=== PATIENT | female | born 1970 | race Two or more races ===

== ENCOUNTER → 2020-10-18 13:10 | Outpatient (BNVA) | payer MEDICAID, SELFPAY | PROVIDERS: PCP Internal Medicine; Referring Provider Internal Medicine; Visit Provider Nurse Practitioner | DX: Z76.89 Persons encountering health services in other specified circumstances (principal) ==

== ENCOUNTER 2020-11-07 13:52 | Outpatient (REF) | payer MEDICAID, SELFPAY | END 2020-11-07 13:53 | disposition home or self-care (01) | LOC: HO.LAB 13:52 | PROVIDERS: Visit Provider Internal Medicine | DX: Z20.828 Contact with and (suspected) exposure to other viral communicable diseases (principal) | CPT/HCPCS: C9803; U0003 ==

== ENCOUNTER 2020-11-20 11:59 | Emergency (ER) | payer MEDICAID, SELFPAY ==
[2020-11-20 12:13] VITALS: BP 131/65; PULSE 86; RESP 18; TEMP 36.8; O2SAT 99; BMI 33.3
--- NOTE | 2020-11-20 12:29 | ED.URI ---
HPI - URI/Sore Throat General Chief Complaint: Upper Respiratory Symptoms Stated Complaint: covid symptoms Time Seen by Provider: 11/20/20 12:17 Source: patient Mode of arrival: ambulatory Limitations: no limitations History of Present Illness HPI Narrative: 50-year-old female here with 5 days of cough, body aches, chills, loss of taste and smell. No fevers, shortness of breath, chest pain. MD elicited complaint: cough Onset (ago): day(s) Consistency: intermittent Severity: mild Able to tolerate fluids by mouth: Yes Exacerbating factors: nothing Relieving factors: nothing Associated symptoms: myalgias and cough Treatments prior to arrival: none Related Data Previous Rx's Medication Instructions Recorded dicyclomine 10 mg capsule 20 mg PO QID 30 Days #240 cap 10/18/20 Allergies Allergy/AdvReac Type Severity Reaction Status Date / Time shrimp Allergy Unknown EYE ITCHING Verified 10/18/20 13:11 Review of Systems Review of Systems: Yes all other systems are reviewed and are negative Constitutional: Constitutional: Reports no additional constitutional complaints, Reports body ache(s), Reports chills, Denies fever(s), Denies headache(s) and Denies weakness Comments: Loss of taste and smell Eyes: Eyes: Reports no additional eye complaints and Denies change in vision ENT: Reports system reviewed and no additional complaints, except as documented, Denies dizziness, Denies headache(s), Denies nasal congestion, Denies nasal discharge and Denies neck pain Cardiovascular: Cardiovascular: Reports no additional cardiovascular complaints, Denies chest pain, Denies leg edema and Denies dyspnea Respiratory: Respiratory: Reports no additional respiratory complaints, Reports cough and Denies dyspnea Gastrointestinal: Gastrointestinal: Reports no additional gastrointestinal complaints, Denies abdominal pain, Denies diarrhea, Denies nausea and Denies vomiting Genitourinary: Genitourinary: Reports no additional female genitourinary complaints and Denies urinary incontinence Musculoskeletal: Musculoskeletal: Reports no additional musculoskeletal complaints, Denies back pain, Denies arthralgias, Denies joint swelling, Denies neck pain, Denies numbness and Denies tingling Integumentary/Breasts: Skin/Breast: Reports system reviewed and no additional complaints, except as docu and Denies rash Neurologic: Reports system reviewed and no additional complaints, except as documented, Denies Abnormal speech present, Denies dizziness, Denies headache(s), Denies numbness, Denies tingling and Denies weakness [facility] Past Medical History Attestation statement: The following information was validated with the patient. Source: old records reviewed and nursing notes reviewed Surgical History Hx of hemorrhoidectomy Hx of hernia repair Hx of tubal ligation Family History Family History Father Heart problem Asthma Mother Colon cancer HTN (hypertension) Varicose vein of leg Family history of diabetes mellitus Social History Social History Household Members: None Alcohol intake: current Alcohol intake frequency: holidays/special occasions only Smoking Status: Never smoker Substance Use Type: Marijuana Advance Directives: No Advance Directives Information Provided: Yes Physical Exam Vital Signs: Vital Signs: Last Vital Signs Temp 98.2 F 11/20/20 12:13 Pulse 86 11/20/20 12:13 Resp 18 11/20/20 12:13 BP 131/65 11/20/20 12:13 Pulse Ox 99 11/20/20 12:13 Body Mass Index 33.3 Const: General: cooperative, healthy appearing, comfortable and no acute distress Orientation/consciousness: patient oriented x3 Limitations: no limitations HENMT: Head: Yes normal to inspection Ears: hearing grossly normal bilaterally General nose exam: Normal external nose present Face and sinus: Yes normal facial exam Mouth: Normal oral and palatal mucosa present Throat: Yes posterior oropharynx normal Eyes: General: appearance normal, both eyes and all related structures Pupils: Equal, round and reactive pupils present Neck: Neck: Yes normal visual inspection Chest: Chest palpation & inspection: normal inspection of the chest Resp: Effort & Inspection: normal respiratory effort Auscultation: clear to auscultation bilaterally Cardio: Rate: regular rate Rhythm: regular rhythm Peripheral pulses: Peripheral pulses 2+ throughout GI: Inspection: Yes normal to inspection Palpation (GI): Soft to palpation and nontender Auscultation: normal bowel sounds Back/Spine/Pelvis: Thoracic/Lumbar Spine: thoracic and lumbar spine normal to inspection Skin: General skin exam: no rashes or lesions noted Neuro: General: patient oriented x3, no focal motor deficits and normal sensation to monofilament Cranial nerves: Yes Equal, round and reactive pupils present Cognition (Neuro): normal cognition Speech: No Abnormal speech present Gait exam (Neuro): Normal gait present Motor exam (neuro): 5/5 motor strength present throughout Extrem: General: Yes normal to inspection Course Course Course Narrative: Patient well-appearing, exam consistent with COVID-19 or viral infection. COVID-19 testing sent. Reviewed worrisome signs and symptoms with the patient. Comfortable with discharge home. Discharge Plan Discharge Clinical Impression: Viral infection Patient Disposition: Home, Self-Care Instructions: Viral Syndrome (ED) Additional Instructions: We have tested you today For COVID-19. We will call you and 3-5 days with the results. Your symptoms are consistent with COVID-19 infection. You should self quarantine until you know your results are. If you are positive you will need to self quarantine for a total of 10 days from when her symptoms started in your symptoms must be resolved for 24hrs. take Motrin Tylenol as needed for pain or fever Increase fluids rest Prescriptions: No Action dicyclomine 10 mg capsule 20 mg PO QID 30 Days Qty: 240 RF: 3 Referrals: Mateo Bowen MD [Primary Care Provider] - 2 days Interventions: ED Discharge Assessment Last Done: 11/20/20 12:55 Discharge Date/Time: 11/20/20 12:57
[2020-11-20 15:25] LABS: Influenza A PCR NEGATIVE (Negative); Influenza B PCR NEGATIVE (Negative); Resp Syncy Virus RNA Qual PCR NEGATIVE (Negative); SARS COV2 PCR INHOUSE POSITIVE (Negative)
== END 2020-11-20 12:57 | disposition home or self-care (01) ==
LOC: HO.ED 12:32
PROVIDERS: Nurse Practitioner Family; Emergency Provider Emergency Medicine; PCP Internal Medicine
DX: U07.1 COVID-19 (principal)
CPT/HCPCS: 0241U; 99283

== ENCOUNTER 2020-12-30 12:35 | Emergency (ER) | payer MEDICAID, SELFPAY ==
[2020-12-30 12:38] VITALS: BP 164/74; PULSE 93; RESP 16; TEMP 37.2; O2SAT 98; BMI 32.9
[2020-12-30] MEDS: cephALEXin 500 MG CAPSULE PO (13:13)
[2020-12-30] MEDS: Lidocaine HCl 1 % MPF 5 ML VIAL SUBCUT (13:13)
--- NOTE | 2020-12-30 13:35 | ED_ITS ---
HPI - Skin/Abscess/Foreign Bdy General Chief complaint: Skin/Abscess/Foreign Body Stated complaint: CYST Time Seen by Provider: 12/30/20 13:05 History of Present Illness HPI narrative: Patient complains of painful small lump on forehead that started as a pimple and she squeezed it and now it has worsened now there is some redness and swelling in the area no fever no chills Related Data Previous Rx's Medication Instructions Recorded dicyclomine 10 mg capsule 20 mg PO QID 30 Days #240 cap 10/18/20 cephalexin [Keflex] 500 mg PO QID 7 Days #28 cap 12/30/20 doxycycline hyclate 100 mg PO BID 7 Days #14 cap 12/30/20 ibuprofen 600 mg PO Q6H PRN #20 tab 12/30/20 oxycodone-acetaminophen [Percocet] 1 tab PO Q6H PRN #10 tab 12/30/20 Allergies Allergy/AdvReac Type Severity Reaction Status Date / Time shrimp Allergy Unknown EYE ITCHING Verified 10/18/20 13:11 Review of Systems Review of Systems: Positive as painful red area on forehead Negatives are no fever no chills no dizziness or weakness no headache no neck pain no neck stiffness no difficulty breathing no nausea no vomiting no other r ed PMFSH Past Medical History Source: nursing notes reviewed Surgical History Hx of hemorrhoidectomy Hx of hernia repair Hx of tubal ligation Family History Family History Father Heart problem Asthma Mother Colon cancer HTN (hypertension) Varicose vein of leg Family history of diabetes mellitus Social History Social History Household Members: None Alcohol intake: current Alcohol intake frequency: holidays/special occasions only Smoking Status: Never smoker Substance Use Type: Marijuana Advance Directives: No Advance Directives Information Provided: Yes Physical Exam Vital Signs: Vital Signs: Last Vital Signs Temp 99.0 F 12/30/20 12:38 Pulse 93 12/30/20 12:38 Resp 16 12/30/20 12:38 BP 164/74 H 12/30/20 12:38 Pulse Ox 98 12/30/20 12:38 Body Mass Index 32.9 General appearance comfortable relax no acute distress A&O x3 The head the forehead has a quarter-sized area of induration with slight fluctuance that is red and tender with some slight erythema surrounding the area, pupils equal round reactive to light there is no tenderness over the sinuses there is no involvement of the orbital area ext locker motions are intact full and painless Neck is supple Respiratory no distress Extremities no rash full range of motion times were Neuro no focal deficit Course Course Course Narrative: ER course procedure note the indurated small fluctuant area on the forehead is cleansed and irrigated with Betadine Anesthesia is 3 cc of 1% lidocaine A very small incision was made with the discharge of a dropper 2 of pus and some watery serosanguineous fluid and the area was probed with forceps and no further pus collection was encountered and no packing was placed and a sterile dressing was placed Discharge Plan Discharge Clinical Impression: Abscess Cellulitis Qualifiers: Site of cellulitis: face Qualified Code(s): L03.211 - Cellulitis of face Abscess of skin or subcutaneous tissue Qualifiers: Site of cutaneous abscess: face Qualified Code(s): L02.01 - Cutaneous abscess of face Patient Disposition: Home, Self-Care Additional Instructions: I drained a small amount of fluid from the forehead abscess Apply warm cloth several times a day to facilitate any further drainage Take antibiotics as prescribed Return in 2-3 days for wound check Return to ER any time for spreading redness, worse pain and swelling, fever, headache, any sign of worse infection or any concerns Prescriptions: New cephalexin [Keflex] 500 mg capsule 500 mg PO QID 7 Days Qty: 28 RF: 0 doxycycline hyclate 100 mg capsule 100 mg PO BID 7 Days Qty: 14 RF: 0 ibuprofen 600 mg tablet 600 mg PO Q6H PRN (Reason: pain) Qty: 20 RF: 0 oxycodone-acetaminophen [Percocet] 5-325 mg tablet 1 tab PO Q6H PRN (Reason: pain) Qty: 10 RF: 0 No Action dicyclomine 10 mg capsule 20 mg PO QID 30 Days Qty: 240 RF: 3 Stand Alone Forms: Work/School Release
== END 2020-12-30 14:01 | disposition home or self-care (01) ==
PROVIDERS: Emergency Provider Emergency Medicine
DX: L02.01 Cutaneous abscess of face (principal); L03.211 Cellulitis of face
CPT/HCPCS: 10060; 87071; 87147; 87186; 87205; 99283; 99284

== ENCOUNTER 2021-01-25 15:08 | Emergency (ER) | payer MEDICAID, SELFPAY ==
[2021-01-25 15:18] VITALS: BP 141/67; PULSE 87; RESP 18; TEMP 36.9; O2SAT 96; BMI 32.5
[2021-01-25 17:16] VITALS: BP 150/84; PULSE 77; RESP 17; TEMP 37; O2SAT 97
--- NOTE | 2021-01-25 17:58 | ED_ITS ---
HPI - General Adult General Chief complaint: General Medical Stated complaint: DIARRHEA Time Seen by Provider: 01/25/21 17:19 Source: patient Mode of arrival: ambulatory Limitations: no limitations History of Present Illness HPI narrative: Patient comes emergency room complaining of 1 year of diarrhea. Patient states every time she eats anything, she goes to the bathroom with diarrhea. No vomiting or abdominal pain. Patient states she has been seen by her PCP and has an appointment pending with Gastroenterology. The reason patient comes to the emergency room today is to try to find out answers why she has chronic diarrhea. She has no worsening symptoms. Related Data Previous Rx's Medication Instructions Recorded dicyclomine 10 mg capsule 20 mg PO QID 30 Days #240 cap 10/18/20 cephalexin [Keflex] 500 mg PO QID 7 Days #28 cap 12/30/20 doxycycline hyclate 100 mg PO BID 7 Days #14 cap 12/30/20 ibuprofen 600 mg PO Q6H PRN #20 tab 12/30/20 oxycodone-acetaminophen [Percocet] 1 tab PO Q6H PRN #10 tab 12/30/20 Allergies Allergy/AdvReac Type Severity Reaction Status Date / Time shrimp Allergy Mild EYE ITCHING Verified 01/25/21 15:17 Review of Systems Review of Systems: Constitutional : No Weight loss, No Fever, No Chills, No Night Sweats, No Fatigue, No Malaise ENT/Mouth : No Hearing loss, No Ear Pain, No Nasal Congestion, No Sinus Pain, No Hoarseness, No sore throat, No Rhinorrhea, No Swallowing Difficulty Eyes: No Eye Pain, No Swelling, No Redness, No Foreign Body, No Discharge, No Vision Changes Cardiovascular : No Chest Pain, No SOB, No Dyspnea on Exertion, No Orthopnea, No Edema, No Palpitations Respiratory : No Cough, No Sputum, No Wheezing, No Smoke Exposure, No Dyspnea Gastrointestinal : No Nausea, No Vomiting, complaining of chronic diarrhea, No Constipation, No abdominal Pain, No Hematochezia, No Melena Genitourinary : no irregular bleeding, No Dysuria, No Urinary Frequency, No Hematuria, No Urinary Incontinence, No Urgency, No Flank Pain, No Urinary Flow Changes, No Hesitancy Musculoskeletal : No joint pain, No Myalgias, No Joint Swelling Skin : No Skin Lesions, No rash Neuro : No Weakness, No Numbness, No Paresthesias, No Loss of Consciousness, No Dizziness, No Headache Psych : No Anxiety/Panic, No Depression, No SI/HI/AH/VH, No Social Issues, Heme/Lymph: No Bruising, No Bleeding,No Lymphadenopathy Endocrine : No Polyuria, No Polydipsia, No Temperature Intolerance PMF Past Medical History Medical History Diabetes Hypertension Surgical History Hx of hemorrhoidectomy Hx of hernia repair Hx of tubal ligation Family History Family History Father Heart problem Asthma Mother Colon cancer HTN (hypertension) Varicose vein of leg Family history of diabetes mellitus Social History Social History Household Members: None Alcohol intake: never Smoking Status: Never smoker Use of substances other than those prescribed or required for medical reasons: Yes Substance Use Type: Marijuana Substance Use Frequency: Occasionally Advance Directives: No Advance Directives Information Provided: No Physical Exam Vital Signs: Vital Signs: Last Vital Signs Temp 98.6 F 01/25/21 17:16 Pulse 77 01/25/21 17:16 Resp 17 01/25/21 17:16 BP 150/84 H 01/25/21 17:16 Pulse Ox 97 01/25/21 17:16 Body Mass Index 32.5 Appearance: Alert. Oriented X3. No acute distress. Eyes: Pupils equal, round and reactive to light. ENT: Pharynx normal. Neck: Normal inspection. Neck supple. No lymph nodes noted. No crepitus CVS: Normal heart rate and rhythm. Pulses normal. Normal S1 and S2 Respiratory: No respiratory distress. Breath sounds normal. No Wheezing. No rales Abdomen: Soft and nontender. No rigidity. No distention. good BS x4 Skin: Skin warm and dry. Normal skin color. Normal skin turgor. Extremities: No lower extremity edema. No lower extremity edema. No Lacerations. No Rash Neuro: Oriented X 3. No motor deficit. No sensory deficit. Moving all extermities. No slurred speech. Course Course Course Narrative: I discussed the labs with the patient, at this time, she was hydrated, she already has an appointment pending with her regional engagement consultant. Patient will follow-up as outpatient. Patient states she has tried multiple medications for chronic diarrhea with no effect. Medical Decision Making Lab Data Result diagrams: 01/25/21 18:37 01/25/21 18:36 Labs: Lab Results 01/25/21 01/25/21 01/25/21 Range/Units 18:36 18:37 18:37 WBC 5.5 (4.8-10.8) X10*3/uL RBC 5.22 (4.20-5.50) X10*6/uL Hgb 14.2 (12.0-16.0) g/dl Hct 44.3 (37-47) % MCV 84.9 (80-98) fL MCH 27.2 (27.0-33.0) pg MCHC 32.1 (31.0-35.0) g/dl RDW 12.9 (11.0-16.0) % Plt Count 258 (160-400) X10*3/uL MPV 9.8 (9.4-12.3) fL Immature Gran % (Auto) 0.2 (0.0-0.4) % Neut % (Auto) 46.3 (45-73) % Lymph % (Auto) 42.4 H (20-40) % [place] % (Auto) 7.1 (2-11) % Eos % (Auto) 3.3 (0-4) % Baso % (Auto) 0.7 (0-2) % Lymph # (Auto) 2.3 (1.2-4.9) X10*3/uL [place] # (Auto) 0.4 (0.1-1.2) X10*3/uL Eos # (Auto) 0.2 (0.0-0.4) X10*3/uL Baso # (Auto) 0.0 (0.0-0.2) X10*3/uL Abs Immat Gran (auto) 0.01 (0.00-0.03) X10*3/uL Absolute Neuts (auto) 2.6 (2.0-8.3) X10*3/uL Absolute Nucleated RBC 0.000 (0.0-0.012) X10*3/uL Nucleated RBC % (auto) 0.0 (0.0-0.2) /100WBC Sodium 139 (135-145) mmol/L Potassium 4.0 (3.3-5.1) mmol/L Chloride 98 (96-108) mmol/L Carbon Dioxide 30 H (22-29) mmol/L Anion Gap 15 (12-20) BUN 9 (9-16) mg/dL Creatinine 0.71 (0.5-1.4) mg/dL Estim Creat Clear Calc 93.2 Estimated GFR > 60 Random Glucose 264 H (60-115) mg/dL Calcium 9.8 (8.4-10.2) mg/dL Total Bilirubin 0.4 (0.0-1.0) mg/dL Direct Bilirubin < 0.2 (0.0-0.5) mg/dL AST 17 (5-31) U/L ALT 21 (0-31) U/L Alkaline Phosphatase 77 (39-117) U/L Total Protein 7.6 (6.5-8.0) g/dL Albumin 4.4 (3.5-5.0) g/dL Lipase 190 H (8-78) U/L Discharge Plan Discharge Clinical Impression: Chronic diarrhea Patient Disposition: Home, Self-Care Instructions: Chronic Diarrhea (ED) Additional Instructions: Please follow-up with your primary care physician tomorrow. If you have any worsening or new symptoms, please return to the emergency room or call 911 Prescriptions: No Action dicyclomine 10 mg capsule 20 mg PO QID 30 Days Qty: 240 RF: 3 cephalexin [Keflex] 500 mg capsule 500 mg PO QID 7 Days Qty: 28 RF: 0 doxycycline hyclate 100 mg capsule 100 mg PO BID 7 Days Qty: 14 RF: 0 ibuprofen 600 mg tablet 600 mg PO Q6H PRN (Reason: pain) Qty: 20 RF: 0 oxycodone-acetaminophen [Percocet] 5-325 mg tablet 1 tab PO Q6H PRN (Reason: pain) Qty: 10 RF: 0
[2021-01-25] MEDS: 0.9 % Sodium Chloride 1,000 ML 999 ML IVCONT (18:37)
[2021-01-25 18:46] LABS: MANUAL DIFF FLAG NO
[2021-01-25 18:47] LABS: Basophils Percent Auto 0.7 % (0-2); Eosinophils Absolute Auto 0.2 X10*3/uL (0.0-0.4); Eosinophils Percent Auto 3.3 % (0-4); Hematocrit 44.3 % (37-47); Hemoglobin 14.2 g/dl (12.0-16.0); Imm Gran Abs Auto 0.01 X10*3/uL (0.00-0.03); Imm Gran Pct Auto 0.2 % (0.0-0.4); Lymphocytes Absolute Auto 2.3 X10*3/uL (1.2-4.9); Lymphocytes Percent Auto 42.4 % (20-40); Mean Corpuscular HGB Conc 32.1 g/dl (31.0-35.0); Mean Corpuscular Hemoglobin 27.2 pg (27.0-33.0); Mean Corpuscular Volume 84.9 fL (80-98); Mean Platelet Volume 9.8 fL (9.4-12.3); Monocytes Absolute Auto 0.4 X10*3/uL (0.1-1.2); Monocytes Percent Auto 7.1 % (2-11); Neutrophils Absolute Auto 2.6 X10*3/uL (2.0-8.3); Neutrophils Percent Auto 46.3 % (45-73); Platelet Count 258 X10*3/uL (160-400); Red Blood Count 5.22 X10*6/uL (4.20-5.50); Red Cell Distribution Width 12.9 % (11.0-16.0); White Blood Count 5.5 X10*3/uL (4.8-10.8)
[2021-01-25 19:15] LABS: Alanine Aminotransferase 21 U/L (0-31); Albumin Level 4.4 g/dL (3.5-5.0); Alkaline Phosphatase 77 U/L (39-117); Anion Gap 15 (12-20); Aspartate Amino Transferase 17 U/L (5-31); Bilirubin Direct < 0.2 mg/dL (0.0-0.5); Bilirubin Total 0.4 mg/dL (0.0-1.0); Blood Urea Nitrogen 9 mg/dL (9-16); Calcium 9.8 mg/dL (8.4-10.2); Carbon Dioxide 30 mmol/L (22-29); Chloride 98 mmol/L (96-108); Creatinine Clr Calc Pharmacy 93.2; Estimated Glomerular Filt Rate > 60; Glucose Random 264 mg/dL (60-115); Sodium 139 mmol/L (135-145); Total Protein 7.6 g/dL (6.5-8.0)
[2021-01-25 20:13] LABS: Lipase 190 U/L (8-78)
== END 2021-01-25 20:53 | disposition home or self-care (01) ==
PROVIDERS: Emergency Provider Emergency Medicine; PCP Internal Medicine
DX: R19.7 Diarrhea, unspecified (principal); E11.9 Type 2 diabetes mellitus without complications; I10 Essential (primary) hypertension; F12.90 Cannabis use, unspecified, uncomplicated; Z79.899 Other long term (current) drug therapy
CPT/HCPCS: 36415; 80048; 80076; 83690; 85025; 96360; 99284

== ENCOUNTER → 2021-03-05 14:27 | Outpatient (BNVA) | payer MEDICAID, SELFPAY | PROVIDERS: PCP Internal Medicine; Visit Provider Nurse Practitioner ==

== ENCOUNTER 2021-03-06 13:44 | Outpatient (REF) | payer MEDICAID, SELFPAY ==
[2021-03-10 13:17] LABS: Gliadin Deamidated IgA Ab 4 Units; Gliadin Deamidated IgG Ab 2 Units
[2021-03-11 13:12] LABS: Transglutaminase Ab IgG 1 U/mL; Transglutaminase IgA 1 U/mL
== END 2021-03-06 13:45 | disposition home or self-care (01) ==
LOC: HO.LAB 13:44
PROVIDERS: PCP Internal Medicine; Visit Provider Nurse Practitioner
DX: R10.11 Right upper quadrant pain (principal); K58.0 Irritable bowel syndrome with diarrhea
CPT/HCPCS: 36415; 83516

== ENCOUNTER 2021-03-12 14:10 | Outpatient (REF) | payer MEDICAID, SELFPAY | END 2021-03-12 14:11 | disposition home or self-care (01) | LOC: HO.LNP 14:10 | PROVIDERS: Visit Provider Nurse Practitioner | DX: A04.8 Other specified bacterial intestinal infections (principal); K58.0 Irritable bowel syndrome with diarrhea | CPT/HCPCS: 87338 ==

== ENCOUNTER 2021-03-19 09:24 | Outpatient (REF) | payer MEDICAID, SELFPAY ==
--- NOTE | ~2021-03-19 | US_ITS ---
EXAMINATION: US ABDOMEN COMPLETE CLINICAL INFORMATION: Right upper quadrant pain. COMPARISON: Ultrasound abdomen limited 01/04/2018. CT abdomen pelvis 04/05/2015. TECHNIQUE: Real-time imaging of the abdominal viscera. FINDINGS: PANCREAS: The pancreas is normal size with a heterogenous echotexture but no focal lesion seen. The tail of pancreas is not seen well. ABDOMINAL AORTA: The proximal, mid, and distal segments are normal in caliber. INFERIOR VENA CAVA: Visualized portions are normal. LIVER: The liver is normal in size. The liver contour is normal. Parenchymal echogenicity is increased. No focal hepatic lesion. There is no intrahepatic biliary duct dilatation seen. GALLBLADDER: Gallbladder wall thickness is 0.15 cm. The gallbladder is physiologically distended without evidence of stones, sludge, polyps, wall thickening or pericholecystic fluid. COMMON BILE DUCT: Normal in caliber measuring 0.4 cm in diameter. RIGHT KIDNEY: There is an anechoic cyst midpole laterally measuring 1.2 x 0.9 x 1.0 cm. It has posterior wall rim calcification. No hydronephrosis or renal calculi. The kidney measures 10.9 cm in maximum dimension. LEFT KIDNEY: There is echogenic lesion in the midpole measuring 0.7 x 0.5 x 0.8 cm, suggestive of angiomyolipoma.. No hydronephrosis. No renal calculi or focal parenchymal lesions. The kidney measures 10.7 cm in maximum dimension. SPLEEN: Normal. The spleen measures 10.0 cm in maximum dimension. FREE FLUID: None. US/US abdomen complete IMPRESSION: Angiomyolipoma left kidney midpole. Complex cyst midpole right kidney. Heterogenous echotexture of the pancreas with tail of the pancreas is not seen well. Mild hepatic echogenicity. No focal lesion seen.
== END 2021-03-19 09:25 | disposition home or self-care (01) ==
LOC: HO.US 09:24
PROVIDERS: Visit Provider Nurse Practitioner
DX: R10.11 Right upper quadrant pain (principal)
CPT/HCPCS: 76700

== ENCOUNTER → 2021-04-02 14:58 | Outpatient (BNVA) | payer MEDICAID, SELFPAY | PROVIDERS: PCP Internal Medicine; Visit Provider Nurse Practitioner ==

== ENCOUNTER 2021-08-06 15:08 | Outpatient (REF) | payer MEDICAID, SELFPAY ==
--- NOTE | ~2021-08-06 | MM_ITS ---
EXAMINATION: MM SCREENING DIGITAL BREAST TOMOSYNTHESIS, BILATERAL CLINICAL INFORMATION: Screening. Asymptomatic. The lifetime risk of breast cancer based on the Tyrer-Cuzick Model is 6%. COMPARISON: Mammography: 04/21/2019, 04/20/2018, 03/09/2017 TECHNIQUE: Digital breast tomosynthesis is performed in both the craniocaudal and mediolateral oblique views along with computer-aided detection (CAD). Synthesized 2D images are generated from the tomosynthesis. Additional left MLO view is provided. FINDINGS: The breasts are heterogeneously dense, which may obscure small masses (ACR BI-RADS breast composition Category c). Breast tissue composition borders on average fibroglandular. Parenchymal pattern is similar to prior studies. No developing density. There are scattered bilateral vascular calcifications. The axilla and skin contours are unremarkable. MM/MM tomosynthesis screening BI IMPRESSION: No mammographic evidence of malignancy. ASSESSMENT: BI-RADS 1: Negative RECOMMENDATION: Routine annual mammography screening. This patient's information was entered into a reminder system with a target due date for their next mammogram.
== END 2021-08-06 15:09 | disposition home or self-care (01) ==
LOC: HO.MAMMO 15:08
PROVIDERS: PCP Internal Medicine; Visit Provider Internal Medicine
DX: Z12.31 Encounter for screening mammogram for malignant neoplasm of breast (principal)
CPT/HCPCS: 77063; 77067

== ENCOUNTER → 2021-10-07 16:15 | Outpatient (BNVA) | payer MEDICAID, SELFPAY | PROVIDERS: PCP Internal Medicine; Visit Provider Nurse Practitioner ==

== ENCOUNTER → 2021-12-12 10:27 | Outpatient (BNVA) | payer MEDICAID, SELFPAY | PROVIDERS: PCP Internal Medicine; Referring Provider Internal Medicine; Visit Provider Nurse Practitioner | DX: K58.0 Irritable bowel syndrome with diarrhea (principal); R10.11 Right upper quadrant pain; E11.9 Type 2 diabetes mellitus without complications; Z79.84 Long term (current) use of oral hypoglycemic drugs; Z86.19 Personal history of other infectious and parasitic diseases | CPT/HCPCS: 99212 ==

== ENCOUNTER 2022-01-08 12:07 | Outpatient (REF) | payer MEDICAID, SELFPAY ==
[2022-01-08 13:30] LABS: MANUAL DIFF FLAG NO
[2022-01-08 13:48] LABS: Basophils Percent Auto 0.4 % (0-2); Eosinophils Absolute Auto 0.1 X10*3/uL (0.0-0.4); Eosinophils Percent Auto 1.5 % (0-4); Hematocrit 41.6 % (37.0-47.0); Hemoglobin 13.8 g/dl (12.0-16.0); Imm Gran Abs Auto 0.01 X10*3/uL (0.00-0.03); Imm Gran Pct Auto 0.2 % (0.0-0.4); Lymphocytes Absolute Auto 1.8 X10*3/uL (1.2-4.9); Lymphocytes Percent Auto 33.8 % (20-40); Mean Corpuscular HGB Conc 33.2 g/dl (31.0-35.0); Mean Corpuscular Hemoglobin 27.5 pg (27.0-33.0); Mean Corpuscular Volume 82.9 fL (80.0-98.0); Mean Platelet Volume 9.6 fL (9.4-12.3); Monocytes Absolute Auto 0.3 X10*3/uL (0.1-1.2); Monocytes Percent Auto 5.9 % (2-11); Neutrophils Absolute Auto 3.2 x10*3/uL (2.0-8.3); Neutrophils Percent Auto 58.2 % (45-73); Platelet Count 302 X10*3/uL (160-400); Red Blood Count 5.02 X10*6/uL (4.20-5.50); Red Cell Distribution Width 13.1 % (11.0-16.0); White Blood Count 5.4 X10*3/uL (4.8-10.8)
[2022-01-08 13:59] LABS: Estimated Average Glucose 249 mg/dL; Hemoglobin A1c % 10.3 %
[2022-01-08 14:20] LABS: Alanine Aminotransferase 17 U/L (0-31); Albumin Level 4.4 g/dL (3.5-5.0); Alkaline Phosphatase 73 U/L (39-117); Anion Gap 16 (12-20); Aspartate Amino Transferase 12 U/L (5-31); Bilirubin Total 0.2 mg/dL (0.0-1.0); Blood Urea Nitrogen 10 mg/dL (9-16); C Reactive Protein 0.35 mg/dL (< or = 0.50); Calcium 10.4 mg/dL (8.4-10.2); Carbon Dioxide 28 mmol/L (22-29); Chloride 101 mmol/L (96-108); Estimated Glomerular Filt Rate > 60; Glucose Random 212 mg/dL (60-115); Potassium 4.5 mmol/L (3.3-5.1); Sodium 140 mmol/L (135-145); Total Protein 7.8 g/dL (6.5-8.0)
== END 2022-01-08 12:08 | disposition home or self-care (01) ==
LOC: HO.LAB 12:07
PROVIDERS: PCP Internal Medicine; Referring Provider Internal Medicine; Visit Provider Nurse Practitioner
DX: R10.11 Right upper quadrant pain (principal); K58.0 Irritable bowel syndrome with diarrhea; E11.9 Type 2 diabetes mellitus without complications
CPT/HCPCS: 36415; 80053; 83036; 85025; 86140; 99212

== ENCOUNTER 2022-01-09 13:46 | Outpatient (REF) | payer MEDICAID, SELFPAY ==
[2022-01-09 15:16] LABS: CDiff Gene PCR NEGATIVE (Negative)
== END 2022-01-09 13:47 | disposition home or self-care (01) ==
LOC: HO.LNP 13:46
PROVIDERS: Visit Provider Nurse Practitioner
DX: K58.0 Irritable bowel syndrome with diarrhea (principal)
CPT/HCPCS: 87045; 87046; 87493

== ENCOUNTER → 2022-01-26 13:36 | Outpatient (BNVA) | payer MEDICAID, SELFPAY | PROVIDERS: PCP Internal Medicine; Referring Provider Internal Medicine; Visit Provider Nurse Practitioner | DX: K58.2 Mixed irritable bowel syndrome (principal); E11.9 Type 2 diabetes mellitus without complications; Z79.84 Long term (current) use of oral hypoglycemic drugs | CPT/HCPCS: 99212 ==

== ENCOUNTER 2022-05-11 20:30 | Emergency (ER) | payer MEDICAID, SELFPAY ==
[2022-05-11 21:01] VITALS: BP 134/70; PULSE 91; RESP 18; TEMP 37.6; O2SAT 96; BMI 30.2
[2022-05-11 21:16] LABS: MANUAL DIFF FLAG NO
[2022-05-11 21:31] LABS: Basophils Percent Auto 0.3 % (0-2); Eosinophils Absolute Auto 0.1 X10*3/uL (0.0-0.4); Eosinophils Percent Auto 0.8 % (0-4); Hematocrit 37.8 % (37.0-47.0); Hemoglobin 12.7 g/dl (12.0-16.0); Imm Gran Abs Auto 0.02 X10*3/uL (0.00-0.03); Imm Gran Pct Auto 0.2 % (0.0-0.4); Lymphocytes Absolute Auto 1.9 X10*3/uL (1.2-4.9); Lymphocytes Percent Auto 22.2 % (20-40); Mean Corpuscular HGB Conc 33.6 g/dl (31.0-35.0); Mean Corpuscular Hemoglobin 27.6 pg (27.0-33.0); Mean Corpuscular Volume 82.2 fL (80.0-98.0); Mean Platelet Volume 10.5 fL (9.4-12.3); Monocytes Absolute Auto 0.7 X10*3/uL (0.1-1.2); Monocytes Percent Auto 7.5 % (2-11); Neutrophils Absolute Auto 5.9 x10*3/uL (2.0-8.3); Platelet Count 256 X10*3/uL (160-400); Red Cell Distribution Width 12.6 % (11.0-16.0); White Blood Count 8.6 X10*3/uL (4.8-10.8)
[2022-05-11 21:40] LABS: Influenza A Negative (Negative); Influenza B2 Negative (Negative)
[2022-05-11 21:41] LABS: Alanine Aminotransferase 15 U/L (0-31); Albumin Level 3.9 g/dL (3.5-5.0); Alkaline Phosphatase 84 U/L (39-117); Anion Gap 12 (12-20); Aspartate Amino Transferase 10 U/L (5-31); Bilirubin Total 0.6 mg/dL (0.0-1.0); Blood Urea Nitrogen 14 mg/dL (9-16); Calcium 9.3 mg/dL (8.4-10.2); Carbon Dioxide 29 mmol/L (22-29); Chloride 95 mmol/L (96-108); Creatinine Clr Calc Pharmacy 78.9; Estimated Glomerular Filt Rate > 60; Glucose Random 444 mg/dL (60-115); Potassium 3.9 mmol/L (3.3-5.1); Sodium 132 mmol/L (135-145)
[2022-05-11 21:55] LABS: Acetone, serum QL Negative (Negative)
--- NOTE | 2022-05-11 22:02 | ED_ITS ---
HPI - General Adult General Chief complaint: Upper Respiratory Symptoms Stated complaint: Cyst on back, causing fatigue n/v Time Seen by Provider: 05/11/22 21:37 Source: patient Mode of arrival: ambulatory History of Present Illness HPI narrative: 51-year-old female with a past medical history of hypertension, diabetes, presenting to the ED complaining of myalgias, subjective fever, and cyst to mid back x couple days. Admits to popping cyst on back yesterday with slight drainage. Denies documented fever, ear pain, sore throat, cough, chest pain, shortness of breath, abdominal pain, nausea/vomiting Onset (ago): day(s) Related Data Home Medications Medication Instructions Recorded Confirmed glipizide 10 mg tablet 10 mg PO BID 03/05/21 paroxetine HCl 40 mg tablet (Paxil) 40 mg PO DAILY 03/05/21 gabapentin 100 mg capsule 100 mg PO TID 01/26/22 insulin glargine 100 unit/mL 10 unit subcut BEDTIME 01/26/22 subcutaneous solution (Lantus U-100 Insulin) lisinopril 10 mg tablet 10 mg PO DAILY 01/26/22 metformin 850 mg tablet 850 mg PO 01/26/22 paroxetine HCl 20 mg tablet 20 mg PO DAILY 01/26/22 sitagliptin 100 mg tablet (Januvia) 100 mg PO DAILY 01/26/22 Previous Rx's Medication Instructions Recorded ibuprofen 600 mg tablet 600 mg PO Q6H PRN pain #20 tabs 12/30/20 sennosides 8.6 mg capsule (senna) 17.2 mg PO BEDTIME constipation 30 01/26/22 days #60 caps cephalexin 500 mg capsule 500 mg PO QID 7 days #28 caps 05/11/22 doxycycline hyclate 100 mg tablet 100 mg PO BID 7 days #14 tabs 05/11/22 Allergies Allergy/AdvReac Type Severity Reaction Status Date / Time shrimp Allergy Mild EYE ITCHING Verified 01/26/22 14:10 Review of Systems Review of Systems: Constitutional: No Weight loss, +subj Fever, No Chills ENT/Mouth: No Ear Pain, No Nasal Congestion, No Sinus Pain, No sore throat, No Rhinorrhea, No Swallowing Difficulty Cardiovascular: No Chest Pain, No SOB Respiratory: No Cough, No Sputum, No Wheezing Gastrointestinal: No Nausea, No Vomiting, No Diarrhea, No Constipation, No Abdominal pain Genitourinary: No Dysuria, No Urinary Frequency, No Hematuria, No Urinary Incontinence/retention, No Flank Pain Musculoskeletal: No joint pain, No Myalgias, No Joint Swelling Skin: +abscess, No rash Neuro: No Weakness, No Numbness Yes all other systems are reviewed and are negative [facility] Past Medical History Attestation statement: The following information was validated with the patient. Medical History Diabetes Hypertension Surgical History H/O colonoscopy Hx of hemorrhoidectomy Hx of hernia repair Hx of tubal ligation Family History Family History Father Heart problem Asthma Mother Colon cancer HTN (hypertension) Varicose vein of leg Family history of diabetes mellitus Social History Social History Household Members: None Alcohol intake: current Alcohol intake frequency: holidays/special occasions only Substance Use Type: Marijuana Advance Directives: No Advance Directives Information Provided: No Physical Exam ED Vital Signs: Vital Signs - 24 hr 05/11/22 21:01 Temperature 99.6 F Pulse Rate 91 Respiratory Rate 18 Blood Pressure 134/70 Pulse Oximetry 96 Oxygen Delivery Method Room Air BMI result Body Mass Index 30.2 Const General: cooperative, healthy appearing and no acute distress Orientation/consciousness: patient oriented x3 Limitations: no limitations HENMT Head: Yes normal to inspection and Yes atraumatic Ears: hearing grossly normal bilaterally, external ears normal and mastoids normal General nose exam: Normal external nose present Face and sinus: Yes normal facial exam Mouth: Normal oral and palatal mucosa present Throat: Yes posterior oropharynx normal, Yes tonsils normal, Yes uvula midline, No peritonsillar mass and No uvular edema Eyes General: appearance normal, both eyes and all related structures EOM: EOMs intact bilaterally Neck Neck: Yes normal visual inspection and Yes no meningeal signs Resp Effort & Inspection: normal respiratory effort and no respiratory distress Auscultation: clear to auscultation bilaterally Cardio Rate: regular rate Heart sounds: S1 normal heart sound present and S2 normal heart sound present GI Inspection: Yes normal to inspection Skin Other: + indurated abscess noted to right mid-back with overlying cellulitis. Mildly tender to palpation. No fluctuance. No streaking. No drainage or pointing Rashes: no rashes Wounds: no wounds Neuro General: patient oriented x3, tone normal and no meningeal signs Gait exam (Neuro): Normal gait present Extrem General: Yes normal to inspection Course Course Course Narrative: -2206--no leukocytosis, sodium 132, glucose elevated to 444 >> corrected for hyperglycemia is 138. No anion gap -acetone negative > patient given 5 units subQ insulin -COVID-19 and influenza negative -UA without ketones -0--repeat POC 317. Discussed results with patient including needed close monitoring of glucose due to active infection, she verbalized understanding and feels safe for discharge home Medical Decision Making [facility] Narrative Medical decision making narrative: 51-year-old female with a past medical history of hypertension, diabetes, presenting to the ED complaining of myalgias, subjective fever, and cyst to mid back x couple days. On exam vital signs stable, low-grade temp to 99.6, NAD/nontoxic-appearing, indurated abscess with overlying cellulitis noted to right mid back. Exam otherwise nonfocal. Concern for cellulitis. Area not drainable at this time. Also concern for viral infection including COVID-19 or influenza Plan: Labs ordered in triage, COVID-19/influenza testing Medical Records Medical records reviewed: Yes I reviewed the patient's medical records. Lab Data Lab results reviewed: Yes I reviewed the patient's lab results. Result diagrams: 05/11/22 21:08 05/11/22 21:08 Labs: Lab Results 05/11/22 05/11/22 05/11/22 Range/Units 21:08 21:08 21:08 WBC 8.6 (4.8-10.8) X10*3/uL RBC 4.60 (4.20-5.50) X10*6/uL Hgb 12.7 (12.0-16.0) g/dl Hct 37.8 (37.0-47.0) % MCV 82.2 (80.0-98.0) fL MCH 27.6 (27.0-33.0) pg MCHC 33.6 (31.0-35.0) g/dl RDW 12.6 (11.0-16.0) % Plt Count 256 (160-400) X10*3/uL MPV 10.5 (9.4-12.3) fL Immature Gran % (Auto) 0.2 (0.0-0.4) % Neut % (Auto) 69.0 (45-73) % Lymph % (Auto) 22.2 (20-40) % [place] % (Auto) 7.5 (2-11) % Eos % (Auto) 0.8 (0-4) % Baso % (Auto) 0.3 (0-2) % Lymph # (Auto) 1.9 (1.2-4.9) X10*3/uL [place] # (Auto) 0.7 (0.1-1.2) X10*3/uL Eos # (Auto) 0.1 (0.0-0.4) X10*3/uL Baso # (Auto) 0.0 (0.0-0.2) X10*3/uL Abs Immat Gran (auto) 0.02 (0.00-0.03) X10*3/uL Absolute Neuts (auto) 5.9 (2.0-8.3) x10*3/uL Absolute Nucleated RBC 0.000 (0.0-0.012) X10*3/uL Nucleated RBC % (auto) 0.0 (0.0-0.2) /100WBC Sodium 132 L (135-145) mmol/L Potassium 3.9 (3.3-5.1) mmol/L Chloride 95 L (96-108) mmol/L Carbon Dioxide 29 (22-29) mmol/L Anion Gap 12 (12-20) BUN 14 (9-16) mg/dL Creatinine 0.80 (0.5-1.4) mg/dL Estim Creat Clear Calc 78.9 Estimated GFR > 60 Random Glucose 444 H* (60-115) mg/dL Calcium 9.3 D (8.4-10.2) mg/dL Total Bilirubin 0.6 (0.0-1.0) mg/dL AST 10 (5-31) U/L ALT 15 (0-31) U/L Alkaline Phosphatase 84 (39-117) U/L Total Protein 7.0 (6.5-8.0) g/dL Albumin 3.9 (3.5-5.0) g/dL Urine Color Urine Appearance Urine pH (5.0-8.0) Ur Specific [place] (1.005-1.025) Urine Protein (NEG-TRACE) MG/DL Urine Glucose (UA) (NEG) MG/DL Urine Ketones (NEG) MG/DL Urine Blood (NEG) Urine Nitrite (NEG) Ur Leukocyte Esterase (NEG) Urine RBC (0) /HPF Urine WBC (0-4) /HPF Ur Squamous Epith Cells /LPF Urine Bacteria /LPF Acetone, Qual Negative (Negative) COVID-19 (ZACH) (Negative) COVID-19 Clin Com Influenza Type A (DAVID) Negative (Negative) Influenza Type B (DAVID) Negative (Negative) Influenza A & B Note See Note 05/11/22 05/11/22 05/11/22 Range/Units 21:08 22:11 22:44 WBC (4.8-10.8) X10*3/uL RBC (4.20-5.50) X10*6/uL Hgb (12.0-16.0) g/dl Hct (37.0-47.0) % MCV (80.0-98.0) fL MCH (27.0-33.0) pg MCHC (31.0-35.0) g/dl RDW (11.0-16.0) % Plt Count (160-400) X10*3/uL MPV (9.4-12.3) fL Immature Gran % (Auto) (0.0-0.4) % Neut % (Auto) (45-73) % Lymph % (Auto) (20-40) % [place] % (Auto) (2-11) % Eos % (Auto) (0-4) % Baso % (Auto) (0-2) % Lymph # (Auto) (1.2-4.9) X10*3/uL [place] # (Auto) (0.1-1.2) X10*3/uL Eos # (Auto) (0.0-0.4) X10*3/uL Baso # (Auto) (0.0-0.2) X10*3/uL Abs Immat Gran (auto) (0.00-0.03) X10*3/uL Absolute Neuts (auto) (2.0-8.3) x10*3/uL Absolute Nucleated RBC (0.0-0.012) X10*3/uL Nucleated RBC % (auto) (0.0-0.2) /100WBC Sodium (135-145) mmol/L Potassium (3.3-5.1) mmol/L Chloride (96-108) mmol/L Carbon Dioxide (22-29) mmol/L Anion Gap (12-20) BUN (9-16) mg/dL Creatinine (0.5-1.4) mg/dL Estim Creat Clear Calc Estimated GFR Random Glucose (60-115) mg/dL Calcium (8.4-10.2) mg/dL Total Bilirubin (0.0-1.0) mg/dL AST (5-31) U/L ALT (0-31) U/L Alkaline Phosphatase (39-117) U/L Total Protein (6.5-8.0) g/dL Albumin (3.5-5.0) g/dL Urine Color YELLOW Urine Appearance CLEAR Urine pH 6.0 (5.0-8.0) Ur Specific [place] 1.010 (1.005-1.025) Urine Protein NEG (NEG-TRACE) MG/DL Urine Glucose (UA) >=1000 H (NEG) MG/DL Urine Ketones NEG (NEG) MG/DL Urine Blood NEG (NEG) Urine Nitrite NEG (NEG) Ur Leukocyte Esterase NEG (NEG) Urine RBC 0 (0) /HPF Urine WBC 0-2 (0-4) /HPF Ur Squamous Epith Cells 2+ /LPF Urine Bacteria 1+ /LPF Acetone, Qual (Negative) COVID-19 (ZACH) Negative (Negative) COVID-19 Clin Com See Note Influenza Type A (DAVID) Negative (Negative) Influenza Type B (DAVID) Negative (Negative) Influenza A & B Note See Note Discharge Plan Discharge Clinical Impression: Abscess, Acute hyperglycemia, Cellulitis Patient Disposition: Home, Self-Care Instructions: Cellulitis (ED), Abscess (ED), Diabetic Hyperglycemia (ED), A bscess Follow-up (ED) Additional Instructions: Doxycycline and Keflex are antibiotics please take as prescribed. Keep a close eye on your abscess if it becomes pointing like a pimple head, is draining, becomes larger or more painful please return to ED for evaluation Your glucose was high today this is likely from her infection, monitor closely at home, do not miss any of her diabetic medications. If her unable to control her sugar please return to the ED If you develop fevers, symptoms persist or worsening please call 911 Prescriptions: New cephalexin 500 mg capsule 500 mg PO QID 7 Days Qty: 28 0RF doxycycline hyclate 100 mg tablet 100 mg PO BID 7 Days Qty: 14 0RF No Action ibuprofen 600 mg tablet 600 mg PO Q6H PRN (Reason: pain) Qty: 20 0RF glipizide 10 mg tablet 10 mg PO BID paroxetine HCl [Paxil] 40 mg tablet 40 mg PO DAILY metformin 850 mg tablet 850 mg PO gabapentin 100 mg capsule 100 mg PO TID lisinopril 10 mg tablet 10 mg PO DAILY paroxetine HCl 20 mg tablet 20 mg PO DAILY Lantus U-100 Insulin 100 unit/mL solution 10 unit subcut BEDTIME Januvia 100 mg tablet 100 mg PO DAILY senna 8.6 mg capsule 17.2 mg PO BEDTIME 30 Days Qty: 60 6RF
[2022-05-11] MEDS: cephALEXin 500 MG CAPSULE PO (22:06)
[2022-05-11] MEDS: Insulin Lispro 100 UNIT/ML 3 ML VIAL SUBCUT (22:07)
[2022-05-11 22:09] LABS: COVID-19 Test Negative (Negative); IDNOW Serial# 16C4AD1C
[2022-05-11 22:40] LABS: IDNOW Serial# 16C4AD1C; Influenza A Negative (Negative); Influenza B2 Negative (Negative)
[2022-05-11 22:57] LABS: Appearance Urine CLEAR; Color Urine YELLOW; Glucose Urine UA >=1000 MG/DL (NEG); Leukocyte Esterase Urine NEG (NEG); Nitrite Urine NEG (NEG); Urine Blood NEG (NEG); Urine Ketones NEG (NEG); Urine Protein NEG (NEG-TRACE)
[2022-05-11 23:03] LABS: Bacteria Urine 1+ /LPF; RBC Urine 0 /HPF (0); Squamous Epithelial Cell Urine 2+ /LPF; WBC Urine 0-2 /HPF (0-4)
[2022-05-11 23:21] LABS: Glucose, Whole Blood 318 mg/dL (60-115)
== END 2022-05-12 00:02 | disposition home or self-care (01) ==
PROVIDERS: Physician Assistant; Emergency Provider Internal Medicine; PCP Student in an Organized Health Care Education/Training Program
DX: L03.312 Cellulitis of back [any part except buttock and flank] (principal); L02.212 Cutaneous abscess of back [any part, except buttock and flank]; E11.65 Type 2 diabetes mellitus with hyperglycemia; I10 Essential (primary) hypertension; Z20.822 Contact with and (suspected) exposure to COVID-19
CPT/HCPCS: 80053; 81001; 82009; 82947; 85025; 87502; 87635; 99283; 99284

== ENCOUNTER 2022-05-14 12:11 | Emergency (ER) | payer MEDICAID, SELFPAY ==
[2022-05-14 12:19] VITALS: BP 133/70; PULSE 88; RESP 16; TEMP 36.6; O2SAT 99; BMI 29.8
--- NOTE | 2022-05-14 13:56 | ED_ITS ---
HPI - Skin/Abscess/Foreign Bdy General Chief complaint: Skin/Abscess/Foreign Body Stated complaint: cyst on back Time Seen by Provider: 05/14/22 13:22 Source: patient Mode of arrival: ambulatory Limitations: no limitations History of Present Illness HPI narrative: patient presents to the emergency department for evaluation of a cyst to her mid right back times about 1 week. she reports being seen in the emergency department 3 days ago, states that there was no indication for drainage at that time, she was given oral prescriptions for doxycycline and Keflex and advised to come back if worsening. states that she is having increasing pain, redness, and localized swelling. She reports subjective fevers and chills. Related Data Home Medications Medication Instructions Recorded Confirmed glipizide 10 mg tablet 10 mg PO BID 03/05/21 paroxetine HCl 40 mg tablet (Paxil) 40 mg PO DAILY 03/05/21 gabapentin 100 mg capsule 100 mg PO TID 01/26/22 insulin glargine 100 unit/mL 10 unit subcut BEDTIME 01/26/22 subcutaneous solution (Lantus U-100 Insulin) lisinopril 10 mg tablet 10 mg PO DAILY 01/26/22 metformin 850 mg tablet 850 mg PO 01/26/22 paroxetine HCl 20 mg tablet 20 mg PO DAILY 01/26/22 sitagliptin 100 mg tablet (Januvia) 100 mg PO DAILY 01/26/22 Previous Rx's Medication Instructions Recorded ibuprofen 600 mg tablet 600 mg PO Q6H PRN pain #20 tabs 12/30/20 sennosides 8.6 mg capsule (senna) 17.2 mg PO BEDTIME constipation 30 01/26/22 days #60 caps cephalexin 500 mg capsule 500 mg PO QID 7 days #28 caps 05/11/22 doxycycline hyclate 100 mg tablet 100 mg PO BID 7 days #14 tabs 05/11/22 Allergies Allergy/AdvReac Type Severity Reaction Status Date / Time shrimp Allergy Mild EYE ITCHING Verified 01/26/22 14:10 Review of Systems Review of Systems: Constitutional: subjective fevers, positive chills Skin: positive abscess. Yes all other systems are reviewed and are negative [facility] Past Medical History Attestation statement: The following information was validated with the patient. Source: old records reviewed Medical History Diabetes Hypertension Surgical History H/O colonoscopy Hx of hemorrhoidectomy Hx of hernia repair Hx of tubal ligation Family History Family History Father Heart problem Asthma Mother Colon cancer HTN (hypertension) Varicose vein of leg Family history of diabetes mellitus Social History Social History Household Members: None Alcohol intake: current Alcohol intake frequency: holidays/special occasions only Substance Use Type: Marijuana Advance Directives: No Advance Directives Information Provided: Yes Physical Exam Vital Signs: Vital Signs: Last Vital Signs Temp 97.9 F 05/14/22 12:19 Pulse 88 05/14/22 12:19 Resp 16 05/14/22 12:19 BP 133/70 05/14/22 12:19 Pulse Ox 99 05/14/22 12:19 O2 Del Method 05/14/22 12:19 BMI result Body Mass Index 29.8 Vital signs have been reviewed as normal and appeared to be correct. Blood pressure normal.? Heart rate normal.? Respiration rate normal. Temperature normal.? Oxygen saturation normal. Appearance: Alert.?Oriented to person, place and time. No acute distress.?Normal affect. Eyes: Pupils equal, round and reactive to light.? ENT: Pharynx normal.?? Neck: Normal inspection.? Neck supple.?? CVS: Heart sounds normal. Normal heart rate and rhythm.? Pulses normal.?? Respiratory: No respiratory distress.? Lung sounds clear to auscultation bilaterally?? Abdomen: Soft and non-tender. Skin: Skin warm and dry.? Normal skin color.? right mid upper back, there are co ncerning for abscess, central purulence, surrounding cellulitis, warmth and tenderness on palpation Extremities: No lower extremity edema.? Neuro: Moves all extremities spontaneously. Sensation intact bilaterally. No motor deficits. Ambulates with normal steady gait. Course Course Course Narrative: Patient is a 51-year-old female with a past medical history of hypertension and diabetes presenting to emergency department for evaluation of cyst to her back ascending cellulitis. She has been treated for 3 days with Keflex and doxycycline, but reports increased redness and swelling despite antibiotics. Will obtain repeat CBC, plan for incision and drainage hemodynamically stable, does not meet sirs criteria, do not suspect sepsis at this time. Reevaluation(s) Reevaluation #1: CBC reveals no leukocytosis. No systemic toxicity, and patient is well- appearing. There is surrounding cellulitis. Not consistent with necrotizing fasciitis, myositis, DVT, osteomyelitis. Patient is now status post incision and drainage of abscess and tolerated the procedure well. No complications. Will discharge home to continue course of oral antibiotics and symptomatic treatment instructions. Discussed reasons to return to the emergency department, and follow-up with primary care provider. Patient agreeable with plan of care. Time: 15:16 MDM - Skin/Abscess/Foreign Bdy Medical Records Attestation: I reviewed the patient's medical records. Lab Data Attestation: I reviewed the patient's lab results. Result diagrams: 05/14/22 14:12 Labs: Lab Results 05/14/22 Range/Units 14:12 WBC 8.4 (4.8-10.8) X10*3/uL RBC 4.81 (4.20-5.50) X10*6/uL Hgb 13.1 (12.0-16.0) g/dl Hct 40.0 (37.0-47.0) % MCV 83.2 (80.0-98.0) fL MCH 27.2 (27.0-33.0) pg MCHC 32.8 (31.0-35.0) g/dl RDW 12.6 (11.0-16.0) % Plt Count 291 (160-400) X10*3/uL MPV 9.9 (9.4-12.3) fL Immature Gran % (Auto) 0.2 (0.0-0.4) % Neut % (Auto) 71.5 (45-73) % Lymph % (Auto) 18.9 L (20-40) % [place] % (Auto) 8.4 (2-11) % Eos % (Auto) 0.8 (0-4) % Baso % (Auto) 0.2 (0-2) % Lymph # (Auto) 1.6 (1.2-4.9) X10*3/uL [place] # (Auto) 0.7 (0.1-1.2) X10*3/uL Eos # (Auto) 0.1 (0.0-0.4) X10*3/uL Baso # (Auto) 0.0 (0.0-0.2) X10*3/uL Abs Immat Gran (auto) 0.02 (0.00-0.03) X10*3/uL Absolute Neuts (auto) 6.0 (2.0-8.3) x10*3/uL Absolute Nucleated RBC 0.000 (0.0-0.012) X10*3/uL Nucleated RBC % (auto) 0.0 (0.0-0.2) /100WBC Procedures Abscess I/D Site: back Side (if applicable): right Local Anesthetic: lidocaine 2% Amount of anesthesia used (mL): 4 Technique: incised with blade Irrigation: Yes Packing used?: none Discharge Plan Discharge Clinical Impression: Abscess of skin or subcutaneous tissue Patient Disposition: Home, Self-Care Instructions: Abscess Follow-up (ED), Incision and Drainage (ED) Additional Instructions: continue taking the doxycycline and cephalexin as prescribed. If you develop fevers, shaking chills, worsening pain redness drainage or swelling you should be re-evaluated. Please contact your primary care provider and schedule a follow-up visit within 3-5 days. Prescriptions: No Action ibuprofen 600 mg tablet 600 mg PO Q6H PRN (Reason: pain) Qty: 20 0RF cephalexin 500 mg capsule 500 mg PO QID 7 Days Qty: 28 0RF doxycycline hyclate 100 mg tablet 100 mg PO BID 7 Days Qty: 14 0RF glipizide 10 mg tablet 10 mg PO BID paroxetine HCl [Paxil] 40 mg tablet 40 mg PO DAILY metformin 850 mg tablet 850 mg PO gabapentin 100 mg capsule 100 mg PO TID lisinopril 10 mg tablet 10 mg PO DAILY paroxetine HCl 20 mg tablet 20 mg PO DAILY Lantus U-100 Insulin 100 unit/mL solution 10 unit subcut BEDTIME Januvia 100 mg tablet 100 mg PO DAILY senna 8.6 mg capsule 17.2 mg PO BEDTIME 30 Days Qty: 60 6RF Interventions: ED Discharge Assessment Last Done: 05/14/22 15:26 Discharge Date/Time: 05/14/22 15:28
[2022-05-14 14:18] LABS: MANUAL DIFF FLAG NO
[2022-05-14 14:20] LABS: Basophils Percent Auto 0.2 % (0-2); Eosinophils Absolute Auto 0.1 X10*3/uL (0.0-0.4); Eosinophils Percent Auto 0.8 % (0-4); Hemoglobin 13.1 g/dl (12.0-16.0); Imm Gran Abs Auto 0.02 X10*3/uL (0.00-0.03); Imm Gran Pct Auto 0.2 % (0.0-0.4); Lymphocytes Absolute Auto 1.6 X10*3/uL (1.2-4.9); Lymphocytes Percent Auto 18.9 % (20-40); Mean Corpuscular HGB Conc 32.8 g/dl (31.0-35.0); Mean Corpuscular Hemoglobin 27.2 pg (27.0-33.0); Mean Corpuscular Volume 83.2 fL (80.0-98.0); Mean Platelet Volume 9.9 fL (9.4-12.3); Monocytes Absolute Auto 0.7 X10*3/uL (0.1-1.2); Monocytes Percent Auto 8.4 % (2-11); Neutrophils Percent Auto 71.5 % (45-73); Platelet Count 291 X10*3/uL (160-400); Red Blood Count 4.81 X10*6/uL (4.20-5.50); Red Cell Distribution Width 12.6 % (11.0-16.0); White Blood Count 8.4 X10*3/uL (4.8-10.8)
== END 2022-05-14 15:28 | disposition home or self-care (01) ==
PROVIDERS: Nurse Practitioner Family; Emergency Provider Student in an Organized Health Care Education/Training Program; PCP Internal Medicine
DX: L02.212 Cutaneous abscess of back [any part, except buttock and flank] (principal); E11.9 Type 2 diabetes mellitus without complications; I10 Essential (primary) hypertension; F12.90 Cannabis use, unspecified, uncomplicated
CPT/HCPCS: 10060; 36415; 85025; 99282; 99284

== ENCOUNTER 2022-06-21 14:18 | Emergency (ER) | payer MEDICAID, SELFPAY ==
[2022-06-21 14:23] VITALS: BP 127/61; PULSE 84; RESP 18; TEMP 35.9; O2SAT 98; BMI 29.9
[2022-06-21 16:55] VITALS: BP 128/72; PULSE 98; RESP 16; O2SAT 99
[2022-06-21 17:14] LABS: COVID-19 Test Negative (Negative)
[2022-06-21] MEDS: Ibuprofen 800 MG TABLET PO (17:17)
--- NOTE | 2022-06-21 17:30 | ED.SKABFB ---
HPI - Skin/Abscess/Foreign Bdy General Chief complaint: Skin/Abscess/Foreign Body Stated complaint: cyst on back, fever, headache Time Seen by Provider: 06/21/22 16:27 Source: patient Mode of arrival: ambulatory History of Present Illness HPI narrative: 51-year-old female with a past medical history of diabetes, hypertension, IBS, presenting to the ED complaining abscess to left upper back x a few days. Also reports subjective fever, chills, myalgias, and dry cough. Denies drainage from area, chest pain, shortness breath, sore throat, ear pain, recent travel, sick contacts. Reports chronic cyst to back in that area with recurrent abscesses MD complaint: abscess/boil Onset (ago): day(s) Related Data Home Medications Medication Instructions Recorded Confirmed glipizide 10 mg tablet 10 mg PO BID 03/05/21 paroxetine HCl 40 mg tablet (Paxil) 40 mg PO DAILY 03/05/21 gabapentin 100 mg capsule 100 mg PO TID 01/26/22 insulin glargine 100 unit/mL 10 unit subcut BEDTIME 01/26/22 subcutaneous solution (Lantus U-100 Insulin) lisinopril 10 mg tablet 10 mg PO DAILY 01/26/22 metformin 850 mg tablet 850 mg PO 01/26/22 paroxetine HCl 20 mg tablet 20 mg PO DAILY 01/26/22 sitagliptin 100 mg tablet (Januvia) 100 mg PO DAILY 01/26/22 Previous Rx's Medication Instructions Recorded ibuprofen 600 mg tablet 600 mg PO Q6H PRN pain #20 tabs 12/30/20 sennosides 8.6 mg capsule (senna) 17.2 mg PO BEDTIME constipation 30 01/26/22 days #60 caps cephalexin 500 mg capsule 500 mg PO QID 7 days #28 caps 05/11/22 doxycycline hyclate 100 mg tablet 100 mg PO BID 7 days #14 tabs 05/11/22 cephalexin 500 mg capsule 500 mg PO QID 7 days #28 caps 06/21/22 doxycycline hyclate 100 mg tablet 100 mg PO BID 7 days #14 tabs 06/21/22 Allergies Allergy/AdvReac Type Severity Reaction Status Date / Time shrimp Allergy Mild EYE ITCHING Verified 01/26/22 14:10 Review of Systems Review of Systems: Constitutional: +Subjective Fever, + Chills ENT/Mouth: No Ear Pain, No Nasal Congestion, No Sinus Pain, No Hoarseness, No sore throat, No Rhinorrhea, No Swallowing Difficulty Cardiovascular: No Chest Pain, No SOB Respiratory: No Cough, No Sputum, No Wheezing Gastrointestinal: No Nausea, No Vomiting, No Diarrhea, No Constipation, No Abdominal pain Genitourinary: No Dysuria, No Urinary Frequency, No Hematuria, No Urgency, No Flank Pain Musculoskeletal: No joint pain, + Myalgias, No Joint Swelling Skin: + abscess, No rash Neuro: No Weakness, No Numbness, No Paresthesias Yes all other systems are reviewed and are negative Constitutional: Constitutional: Reports as per [facility] Past Medical History Attestation statement: The following information was validated with the patient. Medical History Diabetes Hypertension Surgical History H/O colonoscopy Hx of hemorrhoidectomy Hx of hernia repair Hx of tubal ligation Family History Family History Father Heart problem Asthma Mother Colon cancer HTN (hypertension) Varicose vein of leg Family history of diabetes mellitus Social History Social History Household Members: None Alcohol intake: current Alcohol intake frequency: holidays/special occasions only Substance Use Type: Marijuana Advance Directives: No Advance Directives Information Provided: Yes Physical Exam Vital Signs: Vital Signs: Last Vital Signs Temp 96.7 F L 06/21/22 14:23 Pulse 98 06/21/22 16:55 Resp 16 06/21/22 16:55 BP 128/72 06/21/22 16:55 Pulse Ox 99 06/21/22 16:55 O2 Del Method 06/21/22 16:55 BMI result Body Mass Index 29.9 Const: General: cooperative, healthy appearing and no acute distress Orientation/consciousness: patient oriented x3 Limitations: no limitations HEENT: Head: Yes normal to inspection and Yes atraumatic Ears: hearing grossly normal bilaterally and TM's normal bilaterally General nose exam: Normal external nose present Face and sinus: Yes normal facial exam Mouth: Normal oral and palatal mucosa present Throat: Yes posterior oropharynx normal Eyes: General: appearance normal, both eyes and all related structures EOM: EOMs intact bilaterally Neck: Neck: Yes normal visual inspection and Yes no meningeal signs Resp: Effort & Inspection: normal respiratory effort and no respiratory distress Auscultation: no crackles, no rales and no rhonchi Cardio: Rate: regular rate Heart sounds: S1 normal heart sound present and S2 normal heart sound present Skin: Other: + indurated abscess noted to left upper back. Slight pointing, no fluctuance. Mild surrounding erythema. No warmth. Tender to palpation. Rashes: no rashes Neuro: General: patient oriented x3, tone normal and no meningeal signs Gait exam (Neuro): Normal gait present Extrem: General: Yes normal to inspection Course Course Course Narrative: COVID-19 negative MDM - Skin/Abscess/Foreign Bdy MDM Narrative Medical decision making narrative: 51-year-old female with a past medical history of diabetes, hypertension, IBS, presenting to the ED complaining abscess to left upper back x a few days. on exam vital signs stable, NAD, nontoxic appearing, physical exam as above with pointing indurated abscess to left upper back which small amount pus was expressed with direct pressure. Lungs CTA, exam otherwise unremarkable. Concern for URI. Unlikely ACS/PE or pneumonia plan: COVID-19 testing, p.o. antibiotics Differential Diagnosis Differential diagnosis: Likely abscess of skin or subcutaneous tissue Medical Records Attestation: I reviewed the patient's medical records. Lab Data Attestation: I reviewed the patient's lab results. Labs: Lab Results 06/21/22 Range/Units 16:28 COVID-19 ([facility]) Negative (Negative) COVID-19 Clin Com See Note Procedures Abscess I/D Site: back Side (if applicable): left Technique: other (with direct pressure/unroofing white head, small amount of pus expressed & blood d/c) Discharge Plan Discharge Clinical Impression: Abscess Patient Disposition: Home, Self-Care Instructions: Abscess (ED), Abscess Follow-up (ED) Additional Instructions: you tested negative for COVID-19. You have an abscess on her back that was partially drain today. Doxycycline and Keflex for antibiotics please take as prescribed. If area turns to mendoza, becomes soft in the middle, is actively draining return to the emergency department we can properly open area. If area begins to worsen, grow, you have fever please return to the emergency department. Apply warm compresses. Take Tylenol/ Motrin Prescriptions: New cephalexin 500 mg capsule 500 mg PO QID 7 Days Qty: 28 0RF doxycycline hyclate 100 mg tablet 100 mg PO BID 7 Days Qty: 14 0RF No Action ibuprofen 600 mg tablet 600 mg PO Q6H PRN (Reason: pain) Qty: 20 0RF cephalexin 500 mg capsule 500 mg PO QID 7 Days Qty: 28 0RF doxycycline hyclate 100 mg tablet 100 mg PO BID 7 Days Qty: 14 0RF glipizide 10 mg tablet 10 mg PO BID paroxetine HCl [Paxil] 40 mg tablet 40 mg PO DAILY metformin 850 mg tablet 850 mg PO gabapentin 100 mg capsule 100 mg PO TID lisinopril 10 mg tablet 10 mg PO DAILY paroxetine HCl 20 mg tablet 20 mg PO DAILY Lantus U-100 Insulin 100 unit/mL solution 10 unit subcut BEDTIME Januvia 100 mg tablet 100 mg PO DAILY senna 8.6 mg capsule 17.2 mg PO BEDTIME 30 Days Qty: 60 6RF Referrals: Pipe Anderson MD [Primary Care Provider] - 3 days Interventions: ED Discharge Assessment Last Done: 06/21/22 18:12
== END 2022-06-21 18:14 | disposition home or self-care (01) ==
PROVIDERS: Physician Assistant; Emergency Provider Emergency Medicine; PCP Internal Medicine
DX: L02.212 Cutaneous abscess of back [any part, except buttock and flank] (principal); R50.9 Fever, unspecified; R51.9 Headache, unspecified; I10 Essential (primary) hypertension; E11.9 Type 2 diabetes mellitus without complications; Z20.822 Contact with and (suspected) exposure to COVID-19; Z79.4 Long term (current) use of insulin; Z79.899 Other long term (current) drug therapy
CPT/HCPCS: 10060; 87635; 99284

== ENCOUNTER 2022-06-23 01:00 | Emergency (ER) | payer MEDICAID, SELFPAY ==
[2022-06-23 01:24] VITALS: BP 158/75; PULSE 100; RESP 20; TEMP 37.5; O2SAT 99; BMI 29.9
--- NOTE | 2022-06-23 01:44 | ED.GENADULT ---
HPI - General Adult General Chief complaint: Skin/Abscess/Foreign Body Stated complaint: cyst, headache, pain Time Seen by Provider: 06/23/22 01:44 Source: patient Mode of arrival: ambulatory Limitations: no limitations History of Present Illness HPI narrative: Patient is a 51 year old female presenting to the emergency department today with increased upper back pain. Patient states that she was here yesterday for a back cyst and had it drained but now it hurts worse. Patient denies any dizziness, lightheadedness, abdominal pain, nausea, vomiting, fever, chills, blurry vision, double vision, loss of vision, chest pain, difficulty breathing, shortness of breath, back pain, night sweats, pain with urination, increased urinary frequency, increased urinary urgency, blood in her urine or stool, syncope or a near syncopal episode, recent trauma or falls, bowel incontinence, bladder incontinence, bowel retention, bladder retention, or any other complaints at this time. Onset (ago): day(s) Location: back Radiation: non-radiation Severity: mild Severity scale (1-10): 2 Quality: dull Pain Consistency: constant Relieving factors: none Exacerbating factors: none Associated symptoms: denies other symptoms Treatments prior to arrival: none Related Data Home Medications Medication Instructions Recorded Confirmed glipizide 10 mg tablet 10 mg PO BID 03/05/21 paroxetine HCl 40 mg tablet (Paxil) 40 mg PO DAILY 03/05/21 gabapentin 100 mg capsule 100 mg PO TID 01/26/22 insulin glargine 100 unit/mL 10 unit subcut BEDTIME 01/26/22 subcutaneous solution (Lantus U-100 Insulin) lisinopril 10 mg tablet 10 mg PO DAILY 01/26/22 metformin 850 mg tablet 850 mg PO 01/26/22 paroxetine HCl 20 mg tablet 20 mg PO DAILY 01/26/22 sitagliptin 100 mg tablet (Januvia) 100 mg PO DAILY 01/26/22 Previous Rx's Medication Instructions Recorded ibuprofen 600 mg tablet 600 mg PO Q6H PRN pain #20 tabs 12/30/20 sennosides 8.6 mg capsule (senna) 17.2 mg PO BEDTIME constipation 30 01/26/22 days #60 caps cephalexin 500 mg capsule 500 mg PO QID 7 days #28 caps 05/11/22 doxycycline hyclate 100 mg tablet 100 mg PO BID 7 days #14 tabs 05/11/22 cephalexin 500 mg capsule 500 mg PO QID 7 days #28 caps 06/21/22 doxycycline hyclate 100 mg tablet 100 mg PO BID 7 days #14 tabs 06/21/22 hydrocodone 5 mg-acetaminophen 325 1 tab PO ONCE PRN pain 3 days #7 06/23/22 mg tablet tabs Allergies Allergy/AdvReac Type Severity Reaction Status Date / Time shrimp Allergy Mild EYE ITCHING Verified 06/23/22 01:26 Review of Systems Constitutional: Constitutional: Reports no additional constitutional complaints, Denies chills, Denies fever(s) and Denies night sweats Eyes: Eyes: Reports no additional eye complaints, Denies blurry vision, Denies change in vision, Denies diplopia, Denies eye discharge, Denies loss of vision and Denies eye pain ENT: Denies dizziness Cardiovascular: Cardiovascular: Reports no additional cardiovascular complaints, Denies chest pain, Denies lightheadedness, Denies Loss of Consciousness and Denies dyspnea Respiratory: Respiratory: Reports no additional respiratory complaints and Denies dyspnea Gastrointestinal: Gastrointestinal: Reports no additional gastrointestinal complaints, Denies abdominal pain, Denies melena, Denies hematochezia, Denies change in bowel habits and Denies change in stool character Genitourinary: Genitourinary: Denies hematuria, Denies urinary frequency, Denies dysuria, Denies urinary incontinence, Denies urinary hesitancy and Denies urinary urgency Musculoskeletal: Musculoskeletal: Reports no additional musculoskeletal complaints, Denies numbness and Denies tingling Neurologic: Denies dizziness, Denies loss of vision, Denies numbness and Denies tingling Psychiatric: Psychiatric: Reports no additional psychiatric complaints Endocrine: Endocrine: Reports no additional endocrine complaints Hematologic/Lymphatic: Hematologic/Lymphatic: Reports no additional hematologic/lymphatic complaints Allergic/Immunologic: Allergic/Immunologic: Reports no additional allergic/immunologic complaints PMFSH Past Medical History Attestation statement: The following information was validated with the patient. Source: old records reviewed Medical History Diabetes Hypertension Irritable bowel syndrome with diarrhea Surgical History H/O colonoscopy Hx of hemorrhoidectomy Hx of hernia repair Hx of tubal ligation Family History Family History Father Heart problem Asthma Mother Colon cancer HTN (hypertension) Varicose vein of leg Family history of diabetes mellitus Social History Social History Household Members: None Alcohol intake: current Alcohol intake frequency: holidays/special occasions only Substance Use Type: Marijuana Advance Directives: No Advance Directives Information Provided: Yes Physical Exam ED Vital Signs: Vital Signs - 24 hr 06/23/22 01:24 Temperature 99.5 F Pulse Rate 100 Respiratory Rate 20 Blood Pressure 158/75 H Pulse Oximetry 99 Oxygen Delivery Method Room Air BMI result Body Mass Index 29.9 Const General: cooperative, no acute distress, alert and awake Nutritional Appearance: well nourished Orientation/consciousness: patient oriented x3 Limitations: no limitations HENMT Head: Yes normal to inspection and Yes atraumatic Ears: hearing grossly normal bilaterally and external ears normal General nose exam: Normal external nose present, no nasal discharge noted and no epistaxis Face and sinus: Yes normal facial exam, No abrasion and No laceration Mouth: Normal oral and palatal mucosa present, no drooling and no muffled voice Eyes General: appearance normal, both eyes and all related structures Periorbital: periorbital findings normal Eyelids: Yes eyelids normal Conjunctivae: conjunctivae normal Pupils: Equal, round and reactive pupils present EOM: EOMs intact bilaterally Neck Neck: Yes normal visual inspection, Yes full ROM and Yes no lymphadenopathy Chest Chest palpation & inspection: normal inspection of the chest Resp Effort & Inspection: normal respiratory effort and able to speak in complete sentences Auscultation: clear to auscultation bilaterally Cardio Rate: regular rate Rhythm: regular rhythm GI Inspection: Yes normal to inspection Back/Spine/Pelvis Other: warm and erythematous area present to the upper back, approximately 2cm x 2cm, no areas of fluctuance, no obvious areas for I & D Neuro General: patient oriented x3 and moves all extremities Cranial nerves: Yes Equal, round and reactive pupils present Cognition (Neuro): normal cognition Motor exam (neuro): 5/5 motor strength present throughout Sensory Exam: Normal double simultaneous stimulation for sensation Coordination: [id number] test normal Extrem General: Yes normal to inspection, Yes full ROM and Yes capillary refill normal Psych Appearance: grossly normal Mental Status: mental status grossly normal Affect: normal affect Attitude: cooperative Thought process: Normal thought process present Thought content: Normal thought content present Insight: Good insight present (Psych) Medical Decision Making MDM Narrative Medical decision making narrative: Patient is a 51 year old female presenting to the emergency department today with upper back pain. Patient's physical exam showed a 2cm x 2cm warm and erythematous area to her upper back with no area of fluctuance and no obvious area to I & D. I explained my physical exam findings to the patient. I answered all questions asked by the patient. I stressed the importance of the patient taking her medication as prescribed. I stressed the importance of the patient following up with her primary care provider and with a general surgeon. I stressed the importance of the patient returning to the emergency department immediately if her symptoms were to worsen or if she were to develop any dizziness, shortness of breath, difficulty breathing, chest pain, blurry vision, loss of vision, nausea, vomiting, abdominal pain, fever, chills, back pain, or any other complaints. Patient verbalized agreement and understanding with this treatment plan and discharge. Differential Diagnosis Differential Diagnosis: abscess Medical Records Medical records reviewed: Yes I reviewed the patient's medical records. Discharge Plan Discharge Clinical Impression: Abscess of back Patient Disposition: Home, Self-Care Instructions: Narcotic Safety (ED), Abscess (ED), Opioid Safety (ED), Safe Disposal of Opioids (ED) Additional Instructions: Follow up with your primary care provider and a general surgeon. Return to the emergency department immediately if your symptoms worsen or if you develop any dizziness, shortness of breath, difficulty breathing, chest pain, blurry vision, loss of vision, nausea, vomiting, abdominal pain, fever, chills, back pain, or any other complaints. Prescriptions: New hydrocodone-acetaminophen 5-325 mg tablet 1 tab PO ONCE PRN (Reason: pain) 3 Days Qty: 7 0RF Rx Instructions: Partial Fill upon patient request. No Action ibuprofen 600 mg tablet 600 mg PO Q6H PRN (Reason: pain) Qty: 20 0RF cephalexin 500 mg capsule 500 mg PO QID 7 Days Qty: 28 0RF doxycycline hyclate 100 mg tablet 100 mg PO BID 7 Days Qty: 14 0RF cephalexin 500 mg capsule 500 mg PO QID 7 Days Qty: 28 0RF doxycycline hyclate 100 mg tablet 100 mg PO BID 7 Days Qty: 14 0RF glipizide 10 mg tablet 10 mg PO BID paroxetine HCl [Paxil] 40 mg tablet 40 mg PO DAILY metformin 850 mg tablet 850 mg PO gabapentin 100 mg capsule 100 mg PO TID lisinopril 10 mg tablet 10 mg PO DAILY paroxetine HCl 20 mg tablet 20 mg PO DAILY Lantus U-100 Insulin 100 unit/mL solution 10 unit subcut BEDTIME Januvia 100 mg tablet 100 mg PO DAILY senna 8.6 mg capsule 17.2 mg PO BEDTIME 30 Days Qty: 60 6RF Referrals: [facility] [place] General Surgeons [Provider Group] (Call to establish and follow up with a general surgeon. ) Pipe Anderson MD [Primary Care Provider] - (Follow up with your PCP. ) Print Language: Tanzanian
== END 2022-06-23 02:09 | disposition home or self-care (01) ==
PROVIDERS: Emergency Provider Student in an Organized Health Care Education/Training Program; PCP Internal Medicine
DX: L02.212 Cutaneous abscess of back [any part, except buttock and flank] (principal); M54.6 Pain in thoracic spine; E11.9 Type 2 diabetes mellitus without complications; I10 Essential (primary) hypertension; F12.90 Cannabis use, unspecified, uncomplicated; Z79.4 Long term (current) use of insulin; Z79.899 Other long term (current) drug therapy
CPT/HCPCS: 99282; 99283

== ENCOUNTER 2022-06-26 14:37 | Outpatient (REF) | payer MEDICAID, SELFPAY | END 2022-06-26 14:38 | disposition home or self-care (01) | LOC: HO.LNP 14:37 | PROVIDERS: PCP Internal Medicine; Visit Provider Surgery | DX: L02.212 Cutaneous abscess of back [any part, except buttock and flank] (principal); L72.3 Sebaceous cyst; L08.9 Local infection of the skin and subcutaneous tissue, unspecified; E11.65 Type 2 diabetes mellitus with hyperglycemia; E11.40 Type 2 diabetes mellitus with diabetic neuropathy, unspecified | CPT/HCPCS: 10060; 87071; 87077; 87186; 87205; 99202 ==

== ENCOUNTER 2022-08-18 15:04 | Outpatient (REF) | payer MEDICAID, SELFPAY ==
--- NOTE | ~2022-08-18 | MM_ITS ---
EXAMINATION: MM SCREENING DIGITAL BREAST TOMOSYNTHESIS, BILATERAL CLINICAL INFORMATION: Screening. Asymptomatic. The lifetime risk of breast cancer based on the Tyrer-Cuzick Model is 7%. COMPARISON: Mammography: 08/06/2021, 04/21/2019, 04/20/2018 TECHNIQUE: Digital breast tomosynthesis is performed in both the craniocaudal and mediolateral oblique views along with computer-aided detection (CAD). Synthesized 2D images are generated from the tomosynthesis. FINDINGS: There are scattered areas of fibroglandular density (ACR BI-RADS breast composition Category b). Breast tissue composition borders on heterogeneously dense. Parenchymal pattern is similar to prior studies. There is no developing density or architectural abnormality. The axilla and skin contours are unremarkable. No significant changes. MM/MM tomosynthesis screening BI IMPRESSION: No mammographic evidence of malignancy. ASSESSMENT: BI-RADS 1: Negative RECOMMENDATION: Routine annual mammography screening. This patient's information was entered into a reminder system with a target due date for their next mammogram.
== END 2022-08-18 15:05 | disposition home or self-care (01) ==
LOC: HO.MAMMO 15:04
PROVIDERS: PCP Internal Medicine; Visit Provider Internal Medicine
DX: Z12.31 Encounter for screening mammogram for malignant neoplasm of breast (principal)
CPT/HCPCS: 77063; 77067

== ENCOUNTER 2022-11-27 08:33 | Outpatient (REF) | payer MEDICAID, SELFPAY | END 2022-11-27 08:34 | disposition home or self-care (01) | LOC: HO.LNP 08:33 | PROVIDERS: PCP Internal Medicine; Referring Provider Emergency Medicine; Visit Provider Surgery | DX: L72.3 Sebaceous cyst (principal); Z79.899 Other long term (current) drug therapy | CPT/HCPCS: 10060; 87070; 87077; 87186; 87205; 99212 ==

== ENCOUNTER → 2022-12-11 10:21 | Outpatient (BNVA) | payer MEDICAID, SELFPAY | PROVIDERS: PCP Internal Medicine; Visit Provider Surgery | DX: L02.91 Cutaneous abscess, unspecified (principal); L72.3 Sebaceous cyst ==

== ENCOUNTER → 2022-12-22 10:32 | Outpatient (BNVA) | payer MEDICAID, SELFPAY | PROVIDERS: PCP Internal Medicine; Visit Provider Nurse Practitioner | DX: K58.0 Irritable bowel syndrome with diarrhea (principal); K59.00 Constipation, unspecified | CPT/HCPCS: 99212 ==

== ENCOUNTER 2023-03-09 11:20 | Emergency (ER) | payer MEDICAID, SELFPAY ==
--- NOTE | ~2023-03-09 | XR_ITS ---
EXAMINATION: XR CHEST CLINICAL INFORMATION: Syncope and weakness. COMPARISON: None available. TECHNIQUE: Frontal view of the chest was obtained. FINDINGS: No significant abnormality is noted involving the heart, lungs, mediastinum, bony thorax or soft tissues. XR/XR chest 1V IMPRESSION: Unremarkable chest examination.
--- NOTE | 2023-03-09 11:42 | ECG_ITS ---
Test Reason : Syncope, weakness Blood Pressure : / mmHG Vent. Rate : 098 BPM Atrial Rate : 098 BPM P-R Int : 138 ms QRS Dur : 086 ms QT Int : 354 ms P-R-T Axes : 075 052 040 degrees QTc Int : 451 ms Normal sinus rhythm Low voltage QRS Nonspecific T wave abnormality Abnormal ECG When compared with ECG of 28-DEC-2014 21:13, No significant change was found Referred By: Chiara Pineda Electronically Signed By:GAYATRI SAHU MD
--- NOTE | 2023-03-09 11:51 | ED_ITS ---
HPI - Syncope General Chief Complaint: Syncope Stated Complaint: Syncope T-1, Weakness, Diarrhea Time Seen by Provider: 03/09/23 11:45 Source: patient, RN notes reviewed and old records reviewed History of Present Illness HPI narrative: 52-year-old female with past medical history of diabetes, hypertension, IBS, presenting to the ED complaining of watery nonbloody diarrhea x 2 days with mild lower abdominal discomfort and 1 episode of emesis. Reports abdominal pain resolved. States was on toilet the last night when felt lightheaded and had syncopal episode, denies head trauma. Also reports chest pain for some time. Denies headache, shortness of breath, dysuria/hematuria, recent travel, suspicious food intake, recent antibiotic use MD complaint: loss of consciousness and felt faint Related Data Home Medications Medication Instructions Recorded Confirmed glipizide 10 mg tablet 10 mg PO BID 03/05/21 paroxetine HCl 40 mg tablet (Paxil) 40 mg PO DAILY 03/05/21 gabapentin 100 mg capsule 100 mg PO TID 01/26/22 lisinopril 10 mg tablet 10 mg PO DAILY 01/26/22 paroxetine HCl 20 mg tablet 20 mg PO DAILY 01/26/22 sitagliptin phosphate 100 mg 100 mg PO DAILY 01/26/22 tablet (Januvia) atorvastatin 80 mg tablet 80 mg PO BEDTIME 12/22/22 insulin glargine 100 unit/mL 18 unit subcut BEDTIME 12/22/22 subcutaneous solution (Lantus U-100 Insulin) lancets 28 gauge (FreeStyle #100 ea 12/22/22 Lancets) pen needle, diabetic 32 gauge x #50 ea 12/22/22 (BD Akiko 2nd Gen Pen Needle) Previous Rx's Medication Instructions Recorded sennosides 8.6 mg capsule (senna) 17.2 mg PO BEDTIME constipation 30 12/22/22 days #60 caps Allergies Allergy/AdvReac Type Severity Reaction Status Date / Time shrimp Allergy Mild EYE ITCHING Verified 12/22/22 10:40 lobster Allergy Severe Itching Uncoded 12/22/22 10:40 Review of Systems Review of Systems: Constitutional: No Fever, No Chills, No Fatigue, No Malaise ENT/Mouth: No Ear Pain, No Nasal Congestion, No sore throat, No Rhinorrhea, No Swallowing Difficulty Eyes: No Eye Pain, No Swelling, No Redness Cardiovascular: + Chest Pain, No SOB, No Palpitations Respiratory: No Cough, No Sputum, No Dyspnea Gastrointestinal: + Nausea, + Vomiting, + Diarrhea, No Constipation, + Abdominal pain, No Hematochezia, No Melena Genitourinary: No Dysuria, No Urinary Frequency, No Hematuria, No Urinary Incontinence/retention, No Flank Pain Musculoskeletal: No joint pain, No Myalgias, No Joint Swelling Skin: No Skin Lesions, No rash Neuro: + Weakness, No Numbness, No Paresthesias, + Loss of Consciousness, No Dizziness, No Headache Yes all other systems are reviewed and are negative Constitutional: Constitutional: Reports as per [facility] Past Medical History Attestation statement: The following information was validated with the patient. Medical History Diabetes Hypertension Irritable bowel syndrome with diarrhea Surgical History H/O colonoscopy Hx of hemorrhoidectomy Hx of hernia repair Hx of tubal ligation Family History Family History Father Heart problem Asthma Mother Colon cancer HTN (hypertension) Varicose vein of leg Family history of diabetes mellitus Social History Social History Household Members: None Alcohol intake: current Alcohol intake frequency: holidays/special occasions only Smoked in Last 30 Days: No Use of substances other than those prescribed or required for medical reasons: No Substance Use Type: Marijuana Advance Directives: No Advance Directives Information Provided: Yes Physical Exam Vital Signs: Vital Signs: Last Vital Signs Temp 98.3 F 03/09/23 16:32 Pulse 88 03/09/23 16:32 Resp 18 03/09/23 16:32 BP 113/64 03/09/23 16:32 Pulse Ox 98 03/09/23 16:32 O2 Del Method Room Air 03/09/23 16:32 BMI result Body Mass Index 31.4 Const: General: cooperative, healthy appearing, no acute distress, alert and awake Orientation/consciousness: patient oriented x3 Limitations: no limitations HEENT: Head: Yes normal to inspection and Yes atraumatic Ears: hearing grossly normal bilaterally General nose exam: Normal external nose present Face and sinus: Yes normal facial exam Eyes: General: appearance normal, both eyes and all related structures Pupils: Equal, round and reactive pupils present EOM: EOMs intact bilaterally Neck: Neck: Yes normal visual inspection and Yes no meningeal signs Resp: Effort & Inspection: normal respiratory effort and no respiratory distress Auscultation: clear to auscultation bilaterally, no crackles, no rales, no rhonchi and no wheezes Cardio: Rate: regular rate Heart sounds: S1 normal heart sound present and S2 normal heart sound present GI: Inspection: Yes normal to inspection Palpation (GI): Soft to palpation, nontender, no guarding and not rigid : General: Yes no CVA tenderness Back/Spine/Pelvis: Back: no CVA tenderness Skin: Rashes: no rashes Wounds: no wounds Neuro: General: patient oriented x3, gait normal, tone normal, moves all extremities, no meningeal signs, no focal motor deficits and CN's II-XI intact bilaterally Cranial nerves: Yes CN's II-XII intact bilaterally, Yes Equal, round and reactive pupils present and Yes Bilaterally intact EOM present Gait exam (Neuro): Normal gait present Motor exam (neuro): 5/5 motor strength present throughout Extrem: General: Yes normal to inspection Course Course Course Narrative: -1322--no leukocytosis. Hyponatremia to 131 corrected for hyperglycemia >> 137. Hyperglycemic to 498, no anion gap >> 2 L IVF & 5 units IV insulin ordered -magnesium mildly low at 1.3 >2g IV repletion ordered. Lipase acute on chronically elevated -UA with glucose and ketones, not infected XR chest 1V IMPRESSION: Unremarkable chest examination. >1442--repeat POC 328 > will give additional 5 units IV insulin & repeat Mag & BMP -Orthostatic VS negative -repeat POC 240, hypomagnesemia resolved. Patient tolerating p.o. in the ED. is safe for discharge home at this time Results discussed with patient including worrisome signs and symptoms and strict return precautions, and when to return to the emergency department. They verbalized understanding and feel safe for discharge at this time. Medications Administered Discontinued Medications Generic Name Dose Route Start Last Admin Trade Name Freq PRN Reason Stop Dose Admin Sodium Chloride 1,000 mls @ 999 mls/hr 03/09/23 11:45 03/09/23 15:00 Ns IV 04/11/23 12:45 Infused .Q1H1M SONIA Infusion Lactated Ringer's 1,000 mls @ 999 mls/hr 03/09/23 13:00 03/09/23 15:03 Lr IV 03/09/23 14:00 999 mls/hr .Q1H1M SONIA Administration Magnesium Sulfate/Dextrose 1 gm in 100 mls @ 100 mls/hr 03/09/23 12:49 03/09/23 15:00 Magnesium Sulfate/D5w IV 03/09/23 13:48 Infused ONCE ONE Infusion Insulin Human Regular 5 unit 03/09/23 13:03 03/09/23 13:41 Insulin Regular, Human 100 Unit/Ml 3 Ml Vial IVPUSH 03/09/23 13:04 5 unit ONCE ONE Administration Insulin Human Regular 5 unit 03/09/23 14:42 03/09/23 15:08 Insulin Regular, Human 100 Unit/Ml 3 Ml Vial IVPUSH 03/09/23 14:43 5 unit ONCE ONE Administration Medical Decision Making Medical Decision Making MDM Narrative: 52-year-old female with past medical history of diabetes, hypertension, IBS, presenting to the ED complaining of watery nonbloody diarrhea x 2 days with mild lower abdominal discomfort and 1 episode of emesis with syncopal episode last using the toilet. On exam vital stable, NAD, nontoxic appearing, abdomen soft/nontender, no focal deficits, ambulating with steady gait. Concern for vasovagal syncope vs gastroenteritis vs food poisoning vs C diff vs metabolic/infectious etiologies. Lower suspicion for ACS/PE. Lower suspicion for diverticulitis/appendicitis Plan: EKG, labs, UA, stool studies, IVF, orthostatics, re-evaluate Please refer to course for remaining clinical decision making, interpretation of labs/imaging results, and discussions with consultants and/or family members. Differential Diagnosis Differential Diagnoses: The differential diagnosis associated with the p resentation includes As above Admission/Observation Consideration of admission/observation: Escalation of care including admiss ion/observation considered Lab Data [facility] Lab Attestation statement: I reviewed the patient's lab results. 03/09/23 12:16 03/09/23 12:16 Labs: Lab Results 03/09/23 03/09/23 03/09/23 Range/Units 12:16 12:16 12:16 WBC 6.9 (4.8-10.8) X10*3/uL RBC 5.81 H D (4.20-5.50) X10*6/uL Hgb 15.5 (12.0-16.0) g/dl Hct 47.0 (37.0-47.0) % MCV 80.9 (80.0-98.0) fL MCH 26.7 L (27.0-33.0) pg MCHC 33.0 (31.0-35.0) g/dl RDW 13.3 (11.0-16.0) % Plt Count 285 (160-400) X10*3/uL MPV 10.0 (9.4-12.3) fL Immature Gran % (Auto) 0.1 (0.0-0.4) % Neut % (Auto) 64.8 (45-73) % Lymph % (Auto) 25.7 (20-40) % [place] % (Auto) 8.1 (2-11) % Eos % (Auto) 0.9 (0-4) % Baso % (Auto) 0.4 (0-2) % Lymph # (Auto) 1.8 (1.2-4.9) X10*3/uL [place] # (Auto) 0.6 (0.1-1.2) X10*3/uL Eos # (Auto) 0.1 (0.0-0.4) X10*3/uL Baso # (Auto) 0.0 (0.0-0.2) X10*3/uL Abs Immat Gran (auto) 0.01 (0.00-0.03) X10*3/uL Absolute Neuts (auto) 4.5 (2.0-8.3) x10*3/uL Absolute Nucleated RBC 0.000 (0.0-0.012) X10*3/uL Nucleated RBC % (auto) 0.0 (0.0-0.2) /100WBC Sodium 131 L (135-145) mmol/L Potassium 4.9 D (3.3-5.1) mmol/L Chloride 94 L (96-108) mmol/L Carbon Dioxide 25 (22-29) mmol/L Anion Gap 17 (12-20) BUN 16 (9-16) mg/dL Creatinine 1.13 (0.5-1.4) mg/dL Estim Creat Clear Calc 56.4 Estimated GFR 51 POC Glucose (60-115) mg/dL Random Glucose 498 H* (60-115) mg/dL Calcium 12.0 H D (8.4-10.2) mg/dL Magnesium 1.3 L* (1.6-2.6) mg/dL Total Bilirubin 1.0 (0.0-1.0) mg/dL Direct Bilirubin 0.2 (0.0-0.5) mg/dL AST 16 (5-31) U/L ALT 25 (0-31) U/L Alkaline Phosphatase 95 (39-117) U/L Troponin I High Sens 3.7 (<3.5-17.0) ng/L Total Protein 7.9 (6.5-8.0) g/dL Albumin 4.5 (3.5-5.0) g/dL Lipase 112 H (8-78) U/L Urine Color Urine Appearance Urine pH (5.0-9.0) Ur Specific [place] (1.005-1.025) Urine Protein (Neg-Trace) mg/dL Urine Glucose (UA) (Negative) mg/dL Urine Ketones (Negative) mg/dL Urine Blood (Negative) Urine Nitrite (Negative) Ur Leukocyte Esterase (Negative) Urine RBC (0-2) /HPF Urine WBC (0-5) /HPF Ur Squamous Epith Cells (0-2) /HPF Urine Bacteria (None Seen) Hyaline Casts (0-2) /LPF Acetone, Qual Negative (Negative) COVID-19 (ZACH) (Negative) COVID-19 Clin Com Influenza Type A (DAVID) (Negative) Influenza Type B (DAVID) (Negative) Influenza A & B Note 03/09/23 03/09/23 03/09/23 Range/Units 12:16 12:16 12:16 WBC (4.8-10.8) X10*3/uL RBC (4.20-5.50) X10*6/uL Hgb (12.0-16.0) g/dl Hct (37.0-47.0) % MCV (80.0-98.0) fL MCH (27.0-33.0) pg MCHC (31.0-35.0) g/dl RDW (11.0-16.0) % Plt Count (160-400) X10*3/uL MPV (9.4-12.3) fL Immature Gran % (Auto) (0.0-0.4) % Neut % (Auto) (45-73) % Lymph % (Auto) (20-40) % [place] % (Auto) (2-11) % Eos % (Auto) (0-4) % Baso % (Auto) (0-2) % Lymph # (Auto) (1.2-4.9) X10*3/uL [place] # (Auto) (0.1-1.2) X10*3/uL Eos # (Auto) (0.0-0.4) X10*3/uL Baso # (Auto) (0.0-0.2) X10*3/uL Abs Immat Gran (auto) (0.00-0.03) X10*3/uL Absolute Neuts (auto) (2.0-8.3) x10*3/uL Absolute Nucleated RBC (0.0-0.012) X10*3/uL Nucleated RBC % (auto) (0.0-0.2) /100WBC Sodium (135-145) mmol/L Potassium (3.3-5.1) mmol/L Chloride (96-108) mmol/L Carbon Dioxide (22-29) mmol/L Anion Gap (12-20) BUN (9-16) mg/dL Creatinine (0.5-1.4) mg/dL Estim Creat Clear Calc Estimated GFR POC Glucose (60-115) mg/dL Random Glucose (60-115) mg/dL Calcium (8.4-10.2) mg/dL Magnesium (1.6-2.6) mg/dL Total Bilirubin (0.0-1.0) mg/dL Direct Bilirubin (0.0-0.5) mg/dL AST (5-31) U/L ALT (0-31) U/L Alkaline Phosphatase (39-117) U/L Troponin I High Sens (<3.5-17.0) ng/L Total Protein (6.5-8.0) g/dL Albumin (3.5-5.0) g/dL Lipase (8-78) U/L Urine Color Yellow Urine Appearance Cloudy Urine pH 5.0 (5.0-9.0) Ur Specific [place] >= 1.030 H (1.005-1.025) Urine Protein Negative (Neg-Trace) mg/dL Urine Glucose (UA) >=1000 H (Negative) mg/dL Urine Ketones 15 (Negative) mg/dL Urine Blood Negative (Negative) Urine Nitrite Negative (Negative) Ur Leukocyte Esterase Negative (Negative) Urine RBC 0-2 (0-2) /HPF Urine WBC 0-5 (0-5) /HPF Ur Squamous Epith Cells 6-10 (0-2) /HPF Urine Bacteria None Seen (None Seen) Hyaline Casts 0-2 (0-2) /LPF Acetone, Qual (Negative) COVID-19 (ZACH) Negative (Negative) COVID-19 Clin Com See Note Influenza Type A (DAVID) Negative (Negative) Influenza Type B (DAVID) Negative (Negative) Influenza A & B Note See Note 03/09/23 03/09/23 03/09/23 Range/Units 13:41 14:39 15:33 WBC (4.8-10.8) X10*3/uL RBC (4.20-5.50) X10*6/uL Hgb (12.0-16.0) g/dl Hct (37.0-47.0) % MCV (80.0-98.0) fL MCH (27.0-33.0) pg MCHC (31.0-35.0) g/dl RDW (11.0-16.0) % Plt Count (160-400) X10*3/uL MPV (9.4-12.3) fL Immature Gran % (Auto) (0.0-0.4) % Neut % (Auto) (45-73) % Lymph % (Auto) (20-40) % [place] % (Auto) (2-11) % Eos % (Auto) (0-4) % Baso % (Auto) (0-2) % Lymph # (Auto) (1.2-4.9) X10*3/uL [place] # (Auto) (0.1-1.2) X10*3/uL Eos # (Auto) (0.0-0.4) X10*3/uL Baso # (Auto) (0.0-0.2) X10*3/uL Abs Immat Gran (auto) (0.00-0.03) X10*3/uL Absolute Neuts (auto) (2.0-8.3) x10*3/uL Absolute Nucleated RBC (0.0-0.012) X10*3/uL Nucleated RBC % (auto) (0.0-0.2) /100WBC Sodium 136 (135-145) mmol/L Potassium 4.5 (3.3-5.1) mmol/L Chloride 99 (96-108) mmol/L Carbon Dioxide 29 (22-29) mmol/L Anion Gap 13 (12-20) BUN 13 (9-16) mg/dL Creatinine 0.88 (0.5-1.4) mg/dL Estim Creat Clear Calc 72.3 Estimated GFR > 60 POC Glucose 406 H* 328 H (60-115) mg/dL Random Glucose 240 H (60-115) mg/dL Calcium 11.1 H D (8.4-10.2) mg/dL Magnesium 1.6 (1.6-2.6) mg/dL Total Bilirubin (0.0-1.0) mg/dL Direct Bilirubin (0.0-0.5) mg/dL AST (5-31) U/L ALT (0-31) U/L Alkaline Phosphatase (39-117) U/L Troponin I High Sens (<3.5-17.0) ng/L Total Protein (6.5-8.0) g/dL Albumin (3.5-5.0) g/dL Lipase (8-78) U/L Urine Color Urine Appearance Urine pH (5.0-9.0) Ur Specific [place] (1.005-1.025) Urine Protein (Neg-Trace) mg/dL Urine Glucose (UA) (Negative) mg/dL Urine Ketones (Negative) mg/dL Urine Blood (Negative) Urine Nitrite (Negative) Ur Leukocyte Esterase (Negative) Urine RBC (0-2) /HPF Urine WBC (0-5) /HPF Ur Squamous Epith Cells (0-2) /HPF Urine Bacteria (None Seen) Hyaline Casts (0-2) /LPF Acetone, Qual (Negative) COVID-19 (ZACH) (Negative) COVID-19 Clin Com Influenza Type A (DAVID) (Negative) Influenza Type B (DAVID) (Negative) Influenza A & B Note Radiology Impression Discussion of test interpretation with radiology: I have reviewed the radiologist's reading. External Record Review External record reviewed: Inpatient record, Office record, Outpatient record, Prior outpatient labs, Prior outpatient radiology, Primary care record and Outs [facility] ED record Discharge Plan Discharge Clinical Impression: Vasovagal syncope, Hyperglycemia, Diarrhea Instructions: Syncope (DC), Diabetic Hyperglycemia (ED) Prescriptions: No Action glipizide 10 mg tablet 10 mg PO BID paroxetine HCl [Paxil] 40 mg tablet 40 mg PO DAILY gabapentin 100 mg capsule 100 mg PO TID lisinopril 10 mg tablet 10 mg PO DAILY paroxetine HCl 20 mg tablet 20 mg PO DAILY Januvia 100 mg tablet 100 mg PO DAILY Lantus U-100 Insulin 100 unit/mL solution 18 unit subcut BEDTIME atorvastatin 80 mg tablet 80 mg PO BEDTIME (DME) lancets [FreeStyle Lancets] 28 gauge misc See Rx Instructions .ROUTE TID Qty: 100 Rx Instructions: As directed (DME) pen needle, diabetic [BD Akiko 2nd Gen Pen Needle] 32 gauge x 5/32 needle See Rx Instructions .ROUTE DAILY Qty: 50 Rx Instructions: As directed senna 8.6 mg capsule 17.2 mg PO BEDTIME 30 Days Qty: 60 4RF Referrals: Pipe Anderson MD [Primary Care Provider] - 5 days
[2023-03-09 12:01] VITALS: BP 144/76; PULSE 109; RESP 11; TEMP 36.8; O2SAT 98; BMI 31.4
[2023-03-09] MEDS: 0.9 % Sodium Chloride 1,000 ML 999 ML IV (12:18)
[2023-03-09 12:24] LABS: MANUAL DIFF FLAG NO
[2023-03-09 12:25] LABS: Basophils Percent Auto 0.4 % (0-2); Eosinophils Absolute Auto 0.1 X10*3/uL (0.0-0.4); Eosinophils Percent Auto 0.9 % (0-4); Hemoglobin 15.5 g/dl (12.0-16.0); Imm Gran Abs Auto 0.01 X10*3/uL (0.00-0.03); Imm Gran Pct Auto 0.1 % (0.0-0.4); Lymphocytes Absolute Auto 1.8 X10*3/uL (1.2-4.9); Lymphocytes Percent Auto 25.7 % (20-40); Mean Corpuscular Hemoglobin 26.7 pg (27.0-33.0); Mean Corpuscular Volume 80.9 fL (80.0-98.0); Monocytes Absolute Auto 0.6 X10*3/uL (0.1-1.2); Monocytes Percent Auto 8.1 % (2-11); Neutrophils Absolute Auto 4.5 x10*3/uL (2.0-8.3); Neutrophils Percent Auto 64.8 % (45-73); Platelet Count 285 X10*3/uL (160-400); Red Blood Count 5.81 X10*6/uL (4.20-5.50); Red Cell Distribution Width 13.3 % (11.0-16.0); White Blood Count 6.9 X10*3/uL (4.8-10.8)
[2023-03-09 12:34] LABS: Appearance Urine Cloudy; Color Urine Yellow; Glucose Urine UA >=1000 mg/dL (Negative); Leukocyte Esterase Urine Negative (Negative); Nitrite Urine Negative (Negative); Specific Gravity - Urine >= 1.030 (1.005-1.025); UMIC TRIGGER UACC YES; Urine Blood Negative (Negative); Urine Ketones 15 mg/dL (Negative); Urine Protein Negative (Neg-Trace)
[2023-03-09 12:47] LABS: Troponin-I High Sensitivity 3.7 ng/L (<3.5-17.0)
[2023-03-09 12:49] LABS: Alanine Aminotransferase 25 U/L (0-31); Albumin Level 4.5 g/dL (3.5-5.0); Alkaline Phosphatase 95 U/L (39-117); Anion Gap 17 (12-20); Aspartate Amino Transferase 16 U/L (5-31); Bilirubin Direct 0.2 mg/dL (0.0-0.5); Blood Urea Nitrogen 16 mg/dL (9-16); Carbon Dioxide 25 mmol/L (22-29); Chloride 94 mmol/L (96-108); Creatinine Clr Calc Pharmacy 56.4; Estimated Glomerular Filt Rate 51; Glucose Random 498 mg/dL (60-115); Lipase 112 U/L (8-78); Magnesium 1.3 mg/dL (1.6-2.6); Potassium 4.9 mmol/L (3.3-5.1); Sodium 131 mmol/L (135-145); Total Protein 7.9 g/dL (6.5-8.0)
[2023-03-09 12:50] LABS: COVID-19 Test Negative (Negative); IDNOW Serial# 55D5AD1C; IDNOW Serial# 9DB6401D; Influenza A Negative (Negative); Influenza B2 Negative (Negative)
[2023-03-09 13:02] LABS: Bacteria Urine None Seen (None Seen); Hyaline Casts Urine 0-2 /LPF (0-2); RBC Urine 0-2 /HPF (0-2); WBC Urine 0-5 /HPF (0-5)
[2023-03-09 13:17] VITALS: O2SAT 100
[2023-03-09] MEDS: Insulin Regular, Human 100 UNIT/ML 3 ML VIAL IVPUSH ×2 (13:41→15:08)
[2023-03-09] MEDS: Magnesium Sulfate/D5W 1 GM/100 ML PIGGYBACK IV (13:44)
[2023-03-09 13:47] LABS: Acetone, serum QL Negative (Negative)
[2023-03-09 14:40] VITALS: BP 131/80; PULSE 96; RESP 16; O2SAT 99
[2023-03-09 14:42] VITALS: BP 115/67; BP 126/71; BP 132/67; PULSE 101; PULSE 91; PULSE 95
[2023-03-09 14:45] LABS: Glucose, Whole Blood 406 mg/dL (60-115)
[2023-03-09 14:45] LABS: Glucose, Whole Blood 328 mg/dL (60-115)
[2023-03-09] MEDS: Lactated Ringers 1,000 ML 999 ML IV (15:03)
[2023-03-09 16:00] LABS: Anion Gap 13 (12-20); Blood Urea Nitrogen 13 mg/dL (9-16); Calcium 11.1 mg/dL (8.4-10.2); Carbon Dioxide 29 mmol/L (22-29); Chloride 99 mmol/L (96-108); Creatinine Clr Calc Pharmacy 72.3; Estimated Glomerular Filt Rate > 60; Glucose Random 240 mg/dL (60-115); Magnesium 1.6 mg/dL (1.6-2.6); Potassium 4.5 mmol/L (3.3-5.1); Sodium 136 mmol/L (135-145)
[2023-03-09 16:32] VITALS: BP 113/64; PULSE 88; RESP 18; TEMP 36.8; O2SAT 98
[2023-03-09 17:36] LABS: Glucose, Whole Blood 248 mg/dL (60-115)
[2023-03-09 17:46] VITALS: BP 129/65; PULSE 86; RESP 16; TEMP 36.9; O2SAT 99
== END 2023-03-09 17:48 | disposition home or self-care (01) ==
PROVIDERS: Physician Assistant; Emergency Provider Emergency Medicine; PCP Internal Medicine
DX: R55 Syncope and collapse (principal); E11.65 Type 2 diabetes mellitus with hyperglycemia; R19.7 Diarrhea, unspecified; R53.1 Weakness; R94.31 Abnormal electrocardiogram [ECG] [EKG]; Z20.822 Contact with and (suspected) exposure to COVID-19; Z20.828 Contact with and (suspected) exposure to other viral communicable diseases; Z79.899 Other long term (current) drug therapy; Z79.4 Long term (current) use of insulin
CPT/HCPCS: 36415; 71045; 80048; 80076; 81001; 82009; 82947; 83690; 83735; 84484; 85025; 87502; 87635; 93005; 96361; 96374; 96375; 96376; 99284; 99285; J3475

== ENCOUNTER 2023-04-03 19:04 | Emergency (ER) | payer MEDICAID, SELFPAY ==
--- NOTE | 2023-04-03 | ECG_ITS ---
Test Reason : CHEST PAIN Blood Pressure : / mmHG Vent. Rate : 076 BPM Atrial Rate : 076 BPM P-R Int : 136 ms QRS Dur : 084 ms QT Int : 390 ms P-R-T Axes : 065 026 043 degrees QTc Int : 438 ms Normal sinus rhythm Low voltage QRS Borderline ECG When compared with ECG of 09-MAR-2023 12:26, Nonspecific T wave abnormality, improved in Anterior leads Referred By: Generic ED Physician Electronically Signed By:GAYATRI SAHU MD
[2023-04-03 19:11] VITALS: BP 109/67; PULSE 82; RESP 18; TEMP 36.4; O2SAT 98; BMI 31.1
--- NOTE | 2023-04-03 21:34 | ED_ITS ---
HPI - Chest Pain General Chief Complaint: Chest Pain Stated Complaint: chest pressure Time Seen by Provider: 04/03/23 21:33 Source: patient Mode of arrival: ambulatory Limitations: no limitations History of Present Illness HPI narrative: 52-year-old female who presents emergency department for evaluation of chest tightness x3 days. Patient states that 2 weeks prior she had a cold which she got from her grand children. Her symptoms included a nonproductive cough and rhinorrhea. She states her symptoms have improved but are persistent. She continues to have rhinorrhea and a cough. She states that over the past 3 days she has had a constant tightness in her chest. She points to her sternum. The pain is worse with breathing and with coughing. Pain is also worse with movement. She states she does feel short of breath. She states that she used to have asthma and she feels like her shortness of breath is consistent with symptoms that she had when she had asthma. Patient states that she does get se asonal allergies and pollen does bother her. She denied fever, chills, nausea, vomiting, diarrhea, abdominal pain, myalgias arthralgias. Related Data Home Medications Medication Instructions Recorded Confirmed glipizide 10 mg tablet 10 mg PO BID 03/05/21 paroxetine HCl 40 mg tablet (Paxil) 40 mg PO DAILY 03/05/21 gabapentin 100 mg capsule 100 mg PO TID 01/26/22 lisinopril 10 mg tablet 10 mg PO DAILY 01/26/22 paroxetine HCl 20 mg tablet 20 mg PO DAILY 01/26/22 sitagliptin phosphate 100 mg 100 mg PO DAILY 01/26/22 tablet (Januvia) atorvastatin 80 mg tablet 80 mg PO BEDTIME 12/22/22 insulin glargine 100 unit/mL 18 unit subcut BEDTIME 12/22/22 subcutaneous solution (Lantus U-100 Insulin) lancets 28 gauge (FreeStyle #100 ea 12/22/22 Lancets) pen needle, diabetic 32 gauge x #50 ea 12/22/22 (BD Akiko 2nd Gen Pen Needle) Previous Rx's Medication Instructions Recorded sennosides 8.6 mg capsule (senna) 17.2 mg PO BEDTIME constipation 30 12/22/22 days #60 caps albuterol sulfate 90 mcg/actuation 2 puff inhalation Q4-6H PRN 04/03/23 aerosol inhaler (ProAir HFA) shortness of breath or wheezing #6.7 grams prednisone 20 mg tablet 20 mg PO DAILY 5 days #5 tabs 04/03/23 Allergies Allergy/AdvReac Type Severity Reaction Status Date / Time shrimp Allergy Mild EYE ITCHING Verified 12/22/22 10:40 lobster Allergy Severe Itching Uncoded 12/22/22 10:40 Review of Systems Review of Systems: Yes all other systems are reviewed and are negative COUNTS INCLUDE 234 BEDS AT THE [facility] Past Medical History COUNTS INCLUDE 234 BEDS AT THE [facility] Narrative: Past medical history: Diabetes mellitus, hypertension, diabetic neuropathy, irritable bowel syndrome. Social history: She is a former smoker, Medical History Diabetes Hypertension Irritable bowel syndrome with diarrhea Surgical History H/O colonoscopy Hx of hemorrhoidectomy Hx of hernia repair Hx of tubal ligation Family History Family History Father Heart problem Asthma Mother Colon cancer HTN (hypertension) Varicose vein of leg Family history of diabetes mellitus Social History Social History Household Members: None Alcohol intake: current Alcohol intake frequency: holidays/special occasions only Substance Use Type: Marijuana Physical Exam Vital Signs: Vital Signs: Last Vital Signs Temp 97.6 F 04/03/23 19:11 Pulse 82 04/03/23 19:11 Resp 18 04/03/23 19:11 BP 109/67 04/03/23 19:11 Pulse Ox 98 04/03/23 19:11 O2 Del Method Room Air 04/03/23 19:11 BMI result Body Mass Index 31.1 Const: General: cooperative and no acute distress Orientation/consciousness: oriented to person and oriented to place Limitations: no limitations HEENT: Head: Yes normal to inspection, Yes normocephalic and Yes atraumatic Ears: external ears normal General nose exam: Normal external nose present Face and sinus: Yes normal facial exam Mouth: Normal oral and palatal mucosa present Throat: Yes posterior oropharynx normal Eyes: General: appearance normal, both eyes and all related structures Pupils: Equal, round and reactive pupils present Neck: Neck: Yes normal visual inspection, Yes no lymphadenopathy, Yes trachea midline and Yes supple Chest: Chest palpation & inspection: normal inspection of the chest and tenderness sternum Resp: Other: Patient has mild wheezing at the end of expiration, breath sounds symmetric bilateral, no rales or rhonchi Cardio: Rate: regular rate Rhythm: regular rhythm Heart sounds: S1 normal heart sound present, S2 normal heart sound present and no murmurs GI: Inspection: Yes normal to inspection Palpation (GI): Soft to palpation, nontender and no guarding Auscultation: normal bowel sounds Neuro: General: oriented to person and oriented to place Cranial nerves: Yes CN's II-XII intact bilaterally and Yes Equal, round and reactive pupils present Cognition (Neuro): normal cognition Motor exam (neuro): 5/5 motor strength present throughout Extrem: General: Yes normal to inspection Psych: Appearance: grossly normal Speech and movement: Normal speech and movement present Medical Decision Making Medical Decision Making MDM Narrative: 52-year-old female who presents emergency department for evaluation of 3 days of chest tightness with shortness of breath. The patient has been sick for approximately 2 weeks with URI symptoms which have not completely resolved. Continues to have a nonproductive cough and rhinorrhea. Patient states the pollen does irritate her and she does have a history of asthma and believes that she is having a flare-up consistent with asthma. Patient's physical examination did reveal some wheezing at the end of expiration. Patient's 12 EKG was unremarkable. Patient will be treated with prednisone 20 mg once a day for 5 days and an albuterol inhaler. She was also advised to take Tylenol for pain. She was given printed and verbal instructions discharged home. Differential Diagnosis Differential diagnosis includes but is not limited to viral URI, bacterial URI, allergic rhinitis, seasonal allergies, pneumonia, pulmonary embolism, coronary artery disease Independent Interpretation I performed an independent interpretation of an: EKG Interpretation: My independent interpretation of patient's 12 EKG done at 19:17 hours is as follows: Normal sinus rhythm with a rate of 73, normal SC interval, QRS duration QTC interval, no ST segment elevation, no ST segment depression, no PACs, no PVCs, flat T-wave in lead 3, being 3 and inverted T-wave in V1 compared to EKG dated 03/09/2023 the patient had inverted T-waves V1 through V3 which have now improved. Discharge Plan Discharge Clinical Impression: Chest pain, Allergic rhinitis Patient Disposition: Home, Self-Care Instructions: Chest Pain (ED), Allergic Rhinitis (ED) Additional Instructions: Your 12 EKG was unremarkable Your symptoms are consistent with allergic rhinitis and chest pain caused by inflammation chest and lungs. Take prednisone 20 mg pills, 1 pills once a day for 5 days. While you are taking prednisone, do not take any NSAIDs (Motrin, Advil, ibuprofen, Aleve, naproxen). Use the albuterol inhaler with the spacer, 2 puffs every 4-6 hours as needed for shortness of breath and wheezing. Take Tylenol (acetaminophen) 500 mg pills, 2 pills every 4 to 6 hours as needed for pain. Follow-up with your doctor in 2 days. Please return to the emergency department if your symptoms get worse or if you develop any symptoms that are concerning to you. Prescriptions: New prednisone 20 mg tablet 20 mg PO DAILY 5 Days Qty: 5 0RF albuterol sulfate [ProAir HFA] 90 mcg/actuation HFA aerosol inhaler 2 puff inhalation Q4-6H PRN (Reason: shortness of breath or wheezing) Qty: 6.7 0RF No Action glipizide 10 mg tablet 10 mg PO BID paroxetine HCl [Paxil] 40 mg tablet 40 mg PO DAILY gabapentin 100 mg capsule 100 mg PO TID lisinopril 10 mg tablet 10 mg PO DAILY paroxetine HCl 20 mg tablet 20 mg PO DAILY Januvia 100 mg tablet 100 mg PO DAILY Lantus U-100 Insulin 100 unit/mL solution 18 unit subcut BEDTIME atorvastatin 80 mg tablet 80 mg PO BEDTIME (DME) lancets [FreeStyle Lancets] 28 gauge misc See Rx Instructions .ROUTE TID Qty: 100 Rx Instructions: As directed (DME) pen needle, diabetic [BD Akiko 2nd Gen Pen Needle] 32 gauge x 5/32 needle See Rx Instructions .ROUTE DAILY Qty: 50 Rx Instructions: As directed senna 8.6 mg capsule 17.2 mg PO BEDTIME 30 Days Qty: 60 4RF
[2023-04-03] MEDS: predniSONE 20 MG TABLET PO (22:25)
== END 2023-04-03 22:41 | disposition home or self-care (01) ==
PROVIDERS: Emergency Provider Emergency Medicine Emergency Medical Services; PCP Internal Medicine
DX: R07.9 Chest pain, unspecified (principal); J30.9 Allergic rhinitis, unspecified; E11.9 Type 2 diabetes mellitus without complications; I10 Essential (primary) hypertension; Z79.02 Long term (current) use of antithrombotics/antiplatelets; Z79.4 Long term (current) use of insulin; Z79.899 Other long term (current) drug therapy
CPT/HCPCS: 93005; 99283

== ENCOUNTER 2023-10-12 12:57 | Outpatient (REF) | payer MEDICAID, SELFPAY | END 2023-10-12 12:58 | disposition home or self-care (01) | LOC: HO.MAMMO 12:57 | PROVIDERS: PCP Internal Medicine; Visit Provider Internal Medicine | DX: Z12.31 Encounter for screening mammogram for malignant neoplasm of breast (principal) | CPT/HCPCS: 77063; 77067 ==

== ENCOUNTER → 2023-10-12 13:15 | Outpatient (BNV) | payer MEDICAID, SELFPAY | PROVIDERS: PCP Internal Medicine; Visit Provider Radiology Diagnostic Radiology | DX: Z12.31 Encounter for screening mammogram for malignant neoplasm of breast (principal) | CPT/HCPCS: 77063; 77067 ==

== ENCOUNTER 2023-11-17 14:29 | Outpatient (AMB) | payer MEDICAID, SELFPAY ==
--- NOTE | 2023-11-17 15:03 | MHC.OFFVIS ---
Intake Vital Signs 11/17/23 15:07 Height 5 ft 2 in Weight 200 lb BMI 36.6 BP 129/58 L Blood Pressure Location Rt brachial Position Sitting Pulse 80 Intake Visit Reasons: umbilical hernia Intake Note: This patient presents for a umbilical hernia assessment, history umbilical hernia repair with mesh on 03/11/18. Patient c/o; reports bulge, reports bulge, reports pain, reports occaisonal constipation. 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: No Accompanied by: Self / Same As Patient Allergies shrimp Allergy (Mild, Verified 11/17/23 15:14) EYE ITCHING lobster Allergy (Severe, Uncoded 11/17/23 15:14) Itching Medication List - Last Reconciled 11/17/23 by Yfn Vides MD albuterol sulfate 90 mcg/actuation (ProAir HFA) 2 puffs inhalation Q4-6H PRN atorvastatin 80 mg PO BEDTIME gabapentin 100 mg PO TID glipizide 10 mg PO BID insulin aspart U-100 subcut insulin glargine (Lantus U-100 Insulin) 18 units subcut BEDTIME insulin glargine U-300 conc (Toujeo Max U-300 SoloStar) units subcut BEDTIME lancets (FreeStyle Lancets) As directed lisinopril 10 mg PO DAILY paroxetine HCl (Paxil) 40 mg PO DAILY paroxetine HCl 20 mg PO DAILY pen needle, diabetic (BD Akiko 2nd Gen Pen Needle) As directed prednisone 20 mg PO DAILY 5 days sennosides (senna) 17.2 mg (2 x 8.6 mg) PO BEDTIME 30 days sitagliptin phosphate (Januvia) 100 mg PO DAILY HPI umbilical hernia HPI Details 53-year-old female referred for an umbilical hernia. She has knows this this mass just above her umbilicus on and off for about 3 months now. She says that this seems to be more prominent when he coughs. She says the this causing some discomfort She does have a history of an umbilical hernia repair in the distant past. I had taken her to surgery for exploration of the area and there was note of a lot of scar tissue without a recurrent hernia back in 2018. She has a known diabetic. She also has morbid obesity. [facility] Medical History Morbid obesity Umbilical hernia Hypertension Diabetes Irritable bowel syndrome with diarrhea Surgical History H/O colonoscopy Hx of hemorrhoidectomy Hx of hernia repair Hx of tubal ligation Family History Father Heart problem Asthma Mother Colon cancer HTN (hypertension) Varicose vein of leg Family history of diabetes mellitus Maternal Aunt Pancreatic cancer Family/Other Breast cancer Social History Household Members: None Alcohol intake: current Alcohol intake frequency: holidays/special occasions only Substance Use Type: Marijuana Review of Systems Const Details: Morbidly obese Denies chills and Denies fever(s) Card Denies chest pain, Denies dyspnea and Denies dyspnea on exertion Resp Denies cough, Denies dyspnea and Denies dyspnea on exertion GI Details: Mass that seems to protuberant above the umbilicus with Valsalva, vague, about 3 cm, unable to define fascial margins because of obesity Denies hematochezia and Denies change in bowel habits Denies hematuria Musc Denies back pain and Denies limited range of motion Neuro Denies focal weakness and Denies convulsions Psych Denies depression and Denies mood swings Physical Exam Vital Signs: Last Vital Signs Pulse 80 11/17/23 15:07 BP 129/58 L 11/17/23 15:07 BMI result Body Mass Index 36.6 Const General: comfortable and no acute distress Orientation/consciousness: patient oriented x3 Neck Neck: Yes no lymphadenopathy Resp Auscultation: clear to auscultation bilaterally Cardio Rhythm: regular rhythm GI Palpation (GI): Soft to palpation, nontender and no guarding Neuro General: patient oriented x3 Assessment & Plan Assessment & Plan (1) Umbilical hernia: Code(s): K42.9 - Umbilical hernia without obstruction or gangrene Plan: She has what appears to be an umbilical hernia. She describes some discomfort. She says that this is more protuberant when she is coughing. I explained the technique of repair with possible mesh. I reviewed the risks including but not limited to bleeding, recurrence, infections and poor healing as well as the benefits and alternatives. She understands that her morbid obesity and diabetes present perioperative risks as above Orders: Orders CT abdomen pelvis wo IV con Today K42.9 - Umbilical hernia without obstruction or gangrene Coding Level of Care Code Est Pt Level 3 (24555) Diagnoses Umbilical hernia K42.9
[2023-11-17 15:07] VITALS: BP 129/58; PULSE 80; BMI 36.6
== END 2023-11-17 15:25 | disposition home or self-care (01) ==
PROVIDERS: PCP Internal Medicine; Visit Provider Surgery
DX: K42.9 Umbilical hernia without obstruction or gangrene (principal)
CPT/HCPCS: 99213

== ENCOUNTER → 2023-11-17 14:29 | Outpatient (BNVA) | payer MEDICAID, SELFPAY | PROVIDERS: PCP Internal Medicine; Visit Provider Surgery | DX: K42.9 Umbilical hernia without obstruction or gangrene (principal) | CPT/HCPCS: 99212 ==

== ENCOUNTER 2023-12-03 14:17 | Outpatient (REF) | payer MEDICAID, SELFPAY | END 2023-12-03 14:18 | disposition home or self-care (01) | LOC: HO.HHCX 14:17 | PROVIDERS: Visit Provider Registered Nurse | DX: M25.511 Pain in right shoulder (principal); G89.29 Other chronic pain | CPT/HCPCS: 73030 ==

== ENCOUNTER 2023-12-23 16:25 | Outpatient (REF) | payer MEDICAID, SELFPAY ==
--- NOTE | ~2023-12-23 | CT_ITS ---
EXAMINATION: CT ABDOMEN AND PELVIS WITHOUT CONTRAST CLINICAL INFORMATION: Umbilical hernia without obstruction or gangrene. COMPARISON: April 05, 2015. TECHNIQUE: Multidetector volumetric imaging was performed from the superior aspect of the liver through the pubic symphysis. The study was performed during Valsalva maneuver. Sagittal and coronal reformatted images were obtained on the technologist's workstation. This CT examination was performed using dose optimization techniques as appropriate, variously including the following: *Automated exposure control *Adjustment of mA and/or kV according to patient size (this includes techniques or standardized protocols for targeted exams where dose is matched to indication/reason for exam; i.e. extremities or head) *Use of iterative reconstruction technique DLP: 859 mGy-cm FINDINGS: LUNG BASES: Mild bibasilar dependent atelectasis. No effusion. LIVER, GALLBLADDER, AND BILIARY TREE: The dome of the liver is cut off the imaging. The liver otherwise appears unremarkable in size, shape, and attenuation. No focal hepatic lesion or biliary ductal dilatation is appreciated. Unremarkable appearance of the gallbladder. PANCREAS: Unremarkable SPLEEN: Unremarkable ADRENAL GLANDS: Unremarkable KIDNEYS AND URETERS: The kidneys appear unremarkable in size, shape, and attenuation. No hydronephrosis, hydroureter, or calculi seen. BLADDER: Poorly distended, therefore suboptimally evaluated. Grossly unremarkable. GASTROINTESTINAL TRACT: The small and large bowel appear unremarkable on this noncontrast study. ABDOMINAL WALL: Skin thickening in the region of the umbilicus and contiguous, subjacent anterior abdominal wall, with mild induration of adjacent fat. No significant hernia is appreciated. LYMPH NODES: Bilateral reactive inguinal lymph nodes. VASCULAR: Unremarkable PELVIC VISCERA: Unremarkable OSSEOUS STRUCTURES: Disc degenerative change with posterior bulging at L4-S1. CT/CT abdomen pelvis wo IV con IMPRESSION: Skin thickening in the region of the umbilicus and contiguous, subjacent anterior abdominal wall, with mild induration of adjacent fat. The finding is nonspecific. Differential diagnosis includes, but is not limited to, inflammatory/infectious, neoplastic, etc. Recommend clinical correlation. No hernia identified.
== END 2023-12-23 16:26 | disposition home or self-care (01) ==
LOC: HO.CT 16:25
PROVIDERS: Visit Provider Surgery
DX: K42.9 Umbilical hernia without obstruction or gangrene (principal)
CPT/HCPCS: 74176

== ENCOUNTER 2024-01-04 05:49 | Day surgery (SDC) | payer MEDICAID, SELFPAY ==
[2023-12-31 08:58] VITALS: BMI 36.6
--- NOTE | 2024-01-03 08:56 | HO.ANESPROP2 ---
Documented by User: Mikayla Jessica NP 01/03/24 08:57 HPI - Anesthesia Eval Consult details Narrative: 53yo F for Recurrent Hernia Repair Umbilical, possible mesh PMFSH Active Problems Active Problems: All Active Problems (Updated 11/17/23 @ 15:25 by Yfn Vides MD) Morbid obesity (Acute) Umbilical hernia (Acute) Sebaceous cyst (Acute) Abscess (Acute) Diabetic neuropathy (Acute) Cutaneous abscess of back [any part, except buttock] (Acute) Poorly controlled type 2 diabetes mellitus (Acute) Irritable bowel syndrome with diarrhea (Acute) Constipation (Acute) Diabetes (Acute) RUQ abdominal pain (Acute) H. pylori infection (Acute) Past Medical History Medical History Morbid obesity Umbilical hernia Hypertension Diabetes Irritable bowel syndrome with diarrhea Family History Family History Father Heart problem Asthma Mother Colon cancer HTN (hypertension) Varicose vein of leg Family history of diabetes mellitus Maternal Aunt Pancreatic cancer Family/Other Breast cancer Surgical History Surgical History (Updated 01/04/24 @ 08:42 by Rizwana Gatica MD) Status post hysteroscopic ablation of endometrium Breast abscess History of appendectomy H/O umbilical hernia repair H/O colonoscopy Hx of hemorrhoidectomy Hx of hernia repair Hx of tubal ligation Social History Social History Household Members: None Alcohol intake: current Alcohol intake frequency: does not drink Patient Tobacco Use Status: Former Tobacco user Substance Use Type: Marijuana Are you DNR?: No Advance Directives: No Advance Directives Information Provided: Yes Recently lost weight without trying: No Meds Allergies Allergy/AdvReac Type Severity Reaction Status Date / Time shrimp Allergy Mild EYE ITCHING Verified 11/17/23 15:14 lobster Allergy Severe Itching Uncoded 11/17/23 15:14 Home Medications Medication Instructions Recorded Confirmed Last Taken Type glipizide 10 mg tablet 10 mg PO BID 03/05/21 Unknown History paroxetine HCl 40 mg tablet (Paxil) 40 mg PO DAILY 03/05/21 11/17/23 01/04/24 History gabapentin 100 mg capsule 100 mg PO TID 01/26/22 11/17/23 Unknown History lisinopril 10 mg tablet 10 mg PO DAILY 01/26/22 11/17/23 Unknown History atorvastatin 80 mg tablet 80 mg PO BEDTIME 12/22/22 11/17/23 Unknown History lancets 28 gauge (FreeStyle #100 ea 12/22/22 11/17/23 Unknown History Lancets) pen needle, diabetic 32 gauge x #50 ea 12/22/22 11/17/23 Unknown History (BD Akiko 2nd Gen Pen Needle) insulin aspart U-100 100 unit/mL unit subcut BID 11/17/23 11/17/23 01/04/24 History (3 mL) subcutaneous pen insulin glargine U-300 conc 300 unit subcut BEDTIME 01/04/24 01/04/24 Unknown History unit/mL (3 mL) subcutaneous pen (Toujeo Max U-300 SoloStar) Exam Height,Weight and Vital Signs: Height 5 ft 2 in Weight 90.718 kg Assessment and Plan Assessment Anesthesia Assessment: Chart Reviewed Documented by User: Rizwana Gatica MD 01/04/24 08:42 PMFSH Active Problems Active Problems: All Active Problems (Updated 01/04/24 @ 08:07 by Rizwana Gatica MD) Morbid obesity (Acute) BMI 36.5 Umbilical hernia (Acute) Sebaceous cyst (Acute) Abscess (Acute) Cutaneous abscess of back [any part, except buttock] (Acute) Poorly controlled type 2 diabetes mellitus with Diabetic neuropathy Irritable bowel syndrome with diarrhea (Acute) Constipation (Acute) RUQ abdominal pain (Acute) H. pylori infection (Acute) H/o diastasis recti H/o JACE - not using CPAP H/o asthma Hyperlipidemia Anxiety/Depression HTN Past Medical History Medical History Morbid obesity Umbilical hernia Hypertension Diabetes Irritable bowel syndrome with diarrhea Family History Family History Father Heart problem Asthma Mother Colon cancer HTN (hypertension) Varicose vein of leg Family history of diabetes mellitus Maternal Aunt Pancreatic cancer Family/Other Breast cancer Family history of problems with anesthesia: No Surgical History Surgical History (Updated 01/04/24 @ 08:42 by Rizwana Gatica MD) Status post hysteroscopic ablation of endometrium Breast abscess History of appendectomy H/O umbilical hernia repair H/O colonoscopy Hx of hemorrhoidectomy Hx of hernia repair Hx of tubal ligation History of Problems with Anesthesia: No (but has been told she has JACE after anesthesia) Social History Social History Household Members: None Alcohol intake: current Alcohol intake frequency: does not drink Patient Tobacco Use Status: Former Tobacco user Substance Use Type: Marijuana Are you DNR?: No Advance Directives: No Advance Directives Information Provided: Yes Recently lost weight without trying: No Meds Allergies Allergy/AdvReac Type Severity Reaction Status Date / Time shrimp Allergy Mild EYE ITCHING Verified 11/17/23 15:14 lobster Allergy Severe Itching Uncoded 11/17/23 15:14 Home Medications Medication Instructions Recorded Confirmed Last Taken Type glipizide 10 mg tablet 10 mg PO BID 03/05/21 Unknown History paroxetine HCl 40 mg tablet (Paxil) 40 mg PO DAILY 03/05/21 11/17/23 01/04/24 History gabapentin 100 mg capsule 100 mg PO TID 01/26/22 11/17/23 Unknown History lisinopril 10 mg tablet 10 mg PO DAILY 01/26/22 11/17/23 Unknown History atorvastatin 80 mg tablet 80 mg PO BEDTIME 12/22/22 11/17/23 Unknown History lancets 28 gauge (FreeStyle #100 ea 12/22/22 11/17/23 Unknown History Lancets) pen needle, diabetic 32 gauge x #50 ea 12/22/22 11/17/23 Unknown History (BD Akiko 2nd Gen Pen Needle) insulin aspart U-100 100 unit/mL unit subcut BID 11/17/23 11/17/23 01/04/24 History (3 mL) subcutaneous pen insulin glargine U-300 conc 300 unit subcut BEDTIME 01/04/24 01/04/24 Unknown History unit/mL (3 mL) subcutaneous pen (Toujeo Max U-300 SoloStar) Exam Height,Weight and Vital Signs: Height 5 ft 2 in Weight 90.718 kg Vital Signs Temp Pulse Resp BP Pulse Ox O2 Del Method 01/04/24 06:11 98 F 87 20 164/87 H 97 Room Air Pertinent Lab Results Pertinent Lab Results: Laboratory Results - last 24 hr 01/04/24 06:01 POC Glucose 237 H Airway Mallampati Class: II TM Dist: >3cm Neck ROM: Full Loose/Missing/Broken Teeth: No (Denies broken, loose, missing teeth) Heart: RRR Lungs: CTAB Assessment and Plan Assessment Anesthesia Assessment: Anesthesia Plan Discussed and Chart Reviewed Final Anesthetic Review Family History of Problems with Anesthesia: No History of Problems with Anesthesia: No (but has been told she has JACE after anesthesia) NPO: Yes ASA Class: III Final Preanesthetic Review: No Changes in Pt Med Stat, Meds/Allgs Chart Reviewed, Consent Obtained/Reviewed and Anes Risks/Benef Reviewed Patient Risk: Intermediate Procedure Risk: Low Assessment/Block/Sedation in SS: Assess/Block/Sedation-SS Anesthetic Plan Anesthetic Plan: GA Disposition: Standard PACU
[2024-01-04 06:05] LABS: Glucose, Whole Blood 237 mg/dL (60-115)
[2024-01-04 06:11] VITALS: BP 164/87; PULSE 87; RESP 20; TEMP 36.6; O2SAT 97; BMI 36.5
[2024-01-04] MEDS: Lactated Ringers 1,000 ML 100 ML IVCONT (07:01)
--- NOTE | 2024-01-04 08:11 | MHC.SHP ---
Pre-Procedural Eval Section A - 24 Hr Update-Section A only Date of Service: 01/04/24 Section B - Complete if H&P > 30 days Chief Complaint: Umbilical hernia without obstruction or gangrene Details of Present Illness: Small umbilical hernia on CT scan, fat containing. Has previous umbilical hernia Relevant Family History (Specify if Yes): No Relevant Social History: None Present Medications: see Short Stay Collaborative assessment Medical History: Significant History (Morbid obesity, IBS, poorly controlled diabetes, history of H pylori) Allergies: Allergies Allergy/AdvReac Type Severity Reaction Status Date / Time shrimp Allergy Mild EYE ITCHING Verified 11/17/23 15:14 lobster Allergy Severe Itching Uncoded 11/17/23 15:14 Review of Systems Sugical H&P ROS: Negative: Constitution, Cardiovascular, Respiratory, Neurological, Psychiatric, Hem-Onc, Allergic/Immunologic, Gastrointestinal, Genitourinary, Musculoskeletal, Integumentary, Endocrine and Eyes/Ears/Nose/Throat Exam Surgical H&P Exam: Normal: HEENT, Normal: Heart, Normal: Lungs, Normal: Extremities, Normal: Skin and Normal: Neurological and Significant Findings: Abdomen (Palpable small umbilical hernia) Plan Diagnosis/Plan: Unchanged I have reviewed the history and physical and performed a pertinent physical examination on my patient. No changes have occurred unless specified. Time Spent With Patient Time: Total time managing care of this patient today ____ minutes.
--- NOTE | 2024-01-04 09:09 | P.OP_ITS ---
Operative Note Operative Note Date of Service: 01/04/24 Narrative: Preop diagnosis: Umbilical hernia Postop diagnosis: Postop changes around the umbilicus, no hernia identified Procedure: Exploration of the umbilical area under anesthesia Surgeon: Yfn Vides MD community program assistant: HOLA Nunez The patient is a 53-year-old female with morbid obesity, who had seen me because of what she felt was an umbilical hernia. I had done a CT scan and this seemed to show a small fat containing hernia just above the umbilicus although there was no obvious fascial defect. She had did to proceed with repair as she says that she could feel a lump in the area from her previous hernia repair. She says this was causing discomfort She understood the technique of the planned procedure as well as the risks, benefits, and alternatives. During exploration. She was brought to the operating room. She was was placed supine under general anesthesia via laryngeal mask airway. The abdomen was prepped and draped in the usual sterile fashion. A surgical time-out was done. The patient received cefazolin 2 g IV preoperatively I infiltrated the supraumbilical margin using lidocaine 1%. I made an incision longitudinally starting from just above the supraumbilical margin blade 15. This was carried down through the full-thickness of the skin and subcutaneous fat electrocautery until I reached the fascia. In view of her morbid obesity, I had to use appendiceal retractors to expose the fascia. I explored the area including the umbilicus itself. I could not feel any defect. I did not see any herniated fat. There were some postop fibrotic changes from her previous hernia repair I continued to palpate all around the area and there was no hernia seen. I therefore irrigated. I closed the subcutaneous layer with Polysorb 3-0 interrupted sutures. Skin closure was achieved with Polysorb 4-0 subcuticular running stitch The area was infiltrated with Marcaine 0.5% for postop analgesia. The procedure was completed. She tolerated procedure well. There were no immediate complications The mass that she had felt this to be from postop fibrotic changes in the area as there was no hernia defect identified during exploration.
[2024-01-04 09:20] VITALS: BP 144/70; PULSE 93; RESP 12; TEMP 37.2; O2SAT 92
[2024-01-04 09:25] VITALS: BP 137/76; PULSE 91; RESP 20; O2SAT 95
[2024-01-04 09:30] VITALS: BP 143/88; PULSE 88; RESP 16; O2SAT 96
[2024-01-04 09:35] VITALS: BP 137/81; PULSE 82; RESP 14; TEMP 37.1; O2SAT 96
[2024-01-04 09:50] VITALS: BP 141/76; PULSE 89; RESP 18; TEMP 37.1; O2SAT 98
== END 2024-01-04 10:25 | disposition home or self-care (01) ==
PROVIDERS: PCP Internal Medicine; Visit Provider Surgery
PROC: (CPT 49000; principal; 2024-01-04 08:40)
DX: Z48.815 Encounter for surgical aftercare following surgery on the digestive system (principal); Z98.890 Other specified postprocedural states; Z87.19 Personal history of other diseases of the digestive system; I10 Essential (primary) hypertension; E11.9 Type 2 diabetes mellitus without complications; E66.01 Morbid (severe) obesity due to excess calories; Z68.36 Body mass index [BMI] 36.0-36.9, adult; K58.0 Irritable bowel syndrome with diarrhea; Z79.4 Long term (current) use of insulin; Z79.84 Long term (current) use of oral hypoglycemic drugs; Z79.899 Other long term (current) drug therapy; Z98.51 Tubal ligation status; F12.90 Cannabis use, unspecified, uncomplicated; Z87.891 Personal history of nicotine dependence
CPT/HCPCS: 49000; 82947; J0690; J1885; J2405; J2704; J2795; J3010

== ENCOUNTER → 2024-01-04 05:49 | Outpatient (BNV) | payer MEDICAID, SELFPAY | PROVIDERS: PCP Internal Medicine; Visit Provider Surgery | DX: R19.05 Periumbilic swelling, mass or lump (principal) | CPT/HCPCS: 49000 ==

== ENCOUNTER 2024-01-24 17:44 | Outpatient (REF) | payer MEDICAID, SELFPAY ==
[2024-01-26 00:10] LABS: C. trachomatis RNA TMA NOT DETECTED (NOT DETECTED); Candida glabrata RNA NOT DETECTED (NOT DETECTED); Candida species RNA DETECTED (NOT DETECTED); N. gonorrhoeae RNA TMA NOT DETECTED (NOT DETECTED); Trichomonas vaginalis RNA NOT DETECTED (NOT DETECTED)
== END 2024-01-24 17:45 | disposition home or self-care (01) ==
LOC: HO.HHCLNP 17:44
PROVIDERS: Visit Provider Student in an Organized Health Care Education/Training Program
DX: B37.31 Acute candidiasis of vulva and vagina (principal)
CPT/HCPCS: 36415; 81513; 87481; 87491; 87591; 87661

== ENCOUNTER 2024-01-27 13:32 | Outpatient (AMB) | payer MEDICAID, SELFPAY ==
--- NOTE | 2024-01-27 13:34 | MHC.OFFVIS ---
Intake Vital Signs 01/27/24 13:39 Weight 192 lb BP 149/68 H Blood Pressure Location Rt brachial Position Sitting Pulse 88 Intake Visit Reasons: s/p umbilical hernia repair Intake Note: This patient presents for a post-op follow-up assessment status post Exploration of the umbilical area under anesthesia. Patient c/o; reports no complaints at this time. Facilities Locator Required: No Accompanied by: Self / Same As Patient Allergies shrimp Allergy (Mild, Verified 01/27/24 13:41) EYE ITCHING lobster Allergy (Severe, Uncoded 01/27/24 13:41) Itching HPI s/p umbilical hernia repair HPI Details She is here for postop visit. I had taken her to the OR last 01/04/2024 for question of an umbilical hernia. I had explored the area but no umbilical hernia or defect could be identified. It appeared that the lump that she was feeling was more of scarring from her previous surgery. She currently denies significant complaints. [facility] Medical History Morbid obesity Umbilical hernia Hypertension Diabetes Irritable bowel syndrome with diarrhea Surgical History Status post hysteroscopic ablation of endometrium Breast abscess History of appendectomy H/O umbilical hernia repair H/O colonoscopy Hx of hemorrhoidectomy Hx of hernia repair Hx of tubal ligation Family History Father Heart problem Asthma Mother Colon cancer HTN (hypertension) Varicose vein of leg Family history of diabetes mellitus Maternal Aunt Pancreatic cancer Family/Other Breast cancer Social History Household Members: None Alcohol intake: current Alcohol intake frequency: does not drink Patient Tobacco Use Status: Former Tobacco user Substance Use Type: Marijuana Review of Systems Const Denies chills and Denies fever(s) Card Denies chest pain, Denies dyspnea and Denies dyspnea on exertion Resp Denies cough, Denies dyspnea and Denies dyspnea on exertion GI Denies hematochezia and Denies change in bowel habits Denies hematuria Musc Denies back pain and Denies limited range of motion Neuro Denies focal weakness and Denies convulsions Psych Denies depression and Denies mood swings Physical Exam Vital Signs: Last Vital Signs Pulse 88 01/27/24 13:39 BP 149/68 H 01/27/24 13:39 Const General: comfortable and no acute distress Resp Effort & Inspection: normal respiratory effort GI Other: Incision above the umbilicus is well healed, not infected, no reducible mass Palpation (GI): Soft to palpation, not firm and nontender Assessment & Plan Assessment & Plan (1) Umbilical hernia: Code(s): K42.9 - Umbilical hernia without obstruction or gangrene Plan: I actually ended up with exploration of the area and no umbilical hernia was identified. There was no fascial defect. The incision is currently well healing. There has no reducible mass. She can follow up with me on a p.r.n. basis. She understands the above well. Coding Level of Care Code Global (10337) Diagnoses Umbilical hernia K42.9
[2024-01-27 13:39] VITALS: BP 149/68; PULSE 88
== END 2024-01-27 13:47 | disposition home or self-care (01) ==
PROVIDERS: PCP Internal Medicine; Visit Provider Surgery
DX: K42.9 Umbilical hernia without obstruction or gangrene (principal)
CPT/HCPCS: 99024

== ENCOUNTER → 2024-01-27 13:32 | Outpatient (BNVA) | payer MEDICAID, SELFPAY | PROVIDERS: PCP Internal Medicine; Visit Provider Surgery | DX: Z48.89 Encounter for other specified surgical aftercare (principal); Z98.890 Other specified postprocedural states | CPT/HCPCS: 99212 ==

== ENCOUNTER 2024-02-16 19:02 | Emergency (ER) | payer MEDICAID, SELFPAY ==
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
[2024-02-16 19:30] VITALS: BP 132/73; BP 150/90; PULSE 86; PULSE 87; RESP 20; TEMP 36.7; O2SAT 98; BMI 34.9
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
[2024-02-16 22:28] VITALS: BP 132/79; PULSE 78; RESP 16; TEMP 36.8; O2SAT 98
== END 2024-02-16 22:29 | disposition home or self-care (01) ==
PROVIDERS: Emergency Provider Student in an Organized Health Care Education/Training Program; PCP Internal Medicine
DX: Z04.1 Encounter for examination and observation following transport accident (principal); M25.511 Pain in right shoulder; E11.9 Type 2 diabetes mellitus without complications; I10 Essential (primary) hypertension
CPT/HCPCS: 73030; 73060; 99282; 99283

== ENCOUNTER 2024-02-25 17:32 | Emergency (ER) | payer MEDICAID, SELFPAY ==
[2024-02-25 17:57] VITALS: BP 111/91; PULSE 97; RESP 18; TEMP 37.2; O2SAT 98; BMI 38.6
--- NOTE | 2024-02-25 17:57 | ED.SKABFB ---
HPI - Skin/Abscess/Foreign Bdy General Chief complaint: Skin/Abscess/Foreign Body Stated complaint: Abscess Time Seen by Provider: 02/25/24 19:14 Source: patient, RN notes reviewed and old records reviewed Mode of arrival: ambulatory Limitations: no limitations History of Present Illness HPI narrative: 53-year-old female with past medical history significant for diabetes, IBS presents for evaluation of an abscess to her right upper buttocks. Patient reports that she 1st noticed the area painful about 3 or 4 days ago She states that she was scratching the area and ?it started to get more painful and larger. ? She denies any drainage from the area Denies any fevers or chills. She reports a history of previous abscesses requiring drainage Related Data Home Medications Medication Instructions Recorded Confirmed glipizide 10 mg tablet 10 mg PO BID 03/05/21 paroxetine HCl 40 mg tablet (Paxil) 40 mg PO DAILY 03/05/21 11/17/23 gabapentin 100 mg capsule 100 mg PO TID 01/26/22 11/17/23 lisinopril 10 mg tablet 10 mg PO DAILY 01/26/22 11/17/23 atorvastatin 80 mg tablet 80 mg PO BEDTIME 12/22/22 11/17/23 lancets 28 gauge (FreeStyle #100 ea 12/22/22 11/17/23 Lancets) pen needle, diabetic 32 gauge x #50 ea 12/22/22 11/17/23 (BD Akiko 2nd Gen Pen Needle) insulin aspart U-100 100 unit/mL unit subcut BID 11/17/23 11/17/23 (3 mL) subcutaneous pen insulin glargine U-300 conc 300 unit subcut BEDTIME 01/04/24 01/04/24 unit/mL (3 mL) subcutaneous pen (Toujeo Max U-300 SoloStar) Previous Rx's Medication Instructions Recorded albuterol sulfate 90 mcg/actuation 2 puff inhalation Q4-6H PRN 04/03/23 aerosol inhaler (ProAir HFA) shortness of breath or wheezing #6.7 grams prednisone 20 mg tablet 20 mg PO DAILY 5 days #5 tabs 04/03/23 sennosides 8.6 mg capsule (senna) 17.2 mg (2 x 8.6 mg) PO BEDTIME 04/15/23 constipation 30 days #60 caps ibuprofen 600 mg tablet 600 mg PO Q6H PRN pain #30 tabs 01/04/24 oxycodone-acetaminophen 5 mg-325 1 tab PO Q4-6H PRN pain #30 tabs 01/04/24 mg tablet (Percocet) naproxen 500 mg tablet 500 mg PO BID #14 tabs 02/16/24 cephalexin 500 mg capsule 500 mg PO QID #28 caps 02/25/24 Allergies Allergy/AdvReac Type Severity Reaction Status Date / Time shrimp Allergy Mild EYE ITCHING Verified 02/25/24 17:59 lobster Allergy Severe Itching Uncoded 01/27/24 13:41 Review of Systems Constitutional: Constitutional: Denies chills and Denies fever(s) Eyes: Eyes: Denies blurry vision ENT: Denies sore throat Cardiovascular: Cardiovascular: Denies chest pain and Denies dyspnea Respiratory: Respiratory: Denies cough and Denies dyspnea Gastrointestinal: Gastrointestinal: Denies abdominal pain, Denies nausea and Denies vomiting Musculoskeletal: Musculoskeletal: Denies back pain Integumentary/Breasts: Skin/Breast: Reports erythema, Reports rash, Reports skin pain and Reports skin swelling PMFSH Past Medical History Medical History Morbid obesity Umbilical hernia Hypertension Diabetes Irritable bowel syndrome with diarrhea Surgical History Status post hysteroscopic ablation of endometrium Breast abscess History of appendectomy H/O umbilical hernia repair H/O colonoscopy Hx of hemorrhoidectomy Hx of hernia repair Hx of tubal ligation Family History Family History Father Heart problem Asthma Mother Colon cancer HTN (hypertension) Varicose vein of leg Family history of diabetes mellitus Maternal Aunt Pancreatic cancer Family/Other Breast cancer Social History Social History Household Members: None Alcohol intake: current Alcohol intake frequency: does not drink Patient Tobacco Use Status: Former Tobacco user Substance Use Type: Marijuana Advance Directives: No Advance Directives Information Provided: No Physical Exam Vital Signs: Vital Signs: Last Vital Signs Temp 98.9 F 02/25/24 17:57 Pulse 97 02/25/24 17:57 Resp 18 02/25/24 17:57 BP 111/91 H 02/25/24 17:57 Pulse Ox 98 02/25/24 17:57 O2 Del Method Room Air 02/25/24 17:57 BMI result Body Mass Index 38.6 Const: General: healthy appearing, comfortable, no acute distress, alert and awake Nutritional Appearance: well nourished Orientation/consciousness: patient oriented x3 HEENT: Head: Yes normocephalic and Yes atraumatic Eyes: Eyelids: Yes eyelids normal Conjunctivae: conjunctivae normal Sclerae: sclerae normal Corneas: corneas normal Pupils: Equal, round and reactive pupils present EOM: EOMs intact bilaterally Neck: Neck: Yes full ROM Resp: Effort & Inspection: normal respiratory effort, able to speak in complete sentences and not labored Cardio: Rate: regular rate Rhythm: regular rhythm Skin: Other: Patient has an approximately 5 x 2 cm area of induration to the right upper gluteal region. There is a central area of erythema with skin breakdown but no open wounds. No drainage or purulence there is no fluctuance General skin exam: elasticity normal Neuro: General: patient oriented x3 Cranial nerves: Yes Equal, round and reactive pupils present and Yes Bilaterally intact EOM present Cognition (Neuro): normal cognition Course Course Course Narrative: This is an RME: Additional HPI, ROS, PE not included below will be deferred to primary provider. Patient is a 53-year-old female who presents emergency department for evaluation of a reported abscess to her buttock for the past 3 days. Redness, pain, swelling. Denies fevers. Has history of abscesses in the past but not to this location. Unable to visualize in triage. Plan: Placed in a room pending bed availability in [facility] [place] Medications Administered Discontinued Medications Generic Name Dose Route Start Last Admin Trade Name Javyq PRN Reason Stop Dose Admin Ibuprofen 600 mg 02/25/24 20:16 02/25/24 20:20 Ibuprofen 600 Mg Tablet PO 02/25/24 20:17 600 mg ONCE ONE Administration Lidocaine/Epinephrine 10 ml 02/25/24 19:45 02/25/24 20:10 Lidocaine Hcl 1%/Epi 1:100,000 10 Ml Vial INFILTRATI 02/25/24 19:46 10 ml ONCE ONE Administration Medical Decision Making Medical Decision Making MDM Narrative: 53-year-old female presents for evaluation abscess to her right gluteal region. The area appears indurated with no obvious fluctuations. However given the area I offered to attempt incision and drainage which the patient would like to have done. See procedure note. I was able to remove about 5 cc of purulent drainage. The patient has no fevers or chills. She will be discharged with cephalexin Differential Diagnosis Differential Diagnoses: The differential diagnosis associated with the presentation includes Abscess Cellulitis Pilonidal cyst Sebaceous cyst Procedures Abscess I/D Site: other (Right gluteal region) Side (if applicable): right Local Anesthetic: lidocaine 1% and with epi Amount of anesthesia used (mL): 4 Technique: needle aspiration and incised with blade Amount of fluid expressed (mL): 5 Sent for culture/gram staining?: No Irrigation: Yes Packing used?: none Discharge Plan Discharge Clinical Impression: Abscess Patient Disposition: Home, Self-Care Instructions: Abscess (ED) Additional Instructions: Continue to apply warm compresses every 4 hours Take cephalexin 4 times daily for the next 7 days Follow-up with your primary doctor Return for new or worsening symptoms Prescriptions: New cephalexin 500 mg capsule 500 mg PO QID Qty: 28 0RF No Action senna 8.6 mg capsule 17.2 mg PO BEDTIME 30 Days Qty: 60 4RF prednisone 20 mg tablet 20 mg PO DAILY 5 Days Qty: 5 0RF albuterol sulfate [ProAir HFA] 90 mcg/actuation HFA aerosol inhaler 2 puff inhalation Q4-6H PRN (Reason: shortness of breath or wheezing) Qty: 6.7 0RF Toujeo Max U-300 SoloStar 300 unit/mL (3 mL) insulin pen subcut BEDTIME oxycodone-acetaminophen [Percocet] 5-325 mg tablet 1 tab PO Q4-6H PRN (Reason: pain) Qty: 30 0RF Rx Instructions: Partial Fill upon patient request. ibuprofen 600 mg tablet 600 mg PO Q6H PRN (Reason: pain) Qty: 30 0RF naproxen 500 mg tablet 500 mg PO BID Qty: 14 0RF glipizide 10 mg tablet 10 mg PO BID paroxetine HCl [Paxil] 40 mg tablet 40 mg PO DAILY gabapentin 100 mg capsule 100 mg PO TID lisinopril 10 mg tablet 10 mg PO DAILY atorvastatin 80 mg tablet 80 mg PO BEDTIME (DME) lancets [FreeStyle Lancets] 28 gauge misc See Rx Instructions .ROUTE TID Qty: 100 Rx Instructions: As directed (DME) pen needle, diabetic [BD Akiko 2nd Gen Pen Needle] 32 gauge x 5/32 needle See Rx Instructions .ROUTE DAILY Qty: 50 Rx Instructions: As directed insulin aspart U-100 100 unit/mL (3 mL) insulin pen subcut BID
[2024-02-25] MEDS: Lidocaine HCl 1%/Epi 1:100,000 10 ML VIAL INFILTRATI (20:10)
[2024-02-25] MEDS: Ibuprofen 600 MG TABLET PO (20:20)
[2024-02-25 20:38] VITALS: BP 144/71; PULSE 81; RESP 18; TEMP 37.1; O2SAT 97
[2024-02-25] MEDS: cephALEXin 500 MG CAPSULE PO (20:46)
[2024-02-25 20:48] VITALS: BP 144/71; PULSE 81; RESP 18; TEMP 37.1; O2SAT 97
== END 2024-02-25 20:49 | disposition home or self-care (01) ==
PROVIDERS: Emergency Provider Internal Medicine; PCP Internal Medicine
DX: L02.31 Cutaneous abscess of buttock (principal); E11.9 Type 2 diabetes mellitus without complications; K58.9 Irritable bowel syndrome, unspecified; Z79.4 Long term (current) use of insulin; Z79.899 Other long term (current) drug therapy
CPT/HCPCS: 10060; 99283; 99284

== ENCOUNTER 2024-06-01 13:35 | Emergency (ER) | payer MEDICAID, SELFPAY ==
--- NOTE | ~2024-06-01 | CT_ITS ---
EXAMINATION: CT CERVICAL SPINE WITHOUT CONTRAST CLINICAL INFORMATION: Posterior neck pain COMPARISON: None available. TECHNIQUE: CT of the cervical spine performed without intravenous contrast. Multiplanar reformats were rendered and reviewed. This CT examination was performed using dose optimization techniques as appropriate, variously including the following: *Automated exposure control *Adjustment of mA and/or kV according to patient size (this includes techniques or standardized protocols for targeted exams where dose is matched to indication/reason for exam; i.e. extremities or head) *Use of iterative reconstruction technique DLP: 03/17/1990 mGy-cm FINDINGS: There is straightening of cervical lordosis with no evidence of fracture or destructive subluxation. There is no spondylolysis or spondylolisthesis. There are mild changes of degenerative spondylosis with marginal spurring at the level of C4-C7 soft tissues unremarkable. CT/CT cervical spine wo IV con IMPRESSION: Mild changes of degenerative spondylosis with straightening of cervical lordosis Fleischner guidelines were followed.
[2024-06-01 13:41] VITALS: BP 139/71; PULSE 84; RESP 16; TEMP 37; O2SAT 100; BMI 38.4
--- NOTE | 2024-06-01 13:45 | ED_ITS ---
HPI - General Adult General Chief complaint: General Medical Stated complaint: stiff neck Time Seen by Provider: 06/01/24 13:51 Source: patient Mode of arrival: ambulatory Limitations: no limitations History of Present Illness ED Provider: Jax SIDHU HPI narrative: 53 year old female with L sided neck pain and head pressure since last night. She reports mild pain starting last night while she was on the phone that increased in severity when she woke up this morning. Feels like she slept wrong. Denies injury or trauma to the area. She reports 10/10 pain to the left side of her neck, worse with movement of her neck describes it as a tightness sensation. She also reports a constant headache on the left side with left-sided ear and jaw pain. She has not taken any medications for relief of symptoms. Denies fevers, chills, nausea, abdominal pain, visual changes, dizziness. Related Data Home Medications ?Medication ?Instructions ?Recorded ?Confirmed glipizide 10 mg tablet 10 mg PO BID 03/05/21 paroxetine HCl 40 mg tablet (Paxil) 40 mg PO DAILY 03/05/21 11/17/23 gabapentin 100 mg capsule 100 mg PO TID 01/26/22 11/17/23 lisinopril 10 mg tablet 10 mg PO DAILY 01/26/22 11/17/23 atorvastatin 80 mg tablet 80 mg PO BEDTIME 12/22/22 11/17/23 lancets 28 gauge (FreeStyle #100 ea 12/22/22 11/17/23 Lancets) pen needle, diabetic 32 gauge x #50 ea 12/22/22 11/17/23 (BD Akiko 2nd Gen Pen Needle) insulin aspart U-100 100 unit/mL unit subcut BID 11/17/23 11/17/23 (3 mL) subcutaneous pen insulin glargine U-300 conc 300 unit subcut BEDTIME 01/04/24 01/04/24 unit/mL (3 mL) subcutaneous pen (Toujeo Max U-300 SoloStar) Previous Rx's ?Medication ?Instructions ?Recorded albuterol sulfate 90 mcg/actuation 2 puff inhalation Q4-6H PRN 04/03/23 aerosol inhaler (ProAir HFA) shortness of breath or wheezing #6.7 grams prednisone 20 mg tablet 20 mg PO DAILY 5 days #5 tabs 04/03/23 sennosides 8.6 mg capsule (senna) 17.2 mg (2 x 8.6 mg) PO BEDTIME 04/15/23 constipation 30 days #60 caps ibuprofen 600 mg tablet 600 mg PO Q6H PRN pain #30 tabs 01/04/24 oxycodone-acetaminophen 5 mg-325 1 tab PO Q4-6H PRN pain #30 tabs 01/04/24 mg tablet (Percocet) naproxen 500 mg tablet 500 mg PO BID #14 tabs 02/16/24 cephalexin 500 mg capsule 500 mg PO QID #28 caps 02/25/24 ketorolac 10 mg tablet 10 mg PO TID PRN pain 5 days #15 06/01/24 tabs lidocaine 5 % topical patch 1 patch topical DAILY PRN pain #15 06/01/24 ea prednisone 20 mg tablet 40 mg (2 x 20 mg) PO DAILY 5 days 06/01/24 #10 tabs Allergies Allergy/AdvReac Type Severity Reaction Status Date / Time shrimp Allergy Mild EYE ITCHING Verified 06/01/24 13:45 lobster Allergy Severe Itching Uncoded 06/01/24 13:45 Review of Systems Review of Systems: Yes all other systems are reviewed and are negative PMFSH Past Medical History Attestation statement: The following information was validated with the patient. Source: old records reviewed and nursing notes reviewed Medical History Morbid obesity Umbilical hernia Hypertension Diabetes Irritable bowel syndrome with diarrhea Surgical History Status post hysteroscopic ablation of endometrium Breast abscess History of appendectomy H/O umbilical hernia repair H/O colonoscopy Hx of hemorrhoidectomy Hx of hernia repair Hx of tubal ligation Family History Family History Father Heart problem Asthma Mother Colon cancer HTN (hypertension) Varicose vein of leg Family history of diabetes mellitus Maternal Aunt Pancreatic cancer Family/Other Breast cancer Social History Social History Household Members: None Alcohol intake: current Alcohol intake frequency: does not drink Patient Tobacco Use Status: Former Tobacco user Substance Use Type: Marijuana Advance Directives: No Advance Directives Information Provided: Yes Do you have a plan to hurt others: No Plan Physical Exam ED Vital Signs: Vital Signs - 24 hr 06/01/24 13:41 06/01/24 15:32 Temperature 98.6 F 97.8 F Pulse Rate 84 70 Respiratory Rate 16 18 Blood Pressure 139/71 134/77 Pulse Oximetry 100 100 Oxygen Delivery Method Room Air BMI result Body Mass Index 38.4 vss Appearance: Alert.? Oriented X3.? No acute distress.? Head: Normocephalic, atraumatic, no step-offs or deformities Eyes: Pupils equal, round and reactive to light.? ENT: Pharynx normal.??External ears normal, TMs normal bilaterally and EAC's normal. No pain with manipulation of external ears bilaterally. No mastoid tenderness. Neck: Normal inspection.? Neck supple.?+ paraspinus tenderness to palpation. No midline cervical tenderness. No meningeal signs. Negative Kernig and Brudzinski CVS: Normal heart rate and rhythm.? Pulses normal.? Respiratory: No respiratory distress.? Breath sounds normal.? Abdomen: Soft and nontender.? Skin: Skin warm and dry.? Normal skin color.? Normal skin turgor.? Extremities: No lower extremity edema.? No calf ttp. 5/5 strength to bilateral upper and lower extremities Back: No midline tenderness, no C-spine tenderness, full range of motion, no CVA tenderness bilaterally Neuro: Oriented X 3.? No motor deficit.? No sensory deficit. CN 2-12 intact . 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 Normal [id number]. Ambulating steady gait normal coordination Course Course Course Narrative: RME: Done by HOLA Antoine: 52-year-old female presents to ED for left-sided posterior neck pain stiffness since last night. Patient denies any headache, photophobia. Patient states she was holding a phone in her hand and left-sided neck was positioned awkwardly while talking for long time neck became stiff and painful to move. Patient denies any trauma. Patient states history of muscle spasm. Reevaluation(s) Reevaluation #1: Re-evaluated patient after Toradol patient feeling better. Again afebrile stable vital signs. Likely torticollis. Unlikely meningitis, encephalitis, intracranial hemorrhage. NIH stroke scale 0. Educated patient on diagnosis and treatment plan, answered all question, patient verbalizes understanding. At this time patient will be discharged home, advised to return with new or worsening symptoms. Educated on worrisome signs and symptoms and when to return. At this time I feel comfortable discharge home. Time: 15:31 Medications Administered Discontinued Medications Generic Name Dose Route Start Last Admin Trade Name Brad PRN Reason Stop Dose Admin Diazepam 2 mg 06/01/24 13:59 06/01/24 14:09 Diazepam 2 Mg Tablet PO 06/01/24 14:00 2 mg ONCE ONE Administration Ketorolac Tromethamine 30 mg 06/01/24 13:58 06/01/24 14:08 Ketorolac Tromethamine 15 Mg/Ml Vial IM 06/01/24 13:59 30 mg ONCE ONE Administration Lidocaine 1 patch 06/01/24 14:02 06/01/24 14:52 Lidocaine 4 % Patch Adh..Patch TRANSDERMA 06/01/24 14:03 1 patch ONCE ONE Administration Protocol Medical Decision Making Medical Decision Making MDM Narrative: 53 year old female with left sided neck pain x 1 day. PE + paraspinus tenderness to palpation. No midline cervical tenderness or meningeal signs. Hx and PE concerning for paraspinus strain vs tension headache. Unlikely stroke, posterior stroke, ICH, GCA, meningitis, encephalitis. No signs of OM, OE, mastoiditis. Plan- imaging, pain control Differential Diagnosis Differential Diagnoses: The differential diagnosis associated with the presentation includes Hx and PE concerning for paraspinus strain vs tension headache. Unlikely stroke, posterior stroke, ICH, GCA, meningitis. No signs of OM, OE, mastoiditis. Admission/Observation Consideration of admission/observation: Escalation of care including admission/observation considered Unlikely Independent Interpretation I performed an independent interpretation of an: Plain X-Ray Radiology Impression Discussion of test interpretation with radiology: I have reviewed the radiologist's reading. External Record Review External record reviewed: Office record, Outpatient record, Prior outpatient labs and Prior outpatient radiology Tests considered The following testing was considered but not selected: No need for LP no meningeal signs, ams, tachycardia or fever Prescription Management I considered prescription management with: Pain Medication and Other (prednisione ) Chronic Conditions Patient?s care impacted by: Diabetes and Other (obesity ) Discharge Plan Discharge Clinical Impression: Torticollis Patient Disposition: Home, Self-Care Instructions: Neck Pain (ED) Additional Instructions: Take your medications as prescribed. If you were prescribed antibiotics today, it is important that you take your medication to their entirety, do not skip any doses, do not finish them early. Follow-up with your primary care provider this week. Return to the emergency department with new or worsening symptoms. Such as fevers, chills, chest pain, shortness of breath, nausea, vomiting, dizziness, headache, vision changes, lethargy In case of emergency call 911 We will call you if your x-rays abnormal. Toradol has been sent to your pharmacy, you tolerated this well in the department. Please take this as prescribed do not take this with ibuprofen, or other NSAIDs, do not mix this with alcohol. Side effects of this medication including increased risk for bleeding and possible kidney injury. Prescriptions: New prednisone 20 mg tablet 40 mg PO DAILY 5 Days Qty: 10 0RF ketorolac 10 mg tablet 10 mg PO TID PRN (Reason: pain) 5 Days Qty: 15 0RF lidocaine 5 % adhesive patch,medicated 1 patch topical DAILY PRN (Reason: pain) Qty: 15 0RF Rx Instructions: leave on most painful area for up to 12 hrs No Action senna 8.6 mg capsule 17.2 mg PO BEDTIME 30 Days Qty: 60 4RF prednisone 20 mg tablet 20 mg PO DAILY 5 Days Qty: 5 0RF albuterol sulfate [ProAir HFA] 90 mcg/actuation HFA aerosol inhaler 2 puff inhalation Q4-6H PRN (Reason: shortness of breath or wheezing) Qty: 6.7 0RF Toujeo Max U-300 SoloStar 300 unit/mL (3 mL) insulin pen subcut BEDTIME oxycodone-acetaminophen [Percocet] 5-325 mg tablet 1 tab PO Q4-6H PRN (Reason: pain) Qty: 30 0RF Rx Instructions: Partial Fill upon patient request. ibuprofen 600 mg tablet 600 mg PO Q6H PRN (Reason: pain) Qty: 30 0RF naproxen 500 mg tablet 500 mg PO BID Qty: 14 0RF cephalexin 500 mg capsule 500 mg PO QID Qty: 28 0RF glipizide 10 mg tablet 10 mg PO BID paroxetine HCl [Paxil] 40 mg tablet 40 mg PO DAILY gabapentin 100 mg capsule 100 mg PO TID lisinopril 10 mg tablet 10 mg PO DAILY atorvastatin 80 mg tablet 80 mg PO BEDTIME (DME) lancets [FreeStyle Lancets] 28 gauge misc See Rx Instructions .ROUTE TID Qty: 100 Rx Instructions: As directed (DME) pen needle, diabetic [BD Akiko 2nd Gen Pen Needle] 32 gauge x 5/32 needle See Rx Instructions .ROUTE DAILY Qty: 50 Rx Instructions: As directed insulin aspart U-100 100 unit/mL (3 mL) insulin pen subcut BID Referrals: Pipe Anderson MD [Primary Care Provider] - 2 days Interventions: ED Discharge Assessment Last Done: 06/01/24 15:32 Discharge Date/Time: 06/01/24 15:34 Print Language: Swiss
[2024-06-01] MEDS: Ketorolac Tromethamine 15 MG/ML VIAL 30 MG IM (14:08)
[2024-06-01] MEDS: diazePAM 2 MG TABLET PO (14:09)
[2024-06-01] MEDS: Lidocaine 4 % Patch ADH..PATCH 1 PATCH TRANSDERMA (14:52)
[2024-06-01 15:32] VITALS: BP 134/77; PULSE 70; RESP 18; TEMP 36.6; O2SAT 100
== END 2024-06-01 15:34 | disposition home or self-care (01) ==
PROVIDERS: Emergency Provider Emergency Medicine; PCP Internal Medicine
DX: M43.6 Torticollis (principal); M54.2 Cervicalgia
CPT/HCPCS: 72125; 96372; 99283; 99284; J1885

== ENCOUNTER → 2024-10-12 14:50 | Outpatient (BNVA) | payer MEDICAID, SELFPAY | PROVIDERS: PCP Internal Medicine; Visit Provider Nurse Practitioner | DX: Z01.818 Encounter for other preprocedural examination (principal); K58.1 Irritable bowel syndrome with constipation; K59.04 Chronic idiopathic constipation; K63.5 Polyp of colon | CPT/HCPCS: 99212 ==

== ENCOUNTER → 2024-11-30 13:30 | Outpatient (BNV) | payer MEDICAID, SELFPAY | PROVIDERS: PCP Internal Medicine; Visit Provider Internal Medicine | DX: Z12.31 Encounter for screening mammogram for malignant neoplasm of breast (principal) | CPT/HCPCS: 77063; 77067 ==

== ENCOUNTER 2024-11-30 13:34 | Outpatient (REF) | payer MEDICAID, SELFPAY | END 2024-11-30 13:35 | disposition home or self-care (01) | LOC: HO.MAMMO 13:34 | PROVIDERS: PCP Internal Medicine; Visit Provider Internal Medicine | DX: Z12.31 Encounter for screening mammogram for malignant neoplasm of breast (principal) | CPT/HCPCS: 77063; 77067 ==

== ENCOUNTER 2025-01-05 14:14 | Outpatient (REF) | payer MEDICARE, MEDICAID, SELFPAY ==
--- OUTSIDE RECORDS SUMMARY | 2025-01-05 14:33 | XMS_ITS | Encounter Summary ---
Author Organization [employer] Address [address] [place] [address] [address], [place] [address] Care Team Providers Care Diet Counselor Name Role Phone Pipe Anderson MD Primary Care Provider [phone] Jayce Tristan PharmD Unavailable Unavail able Reason for Referral * Consultation (Routine) - Pending Review Specialty Diagnoses / Procedures Referred By Swapna desai Referred To Contact Pharmacy Diagnoses Uncontrolled type 2 diabetes mellitus with hyperglycemia (CMS/HCC) Pipe Anderson MD [address] [place] [id number] Phone: tel: fax: Referral ID Status Reason Start Date Expiration Date Visits Requested Visits Authorized [id number] Pending Review Consult and Treat 12/26/2024 12/26/2025 6 6 Encounter Details Date Type Department Care Team ([facility] st Contact Info) Description 12/26/2024 Orders Only [facility]C MED & PEDS [address] [facility] [place] [address] Pipe Anderson MD [address] [place] [address] Uncontrolled type 2 diabetes mellitus with hyperglycemia (CMS/HCC) (Primary Dx) Social History Tobacco Use Types Packs/Day Years Used Date Smoking Tobacco: Former Smokeless Tobacco: Never Depression Answer Date Recorded Patient Health Questionnaire-9 Score 14 07/28/2024 Patient Health Questionnaire-9 Score 14 07/28/2024 Last PHQ-9: Questionnaire Data Not on file 0 07/28/2024 Housing Stability Answer Date Recorded What is your housing situation today? Not on neetu e 03/15/[address] you li ve. Do you have problems with any of the following? None of the above 03/15/2024 Food Insecurity Answer Date Recorded Within the past 12 months, y ou worried that your food would run out before you got money to buy more: Never True 03/15/2024 Within the past 12 months,th e food you bought just didn't last and you didn't have enough money to get more: Never True Transportation Answer Date Recorded In the past 12 months, has l ack of transportation kept you from medical appts, meetings, work or from getting things needed for daily living? No 03/15/2024 Utilities Answer Date Recorded In the past 12 months, has t he electric, gas, oil or water company threatened to shut off services in your home? No 03/15/2024 Depression Answer Date Recorded Patient Health Questionnaire-2 Score 2 07/28/2024 Comments No Sex and Gender Information Value Date Recorded Sex Assigned at Female 09/28/2022 10:16 AM EDT Legal Sex Female 10:16 AM EDT Gender Identity Female 09/28/2022 10:16 AM EDT Sexual Orientation Straight 09/28/2022 10 :16 AM EDT documented as of this encounter Plan of Treatment Upcoming Encounters Date Type Department Care Team (Late st Contact Info) Description 01/24/2025 10:30 AM EST Medication Management [facility] MED & PEDS [address] [place] [address] Faviola Richard PharmD [address] [place] [address] Scheduled Referrals Name Type Priority Associated Diagnoses Orde r Schedule Referral to Pharmacy CDTM Outpatient Referral Routine Uncontrolled type 2 diabetes mellitus with hyperglycemia ([facility]/HCC) Ordered: 12/26/2024 documented as of this encounter Goals Goal Patient Goal Type Associated Problems Recent Progress Patient-Stated? Author Blood Pressure < 140/90 Blood Pressure 122/58(2024 1:50 PM EST) No Jayce rTistan, PharmD Hemoglobin A1c < 7 Result Component 13.4(01/05/20 1:43 PM EST) No Jayce Tristan, PharmD documented as of this encounter Visit Diagnoses Diagnosis Uncontrolled type 2 diabetes mellitus with hyperglycemia (CMS/[facility])- Primary documented in this encounter Additional Health Concerns Assessment Noted Time PHQ-9 Depression Total Score: 14 024 4:22 PM EDT documented as of this encounter Care Teams Diet Counselor Relationship Specialty Start Date End Date Pipe Anderson MD [address] [place] [address] PCP - General Internal Medicine 04/14/21 Jayce Tristan PharmD [address] [place] [address] Pharmacist Internal Medicine 11/13/22 Beltran Iglesias Sole Leveler MachineLocker Operator 04/21/24 Marcos Hanks Aluminum Siding InstallerLocker Operator 07/06/24 documented as of this encounter
--- OUTSIDE RECORDS SUMMARY | 2025-01-05 14:33 | XMS_ITS | Encounter Summary ---
Author Organization [employer] Address [address] [place] [address] 7 [place] [address] Care Team Providers Care Sterilizer Machine Operator Name Role Phone Pipe Anderson MD Primary Care Provider [phone] [phone] Jayce Tristan PharmD Unavailable Unavail able Encounter Details Date Type Department Care Team ([facility] Contact Info) Description 03/23/2024 Orders Only [facility] CHC MED & PEDS [address] [place] [address] Pipe Anderson MD [address] [place] [address] Social History Tobacco Use Types Packs/Day Years Used Date Smoking Tobacco: Former Smokeless Tobacco: Never Housing Stability Answer Date Recorded What is [...] off services in your home? No 03/15/2024 Comments No Sex and Gender Information Value [...] Description 01/24/2025 10:30 AM EST Medication Management [facility] MED & PEDS [address] [place] [address] Faviola Richard PharmD [address] [facility] [place] [address] documented as of this encounter Goals Goal Patient Goal Type Associated Problems Recent Progress Patient-Stated? Author Blood Pressure < 140/90 Blood Pressure 122/58(2024 1:50 PM EST) No Jayce Tristan, PharmD Hemoglobin A1c < 7 Result Component 13.4(01/05/20 1:43 PM EST) No Jayce Tristan, PharmD documented as of this encounter Visit Diagnoses Not on filedocumented in this encounter Care Teams Sterilizer Machine Operator Relationship Specialty Start Date End Date Pipe Anderson MD [address] [place] [address] PCP - General Internal Medicine 04/14/21 Jayce Tristan, PharmD [address] [place] [address] Pharmacist Internal Medicine 11/13/22 Beltran Iglesias Sand MillerCar Dropper 04/21/24 Marcos Hanks Laborer Tan HouseCar Dropper 07/06/24 documented as of this encounter
--- OUTSIDE RECORDS SUMMARY | 2025-01-05 14:33 | XMS_ITS | Encounter Summary ---
Author Organization [employer] Address [address] [facility] [address] [place] [address] Care Team Providers Care Machinist First Class Name Role Phone Pipe Anderson MD Primary Care Provider [phone]- [phone] Jayce Tristan PharmD Unavailable Unavail able Encounter Details Date Type Department Care Team ([facility] st Contact Info) Description 12/28/2024 Telephone [facility] MEDICINE [address] [place] [address] Pipe Anderson MD [address] [place] [address] Social History Tobacco Use Types Packs/Day Years [...] AM EDT documented as of this encounter Miscellaneous Notes * Telephone Encounter - Ofelia Vidales - 12/28/2024 9:27 AM EST Pharmacy [facility] attempted outreach call on 12/28/24 for CDTM - Diabetes appointment; however, unable to reach patient. LVM for patient to contact Ofelia Vidales at [phone]. documented in this encounter Plan of Treatment Upcoming Encounters Date Type Department Care Team ([facility] st Contact Info) Description 01/24/2025 10:30 AM EST Medication Management [facility] CHC MED & PEDS [address] [place], [place] [phone] Faviola Richard PharmD [address] [place] [address] documented as of this encounter Goals Goal Patient Goal Type Associated Problems Recent Progress Patient-Stated? Author Blood Pressure < 140/90 Blood Pressure 122/58(2024 1:50 PM EST) No Jayce Tristan, PharmD Hemoglobin A1c < 7 Result Component 13.4(01/05/20 1:43 PM EST) No Jayce Tristan, PharmD documented as of this encounter Visit Diagnoses Not on filedocumented in this encounter Additional Health Concerns Assessment Noted Time PHQ-9 Depression Total Score: 14 024 4:22 PM EDT documented as of this encounter Care Teams Machinist First Class Relationship Specialty Start Date End Date Pipe Anderson MD [address] [place], [place] [id number] PCP - General Internal Medicine 04/14/21 Jayce Tristan, BhavnaD [address] [place] [address] Pharmacist Internal Medicine 11/13/22 Beltran Iglesias Casket UpholstererMica Washer Gluer 04/21/24 Marcos Hanks Surgical LeadMica Washer Gluer 07/06/24 documented as of this encounter
--- OUTSIDE RECORDS SUMMARY | 2025-01-05 14:33 | XMS_ITS | Clinical Summary ---
Author Organization [employer] Address [address] [place] [address] Care Team Providers Care Realty Specialist Name Role Phone Pipe Anderson MD Primary Care Provider [phone] Jayce Tristan PharmD Unavailable Unavail able Allergies Active Allergy Reactions Criticality Noted Date Comments Shellfish Allergy Itching High 06/01/2024 Shrimp Extract Low 06/01/2024 Other Reaction(s): EYE ITCHING Medications * This document contains information received from the source organization and may not represent a complete record from that organization. Blood Glucose Monitoring Suppl (Essenza Software Jesse Lite) w/Device kitIndications:T ype 2 diabetes mellitus with hyperglycemia, without long-term current use of insulin ([facility]) Use to check blood sugar TID 1 kit 022 Active Senna-Time 8.6 MG tablet TAKE 2 TABS BY MOUTH AT BEDTIME NEEDED CONSTIPATION 023 Active hydrocortisone 2.5 % creamIndications :Candidal intertrigo Apply topically 2 times daily. 28 g 023 Active Lancet Devices (Lancing Device) misc Use to check blood sugar daily as directed 1 each 023 Active Ventolin HFA 108 (90 Base) MCG/ACT inhaler INHALE 2 PUFFS EVERY 4 TO 6 HOURS NEEDED FOR SHORTNESS OF BREATH OR FOR WHEEZE 023 Active ibuprofen 600 MG tabletIndication s:Chronic right shoulder pain Take 1 tablet (600 mg) by mouth every 6 (six) hours if needed for mild pain. 30 tablet 024 Active PARoxetine (Paxil) 20 MG tabletIndication s:Anxiety,Persis tent depressive disorder TAKE ONE TABLET EVERY MORNING 30 tablet 11 024 Active insulin pen needle (UltiCare Short Pen Chilo) 31G X 8 mm miscIndications: Type 2 diabetes mellitus with hyperglycemia, without long-term current use of insulin ([facility]) USE TO INJECT insulin THREE TIMES DAILY 100 each 024 Active Alcohol Swabs (Alcohol Prep) 70 % pads USE DIRECTED TO INJECT insulin AND check BLOOD SUGAR UP TO FOUR TIMES DAILY 100 each 024 Active atorvastatin (Lipitor) 80 MG tablet TAKE ONE TABLET EVERY NIGHT AT BEDTIME 90 tablet 3 024 Active lisinopril 10 MG tablet TAKE 1 TABLET BY MOUTH EVERY MORNING 90 tablet 3 024 Active Elastic Bandages & Supports (Medical Compression Stockings) miscIndications: Venous insufficiency Knee high, 15-20 mm/Hg. 1 each 024 Active insulin glargine (Toujeo Max SoloStar) 300 UNIT/ML injectionIndicat ions:Uncontrolle d type 2 diabetes mellitus with hyperglycemia ([facility]) INJECT 50 SUBCUTANEOUSLY AT BEDTIME 6 mL 024 Active gabapentin (Neurontin) 100 MG capsuleIndicatio ns:Diabetic polyneuropathy associated with type 2 diabetes mellitus ([facility]) TAKE ONE CAPSULE TWICE DAILY IN THE MORNING AND AT BEDTIME 60 capsule 024 Active insulin aspart FlexPen (NovoLOG) 100 UNIT/ML pen INJECT 20 UNITS subcutaneously BEFORE BREAKFAST, 10 UNITS BEFORE LUNCH AND 20 UNITS BEFORE SUPPER DIRECTED 15 mL 025 Active Easy Touch Lancets 33G/Twist miscIndications: Type 2 diabetes mellitus with hyperglycemia, without long-term current use of insulin ([facility]) USE TO TEST BLOOD SUGAR THREE TIMES DAILY 100 each 025 Active Tirzepatide (Mounjaro) 2.5 MG/0.5ML solution auto-injectorInd ications:Uncontr olled type 2 diabetes mellitus with hyperglycemia ([facility]) Inject 2.5 mg under the skin 1 (one) time per week. 2 mL 025 Active Continuous Glucose Sensor (FreeStyle José Manuel 3 Plus Sensor) miscIndications: Uncontrolled type 2 diabetes mellitus with hyperglycemia (CMS/HCC) 1 each every 15 days. 2 each 025 Active Continuous Glucose Carbon Capture Power Plant Manager (FreeStyle José Manuel 3 [place]) deviceIndication s:Uncontrolled type 2 diabetes mellitus with hyperglycemia (CMS/HCC) 1 each 1 (one) time for 1 dose. 1 each 025 2024 Active glucose blood (FreeStyle Precision Chet Test) test stripIndications :Uncontrolled type 2 diabetes mellitus with hyperglycemia (CMS/HCC) Test blood sugar up to 3 times daily as directed 100 each 11 025 2025 Active Continuous Blood Gluc Carbon Capture Power Plant Manager (FreeStyle José Manuel 2 [place]) deviceIndication s:Type 2 diabetes mellitus with hyperglycemia, without long-term current use of insulin (CMS/HCC) Use to check blood sugar, can at least every 8 hours 1 each 023 2024 Discontinued(A lternate therapy) TRUEplus Lancets 33G miscIndications: Type 2 diabetes mellitus with hyperglycemia, without long-term current use of insulin (CMS/HCC) TEST BLOOD SUGAR THREE TIMES DAILY 100 each 11 023 2024 Discontinued glucose blood (FREESTYLE LITE) test stripIndications :Uncontrolled type 2 diabetes mellitus with hyperglycemia (CMS/HCC) TEST BLOOD SUGAR THREE TIMES DAILY 100 strip 11 024 2024 Discontinued(A lternate therapy) Continuous Glucose Sensor (FreeStyle José Manuel 2 Sensor) miscIndications: Type 2 diabetes mellitus with hyperglycemia, without long-term current use of insulin ([facility]) Use to check blood sugar, can at least every 8 hours 2 each 024 2024 Discontinued(A lternate therapy) semaglutide (Ozempic) 2 MG/1.5ML solution pen-injectorIndi cations:Uncontro lled type 2 diabetes mellitus with hyperglycemia (CMS/HCC) Inject 0.25 mg under the skin 1 (one) time per week. 1 each 024 2024 Discontinued(S bernadine effects) insulin aspart FlexPen (NovoLOG) 100 UNIT/ML pen INJECT 20 UNITS subcutaneously BEFORE BREAKFAST, 10 UNITS BEFORE LUNCH AND 20 UNITS BEFORE SUPPER DIRECTED 15 mL 2 024 2024 Discontinued Active Problems Problem Noted Date Diagnosed Date Irritable bowel syndrome with diarrhea 02/07/202 5 Upper respiratory tract infection 09/14/2024 Assessment & Plan (09/14/2024 11:48 PM EDT): Recommended supportive care, likely superimpose otitis media. Rapid testing negative. Will send expectorant/cough suppressant and antibiotics for her otitis media. Right otitis media 09/14/2024 Dysuria 07/28/2024 Depression 11/03/2022 Asthma 08/18/2012 Gastroesophageal reflux disease 08/18/2012 Hyperlipidemia 08/18/2012 Hypertension 08/18/2012 Uncontrolled type 2 diabetes mellitus with hyper glycemia 08/18/2012 Encounters Date Type Department Care Team Description 01/05/2025 Travel 12/28/2024 Telephone [facility] [address] [place] [address] Pipe Anderson MD 12/26/2024 Orders Only [facility] [address] [place] [address] Pipe Anderson MD Uncontrolled type 2 diabetes mellitus with hyperglycemia ([facility]) (Primary Dx) 12/26/2024 Telephone [facility] [address] [place] [address] Faviola Richard, PharmD 12/22/2024 Refill [facility] [address] [place] [address] Pipe Anderson MD Type 2 diabetes mellitus with hyperglycemia, without long-term current use of insulin ([facility]) 12/11/2024 Refill [facility] [address] [place] [address] Pipe Anderson MD 11/30/2024 Orders Only [facility] [address] [place] [address] Pipe Anderson MD 11/20/2024 Refill [facility] [address] [place] [address] Pipe Anderson MD Diabetic polyneuropathy associated with type 2 diabetes mellitus ([facility]) 11/06/2024 Refill [facility] [address] [place] [address] Pipe Anderson MD Diabetic polyneuropathy associated with type 2 diabetes mellitus (CMS/HCC) from Last 3 Months Immunizations Name Administration Dates Next Due Hep B, adult 03/11/2015,12/03/2014,03/13/2008 Influenza injectable quadriv alent IIV4 with preservative 11/04/2022,12/31/2017 Influenza injectable quadriv alent preservative free 08/26/2023,09/02/2016 Influenza, IIV3, injectable 10/16/2011 Influenza, Injectable, MDCK, preservative free 08/04/2024 Moderna Covid-19 Vaccine 12+ 04/28/2022,03/30/20 22 Pneumococcal Conjugate PCV 20 09/03/2022 Pneumococcal Polysaccharide PPSV23 05/17/2003 TD (adult), 2 Lf tetanus tox oid, preservative free, adsorbed 05/22/2002 Tdap 01/05/2025,01/10/2013 Zoster, Recombinant 11/05/2022,09/03/2022 Family History Medical History Relation Name Comments cardiovascular disease Father's Sister Colon cancer Maternal Grandfather Diabetes Maternal Grandmother Hypertension Maternal Grandmother Colon cancer Mother Hypertension Mother Pancreatic cancer Mother's Sister Breast cancer Other No Known Problems Paternal Grandfather No Known Problems Paternal Grandmother Rheum arthritis Sister Relation Name Status Comments Father's Sister Maternal Grandfather Maternal Grandmother Mother Mother's Sister Other Paternal Grandfather Paternal Grandmother Sister Social History Tobacco Use Types Packs/Day Years [...] Orientation Straight 09/28/2022 10 :16 AM EDT Last Filed Vital Signs Vital Sign Reading Time Taken Comments Blood Pressure 122/58 01/05/2025 1:50 PM EST Pulse 80 01/05/2025 1:50 PM EST Temperature 37.4 ??C (99.3 ??F) 09/14/2024 1:45 PM ED T Respiratory Rate 20 09/14/2024 1:45 PM EDT Oxygen Saturation 97% 09/14/2024 2:15 PM EDT Inhaled Oxygen Concentration - - Weight 90.7 kg (200 lb) 07/28/2024 3:27 PM EDT Height 157.5 cm (5' 2 ) 07/28/2024 3:27 PM EDT Body Mass Index 36.58 07/28/2024 3:27 PM EDT Plan of Treatment Upcoming Encounters Date Type Department Care Team (Late st Contact Info) Description 01/24/2025 10:30 AM EST Medication Management [facility] [address] [place] [address] Faviola Richard, PharmD [address] [place] [address] Health Maintenance Due Date Last Done Comments CT Colonography 1970 FIT DNA/Cologuard 1970 FIT 1970 FOBT 1970 HIV Screening 1970 Sigmoidoscopy 1970 Alcohol/Substance Use Screening 1982 Hepatitis C Screening 1988 Diabetes: Urine Protein Screening 06/04/2022 06/04/2021 Diabetes: Foot Exam 08/04/2023 Lipid Panel 10/20/2023 10/20/2022, 08/30, 06/04/2021 SDOH Screening 11/03/2023 11/03/2022 COVID-19 Vaccine ( season) 2024 10/05/2022, 04/28/2022, 03/30/2022 Depression Monitoring (PHQ-9) 01/26/2025 07/28/2024, 07/28/2024 Diabetes: Hemoglobin A1C 04/04/2025 025, 07/28/2024, 03/21/2024, Additional history exists Depression Screening 07/28/2025 07/28/2024, 07/28/20 24 Tobacco Screening 07/28/2025 07/28/2024 Pap Smear 03/02/2026 03/02/2023, 02/23/2018 Eye Exam 05/11/2026 05/11/2024, 04/29, 05/11/2024, Additional history exists Mammogram 11/30/2026 11/30/2024, 09/29, 08/18/2022, Additional history exists Cervical Cancer Screening 03/02/2028 HPV/Cotest 03/02/2028 03/02/2023, 02/23/2018 Colonoscopy 11/09/2029 11/09/2019 Colorectal Cancer Screening 11/09/2029 DTaP/Tdap/Td Vaccines (3 - Td or Tdap) 01/05/2035 01/05/2025, 01/10/2013, 05/22/2002 RSV Patients and Patients Aged 60 years or older (1 - 1-dose 75+ series) 2045 Hepatitis B Vaccines Completed 03/11/2015, 12/03/2014, 03/13/2008 Pneumococcal Vaccine: 50+ Years Completed 09/03/2022, 05/17/2003 Zoster Vaccines Completed 11/05/2022, 09/03/2022 Influenza Vaccine Completed 08/04/2024, , 11/04/2022, Additional history exists HIB Vaccines Aged Out No longer eligi ble based on patient's age to complete this topic HPV Vaccines Aged Out No longer eligi ble based on patient's age to complete this topic Hepatitis A Vaccines Aged Out No long er eligible based on patient's age to complete this topic IPV Vaccines Aged Out No longer eligi ble based on patient's age to complete this topic Meningococcal Vaccine Aged Out No dominic kori eligible based on patient's age to complete this topic RSV under 20 months Aged Out No longe r eligible based on patient's age to complete this topic Rotavirus Vaccines Aged Out No longer eligible based on patient's age to complete this topic Goals Goal Patient Goal Type Associated Problems Recent Progress Patient-Stated? Author Blood Pressure < 140/90 Blood Pressure 122/58(2024 1:50 PM EST) No Jayce Tristan PharmD Hemoglobin A1c < 7 Result Component 13.4(01/05/20 1:43 PM EST) No Jayce Tristan PharmD Procedures Procedure Name Priority Date/Time Associated Diagnosis Comments POCT GLUCOSE Routine 01/05/2025 2:09 PM EST Uncontrolled type 2 diabetes mellitus with hyperglycemia (CMS/HCC) POCT GLYCATED HEMOGLOBIN, TOTAL Routine 01/05/2025 1:43 PM EST Uncontrolled type 2 diabetes mellitus with hyperglycemia (CMS/HCC) BI MAMMOGRAM SCREENING TOMOSYNTHESIS BILATERAL Routine 11/30/2024 1:50 PM EST IMAGE-GUIDED PAP W/AGE BASED SCR PROTOCOLS Routine 03/02/2023 2:16 PM EDT Cervical cancer screening LIPID PANEL, STANDARD Routine 10/20/2022 11:13 AM EST ALBUMIN, RANDOM URINE W/CREATININE Routine 06/04/2021 1:08 PM EDT COLONOSCOPY Routine 11/09/2019 from Last 3 Months or Most Recently Relevant to Health Maintenance Results * (ABNORMAL) POCT Glucose (01/05/2025 2:09 PM EST) Glucose Blood, POC 273(A) 60 - 200 mg/dL QC Media Lot # [id number] Lot# Expiration Date 082,025 Blood Capillary blood specimen / Unknown 01/05/2025 2:09 PM EST us Pipe Anderson MD POINT OF CARE TEST ENTER/ED IT ORDERABLES Final Result * (ABNORMAL) POCT A1C (01/05/2025 1:43 PM EST) Hemoglobin A1C 13.4(A) 4.0 - 6.0 % QC Media Lot # [id number] Lot# Expiration Date ,026 Blood 01/05/2025 1:43 PM EST us Pipe Anderson MD POINT OF CARE TEST ENTER/ED IT ORDERABLES Final Result * BI Mammogram Screening Tomosynthesis Bilateral (11/30/2024 1:50 PM EST) Anatomical Region Laterality Modality Breast Bilateral Mammography 11/30/2024 1:50 PM EST Narrative 12/10/2024 6:59 AM EST ? [facility] ? [address] ?[place] [address] ? Mammography Report ? Signed with Addenda ? Patient: Andrew Flash,Brittany ?M ?? R#: [id number] ? : 1970 ?Acct:[id number] ? Age/Sex: 54 / F ?ADM Date: /02/25 ? Loc: HO.MAMMO ? Attending Dr: Pipe Anderson MD ? Ordering Physician: Pipe Anderson MD ?Results: 1 ?? Negative ? Date of Service: 11/30/24 ?Follow Up: 1 Year From Orig ?? inal Mammogram ? Procedure(s): MM tomosynthesis screening BI ?? Accession Number(s): [id number] ? cc: Justin,Pipe C MD ?ADDENDUM ? ADDENDUM #1 ? ADDENDUM: ?? The current mammogram has been reviewed and remains BI-RADS as follows ? OVERALL ASSESSMENT: ?? BI-RADS 1 - Negative ? RECOMMENDATION: ?? 1 year F/U ? Electronically signed by: ??Yamileth Arroyo DO ??12/25/2024 03:25 PM EST ?? RP ? Addendum Dictated By: ?Yamileth Arroyo, DO ? Addendum Signed By: ? <Electronically signed by Yamileth Arroyo DO in OV> ? 12/25/24 1525 ?? Addendum Cosigned By: ? DD/ /23/1350 ? TD/TT: 11/30/2401/23/1417 ? EXAMINATION: ?? MM SCREENING DIGITAL BREAST TOMOSYNTHESIS, BILATERAL ? CLINICAL INFORMATION: ? Screening. Asymptomatic. ? COMPARISON: ?? Mammography: Comparison is made with available priors ? TECHNIQUE: ?? Digital breast mammography with tomosynthesis is performed in both the ?? craniocaudal and mediolateral oblique views along with computer-aided ?? detection (CAD). ? FINDINGS: ?? The breasts are heterogeneously dense, which may obscure small masses ?? (ACR BI-RADS breast composition Category c). ? There are no significant masses, abnormal calcifications, or other ?? abnormalities. ? MM/MM tomosynthesis screening BI ?? IMPRESSION: ?? No mammographic evidence of malignancy. ? ASSESSMENT: ? BI-RADS BI-RADS 1 - Negative ? RECOMMENDATION: ?? Routine annual mammography screening. ? 1 year F/U ? This examination should not preclude the clinical evaluation of a ?? suspicious palpable abnormality. ? This patient's information was entered into a reminder system with a ?? target due date for their next mammogram. ? Electronically signed by: ??Yamileth Arroyo DO ??12/10/2024 06:56 AM EST ?? RP ? Dictated By: ?Yamileth Arroyo DO ? Signed By: ?<Electronically signed by Yamileth Arroyo, DO in OV> ? 12/10/24 0656 ? DD/ ? TD/TT: 11/30/241416 ? Plate Cutter: ? Procedure Note Donpattiinterpreter, Image - 12/25/2024 [facility] [address] [place], [place] [address] Mammography Report Signed with Anneliese Patient: Randy Hernandez R#: [id number] : 1970Acct:[id number] Age/Sex: 54 / FADM Date: 11/30/24 Loc: HO.MAMMO Attending Dr: Pipe Anderson MD Ordering Physician: Pipe Anderson MDResults: 1 Negative Date of Service: 11/30/24Follow Up: 1 Year From Orig inal Mammogram Procedure(s): MM tomosynthesis screening BI Accession Number(s): [id number] cc: Pipe Anderson MD ADDENDUM ADDENDUM #1 ADDENDUM: The current mammogram has been reviewed and remains BI-RADS as follows OVERALL ASSESSMENT: BI-RADS 1 - Negative RECOMMENDATION: 1 year F/U Electronically signed by: Yamileth Arryoo DO 12/25/2024 03:25 PM EST Addendum Dictated By: Yamileth Arroyo DO Addendum Signed By: <Electronically signed by DO Ashley in OV> 12/25/24 1525 Addendum Cosigned By: DD/ /23/1350 TD/TT: 11/30/2401/23/1417 EXAMINATION: MM SCREENING DIGITAL BREAST TOMOSYNTHESIS, BILATERAL CLINICAL INFORMATION: Screening. Asymptomatic. COMPARISON: Mammography: Comparison is made with available priors TECHNIQUE: Digital breast mammography with tomosynthesis is performed in both the craniocaudal and mediolateral oblique views along with computer-aided detection (CAD). FINDINGS: The breasts are heterogeneously dense, which may obscure small masses (ACR BI-RADS breast composition Category c). There are no significant masses, abnormal calcifications, or other abnormalities. MM/MM tomosynthesis screening BI IMPRESSION: No mammographic evidence of malignancy. ASSESSMENT: BI-RADS BI-RADS 1 - Negative RECOMMENDATION: Routine annual mammography screening. 1 year F/U This examination should not preclude the clinical evaluation of a suspicious palpable abnormality. This patient's information was entered into a reminder system with a target due date for their next mammogram. Electronically signed by: Yamileth Arroyo DO 12/10/2024 06:56 AM EST Dictated By: Yamileth Arroyo DO Signed By: <Electronically signed by Yamileth Arroyo DO in OV> 12/10/24 0656 DD/ 1350 TD/TT: 11/30/24 1417 Plate Cutter: Pipe Anderson MD IM BI PROCEDURES Edited Re sult - Final * Image-Guided Pap with Age-Based Screening Protocols (03/02/2023 2:16 PM EDT) Comment [facility] Comment: This order for age-based cervical cancer and STI screening follows ACOG guidelines(PB 168, 140, ORO104). See individual assays for performing site location. Clinical Information: None given [facility] LMP: NONE GIVEN [facility] Prev. PAP: NONE GIVEN [facility] Prev. BX: NONE GIVEN [facility] SOURCE: None given [facility] Statement Of Adequacy: [facility] Comment: Satisfactory for evaluation. Endocervical/transformation zone component present. Interpretation/ Result: Negative for intraepithelial lesion or malignancy. [facility] COMMENT: This Pap test has been evaluated with computer assisted technology. [facility] [employer]: [facility] [employer] [facility] Comment: JXM, CT(ASCP) CT screening location: [address] ??[address] (Always Message) [facility] Comment: EXPLANATORY NOTE: The Pap is a screening test for cervical cancer. It is not a diagnostic test and is subject to false negative and false positive results. It is most reliable when a satisfactory sample, regularly obtained, is submitted with relevant clinical findings and history, and when the Pap result is evaluated along with historic and current clinical information. HPV nRNA E6/E7 Not Detected Not Detected [facility] Comment: Methodology: [employer]-Mediated Amplification This assay detects E6/E7 viral messenger RNA (mRNA) from 14 high-risk HPV types (16,18,31,33,35,39,45,51,52,56,58,59,66,68). Cervical sources are required for HPV testing. If a vaginal source from a patient who has had a total hysterectomy with removal of cervix was submitted, please contact the testing laboratory for alternative testing options. For additional information, please refer to http://education.SmartNews/faq/IMR904s4 (This link if provided for information/ educational purposes only.) Cytology specimen container (physical object) 03/02/2023 2:16 PM EDT 03/03/2023 5:29 AM EDT Shannon [facility] LAB BLOOD ORDERABLES Liliana l Result [address], [place] [address] [facility] [employer] [facility] [address] [place] [phone] * (ABNORMAL) LIPID PANEL, STANDARD (10/20/2022 11:13 AM EST) Chol/HDLC Ratio 7.1(H) <5.0 (calc) [facility] Cholesterol, Total 328(H) <200 mg/dL [facility] HDL Cholesterol 46(L) > OR = 50 mg/dL [facility] LDL Cholesterol 238(H) mg/dL (calc) [facility] Comment: LDL-C levels > or = 190 mg/dL may indicate familial ?? hypercholesterolemia (FH). Clinical assessment and ?? measurement of blood lipid levels should be ?? considered for all first degree relatives of ?? patients with an FH diagnosis. ?? For questions about testing for familial hypercholesterolemia, please call [facility] at [phone].INFO. Jamir Child, et al. J National Lipid Association ?? Recommendations for Patient-Centered Management of ?? Dyslipidemia: Part 1 Journal of Clinical Lipidology ?? 2015;9(2), 129-169. Reference range: <100 ?? Desirable range <100 mg/dL for primary prevention; ?? <70 mg/dL for patients with CHD or diabetic patients ?? with > or = 2 CHD risk factors. ?? LDL-C is now calculated using the Laz ?? calculation, which is a validated novel method providing ?? better accuracy than the Friedewald equation in the ?? estimation of LDL-C. ?? Hussein SMITH et al. VARUN. 2013;310(19): 1615-7549 ?? (http://education.HEXIO/faq/OZD443) Non-HDL Cholesterol 282(H) <130 mg/dL (calc) [facility] Comment: Non-HDL level > or = 220 is very high and may indicate ?? genetic familial hypercholesterolemia (FH). Clinical ?? assessment and measurement of blood lipid levels ?? should be considered for all first-degree relatives ?? of patients with an FH diagnosis. ?? For patients with diabetes plus 1 major ASCVD risk ?? factor, treating to a non-HDL-C goal of <100 mg/dL ?? (LDL-C of <70 mg/dL) is considered a therapeutic ?? option. Triglycerides 236(H) <150 mg/dL [facility] Comment: ?? If a non-fasting specimen was collected, consider repeat triglyceride testing on a fasting specimen if clinically indicated. ?? Artem. J. of Clin. Lipidol. 2015;9:129-169. ?? 10/20/2022 11:1 3 AM EST us Pipe Anderson MD LAB BLOOD ORDERABLES Final Result [facility] * ALBUMIN, RANDOM URINE W/CREATININE (06/04/2021 1:08 PM EDT) Microalbumin Urine 5.3 See Note: mg/dL [facility] Comment: Reference Range: ?? Reference Range Not established Microalb/Creat Ratio 22 <30 mcg/mg creat [facility] Comment: ?? The ADA defines abnormalities in albumin excretion as follows: ?? Category ? Result (mcg/mg creatinine) ?? Normal ?<30 Microalbuminuria ? 30-299 ?? Clinical albuminuria ?? > OR = 300 ?? The ADA recommends that at least two of three specimens collected within a 3-6 month period be abnormal before considering a patient to be within a diagnostic category. Creatinine, Urine 242 20 - 275 mg/dL [facility] 06/04/2021 1:08 PM EDT us Pipe Anderson MD LAB URINE ORDERABLES Final Result Performing Organization Address [facility] de Phone Number [facility] [address] * (ABNORMAL) Colonoscopy (11/09/2019) Anatomical Region Laterality Modality Endoscopy Narrative 11/09/2019 Transverse colon polyp removed. Needs a repeat Colonoscopy in 2023. us Historical Provider ENDOSCOPY PROCEDURE ORDER AR Final Result from Last 3 Months or Most Recently Relevant to Health Maintenance Insurance MEDICARE [facility] STANDARD * Guarantor: Brittany Hernandez Account Type Relation to Patient Date of Phone Billing Address Personal/Family Self [address] ROLDAN DEVLIN Care Teams Realty Specialist Relationship Specialty Start Date End Date Pipe Anderson MD [address] [facility] ROLDAN Gomez13 PCP - General Internal Medicine 04/14/21 Jayce Tristan, Lis [address] [facility] ROLDAN Gomez13 Pharmacist Internal Medicine 11/13/22 Beltran Iglesias Vice President Of Product MarketingAgricultural Sciences Professor 04/21/24 Marcos Hanks Sweep Press OperatorAgricultural Sciences Professor 07/06/24
--- OUTSIDE RECORDS SUMMARY | 2025-01-05 14:33 | XMS_ITS | Encounter Summary ---
Author Organization [employer] Address [address] [facility] 7 [place] [address] Care Team Providers Care Packer And Carry Out Name Role Phone Pipe Anderson MD Primary Care Provider +1 [phone] Jayce Tristan PharmD Unavailable Unavail able Reason for Visit * Reason Onset Date Comments Durable Medical Equipment 07/19/2024 Encounter Details Date Type Department Care Team ([facility] st Contact Info) Description 07/19/2024 Telephone [facility] MEDICINE [address] [place] [address] Pipe Anderson MD 505 [facility] [place] [place] [address] Durable Medical Equipment Social History Tobacco Use Types Packs/Day Years [...] encounter Miscellaneous Notes * Telephone Encounter - Deisi Chew LPN - 07/20/2024 12:41 PM EDT Please review message below and advise, * Telephone Encounter - Deisi Chew LPN - 07/20/2024 12:41 PM EDT Tc from pt requesting Diabetic orthotic shoes and compressions socks * Telephone Encounter - Cristian Saini - 07/19/2024 3:26 PM EDT Tc from pt requesting Diabetic orthotic shoes and compressions socks documented in this encounter Plan of Treatment Upcoming Encounters Date Type Department Care Team (Late st Contact Info) Description 01/24/2025 10:30 AM EST Medication Management [facility] MED & PEDS [address] [place] [address] Faviola Richard PharmD 230 [place] [address] documented as of this encounter Goals Goal Patient Goal Type Associated Problems Recent Progress Patient-Stated? Author Blood Pressure < 140/90 Blood Pressure 122/58(2024 1:50 PM EST) No Jayce Tristan, PharmD Hemoglobin A1c < 7 Result Component 13.4(01/05/20 1:43 PM EST) No Jayce Tristan, PharmD documented as of this encounter Visit Diagnoses Not on filedocumented in this encounter Care Teams Packer And Carry Out Relationship Specialty Start Date End Date Pipe Anderson MD 505 [place] [address] PCP - General Internal Medicine 04/14/21 Jayce Tristan PharmD 505 [facility] [place] [place] [address] Pharmacist Internal Medicine 11/13/22 Beltran Iglesias Sinker WinderPurchasing And Fiscal Clerk 04/21/24 Marcos Hanks Ramp JockeyPurchasing And Fiscal Clerk 07/06/24 documented as of this encounter
--- OUTSIDE RECORDS SUMMARY | 2025-01-05 14:33 | XMS_ITS | Encounter Summary ---
Author Organization [employer] Address [address] [facility] [address] 7t [place] [address] Care Team Providers Care Dry Kiln Feeder Name Role Phone Pipe Anderson MD Primary Care Provider +1 [phone] Jayce Tristan PharmD Unavailable Unavail able Encounter Details Date Type Department Care Team ([facility] st Contact Info) Description 12/26/2024 Telephone [facility] CHC MED & PEDS [address] [place] [address] Faviola Richard, PharmD 230 [place] [address] Social History Tobacco Use Types Packs/Day Years [...] encounter Miscellaneous Notes * Telephone Encounter - Faviola Richard PharmD - 12/26/2024 10:37 AM EST Hello, this patient has an A1c > 10% and would benefit from the pharmacy CDTM program. Please send a referral for CDTM - Diabetes E11.65. Thank you! documented in this encounter Plan of Treatment Upcoming Encounters Date Type Department Care Team (Late st Contact Info) Description 01/24/2025 10:30 AM EST Medication Management [facility] CHC MED & PEDS 505 [place], [place] [phone] Faviola Richard PharmD 230 [place] [address] documented as of this encounter Goals Goal Patient Goal Type Associated Problems Recent Progress Patient-Stated? Author Blood Pressure < 140/90 Blood Pressure 122/58(2024 1:50 PM EST) No Jayce Tristan PharmEneida Hemoglobin A1c < 7 Result Component 13.4(01/05/20 25 1:43 PM EST) No Jayce Tristan PharmD documented as of this encounter Visit Diagnoses Not on filedocumented in this encounter Additional Health Concerns Assessment Noted Time PHQ-9 Depression Total Score: 14 024 4:22 PM EDT documented as of this encounter Care Teams Dry Kiln Feeder Relationship Specialty Start Date End Date Pipe Anderson MD 505 [place], [place] [id number] PCP - General Internal Medicine 04/14/21 Jayce Tristan, PharmD [address] [place] [address] Pharmacist Internal Medicine 11/13/22 Beltran Iglesias Management RecruiterQuantitative Analyst Developer 04/21/24 Marcos Hanks Fishing Rod MechanicQuantitative Analyst Developer 07/06/24 documented as of this encounter
--- OUTSIDE RECORDS SUMMARY | 2025-01-05 14:33 | XMS_ITS | Encounter Summary ---
Author Organization [employer] Address [address] [place] [address] 7 [place] [address] Care Team Providers Care Residential Glazier Name Role Phone Pipe Anderson MD Primary Care Provider +1- [phone] Jayce Tristan PharmD Unavailable Unavail able Reason for Visit * Reason Comments Med Refill Encounter Details Date Type Department Care Team ([facility] Contact Info) Description 06/19/2024 Refill [facility] CHC MED & PEDS 505 [place] [address] Pipe Anderson MD 505 [place] [address] Diabetic polyneuropathy associated with type 2 diabetes mellitus (CMS/HCC) Social History Tobacco Use Types Packs/Day Years [...] Description 01/24/2025 10:30 AM EST Medication Management [facility] MED & PEDS 505 [place] [address] Faviola Richard PharmD 230 [place], [place] [phone] documented as of this encounter Goals Goal Patient Goal Type Associated Problems Recent Progress Patient-Stated? Author Blood Pressure < 140/90 Blood Pressure 122/58(2024 1:50 PM EST) No Jayce Tristan, PharmD Hemoglobin A1c < 7 Result Component 13.4(01/05/20 1:43 PM EST) No Jayce Tristan, PharmD documented as of this encounter Visit Diagnoses Diagnosis Diabetic polyneuropathy associated with type 2 diabetes mellitus ([facility]) documented in this encounter Care Teams Residential Glazier Relationship Specialty Start Date End Date Pipe Anderson MD 505 [place] [address] PCP - General Internal Medicine 04/14/21 DelJayce ortiz, PharmD 505 [place] [address] Pharmacist Internal Medicine 11/13/22 Beltran Iglesias Reconstructive SurgeonDoughnut Glazier 04/21/24 Marcos Hanks Shiatsu TherapistDoughnut Glazier 07/06/24 documented as of this encounter
--- OUTSIDE RECORDS SUMMARY | 2025-01-05 14:33 | XMS_ITS | Encounter Summary ---
Author Organization [employer] Address [address] [facility] [address] 7t [place] [address] Care Team Providers Care Dupligraph Operator Name Role Phone Pipe Anderson MD Primary Care Provider +1 [phone] Jayce Tristan PharmD Unavailable Unavail able Encounter Details Date Type Department Care Team (Latest Contact Info) Description 01/05/2025 Travel Social History Tobacco Use Types Packs/Day Years [...] Description 01/24/2025 10:30 AM EST Medication Management [facility] MED & PEDS 505 [place] [address] Faviola Richard PharmD 230 [place] [address] documented as of this encounter Goals Goal [...] documented as of this encounter Care Teams Dupligraph Operator Relationship Specialty Start Date End Date Pipe Anderson MD 505 [place] [address] PCP - General Internal Medicine 04/14/21 Jayce Tristan, PharmD 505 [place] [address] Pharmacist Internal Medicine 11/13/22 Beltran Iglesias Family Dinner Service SpecialistWheel Polisher 04/21/24 Marcos Hanks Deliverer MerchandiseWheel Polisher 07/06/24 documented as of this encounter
--- OUTSIDE RECORDS SUMMARY | 2025-01-05 14:33 | XMS_ITS | Encounter Summary ---
Author Organization [employer] Address [address] [place] [address] 7 [place] [address] Care Team Providers Care Tennis Director Name Role Phone Pipe Anderson MD Primary Care Provider +1- [phone] Jayce Tristan PharmD Unavailable Unavail able Encounter Details Date Type Department Care Team ([facility] st Contact Info) Description 07/28/2024 Orders Only [facility] CHC MED & PEDS 505 [place] [address] Pipe Anderson MD 505 [place] [address] Uncontrolled type 2 diabetes mellitus with hyperglycemia [...] Description 01/24/2025 10:30 AM EST Medication Management [facility] MED & PEDS 505 [place] [address] Faviola Richard PharmD 230 [place] [address] documented as of this encounter Goals Goal Patient Goal Type Associated Problems Recent Progress Patient-Stated? Author Blood Pressure < 140/90 Blood Pressure 122/58(2024 1:50 PM EST) No Jayce Tristan, PharmEneida Hemoglobin A1c < 7 Result Component 13.4(01/05/20 1:43 PM EST) No Jayce Tristan, PharmD documented as of this encounter Visit Diagnoses Diagnosis Uncontrolled type 2 diabetes mellitus with hyperglycemia ([facility])- Primary documented in this encounter Additional Health Concerns Assessment Noted Time PHQ-9 Depression Total Score: 14 024 4:22 PM EDT documented as of this encounter Care Teams Tennis Director Relationship Specialty Start Date End Date Pipe Anderson MD 505 [place] [address] PCP - General Internal Medicine 04/14/21 Jayce Tristan, PharmD 505 [place] [address] Pharmacist Internal Medicine 11/13/22 Beltran Iglesias Transportation Maintenance OperatorRehab Specialist 04/21/24 Marcos Hanks Track WelderRehab Specialist 07/06/24 documented as of this encounter
--- OUTSIDE RECORDS SUMMARY | 2025-01-05 14:33 | XMS_ITS | Encounter Summary ---
Author Organization [employer] Address [address] [place] [address] 7 [place] [address] Care Team Providers Care Electrical Sign Wirer Helper Name Role Phone Pipe Anderson MD Primary Care Provider +1- [phone] Jayce Tristan PharmD Unavailable Unavail able Reason for Visit * Reason Comments Med Refill Encounter Details Date Type Department Care Team ([facility] Contact Info) Description 11/06/2024 Refill [facility] CHC MED & PEDS 505 [place] [address] Pipe Anderson MD 505 [place] [address] Diabetic polyneuropathy associated with type 2 diabetes [...] Description 01/24/2025 10:30 AM EST Medication Management [facility] MED & PEDS 505 [place], [place] [phone] Faviola Richard PharmD 230 [place] [address] documented as of this encounter Goals Goal Patient Goal Type Associated Problems Recent Progress Patient-Stated? Author Blood Pressure < 140/90 Blood Pressure 122/58(2024 1:50 PM EST) No Jayce Tristan, PharmD Hemoglobin A1c < 7 Result Component 13.4(01/05/20 1:43 PM EST) No Jayce Tristan, PharmD documented as of this encounter Visit Diagnoses Diagnosis Diabetic polyneuropathy associated with type 2 diabetes mellitus ([facility]) documented in this encounter Additional Health Concerns Assessment Noted Time PHQ-9 Depression Total Score: 14 024 4:22 PM EDT documented as of this encounter Care Teams Electrical Sign Wirer Helper Relationship Specialty Start Date End Date Pipe Anderson MD 505 [place] [address] PCP - General Internal Medicine 04/14/21 Jayce Tristan, PharmD 505 [place] [address] Pharmacist Internal Medicine 11/13/22 Beltran Iglesias Mannequin MakerMeat Boner And Slicer 04/21/24 Marcos Hanks Material CombinerMeat Boner And Slicer 07/06/24 documented as of this encounter
--- OUTSIDE RECORDS SUMMARY | 2025-01-05 14:33 | XMS_ITS | Encounter Summary ---
Author Organization [employer] Address [address] [facility] 7 [place] [address] Care Team Providers Care Carton Machine Operator Name Role Phone Pipe Anderson MD Primary Care Provider +1- [phone] Jayce Tristan PharmD Unavailable Unavail able Reason for Visit * Reason Onset Date Comments Referral 10/13/2023 Encounter Details Date Type Department Care Team ([facility] st Contact Info) Description 10/13/2023 Telephone [facility] MEDICINE 230 [place] [address] Pipe Anderson MD [address] [facility] [address] [place] [address] Referral Social History Tobacco Use Types Packs/Day Years Used Date Smoking Tobacco: Former Smokeless Tobacco: Never Housing Stability Answer Date Recorded What is your housing situation today? I have mann andrews 09/27/[address] you li ve. Do you have problems with any of the following? None of the above 09/27/2023 Food Insecurity Answer Date Recorded Within the past 12 months, y ou worried that your food would run out before you got money to buy more: Never True 09/27/2023 Within the past 12 months,th e food you bought just didn't last and you didn't have enough money to get more: Never True Transportation Answer Date Recorded In the past 12 months, has l ack of transportation kept you from medical appts, meetings, work or from getting things needed for daily living? No 09/27/2023 Utilities Answer Date Recorded In the past 12 months, has t he electric, gas, oil or water company threatened to shut off services in your home? No 09/27/2023 Comments No Sex and Gender Information Value Date Recorded Sex Assigned at Female 09/28/2022 10:16 AM EDT Legal Sex Female 10:16 AM EDT Gender Identity Female 09/28/2022 10:16 AM EDT Sexual Orientation Straight 09/28/2022 10 :16 AM EDT documented as of this encounter Miscellaneous Notes * Telephone Encounter - Diana Toscano RN - 10/14/2023 10:58 AM EST Returned call to pt's DEVONTE carson regarding message below. VN informed that pt was referred to teammonths ago and has no showed to multiple appts. Pt needs to call and r/s appt with DM team. VN states she will let pt know. * Telephone Encounter - Diana Toscano RN - 10/13/2023 3:33 PM EST Please review message below and advise if pt can be referred to atm servicer for pt's DM. * Telephone Encounter - Mikael Carrero - 10/13/2023 10:12 AM EST Tc zack Gong the walt WHITNEY requesting a referral for a atm servicer for the patient any questions please call [phone] documented in this encounter Plan of Treatment Upcoming Encounters Date Type Department Care Team (Late st Contact Info) Description 01/24/2025 10:30 AM EST Medication Management [facility] MED & PEDS 505 [place] [address] Faviola Richard PharmD 230 [place], [place] [phone] documented as of this encounter Goals Goal Patient Goal Type Associated Problems Recent Progress Patient-Stated? Author Blood Pressure < 140/90 Blood Pressure 122/58(2024 1:50 PM EST) No Dellogono, Jayce, PharmD Hemoglobin A1c < 7 Result Component 13.4(01/05/20 1:43 PM EST) No Jayce Tristan PharmD documented as of this encounter Visit Diagnoses Not on filedocumented in this encounter Care Teams Carton Machine Operator Relationship Specialty Start Date End Date Pipe Anderson MD 505 [place] [address] PCP - General Internal Medicine 04/14/21 Jayce Tristan, PharmD 505 [place] [address] Pharmacist Internal Medicine 11/13/22 Beltran Iglesias Slot Service SpecialistCardiothoracic Icu Rn 04/21/24 Marcos Hanks Math And Sciences Department ChairCardiothoracic Icu Rn 07/06/24 documented as of this encounter
--- OUTSIDE RECORDS SUMMARY | 2025-01-05 14:34 | XMS_ITS | Encounter Summary ---
Author Organization [employer] Address [address] [place] [address] 7 [place] [address] Care Team Providers Care Information Security Name Role Phone Pipe Anderson MD Primary Care Provider Jayce Tristan PharmD Unavailable Unavail able Encounter Details Date Type Department Care Team (Late st Contact Info) Description 05/14/2023 Abstract [facility] MED & PEDS 505 [place] [address] Pipe Anderson MD 505 [place] [address] Social History Tobacco Use Types Packs/Day Years Used Date Smoking Tobacco: Former Smokeless Tobacco: Never Comments No Sex and Gender Information Value Date Recorded Sex Assigned at Female 09/28/2022 10:16 AM EDT Legal Sex Female 10:16 AM EDT Gender Identity Female 09/28/2022 10:16 AM EDT Sexual Orientation Straight 09/28/2022 10 :16 AM EDT COVID-19 Exposure Response Date Recorded In the last 10 days, have yo u been in contact with someone who was confirmed or suspected to have Coronavirus/COVID-19? No / Unsure 05/13/2023 12:31 PM EDT documented as of this encounter Plan of Treatment Upcoming Encounters Date Type Department Care Team (Late st Contact Info) Description 01/24/2025 10:30 AM EST Medication Management [facility] MED & PEDS 505 [place] [address] Faviola Richard, PharmD 230 [place], [place] [phone] documented as of this encounter Goals Goal Patient Goal Type Associated Problems Recent Progress Patient-Stated? Author Blood Pressure < 140/90 Blood Pressure 122/58(2024 1:50 PM EST) No Jayce Tristan, PharmEneida Hemoglobin A1c < 7 Result Component 13.4(01/05/20 1:43 PM EST) No Jayce Tristan PharmD documented as of this encounter Visit Diagnoses Not on filedocumented in this encounter Care Teams Information Security Relationship Specialty Start Date End Date Pipe Anderson MD 505 [place] [address] PCP - General Internal Medicine 04/14/21 Jayce Tristan, BhavnaD [address] [place] [address] Pharmacist Internal Medicine 11/13/22 Beltran Iglesias Sweet Goods Machine OperatorMacaroni Maker 04/21/24 Marcos Hanks Internal SpecialistMacaroni Maker 07/06/24 documented as of this encounter
--- OUTSIDE RECORDS SUMMARY | 2025-01-05 14:34 | XMS_ITS | Encounter Summary ---
Author Organization [employer] Address [address] [place] [address] 7 [place] [address] Care Team Providers Care Bilingual Student Tutor Name Role Phone Pipe Anderson MD Primary Care Provider +1- [phone] Jayce Tristan PharmD Unavailable Unavail able Encounter Details Date Type Department Care Team ([facility] st Contact Info) Description 11/30/2024 Orders Only [facility] CHC MED & PEDS 505 [place] [address] Pipe Anderson MD 505 [place] [address] Social History Tobacco Use Types Packs/Day Years [...] t he electric, gas, oil or water [employer] threatened to shut off services in your [...] Description 01/24/2025 10:30 AM EST Medication Management [facility] CHC MED & PEDS [address] [place] [address] Faviola Richard PharmD 230 [place] [address] documented as of this encounter Goals Goal Patient Goal Type Associated Problems Recent Progress Patient-Stated? Author Blood Pressure < 140/90 Blood Pressure 122/58(2024 1:50 PM EST) No Jayce Tristan PharmD Hemoglobin A1c < 7 Result Component 13.4(01/05/20 1:43 PM EST) No Jayce Tristan PharmD documented as of this encounter Procedures Procedure Name Priority Date/Time Associated Diagnosis Comments BI MAMMOGRAM SCREENING TOMOSYNTHESIS BILATERAL Routine 11/30/2024 1:50 PM EST documented in this encounter Results * BI Mammogram Screening Tomosynthesis Bilateral (11/30/2024 1:50 PM EST) Anatomical Region Laterality Modality Breast Bilateral Mammography 11/30/2024 1:50 PM EST Narrative 12/10/2024 6:59 AM EST ? [facility] ? [address] ?[place] [address] ? Mammography Report ? Signed with Addenda ? Patient: Andrew Flash,Brittany ?M ?? R#: [id number] ? : 1970 ?Acct:[id number] ? Age/Sex: 54 / F ?ADM Date: 11/30/ ? Loc: HO.MAMMO ? Attending Dr: Pipe Anderson MD ? Ordering Physician: Pipe Anderson MD ?Results: 1 ?? Negative ? Date of Service: 11/30/24 ?Follow Up: 1 Year From Orig ?? inal Mammogram ? Procedure(s): MM tomosynthesis screening BI ?? Accession Number(s): [id number] ? cc: Pipe Anderson MD ?ADDENDUM ? ADDENDUM #1 ? ADDENDUM: ?? The current mammogram has been reviewed and remains BI-RADS as follows ? OVERALL ASSESSMENT: ?? BI-RADS 1 - Negative ? RECOMMENDATION: ?? 1 year F/U ? Electronically signed by: ??Yamileth Arroyo DO ??12/25/2024 03:25 PM EST ?? RP ? Addendum Dictated By: ?Yamileth Arroyo, DO ? Addendum Signed By: ? <Electronically signed by Yamileth Arroyo, DO in OV> ? 12/25/24 1525 ?? [...] ??Yamileth Arroyo DO ??12/10/2024 06:56 AM EST ? Dictated By: ?Yamileth Arroyo DO ? Signed By: ?<Electronically signed by Yamileth Arroyo, DO in OV> ? 12/10/24 0656 ? DD/ 1350 ? TD/TT: 11/30/24 1417 ? Base Brander: ? Procedure Note Donpattiinterpreter, Image - 12/25/2024 [facility] [address] [place] [address] Mammography Report Signed with Anneliese Patient: Randy Hernandez R#: [id number] : 1970Acct:[id number] Age/Sex: 54 / FADM Date: 11/30/24 Loc: HO.MAMMO Attending Dr: Pipe Anderson MD Ordering Physician: Pipe Anderson MDResults: 1 Negative Date of Service: 11/30/24Follow Up: 1 Year From Orig inal Mammogram Procedure(s): MM tomosynthesis screening BI Accession Number(s): [id number] cc: Pipe Anderson MD ADDENDUM ADDENDUM #1 ADDENDUM: The current mammogram has been reviewed and remains BI-RADS as follows OVERALL ASSESSMENT: BI-RADS 1 - Negative RECOMMENDATION: 1 year F/U Electronically signed by: Yamileth Arroyo DO 12/25/2024 03:25 PM EST RP Addendum Dictated By: Yamileth Arroyo DO Addendum [...] Yamileth Arroyo DO 12/10/2024 06:56 AM EST RP Dictated By: Yamileth Arroyo DO Signed By: <Electronically signed by Yamileth Arroyo DO in OV> 12/10/24 0656 DD/ 1350 TD/TT: 11/30/24 1417 Base Brander: Pipe Anderson MD IMG BI PROCEDURES Edited Re sult - Final documented in this encounter Visit Diagnoses Not on filedocumented in this encounter Additional Health Concerns Assessment Noted Time PHQ-9 Depression Total Score: 14 0830/2 024 4:22 PM EDT documented as of this encounter Care Teams Bilingual Student Tutor Relationship Specialty Start Date End Date Pipe Anderson MD [address] [place] [address] PCP - General Internal Medicine 04/14/21 Jayce Tristan, BhavnaD [address] [place] [address] Pharmacist Internal Medicine 11/13/22 Beltran Iglesias Imaging Account ManagerPre Algebra Teacher 04/21/24 Marcos Hanks Corn PickerPre Algebra Teacher 07/06/24 documented as of this encounter
--- OUTSIDE RECORDS SUMMARY | 2025-01-05 14:34 | XMS_ITS | Encounter Summary ---
Author Organization [employer] Address [address] [place] [address] 7 [place] [address] Care Team Providers Care Transmitter Supervisor Name Role Phone Pipe Anderson MD Primary Care Provider [phone] Jayce Tristan PharmD Unavailable Unavail able Reason for Visit * Reason Comments Med Refill Encounter Details Date Type Department Care Team ([facility] Contact Info) Description 12/22/2024 Refill [facility] CHC MED & PEDS [address] [place] [address] Pipe Anderson MD [address] [place] [address] Type 2 diabetes mellitus with hyperglycemia, without long-term current use of insulin ([facility]) Social History Tobacco Use Types Packs/Day Years [...] Description 01/24/2025 10:30 AM EST Medication Management [facility] MED & PEDS [address] [place], [place] [phone] Faviola Richard PharmD [address] [place] [address] documented as of this encounter Goals Goal Patient Goal Type Associated Problems Recent Progress Patient-Stated? Author Blood Pressure < 140/90 Blood Pressure 122/58(2024 1:50 PM EST) No Jayce Tristan, PharmEneida Hemoglobin A1c < 7 Result Component 13.4(01/05/20 1:43 PM EST) No Jayce Tristan, PharmD documented as of this encounter Visit Diagnoses Diagnosis Type 2 diabetes mellitus with hyperglycemia, without long-term current use of insulin ([facility]) documented in this encounter Additional Health Concerns Assessment Noted Time PHQ-9 Depression Total Score: 14 024 4:22 PM EDT documented as of this encounter Care Teams Transmitter Supervisor Relationship Specialty Start Date End Date Pipe Anderson MD [address] [place] [address] PCP - General Internal Medicine 04/14/21 Jayce Tristan, PharmD [address] [place] [address] Pharmacist Internal Medicine 11/13/22 Beltran Iglesias Passenger RepresentativeMachine Sewer 04/21/24 Marcos Hanks Audiovisual Equipment OperatorMachine Sewer 07/06/24 documented as of this encounter
--- OUTSIDE RECORDS SUMMARY | 2025-01-05 14:34 | XMS_ITS | Encounter Summary ---
Author Organization [employer] Address [address] [place] [address] 7 [place] [address] Care Team Providers Care Yeast Maker Name Role Phone Pipe Anderson MD Primary Care Provider [phone] Jayce Tristan PharmD Unavailable Unavail able Reason for Visit * Reason Comments Med Refill Encounter Details Date Type Department Care Team ([facility] Contact Info) Description 12/11/2024 Refill [facility] CHC MED & PEDS [address] [place] [address] Pipe Anderson MD [address] [place] [address] Social History Tobacco Use Types Packs/Day Years [...] Description 01/24/2025 10:30 AM EST Medication Management [facility] MED & PEDS [address] [place], [place] [phone] Faviola Richard PharmD [address] [place] [address] documented as of this encounter Goals Goal Patient Goal Type Associated Problems Recent Progress Patient-Stated? Author Blood Pressure < 140/90 Blood Pressure 122/58(2024 1:50 PM EST) No Jayce Tirstan, PharmD Hemoglobin A1c < 7 Result Component 13.4(01/05/20 1:43 PM EST) No Jayce Tristan, PharmD documented as of this encounter Visit Diagnoses Not on filedocumented in this encounter Additional Health Concerns Assessment Noted Time PHQ-9 Depression Total Score: 14 024 4:22 PM EDT documented as of this encounter Care Teams Yeast Maker Relationship Specialty Start Date End Date Pipe Anderson MD [address] [place] [address] PCP - General Internal Medicine 04/14/21 Jayce Tristan, PharmD [address] [place] [address] Pharmacist Internal Medicine 11/13/22 Beltran Iglesias Forming Acid DumperCommissioning Manager 04/21/24 Marcos Hanks Shipping And Receiving OperatorCommissioning Manager 07/06/24 documented as of this encounter
[2025-01-05 18:14] LABS: Alanine Aminotransferase 55 U/L (0-31); Albumin Level 4.2 g/dL (3.5-5.0); Alkaline Phosphatase 96 U/L (39-117); Anion Gap 16 (12-20); Aspartate Amino Transferase 30 U/L (5-31); Bilirubin Total 0.3 mg/dL (0.0-1.0); Blood Urea Nitrogen 15 mg/dL (9-16); Calcium 9.7 mg/dL (8.4-10.2); Carbon Dioxide 27 mmol/L (22-29); Chloride 101 mmol/L (96-108); Cholesterol 156 mg/dL (<200); Estimated Glomerular Filt Rate > 60; Glucose Random 175 mg/dL (60-115); HDL Cholesterol 43 mg/dL (>40); LDL Cholesterol Calculated 82 mg/dL (<100); Potassium 3.5 mmol/L (3.3-5.1); Sodium 140 mmol/L (135-145); Triglycerides 158 mg/dL (<150)
[2025-01-05 18:35] LABS: Creatinine Urine 72.11 mg/dL; Microalbum/Creatinine Ratio Ur 19.4 ug/mg cr (<30)
== END 2025-01-05 14:15 | disposition home or self-care (01) ==
LOC: HO.CHCLDS 14:14
PROVIDERS: Visit Provider Internal Medicine
DX: E11.65 Type 2 diabetes mellitus with hyperglycemia (principal)
CPT/HCPCS: 36415; 80053; 80061; 82043; 82570

== ENCOUNTER 2025-02-06 09:47 | Outpatient (REF) | payer MEDICARE, MEDICAID, SELFPAY ==
--- NOTE | ~2025-02-06 | US_ITS ---
EXAMINATION: US ABDOMEN HISTORY: Abnormal liver enzyme TECHNIQUE: Real-time grayscale ultrasound imaging of the abdomen was performed and images were reviewed. COMPARISON: Comparison is made with the prior examination dated 03/19/2021. FINDINGS: Liver: The right lobe of the liver measures 15.6 cm in size. The left lobe of the liver measures 11.6 cm in size. The liver demonstrates increased echotexture, consistent with steatosis. No focal mass or intrahepatic biliary ductal dilatation is identified. There is normal hepatopedal flow in the portal vein. Gallbladder and biliary tree: The gallbladder is unremarkable, without evidence of calculi, wall thickening, or pericholecystic fluid. There is no sonographic Workman sign. The common bile duct is normal in caliber measuring 3 mm. Kidneys: The right kidney measures 11.3 cm in length and is unremarkable. The left kidney measures 11.2 cm in length and again demonstrates a 7 mm echogenic lesion in the interpolar region which may represent an angiomyolipoma. There is no hydronephrosis or calculi. Pancreas: The pancreatic head, neck, and body demonstrate heterogeneous echotexture, but are otherwise unremarkable. The pancreatic tail is obscured by bowel gas. Spleen: The spleen is normal in size and contour, measuring 10.1 cm in length. Abdominal aorta and inferior vena cava: The visualized portions of the abdominal aorta and inferior vena cava are normal in caliber. There is no free fluid in the abdomen. US/US abdomen complete IMPRESSION: 1. Hepatomegaly and hepatic steatosis. 2. 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 Electronically signed by: Simba Parr MD 02/06/2025 01:33 PM EDT
--- OUTSIDE RECORDS SUMMARY | 2025-02-06 11:06 | XMS_ITS | Encounter Summary ---
Author Organization [employer] Address [address] [facility] 7 [place] [address] Care Team Providers Care Contingents Supervisor Name Role Phone Pipe Anderson MD Primary Care Provider [phone] Jayce Tristan PharmD Unavailable Unavail able Faviola Richard PharmD Unavailable [phone] Reason for Visit * Reason Onset Date Comments Referral 10/13/2023 Encounter Details Date Type Department Care Team ([facility] st Contact Info) Description 10/13/2023 Telephone [facility] MEDICINE [address] [place] [address] Pipe Anderson MD [address] [facility] [place] [address] Referral Social History Tobacco Use Types Packs/Day Years Used Date Smoking Tobacco: Former Smokeless Tobacco: Never Housing Stability Answer Date Recorded What is your housing situation today? I have mann sing 09/27/[address] you li [...] advise if pt can be referred to title curative specialist for pt's DM. * Telephone Encounter - Mikael Carrero - 10/13/2023 10:12 AM EST Tc zack Gong the [facility] requesting a referral for a title curative specialist for the patient any questions please call [phone] documented in this encounter Plan of Treatment Not on file documented as of this encounter Goals Goal Patient Goal Type Associated Problems Recent Progress Patient-Stated? Author Blood Pressure < 140/90 Blood Pressure 122/58(2024 1:50 PM EST) No DellogonoGerardois, PharmD Hemoglobin A1c < 7 Result Component 13.4(01/05/20 1:43 PM EST) No Delloggretchen Jayce, PharmD documented as of this encounter Visit Diagnoses Not on filedocumented in this encounter Care Teams Contingents Supervisor Relationship Specialty Start Date End Date Pipe Anderson MD [address] [place] [address] PCP - General Internal Medicine 04/14/21 Jayce Tristan, BhavnaD [address] [place] [address] Pharmacist Internal Medicine 11/13/22 01/07/25 Faviola Richard PharmD [address] [place] [address] Pharmacist Internal Medicine 01/05/25 Beltran Iglesias Eddy Current InspectorAmbulance Driver 04/21/24 Marcos Hanks Recreational DirectorAmbulance Driver 07/06/24 documented as of this encounter
--- OUTSIDE RECORDS SUMMARY | 2025-02-06 11:06 | XMS_ITS | Encounter Summary ---
Author Organization [employer] Address [address] [place] [address] 7 [place] [address] Care Team Providers Care Sack Keeper Name Role Phone Pipe Anderson MD Primary Care Provider [phone] Jayce Tristan PharmD Unavailable Unavail able Faviola Richard PharmD Unavailable [phone] Reason for Visit * Reason Comments Med Refill Encounter Details Date Type Department Care Team ([facility] st Contact Info) Description 11/06/[address] [facility] CHC MED & PEDS [address] [place] [address] Pipe Anderson MD [address] [place] [address] Diabetic polyneuropathy associated with type 2 diabetes [...] as of this encounter Plan of Treatment Not on [...] associated with type 2 diabetes mellitus (CMS/HCC) documented in this encounter Additional Health Concerns Assessment Noted Time PHQ-9 Depression Total Score: 14 024 4:22 PM EDT documented as of this encounter Care Teams Sack Keeper Relationship Specialty Start Date End Date Pipe Anderson MD [address] [place] [address] PCP - General Internal Medicine 04/14/21 Jayce Tristan, PharmD [address] [place] [address] Pharmacist Internal Medicine 11/13/22 01/07/25 Faviola Richard PharmD [address] [place] [address] Pharmacist Internal Medicine 01/05/25 Beltran Iglesias Parasitology TeacherGroundsman 04/21/24 Marcos Hanks Weigh Machine OperatorGroundsman 07/06/24 documented as of this encounter
--- OUTSIDE RECORDS SUMMARY | 2025-02-06 11:06 | XMS_ITS | Encounter Summary ---
Author Organization [employer] Address [address] [facility] 7t [place] [address] Care Team Providers Care Crime Investigator Special Agent Name Role Phone Pipe Anderson MD Primary Care Provider [phone] Jayce Tristan PharmD Unavailable Unavail able Faviola Richard PharmD Unavailable [phone] Reason for Visit * Reason Onset Date Comments Durable Medical Equipment 07/19/2024 Encounter Details Date Type Department Care Team ([facility] st Contact Info) Description 07/19/2024 Telephone [facility] MEDICINE [address] [place] [address] Pipe Anderson MD 505 [facility] [place] [address] Durable Medical Equipment Social History Tobacco Use [...] on filedocumented in this encounter Care Teams Crime Investigator Special Agent Relationship Specialty Start Date End Date Pipe Anderson MD [address] [place] [address] PCP - General Internal Medicine 04/14/21 Jayce Tristan, PharmD [address] [place] [address] Pharmacist Internal Medicine 11/13/22 01/07/25 Faviola Richard, Lis [address] [place] [address] Pharmacist Internal Medicine 01/05/25 Beltran Iglesias Geothermal Electrical EngineerPlayback Operator 04/21/24 Marcos Hanks Manager StrategyPlayback Operator 07/06/24 documented as of this encounter
--- OUTSIDE RECORDS SUMMARY | 2025-02-06 11:06 | XMS_ITS | Encounter Summary ---
Author Organization [employer] Address [address] [place] [address] [address], [place] [address] Care Team Providers Care Donor Services Specialist Name Role Phone Pipe Anderson MD Primary Care Provider [phone] Jayce Tristan PharmD Unavailable Unavail able Faviola Richard PharmD Unavailable [phone] Reason for Referral * Consultation (Routine) - Pending Review Specialty Diagnoses / Procedures Referred By Contac t Referred To Contact Pharmacy Diagnoses Uncontrolled type 2 diabetes mellitus with hyperglycemia (CMS/HCC) Pipe Anderson MD [address] [place] [address] Phone: tel: fax: Referral ID Status Reason Start Date Expiration Date Visits Requested Visits Authorized [id number] Pending Review Consult and Treat 12/26/2024 12/26/2025 6 6 Encounter Details Date Type Department Care Team ([facility] st Contact Info) Description 12/26/[address] [facility] CHC MED & PEDS [address] [place] [address] Pipe Anderson MD [address] [place] [address] Uncontrolled type 2 diabetes mellitus with hyperglycemia [...] as of this encounter Plan of Treatment Scheduled Referrals Name Type Priority Associated Diagnoses Orde r Schedule Referral to Pharmacy CDTM Outpatient Referral Routine Uncontrolled type 2 diabetes mellitus with hyperglycemia (CMS/HCC) Ordered: 12/26/2024 documented as of this encounter Goals Goal Patient Goal Type Associated Problems Recent Progress Patient-Stated? Author Blood Pressure < 140/90 Blood Pressure 122/58(2024 1:50 PM EST) No Dellogono, Jayce, PharmD Hemoglobin A1c < 7 Result Component 13.4(01/05/20 1:43 PM EST) No Delloggretchen Jayce, PharmD documented as of this encounter Visit Diagnoses Diagnosis Uncontrolled type 2 diabetes mellitus with hyperglycemia (CMS/HCC)- Primary documented in this encounter Additional Health Concerns Assessment Noted Time PHQ-9 Depression Total Score: 14 024 4:22 PM EDT documented as of this encounter Care Teams Donor Services Specialist Relationship Specialty Start Date End Date Pipe Anderson MD [address] [place] [address] PCP - General Internal Medicine 04/14/21 Jayce Tristan, BhavnaD [address] [place] [address] Pharmacist Internal Medicine 11/13/22 01/07/25 Faviola Richard PharmD [address] [place] [address] Pharmacist Internal Medicine 01/05/25 Beltran Iglesias Radar Systems EngineerGrants Analyst 04/21/24 Marcos Hanks Automat Car AttendantGrants Analyst 07/06/24 documented as of this encounter
--- OUTSIDE RECORDS SUMMARY | 2025-02-06 11:06 | XMS_ITS | Encounter Summary ---
Author Organization [employer] Address [address] [place] [address] 7 [place] [address] Care Team Providers Care Heel Seat Fitter Machine Name Role Phone Pipe Anderson MD Primary Care Provider [phone] Jayce Tristan PharmD Unavailable Unavail able Faviola Richard PharmD Unavailable [phone] Reason for Visit * Reason Comments Med Refill Encounter Details Date Type Department Care Team ([facility] st Contact Info) Description 06/19/2024 Refill [facility] CHC MED & PEDS [address] [place] [address] Pipe Anderson MD [address] [place] [address] Diabetic polyneuropathy associated with type 2 diabetes [...] polyneuropathy associated with type 2 diabetes mellitus (CMS/[facility]) documented in this encounter Care Teams Heel Seat Fitter Machine Relationship Specialty Start Date End Date Pipe Anderson MD [address] [place] [address] PCP - General Internal Medicine 04/14/21 Jayce Tristan, PharmD [address] [place] [address] Pharmacist Internal Medicine 11/13/22 01/07/25 Faviola Richard PharmD [address] [place] [address] Pharmacist Internal Medicine 01/05/25 Beltran Iglesias Research TechZoo Keeper 04/21/24 Marcos Hanks Signal PersonZoo Keeper 07/06/24 documented as of this encounter
--- OUTSIDE RECORDS SUMMARY | 2025-02-06 11:06 | XMS_ITS | Encounter Summary ---
Author Organization [employer] Address [address] [place] [address] 7 [place] [address] Care Team Providers Care Senior Case Manager Name Role Phone Pipe Anderson MD Primary Care Provider [phone] Faviola Richard PharmD Unavailable [phone] Reason for Visit * Reason Comments Med Refill Encounter Details Date Type Department Care Team ([facility] Contact Info) Description 01/16/2025 Refill [facility] CHC MED & PEDS [address] [place] [address] Pipe Anderson MD [address] [place] [address] Diabetic polyneuropathy associated with type 2 diabetes [...] documented as of this encounter Care Teams Senior Case Manager Relationship Specialty Start Date End Date Pipe Anderson MD [address] [place] [address] PCP - General Internal Medicine 04/14/21 Faviola Richard PharmD [address] [place] [address] Pharmacist Internal Medicine 01/05/25 Beltran Iglesias Controlled Area CheckerPredatory Game Hunter 04/21/24 Marcos Hanks Gun StriperPredatory Game Hunter 07/06/24 documented as of this encounter
--- OUTSIDE RECORDS SUMMARY | 2025-02-06 11:06 | XMS_ITS | Clinical Summary ---
Author Organization [employer] Address [address] [place] [address] 7[address] [place] [address] Care Team Providers Care Admissions Consultant Name Role Phone Pipe Anderson MD Primary Care Provider [phone] Faviola Richard PharmD Unavailable Allergies Active Allergy Reactions Criticality Noted Date Comments Shellfish Allergy Itching High 06/01/2024 Shrimp Extract Low 06/01/2024 Other Reaction(s): EYE ITCHING Medications * This document contains information received from the source organization and may not represent a complete record from that organization. Senna-Time 8.6 MG tablet TAKE 2 TABS BY MOUTH AT BEDTIME NEEDED CONSTIPATION 023 Active hydrocortisone 2.5 % creamIndications: Candidal intertrigo Apply topically 2 times daily. 28 g 023 Active Lancet Devices (Lancing Device) misc Use to check blood sugar daily as directed 1 each 023 Active Ventolin HFA 108 (90 Base) MCG/ACT inhaler INHALE 2 PUFFS EVERY 4 TO 6 HOURS NEEDED FOR SHORTNESS OF BREATH OR FOR WHEEZE 023 Active ibuprofen 600 MG tabletIndications :Chronic right shoulder pain Take 1 tablet (600 mg) by mouth every 6 (six) hours if needed for mild pain. 30 tablet 024 Active PARoxetine (Paxil) 20 MG tabletIndications :Anxiety,Persiste nt depressive disorder TAKE ONE TABLET EVERY MORNING 30 tablet 11 024 Active insulin pen needle (UltiCare Short Pen [place]) 31G X 8 mm miscIndications:T ype 2 diabetes mellitus with hyperglycemia, without long-term current use of insulin ([facility]) USE TO INJECT insulin THREE TIMES DAILY [...] Elastic Bandages & Supports (Medical Compression Stockings) miscIndications:V enous insufficiency Knee high, 15-20 mm/Hg. 1 each 1 024 Active insulin glargine (Toujeo Max SoloStar) 300 UNIT/ML injectionIndicati ons:Uncontrolled type 2 diabetes mellitus with hyperglycemia ([facility]/HCC) INJECT 50 SUBCUTANEOUSLY AT BEDTIME 6 mL 024 Active Easy Touch Lancets 33G/Twist miscIndications:T ype 2 diabetes mellitus with hyperglycemia, without long-term current use of insulin ([facility]) USE TO TEST BLOOD SUGAR THREE TIMES DAILY 100 each 025 Active Tirzepatide (Mounjaro) 2.5 MG/0.5ML solution auto-injectorIndi cations:Uncontrol led type 2 diabetes mellitus with hyperglycemia ([facility]/HCC) Inject 2.5 mg under the skin 1 (one) time per week. 2 mL 025 Active Continuous Glucose Sensor (FreeStyle José Manuel 3 Plus Sensor) miscIndications:U ncontrolled type 2 diabetes mellitus with hyperglycemia (CMS/HCC) 1 each every 15 days. 2 each 025 Active glucose blood (FreeStyle Precision Chet Test) test stripIndications: Uncontrolled type 2 diabetes mellitus with hyperglycemia ([facility]/HCC) Test blood sugar up to 3 times daily as directed 100 each 025 2025 Active insulin aspart FlexPen (NovoLOG) 100 UNIT/ML penIndications:Un controlled type 2 diabetes mellitus with hyperglycemia ([facility]/HCC) INJECT 26 UNITS TWICE DAILY BEFORE BREAKFAST AND SUPPER 025 Active gabapentin (Neurontin) 100 MG capsuleIndication s:Diabetic polyneuropathy associated with type 2 diabetes mellitus ([facility]/HCC) TAKE ONE CAPSULE TWICE DAILY IN THE MORNING AND AT BEDTIME 60 capsule 1 025 Active gabapentin (Neurontin) 100 MG capsuleIndication s:Diabetic polyneuropathy associated with type 2 diabetes mellitus ([facility]) TAKE ONE CAPSULE TWICE DAILY IN THE MORNING AND AT BEDTIME 60 capsule 1 024 2024 Discontinued Active Problems Problem Noted Date Diagnosed Date Irritable bowel syndrome with diarrhea Upper respiratory tract infection 09/14/2024 Assessment & [...] Encounters Date Type Department Care Team Description 01/16/2025 Refill [facility] & PEDS [address] [place] [address] Pipe Anderson MD Diabetic polyneuropathy associated with type 2 diabetes mellitus ([facility]) 01/12/2025 Telephone [facility] [address] [place] [address] Pipe Anderson MD Results 01/11/2025 Orders Only [facility] [address] [place] [address] Pipe Anderson MD Transaminitis (Primary Dx); Elevated liver enzymes 01/05/2025 Orders Only [facility] [address] [place] [address] Pipe Anderson MD 01/05/2025 Travel 12/28/2024 Telephone [facility] [address] [place] [address] Pipe Anderson MD 12/26/2024 Orders Only [facility] [address] [place] [address] Pipe Anderson MD Uncontrolled type 2 diabetes mellitus with hyperglycemia ([facility]) (Primary Dx) 12/26/2024 Telephone [facility] PEDS [address] [place] [address] Faviola Richard PharmD 12/22/2024 Refill [facility] PEDS [address] [place] [address] Pipe Anderson MD Type 2 diabetes mellitus with hyperglycemia, without long-term current use of insulin ([facility]) 12/11/2024 Refill [facility]EDS [address] [place] [address] Pipe Anderson MD 11/30/2024 Orders Only [facility] [address] [place] [address] Pipe Anderson MD 11/20/2024 Refill [facility] [address] [place] [address] Pipe Anderson MD Diabetic polyneuropathy associated with type 2 diabetes mellitus ([facility]) from Last 3 Months Immunizations Name Administration [...] 07/28/2024 3:27 PM EDT Plan of Treatment Health Maintenance Due Date Last Done Comments CT Colonography 1970 FIT DNA/Cologuard 1970 FIT 1970 FOBT 1970 HIV Screening 1970 Sigmoidoscopy 1970 Alcohol/Substance Use Screening 1982 Hepatitis C Screening 1988 Diabetes: Foot Exam 08/04/2023 SDOH Screening 11/03/2023 11/03/2022 COVID-19 Vaccine ( season) 2024 10/05/2022, 04/28/2022, 03/30/2022 Depression Monitoring (PHQ-9) 01/26/2025 07/28/2024, 07/28/2024 Diabetes: Hemoglobin A1C 04/04/2025 025, 07/28/2024, 03/21/2024, Additional history exists Depression Screening 07/28/2025 07/28/2024, 07/28/20 24 Tobacco Screening 07/28/2025 07/28/2024 Diabetes: Urine Protein Screening 01/05/2026 01/05/2025, 06/04/2021 Lipid Panel 01/05/2026 01/05/2025, 09/30, 09/19/2021, Additional history exists Pap Smear 03/02/2026 03/02/2023, 02/23/2018 Eye Exam [...] 122/58(2024 1:50 PM EST) No Jayce Tristan, Lis Hemoglobin A1c < 7 Result Component 13.4(01/05/20 1:43 PM EST) No Jayce Tristan PharmD Procedures Procedure Name Priority Date/Time Associated Diagnosis Comments ALBUMIN, RANDOM URINE W/CREATININE Routine 01/05/2025 2:20 PM EST LIPID PANEL, STANDARD Routine 01/05/2025 2:15 PM EST COMPREHENSIVE METABOLIC PANEL Routine 01/05/2025 2:15 PM EST POCT GLUCOSE Routine 01/05/2025 2:09 PM EST Uncontrolled type 2 diabetes mellitus with hyperglycemia ([facility]/HCC) POCT GLYCATED HEMOGLOBIN, TOTAL Routine 01/05/2025 1:43 PM EST Uncontrolled type 2 diabetes mellitus with hyperglycemia (CMS/HCC) BI MAMMOGRAM SCREENING TOMOSYNTHESIS BILATERAL Routine 11/30/2024 1:50 PM EST IMAGE-GUIDED PAP W/AGE BASED SCR PROTOCOLS Routine 03/02/2023 2:16 PM EDT Cervical cancer screening COLONOSCOPY Routine 11/09/2019 from Last 3 Months or Most Recently Relevant to Health Maintenance Results * Albumin, Random Urine W/Creatinine (01/05/2025 2:20 PM EST) Creatinine, Urine 72.11 mg/dL [facility] Microalbumin Urine 14.0 mg/L [facility] Microalbum Creatinine Ratio Ur 19.4 <30 ug/mg cr [facility] Comment:Albumin/Creatinine R atio Reference Ranges: Normal: < 30 ug/mg creatinine Microalbuminuria: 30 - 300 ug/mg creatinineClinical Albuminuria: > 300 ug/mg creatinine 01/05/2025 2:20 PM EST 01/05/2025 5:52 PM EST us Pipe Anderson MD LAB URINE ORDERABLES Final Result [facility] [address] [place] [address] [phone] * (ABNORMAL) Lipid Panel, Standard (01/05/2025 2:15 PM EST) Triglycerides 158(H) <150 mg/dL [facility] Comment:Desirable Triglyceri de: less than 150 mg/dLBorderline High Triglyceride 150-199 mg/dLHigh Triglyceride: 200-499 mg/dLVery High Triglyceride: greater than or equal to 5OO mg/dL Cholesterol 156 <200 mg/dL [facility] Comment:Desirable Cholestero l: less than 200 mg/dLBorderline High Cholesterol: 200-239 mg/dLHigh Cholesterol: greater than 239 mg/dL LDL Cholesterol Calculated 82 <100 mg/dL [facility] Comment:Desirable LDL: less than 100 mg/dLNear Optimal/Above Optimal LDL: 110- 129 mg/dLBorderline High LDL: 130-159 mg/dLHigh LDL: 160-189 mg/dLVery High LDL: greater than or equal to 190 mg/dL HDL Cholesterol 43 >40 mg/dL [facility] Comment:Desirable HDL: great er than 40 mg/dL Note: This HDL assay may give artificially low results in patients with liver disease. 01/05/2025 2:15 PM EST 01/05/2025 5:50 PM EST us Pipe Anderson MD LAB BLOOD ORDERABLES Final Result [facility] [address] [place] [address] [phone] * (ABNORMAL) Comprehensive Metabolic Panel (01/05/2025 2:15 PM EST) Sodium 140 135 - 145 mmol/L [facility] Potassium 3.5 3.3 - 5.1 mmol/L [facility] Chloride 101 96 - 108 mmol/L [facility] Carbon Dioxide 27 22 - 29 mmol/L [facility] Anion Gap 16 12 - 20 [facility] Urea Nitrogen (BUN) 15 9 - 16 mg/dL [facility] Creatinine, Serum 0.58 0.5 - 1.4 mg/dL [facility] Estimated Glomerular Filt Rate >60 [facility] Comment:Chronic Kidney Disea se: Estimated GFR < 60 mL/min/1.79i3Gdakio Kidney Disease: Estimated GFR < 15 mL/min/1.73m2 Glucose 175(H) 60 - 115 mg/dL [facility] Calcium 9.7 8.4 - 10.2 mg/dL [facility] Bilirubin, Total 0.3 0.0 - 1.0 mg/dL [facility] Aspartate Amino Transferase 30 5 - 31 U/L [facility] Alanine Aminotransferase 55(H) 0 - 31 U/L [facility] Total Protein 8.0 6.5 - 8.0 g/dL [facility] Albumin Level 4.2 3.5 - 5.0 g/dL [facility] Alkaline Phosphatase 96 39 - 117 U/L [facility] 01/05/2025 2:15 PM EST 01/05/2025 5:50 PM EST us Pipe Anderson MD LAB BLOOD ORDERABLES Final Result [facility] [address] [place] [phone] * (ABNORMAL) POCT Glucose (01/05/2025 2:09 PM EST) Glucose Blood, POC 273(A) 60 - 200 mg/dL QC Media Lot # [id number] Lot# Expiration Date Blood Capillary blood specimen / Unknown 01/05/2025 2:09 PM EST Pipe Anderson MD POINT OF CARE TEST ENTER/ED IT ORDERABLES Final Result * (ABNORMAL) POCT A1C (01/05/2025 1:43 PM EST) Hemoglobin A1C 13.4(A) 4.0 - 6.0 % QC Media Lot # [id number] Lot# Expiration Date Blood 01/05/2025 1:43 PM EST us Pipe Anderson MD POINT OF CARE TEST ENTER/ED IT ORDERABLES Final Result * BI Mammogram Screening Tomosynthesis Bilateral (11/30/2024 1:50 PM EST) Anatomical Region Laterality Modality Breast Bilateral Mammography 11/30/2024 1:50 PM EST Narrative 12/10/2024 6:59 AM EST ? [facility] ? [address] ?[place] [address] ? Mammography Report ? Signed with Addenda ? Patient: Andrew Flash,Birttany ?M ?? R#: [id number] ? : 1970 ?Acct:[id number] ? Age/Sex: 54 / F ?ADM Date: 11/30/24 ? Loc: HO.MAMMO ? Attending Dr: Pipe Anderson MD ? Ordering Physician: Pipe Anderson MD ?Results: 1 ?? Negative ? Date of Service: 11/30/24 ?Follow Up: 1 Year From Orig ?? inal Mammogram ? Procedure(s): MM tomosynthesis screening BI ?? Accession Number(s): [id number] ? cc: Pipe Anderson MD ?ADDENDUM ? ADDENDUM #1 ? ADDENDUM: ?? The current mammogram has been reviewed and remains BI-RADS as follows ? OVERALL ASSESSMENT: ?? BI-RADS 1 - Negative ? RECOMMENDATION: ?? 1 year F/U ? Electronically signed by: ??Yamileth Arroyo DO ??12/25/2024 03:25 PM EST ?? RP Workstation: ? Addendum Dictated By: ?Yamileth Arroyo, DO [...] ??12/10/2024 06:56 AM EST ? Dictated By: ?Yamielth Arroyo DO ? Signed By: ?<Electronically signed by Yamileth Arroyo, DO in OV> ? 12/10/24 0656 ? DD/ 1350 ? TD/TT: 11/30/24 1417 ? Jig Operator: ? Procedure Note Donestherter, Image - 12/25/2024 [facility] [address] [place], [place] [address] Mammography Report Signed with Anneliese Patient: Randy Hernandez R#: [id number] : 1970Acct:[id number] Age/Sex: 54 / FADM Date: 11/30/24 Loc: MAMMO Attending Dr: Pipe Anderson MD Ordering Physician: Pipe Anderson MDResults: 1 Negative Date of Service: 11/30/24Follow Up: 1 Year From Orig inal Mammogram Procedure(s): MM tomosynthesis screening BI Accession Number(s): [id number] cc: Pipe Anderson MD ADDENDUM ADDENDUM #1 [...] Arroyo DO in OV> 12/10/24 0656 DD/ 49 TD/TT: 11/30/241416 Jig Operator: Pipe Anderson MD IMG BI PROCEDURES Edited Re sult - Final * Image-Guided Pap with Age-Based Screening Protocols (03/02/2023 2:16 PM EDT) Comment [facility] Comment: This order for age-based cervical cancer and STI screening follows ACOG guidelines(PB 168, 140, DUU470). See individual assays for performing site location. Clinical Information: None given [facility] LMP: NONE GIVEN [facility] Prev. PAP: NONE GIVEN [facility] Prev. BX: NONE GIVEN [facility] SOURCE: None given [facility] Statement Of Adequacy: [facility] Comment: Satisfactory for evaluation. Endocervical/transformation zone component present. Interpretation/ Result: Negative for intraepithelial lesion or malignancy. [facility] COMMENT: This Pap test has been evaluated with computer assisted technology. [facility] Cytotechnologis t: [facility] Comment: JXM, CT(ASCP) CT screening location: [address] ??[address] (Always Message) [facility] Comment: EXPLANATORY NOTE: The Pap is a [...] HPV nRNA E6/E7 Not Detected Not Detected [facility] Comment: Methodology: Typesetting Machine Operator/Tender-Mediated Amplification This assay detects E6/E7 viral messenger RNA (mRNA) from 14 high-risk HPV types (16,18,31,33,35,39,45,51,52,56,58,59,66,68). Cervical sources are required for HPV testing. If a vaginal source from a patient who has had a total hysterectomy with removal of cervix was submitted, please contact the testing laboratory for alternative testing options. For additional information, please refer to http://education.The Micro/faq/GBP040w1 (This link if provided for information/ educational purposes only.) Cytology specimen container (physical object) 03/02/2023 2:16 PM EDT 03/03/2023 5:29 AM EDT us Shannon Faith CNM LAB BLOOD ORDERABLES Liliana adarsh Result [facility] [address] [facility], [facility], [place] [address] [facility] [address] [place] [address] * (ABNORMAL) Colonoscopy (11/09/2019) Anatomical Region Laterality Modality Endoscopy Narrative 11/09/2019 Transverse colon polyp removed. Needs a repeat Colonoscopy in 2023. us Historical Provider MD ENDOSCOPY PROCEDURE ORDER AR Final Result from Last 3 Months or Most Recently Relevant to Health [place] [id number] [facility] Care Teams Admissions Consultant Relationship Specialty Start Date End Date Pipe Anderson MD [address] [place] [address] [place] [address] PCP - General Internal Medicine 04/14/21 Faviola Richard, BhavnaD [address] [place] [address] Pharmacist Internal Medicine 01/05/25 Beltran Iglesias Raise Drill OperatorZipper Ironer 04/21/24 Marcos Hanks Sales Management TraineeZipper Ironer 07/06/24
--- OUTSIDE RECORDS SUMMARY | 2025-02-06 11:06 | XMS_ITS | Encounter Summary ---
Author Organization [employer] Address [address] [place] [address] 7 [place] [address] Care Team Providers Care Learning Support Assistant Name Role Phone Pipe Anderson MD Primary Care Provider [phone] Faviola Ricahrd PharmD Unavailable [phone] Reason for Visit * Reason Onset Date Comments Results 01/12/2025 Encounter Details Date Type Department Care Team ([facility] st Contact Info) Description 01/12/[address] [facility] MED & PEDS [address] [place] [address] Pipe Anderson MD [address] [place] [address] Results Social History Tobacco Use Types Packs/Day Years [...] encounter Miscellaneous Notes * Telephone Encounter - Wing Sergio RN - 01/12/2025 12:02 PM EST Tc to pt regarding lab results and plan. Unable to reach pt, left message to call back. ----- Message from Pipe Anderson MD sent at 01/12/2025 8:12 AM EST ----- Please call. Labs reviewed. Improved triglyceride level. Patient is to continue with the low-cholesterol diet and regular exercise. Elevated liver enzyme. An ultrasound of the abdomen was ordered . Patient will also be checked for hepatitis C. ----- Message ----- From: Interface, Lab Results In Sent: 01/05/2025 6:15 PM EST To: Pipe Anderson MD documented in this encounter Plan of Treatment Not on file documented as of this encounter Goals Goal Patient Goal Type Associated Problems Recent Progress Patient-Stated? Author Blood Pressure < 140/90 Blood Pressure 122/58(2024 1:50 PM EST) No Jayce Tristan, PharmD Hemoglobin A1c < 7 Result Component 13.4(01/05/20 25 1:43 PM EST) No Jayce Tristan, PharmD documented as of this encounter Visit Diagnoses Not on filedocumented in this encounter Additional Health Concerns Assessment Noted Time PHQ-9 Depression Total Score: 14 024 4:22 PM EDT documented as of this encounter Care Teams Learning Support Assistant Relationship Specialty Start Date End Date Pipe Anderson MD [address] [place] [address] PCP - General Internal Medicine 04/14/21 Faviola Richard PharmD [address] [place] [address] Pharmacist Internal Medicine 01/05/25 Beltran Iglesias Tank InspectorStore Facility Technician 04/21/24 Marcos Hanks Machine Ii CutterStore Facility Technician 07/06/24 documented as of this encounter
--- OUTSIDE RECORDS SUMMARY | 2025-02-06 11:06 | XMS_ITS | Encounter Summary ---
Author Organization [employer] Address [address] [place] [address] 7 [place] [address] Care Team Providers Care Mercerizer Machine Operator Name Role Phone Pipe Anderson MD Primary Care Provider [phone] Jayce Tristan PharmD Unavailable Unavail able Faviola Richard PharmD Unavailable [phone] Encounter Details Date Type Department Care Team ([facility] st Contact Info) Description 07/28/2024 Orders Only [facility] MED & PEDS [address] [place] [address] Pipe Anderson MD [address] [place] [address] Uncontrolled type 2 diabetes mellitus with hyperglycemia [...] documented as of this encounter Care Teams Mercerizer Machine Operator Relationship Specialty Start Date End Date Pipe Anderson MD [address] [place] [address] PCP - General Internal Medicine 04/14/21 Jayce Tristan, PharmD [address] [place] [address] Pharmacist Internal Medicine 11/13/22 01/07/25 Faviola Richard PharmD [address] [place] [address] Pharmacist Internal Medicine 01/05/25 Beltran Iglesias Scale AgentFreight Elevator Erector 04/21/24 Marcos Hanks Elastic Yarn TwisterFreight Elevator Erector 07/06/24 documented as of this encounter
--- OUTSIDE RECORDS SUMMARY | 2025-02-06 11:06 | XMS_ITS | Encounter Summary ---
Author Organization [employer] Address [address] [place] [address] [address] [place] [address] Care Team Providers Care Law Firm Consultant Name Role Phone Pipe Anderson MD Primary Care Provider [phone] Jayce Tristan PharmD Unavailable Unavail able Faviola Richard PharmD Unavailable [phone] Encounter Details Date Type Department Care Team ([facility] st Contact Info) Description 03/23/2024 Orders Only [facility] MED & PEDS [address] [place] [address] Pipe Anderson MD [address] [place] [address] Social History Tobacco Use Types Packs/Day Years [...] on filedocumented in this encounter Care Teams Law Firm Consultant Relationship Specialty Start Date End Date Pipe Anderson MD [address] [place] [address] PCP - General Internal Medicine 04/14/21 Jayce Tristan, PharmD [address] [place] [address] Pharmacist Internal Medicine 11/13/22 01/07/25 Faviola Richard PharmD [address] [place] [address] Pharmacist Internal Medicine 01/05/25 Beltran Iglesias Suspension Cord TierBoiler Out 04/21/24 Marcos Hanks Immersion MetalcleanerBoiler Out 07/06/24 documented as of this encounter
--- OUTSIDE RECORDS SUMMARY | 2025-02-06 11:07 | XMS_ITS | Encounter Summary ---
Author Organization [employer] Address [address] [place] [address] [address] [place] [address] Care Team Providers Care Cath Lab Nurse Name Role Phone Pipe Anderson MD Primary Care Provider [phone] Jayce Tristan PharmD Unavailable Unavail able Faviola Richard PharmD Unavailable [phone] Encounter Details Date Type Department Care Team ([facility] Contact Info) Description 05/14/2023 Abstract [facility] MED & PEDS [address] [place] [address] Pipe Anderson MD [address] [place] [address] Social History Tobacco Use Types Packs/Day Years [...] PharmD Hemoglobin A1c < 7 Result Component 13.4(02/07/20 25 1:43 PM EST) No Jayce Tristan, PharmD documented as of this encounter Visit Diagnoses Not on filedocumented in this encounter Care Teams Cath Lab Nurse Relationship Specialty Start Date End Date Pipe Anderson MD [address] [place] [address] PCP - General Internal Medicine 04/14/21 Jayce Tristan, PharmD [address] [place] [address] Pharmacist Internal Medicine 11/13/22 01/07/25 Faviola Richard PharmD [address] [place] [address] Pharmacist Internal Medicine 01/05/25 Beltran Iglesias Coal GetterSeed Expert 04/21/24 Marcos Hanks Digital Performance AnalystSeed Expert 07/06/24 documented as of this encounter
--- OUTSIDE RECORDS SUMMARY | 2025-02-06 11:07 | XMS_ITS | Encounter Summary ---
Author Organization [employer] Address [address] [place] [address] 7 [place] [address] Care Team Providers Care Warehouse Distribution Specialist Name Role Phone Pipe Anderson MD Primary Care Provider [phone] Faviola Richard PharmD Unavailable [phone] Reason for Referral * Imaging (Routine) - Authorized Specialty Diagnoses / Procedures Referred By Contac t Referred To Contact Radiology Diagnoses Transaminitis Elevated liver enzymes Procedures US Abdomen Complete Pipe Anderson MD [address] [place] [address] Phone: tel: fax: [address] Phone: tel: fax: Referral ID Status Reason Start Date Expiration Date V isits Requested Visits Authorized [id number] Authorized 01/12/2025 01/12/2026 1 1 Encounter Details Date Type Department Care Team (Late st Contact Info) Description 01/11/2025 Orders Only [facility] MED & PEDS [address] [place] [address] Pipe Anderson MD [address] [place] [address] Transaminitis (Primary Dx); Elevated liver enzymes Social History Tobacco Use Types Packs/Day Years [...] of this encounter Plan of Treatment Scheduled Orders Name Type Priority Associated Diagnoses Orde r Schedule US Abdomen Complete Imaging Routine Transaminitis Elevated liver enzymes Expected: 01/12/2025, Expires: 01/12/2026 Hepatitis C Antibody with Reflex to HCV, RNA, Quantitative, Real-Time PCR Lab Routine Transaminitis Elevated liver enzymes Expected: 01/12/2025, Expires: 01/12/2026 documented as of this encounter Goals Goal Patient Goal Type Associated Problems Recent Progress Patient-Stated? Author Blood Pressure < 140/90 Blood Pressure 122/58(2024 1:50 PM EST) No Jayce Tristan, PharmD Hemoglobin A1c < 7 Result Component 13.4(01/05/20 1:43 PM EST) No Jayce Tristan, PharmD documented as of this encounter Visit Diagnoses Diagnosis Transaminitis- Primary Nonspecific elevation of levels of transaminase or lactic acid dehydrogenase (LDH) Elevated liver enzymes Other nonspecific abnormal serum enzyme levels documented in this encounter Additional Health Concerns Assessment Noted Time PHQ-9 Depression Total Score: 14 024 4:22 PM EDT documented as of this encounter Care Teams Warehouse Distribution Specialist Relationship Specialty Start Date End Date Pipe Anderson MD [address] [place] [address] PCP - General Internal Medicine 04/14/21 Faviola Richard PharmD [address] [place] [address] Pharmacist Internal Medicine 01/05/25 Beltran Iglesias Channel OpenerTerrazzo Worker Apprentice 04/21/24 Marcos Hanks Electronic Masking System OperatorTerrazzo Worker Apprentice 07/06/24 documented as of this encounter
== END 2025-02-06 09:48 | disposition home or self-care (01) ==
LOC: HO.US 09:47
PROVIDERS: PCP Internal Medicine; Visit Provider Internal Medicine
DX: R74.01 Elevation of levels of liver transaminase levels (principal); R74.8 Abnormal levels of other serum enzymes
CPT/HCPCS: 76700

== ENCOUNTER → 2025-02-06 09:49 | Outpatient (BNV) | payer MEDICARE, MEDICAID, SELFPAY | PROVIDERS: PCP Internal Medicine; Visit Provider Radiology Diagnostic Radiology | DX: R74.01 Elevation of levels of liver transaminase levels (principal); R16.0 Hepatomegaly, not elsewhere classified; K76.0 Fatty (change of) liver, not elsewhere classified; D17.71 Benign lipomatous neoplasm of kidney | CPT/HCPCS: 76700 ==

== ENCOUNTER 2025-03-13 12:38 | Outpatient (AMB) | payer MEDICARE, MEDICAID, SELFPAY ==
--- NOTE | 2025-03-13 12:43 | MHC.OFFVIS ---
Vital Signs 03/13/25 12:45 Height 5 ft Weight 197 lb 15.602 oz BMI 38.7 BP 107/73 Blood Pressure Location Lt brachial Position Sitting Pulse 91 Intake Visit Reasons: Follow up constipation Intake Note: Patient in office today in follow up of constipation. CC: Patient reports doing well and denies having any new GI symptoms today. 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 Accompanied by: Self / Same As Patient Allergies lobster Allergy (Severe, Verified 02/20/25 12:58) Itching shrimp Allergy (Mild, Verified 10/12/24 15:15) EYE ITCHING No Known Drug Allergies Allergy (Unknown, Verified 03/13/25 12:49) none HPI HPI Follow up constipation: Details: Assessment & Plan (1) Constipation: Code(s): K59.00 - Constipation, unspecified Category: Medical (2) Polyp, colonic: Code(s): K63.5 - Polyp of colon Category: Medical (3) Pre-op examination: Code(s): Z01.818 - Encounter for other preprocedural examination Category: Medical Plan PATIENT SPEAKS HONG KONGER Patient has been lost to follow-up since 11/2022 and apparently is here today to discuss a colonoscopy. She had 12/18/[address] Heller and I suppose it sessile polyp was removed however the biopsy showed only vegetable matter She was started on ozempic and now she is having CIC. She never tried the senna. Will start here and progress. She is agreeable to repeating her colonoscopy. She denies any cardiac or respiratory problems. There are no prior problems with anesthesia or sedation. There are no infectious disease problems. Her last colonoscopy was 12/18/[address] Heller and I suppose it sessile polyp was removed however the biopsy showed only vegetable matter ROV 4 weeks. I have ordered repeat labs for her procedures since she has not had any since 2022. Orders: Orders Comprehensive Met. Panel Today Z01.818 - Encounter for other preprocedural examination Complete Blood Count Auto Diff Today Z01.818 - Encounter for other preprocedural examination Colonoscopy - GI Use Only Today K63.5 - Polyp of colon Medications: New peg 3350-electrolytes 236-22.74-6.74 -5.86 gram (Golytely) until fecal effluent is clear; do not exceed a total volume of 2,000 mL 240 mL PO Q10M 1 day 4,000 mL 0RF Z12.11 - Encounter for screening for malignant neoplasm of colon bisacodyl (Dulcolax (bisacodyl)) 10 mg (2 x 5 mg) PO BEDTIME 2 days 4 tabs 0RF Refilled sennosides (senna) 17.2 mg (2 x 8.6 mg) PO BEDTIME 30 days 60 caps 4RF constipation K59.00 - Constipation, unspecified LABS: Laboratory Tests 01/05/25 14:15 Estimated GFR > 60 Total Bilirubin 0.3 AST 30 ALT 55 H Alkaline Phosphatase 96 COLONOSCOPY On 02/23/25 @ 16:45 Analia Manzano Wrote To Onofre,February (2) Pt did not show for colonoscopy 02/22. On 02/16/25 @ 15:24 Christa Posada Wrote To Christa Posada Christa Posada completed item. On 02/16/25 @ 09:38 Christa Posada Wrote To Christa Posada call to pharmacy - picked up prep 10/17 On 02/16/25 @ 09:27 Christa Posada Wrote To Christa Posada Call to patient - lvm regarding colonoscopy on 02/22, reviewed holding Ozempic 7 days before procedure, CLD and prep reviewed. call office b BIOPSY TODAY'S VISIT PATIENT SPEAKS HONG KONGER It appears she is here today again for colonoscopy discussion, but she no showed to her procedure in January of this year. She had 12/18/[address] Heller and I suppose it sessile polyp was removed however the biopsy showed only vegetable matter. She had to call to cancel her scope because her dtr suddenly went into labor and she had to watch her children. She wants to reschedule it. She received the senna, but her CIC has lessened w/o her needing it, but she has it if she decides she needs it. She is satisfied with this. She denies any cardiac or respiratory problems. There are no prior problems with anesthesia or sedation. There are no infectious disease problems. Her last colonoscopy was 12/18/[address] Heller and I suppose it sessile polyp was removed however the biopsy showed only vegetable matter Return office visit in 6 months. [facility] Medical History (Updated 03/13/25 @ 13:21 by ANTHONY Maddox) Diabetes Cutaneous abscess of back [any part, except buttock] Abscess Sebaceous cyst Pre-op examination Morbid obesity Umbilical hernia RUQ abdominal pain Hypertension Diabetes H. pylori infection Irritable bowel syndrome with diarrhea Surgical History History of surgery Status post hysteroscopic ablation of endometrium Breast abscess History of appendectomy H/O umbilical hernia repair H/O colonoscopy Hx of hemorrhoidectomy Hx of hernia repair Hx of tubal ligation Family History Father Heart problem Asthma Mother Colon cancer HTN (hypertension) Varicose vein of leg Family history of diabetes mellitus Maternal Aunt Pancreatic cancer Family/Other Breast cancer Social History Household Members: None Alcohol intake: current Alcohol intake frequency: does not drink Patient Tobacco Use Status: Former Tobacco user Substance Use Type: Marijuana Review of Systems Const Denies fatigue, Denies fever(s), Denies night sweats, Denies poor appetite and Denies weight loss Eyes Details: glasses Reports requires corrective lenses ENT Reports Normal hearing present, Denies dental pain, Denies dysphagia, Denies hearing loss, Denies mouth pain, Denies odynophagia, Denies throat swelling, Denies tongue swelling and Reports other (Dentition adequate) Card Reports no additional complaints Resp Reports no additional complaints GI Details: Denies abdominal pain, Denies melena, Denies bloating, Denies hematochezia, Reports constipation, Denies GI cramping, Denies dysphagia, Denies excessive flatus, Denies early satiety, Denies heartburn, Denies diarrhea, Denies nausea, Denies odynophagia, Denies vomiting and Denies hematemesis Skin/Breast Denies pruritus, Denies lesions, Denies rash and Denies jaundice Neuro Reports Normal hearing present and Denies Abnormal speech present Endo Denies fatigue Aller/Immun Denies throat swelling and Denies tongue swelling Physical Exam Vital Signs: Last Vital Signs Pulse 91 03/13/25 12:45 BP 107/73 03/13/25 12:45 BMI result Body Mass Index 38.7 Const General: cooperative, no acute distress, well developed and well groomed Nutritional Appearance: well nourished and obese Orientation/consciousness: oriented to person, oriented to place and oriented to time Limitations: No language barrier HEENT Head: Yes normocephalic and Yes atraumatic Eyes General: appearance normal, both eyes and all related structures Pupils: Equal, round and reactive pupils present Neck Neck: Yes normal visual inspection and Yes no lymphadenopathy Thyroid: Thyroid normal Resp Effort & Inspection: normal respiratory effort and able to speak in complete sentences Auscultation: clear to auscultation bilaterally Cardio Rate: regular rate Rhythm: regular rhythm Heart sounds: Normal, physiologic split S2 sound present Peripheral pulses: radial pulses present and posterior tibial pulses present GI Inspection: No distended, Yes Abdominal panniculus present and Yes obesity Palpation (GI): Soft to palpation, nontender, no guarding, not rigid and No hepatosplenomegaly present Percussion: Yes normal to percussion Auscultation: normal bowel sounds Rectal Exam - Female: deferred Skin General skin exam: no rashes or lesions noted, turgor normal, skin not dry, no jaundice, No spider nevi and no striae Rashes: no rashes Nails: normal Neuro General: oriented to person, oriented to place and oriented to time Cranial nerves: Yes Equal, round and reactive pupils present and Yes Normal hearing present Speech: No Abnormal speech present Extrem General: Yes normal to inspection, No clubbing, No cyanosis and No edema Psych Appearance: grossly normal and well kempt Mental Status: mental status grossly normal Speech and movement: Normal speech and movement present Affect: normal affect Attitude: cooperative Thought process: Normal thought process present and not confabulating Thought content: Normal thought content present Insight: Fair insight present (Psych) Judgement: Fair judgement present (Psych) Results Reviewed Results Reviewed: Laboratory Tests 01/05/25 14:15 Estimated GFR > 60 Total Bilirubin 0.3 AST 30 ALT 55 H Alkaline Phosphatase 96 Assessment & Plan Assessment & Plan (1) Constipation: Code(s): K59.00 - Constipation, unspecified Category: Medical (2) Family history of colon cancer: Code(s): Z80.0 - Family history of malignant neoplasm of digestive organs Category: Medical (3) Sessile colonic polyp: Comment: Of transverse colon in 2019 but lost a biopsy aeb Code(s): K63.5 - Polyp of colon Category: Medical Plan PATIENT SPEAKS HONG KONGER It appears she is here today again for colonoscopy discussion, but she no showed to her procedure in January of this year. She had 12/18/[address] Heller and I suppose it sessile polyp was removed however the biopsy showed only vegetable matter. She had to call to cancel her scope because her dtr suddenly went into labor and she had to watch her children. She wants to reschedule it. She received the senna, but her CIC has lessened w/o her needing it, but she has it if she decides she needs it. She is satisfied with this. She denies any cardiac or respiratory problems. There are no prior problems with anesthesia or sedation. There are no infectious disease problems. Her last colonoscopy was 12/18/[address] Heller and I suppose it sessile polyp was removed however the biopsy showed only vegetable matter Return office visit in 6 months. Coding Level of Care Code Est Pt Level 3 (30461) Diagnoses Constipation K59.00 Family history of colon cancer Z80.0 Sessile colonic polyp K63.5
[2025-03-13 12:45] VITALS: BP 107/73; PULSE 91; BMI 38.7
--- OUTSIDE RECORDS SUMMARY | 2025-03-13 15:23 | XMS_ITS | Encounter Summary ---
Author Organization [employer] Address [address] 7 [place] [address] Care Team Providers Care Ip Technology Transactions Attorney Name Role Phone Pipe Anderson MD Primary Care Provider [phone] Jayce Tristan PharmD Unavailable Unavail able Faviola Richard PharmD Unavailable [phone] Encounter Details Date Type Department Care Team ([facility] st Contact Info) Description 03/23/2024 Orders Only [facility] CHC MED & PEDS [address] [place], [place] [phone] Pipe Anderson MD [address] [place] [address] Social History Tobacco Use Types Packs/Day Years [...] Care Team (Late st Contact Info) Description 04/10/2025 1:45 PM EDT Office Visit [facility] CH[facility] MED & PEDS [address] [place], [place] [phone] Pipe Anderson MD [address] [place], [place] [phone] 06/11/2025 1:30 PM EDT Office Visit [facility] OPTOMETRY [address] [place] [address] Julieta Issa, OD [address] [place] [address] documented as of this encounter Goals Goal Patient Goal Type Associated Problems Recent Progress Patient-Stated? Author Blood Pressure < 140/90 Blood Pressure 122/58(2024 1:50 PM EST) No Jayce Tristan, PharmD Hemoglobin A1c < 7 Result Component 13.4(01/05/20 1:43 PM EST) No Jayce Tristan, PharmD documented as of this encounter Visit Diagnoses Not on filedocumented in this encounter Care Teams Ip Technology Transactions Attorney Relationship Specialty Start Date End Date Pipe Anderson MD [address] [place] [address] PCP - General Internal Medicine 04/14/21 Jayce Tristan, PharmD [address] [place] [address] Pharmacist Internal Medicine 11/13/22 01/07/25 Faviola Richard PharmD [address] [place] [address] Pharmacist Internal Medicine 01/05/25 Beltran Iglesias Arts And Crafts TeacherRod Piler 04/21/24 Marcos Hanks Yard DriverRod Piler 07/06/24 documented as of this encounter
--- OUTSIDE RECORDS SUMMARY | 2025-03-13 15:23 | XMS_ITS | Encounter Summary ---
Author Organization [employer] Address [address] [place] [address] 7 [place] [address] Care Team Providers Care Cash Posting Clerk Name Role Phone Pipe Anderson MD Primary Care Provider [phone] Jayce Tristan PharmD Unavailable Unavail able Faviola Richard PharmD Unavailable [phone] Reason for Visit * Reason Comments Med Refill Encounter Details Date Type Department Care Team ([facility] Contact Info) Description 11/06/2024 Refill [facility] CH[facility] MED & PEDS [address] [place], [place] [phone] Pipe Anderson MD [address] [place] [address] Diabetic polyneuropathy associated with type 2 diabetes [...] Description 04/10/2025 1:45 PM EDT Office Visit [facility] CHC MED & PEDS [address] [place], [place] [phone] Pipe Anderson MD [address] [place] [address] 06/11/2025 1:30 PM EDT Office Visit [facility] OPTOMETRY [address] [place] [address] Luis ManuelJulieta verdin, OD [address] [place] [address] documented as of this encounter Goals Goal [...] Noted Time PHQ-9 Depression Total Score: 14 07/28/2 024 4:22 PM EDT documented as of this encounter Care Teams Cash Posting Clerk Relationship Specialty Start Date End Date Pipe Anderson MD [address] [place] [address] PCP - General Internal Medicine 04/14/21 Jayce Tristan, BhavnaD [address] [place] [address] Pharmacist Internal Medicine 11/13/22 01/07/25 Faviola Richard PharmD [address] [place] [address] Pharmacist Internal Medicine 01/05/25 Beltran Iglesias Mill FeederJob Counselor 04/21/24 Marcos Hanks Public DefenderJob Counselor 07/06/24 documented as of this encounter
--- OUTSIDE RECORDS SUMMARY | 2025-03-13 15:24 | XMS_ITS | Encounter Summary ---
Author Organization [employer] Address [address] [place] [address] 7 [place] [address] Care Team Providers Care Motivational Speaker Name Role Phone Pipe Anderson MD Primary Care Provider [phone] Jayce Tristan PharmD Unavailable Unavail able Faviola Richard PharmD Unavailable [phone] Encounter Details Date Type Department Care Team ([facility] Contact Info) Description 05/14/2023 Abstract [facility] MED & PEDS [address] [place] [address] Pipe Anderson MD [address] [place] [address] Social History Tobacco Use Types Packs/Day Years [...] Upcoming Encounters Date Type Department Care Team ([facility] Contact Info) Description 04/10/2025 1:45 PM EDT Office Visit [facility] MED & PEDS [address] [place] [address] iPpe Anderson MD [address] [place] [address] 06/11/2025 1:30 PM EDT Office Visit [facility] OPTOMETRY [address] [place] [address] Luis ManuelJulieta, OD [address] [place] [address] documented as of this encounter Goals Goal Patient Goal Type Associated Problems Recent Progress Patient-Stated? Author Blood Pressure < 140/90 Blood Pressure 122/58(2024 1:50 PM EST) No Jayce Tristan, PharmD Hemoglobin A1c < 7 Result Component 13.4(01/05/20 1:43 PM EST) No Jayce Tristan, PharmD documented as of this encounter Visit Diagnoses Not on filedocumented in this encounter Care Teams Motivational Speaker Relationship Specialty Start Date End Date Pipe Anderson MD [address] [place] [address] PCP - General Internal Medicine 04/14/21 Jayce Tristan, PharmD [address] [place] [address] Pharmacist Internal Medicine 11/13/22 01/07/25 Faviola Richard PharmD [address] [place] [address] Pharmacist Internal Medicine 01/05/25 Beltran Iglesias Supervisor Computer OperationsSteam Pan Sponger 04/21/24 Marcos Hanks Rag Room SupervisorSteam Pan Sponger 07/06/24 documented as of this encounter
--- OUTSIDE RECORDS SUMMARY | 2025-03-13 15:24 | XMS_ITS | Clinical Summary ---
Author Organization [employer] Address [address] [place] [address] 7[address] [place] [address] Care Team Providers Care Eyeglass Lens Generator Name Role Phone Pipe Anderson MD Primary Care Provider [phone] Faviola Richard PharmD Unavailable [phone] Allergies Active Allergy Reactions Criticality Noted Date [...] for mild pain. 30 tablet 024 Active insulin pen needle (UltiCare Short Pen [place]o) 31G X 8 mm miscIndications:T ype 2 diabetes mellitus with hyperglycemia, without long-term current use of insulin ([facility]) USE TO INJECT insulin THREE TIMES DAILY 100 each 11 024 Active Alcohol Swabs (Alcohol Prep) 70 [...] ons:Uncontrolled type 2 diabetes mellitus with hyperglycemia (CMS/HCC) INJECT 50 SUBCUTANEOUSLY AT BEDTIME 6 mL 024 Active Easy Touch Lancets 33G/Twist miscIndications:T ype 2 diabetes mellitus with hyperglycemia, without long-term current use of insulin (CMS/HCC) USE TO TEST BLOOD SUGAR THREE TIMES DAILY 100 each 025 Active Tirzepatide (Mounjaro) 2.5 MG/0.5ML solution auto-injectorIndi cations:Uncontrol led type 2 diabetes mellitus with hyperglycemia (CMS/HCC) Inject 2.5 mg under the skin 1 [...] controlled type 2 diabetes mellitus with hyperglycemia (CMS/HCC) INJECT 20 UNITS subcutaneously BEFORE BREAKFAST, 10 UNITS BEFORE LUNCH AND 20 UNITS BEFORE SUPPER DIRECTED 15 mL 2 025 Active gabapentin (Neurontin) 100 MG capsuleIndication s:Diabetic polyneuropathy associated with type 2 diabetes mellitus (CMS/HCC) TAKE ONE CAPSULE TWICE DAILY IN THE MORNING AND AT BEDTIME 60 capsule 1 025 Active PARoxetine (Paxil) 20 MG tabletIndications :Anxiety,Persiste nt depressive disorder TAKE ONE TABLET EVERY MORNING 30 tablet 11 025 Active PARoxetine (Paxil) 20 MG tabletIndications :Anxiety,Persiste nt depressive disorder TAKE ONE TABLET EVERY MORNING 30 tablet 11 024 2024 Discontinued insulin aspart FlexPen (NovoLOG) 100 UNIT/ML penIndications:Un controlled type 2 diabetes mellitus with hyperglycemia ([facility]) INJECT 26 UNITS TWICE DAILY BEFORE BREAKFAST AND SUPPER 025 2024 Discontinued gabapentin (Neurontin) 100 MG capsuleIndication s:Diabetic polyneuropathy associated with type 2 diabetes mellitus ([facility]) TAKE ONE CAPSULE TWICE DAILY IN THE MORNING AND AT BEDTIME 60 capsule 1 025 2024 Discontinued Active Problems Problem Noted Date [...] Encounters Date Type Department Care Team Description 03/12/2025 Refill [facility] MED & PEDS [address] [place] [address] Pipe Anderson MD Diabetic polyneuropathy associated with type 2 diabetes mellitus ([facility]); Anxiety; Persistent depressive disorder 03/08/2025 Refill [facility] & PEDS [address] [place] [address] Pipe Anderson MD Uncontrolled type 2 diabetes mellitus with hyperglycemia ([facility]/HCC) 02/15/2025 Refill [facility] MED & PEDS [address] [place] [address] Faviola Richard, Lis Uncontrolled type 2 diabetes mellitus with hyperglycemia ([facility]/HCC) 02/14/2025 Telephone [facility] PEDS [address] [place] [address] Pipe Anderson MD Novolog 02/12/2025 Telephone [facility] P[facility]S [address] [place] [address] Faviola Richard, PharmD 01/16/2025 Refill [facility] MED [facility] PEDS [address] [place] [address] Pipe Anderson MD Diabetic polyneuropathy associated with type 2 diabetes mellitus (CMS/HCC) 01/12/2025 Telephone [facility] MED [facility] PEDS [address] [place] [address] Pipe Anderson MD Results 01/11/2025 Orders Only [facility] P[facility]S [address] [place] [address] Pipe Anderson MD Transaminitis (Primary Dx); Elevated liver enzymes 01/05/2025 Orders Only [facility] MED [facility] PEDS [address] [place] [address] Pipe Anderson MD 01/05/2025 Travel 12/28/2024 Telephone [facility] [address] [place] [address] Pipe Anderson MD 12/26/2024 Orders Only [facility] MED [facility] PEDS [address] [place] [address] Pipe Anderson MD Uncontrolled type 2 diabetes mellitus with hyperglycemia (CMS/HCC) (Primary Dx) 12/26/2024 Telephone [facility] PEDS [address] [place] [address] Faviola Richard, PharmD 12/22/2024 Refill [facility] MED [facility] PEDS [address] [place] [address] Pipe Anderson MD Type 2 diabetes mellitus with hyperglycemia, without long-term current use of insulin (CMS/HCC) from Last 3 Months Immunizations Name [...] Description 04/10/2025 1:45 PM EDT Office Visit [facility] PEDS [address] [place] [address] Pipe Anderson MD [address] [place] [address] 06/11/2025 1:30 PM EDT Office Visit [facility] OPTOMETRY [address] [place], [place] [phone] Julieta Issa, OD [address] [place] [address] Health Maintenance Due Date Last Done Comments CT Colonography 1970 FIT DNA/Cologuard 1970 FIT 1970 FOBT 1970 HIV Screening 1970 Sigmoidoscopy 1970 Alcohol/Substance Use Screening 1982 Hepatitis C Screening 1988 Diabetes: Foot Exam 08/04/2023 SDOH Screening 11/03/2023 11/03/2022 COVID-19 Vaccine ( season) 2024 10/05/2022, 04/28/2022, 03/30/2022 Depression Monitoring 01/26/2025 07/28/2024, 024 Diabetes: Hemoglobin A1C 04/04/2025 025, 07/28/2024, 03/21/2024, [...] Procedure Name Priority Date/Time Associated Diagnosis Comments US ABDOMEN COMPLETE Routine 02/06/2025 1 0:04 AM EDT Transaminitis Elevated liver enzymes ALBUMIN, RANDOM URINE W/CREATININE Routine 01/05/2025 2:20 [...] Recently Relevant to Health Maintenance Results * US Abdomen Complete (02/06/2025 10:04 AM EDT) Anatomical Region Laterality Modality Abdomen Ultrasound 02/06/2025 10:0 4 AM EDT Narrative 02/06/2025 1:44 PM EDT ? [facility] ?[address] ?[place] [address] ? Ultrasound Report ? Signed ? Patient: Brittany Hernandez ?M ?? R#: [id number] ? : 1970 ?Acct:[id number] ? Age/Sex: 54 / F ?ADM Date: 02/06/25 ? Loc: HO.US ? Attending Dr: Pipe Anderson MD ? Ordering Physician: Pipe Anderson MD ?? Date of Service: 02/06/25 ?? Procedure(s): US abdomen complete ?? Accession Number(s): [id number] ? cc: Pipe Anderson MD ? EXAMINATION: ??US ABDOMEN ? HISTORY: Abnormal liver enzyme ? TECHNIQUE: Real-time grayscale ultrasound imaging of the abdomen was ?? performed and images were reviewed. ? COMPARISON: Comparison is made with the prior examination dated ?? 03/19/2021. ? FINDINGS: ?? Liver: ??The right lobe of the liver measures 15.6 cm in size. The left ?? lobe of the liver measures 11.6 cm in size. The liver demonstrates ?? increased echotexture, consistent with steatosis. ??No focal mass or ?? intrahepatic biliary ductal dilatation is identified. ??There is normal ?? hepatopedal flow in the portal vein. ? Gallbladder and biliary tree: The gallbladder is unremarkable, without ?? evidence of calculi, wall thickening, or pericholecystic fluid. ??There ?? is no sonographic Workman sign. ??The common bile duct is normal in ?? caliber measuring 3 mm. ? Kidneys: ??The right kidney measures 11.3 cm in length and is ?? unremarkable. ??The left kidney measures 11.2 cm in length and again ?? demonstrates a 7 mm echogenic lesion in the interpolar region which may ?? represent an angiomyolipoma. There is no hydronephrosis or calculi. ? Pancreas: The pancreatic head, neck, and body demonstrate heterogeneous ?? echotexture, but are otherwise unremarkable. The pancreatic tail is ?? obscured by bowel gas. ? Spleen: The spleen is normal in size and contour, measuring 10.1 cm in ?? length. ? Abdominal aorta and inferior vena cava: The visualized portions of the ?? abdominal aorta and inferior vena cava are normal in caliber. ? There is no free fluid in the abdomen. ? US/US abdomen complete ?? IMPRESSION: ? 1. Hepatomegaly and hepatic steatosis. ? 2. 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 ? Electronically signed by: ??Simba Parr MD ??02/06/2025 01:33 PM EDT ? Dictated By: ?Simba Parr MD ? Signed By: ?<Electronically signed by Simba Parr MD in OV> ?02/06/25 1333 ? DD/ 1004 ? TD/TT: 02/06/25 1023 ? Waste Paper Hammermill Operator: ? Procedure Note Thea, Image - 02/06/2025 [place] [address] Ultrasound Report Signed Patient: Randy Hernandez R#: [id number] : 1970Acct:[id number] Age/Sex: 54 / FADM Date: 02/06/25 Loc: HO.US Attending Dr: Pipe Anderson MD Ordering Physician: Pipe Anderson MD Date of Service: 02/06/25 Procedure(s): US abdomen complete Accession Number(s): [id number] cc: Pipe Anderson MD EXAMINATION: US ABDOMEN HISTORY: Abnormal liver enzyme TECHNIQUE: Real-time grayscale ultrasound imaging of the abdomen was performed and images were reviewed. COMPARISON: Comparison is made with the prior examination dated 03/19/2021. FINDINGS: Liver: The right lobe of the liver measures 15.6 cm in size. The left lobe of the liver measures 11.6 cm in size. The liver demonstrates increased echotexture, consistent with steatosis. No focal mass or intrahepatic biliary ductal dilatation is identified. There is normal hepatopedal flow in the portal vein. Gallbladder and biliary tree: The gallbladder is unremarkable, without evidence of calculi, wall thickening, or pericholecystic fluid. There is no sonographic Workman sign. The common bile duct is normal in caliber measuring 3 mm. Kidneys: The right kidney measures 11.3 cm in length and is unremarkable. The left kidney measures 11.2 cm in length and again demonstrates a 7 mm echogenic lesion in the interpolar region which may represent an angiomyolipoma. There is no hydronephrosis or calculi. Pancreas: The pancreatic head, neck, and body demonstrate heterogeneous echotexture, but are otherwise unremarkable. The pancreatic tail is obscured by bowel gas. Spleen: The spleen is normal in size and contour, measuring 10.1 cm in length. Abdominal aorta and inferior vena cava: The visualized portions of the abdominal aorta and inferior vena cava are normal in caliber. There is no free fluid in the abdomen. US/US abdomen complete IMPRESSION: 1. Hepatomegaly and hepatic steatosis. 2. 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 Electronically signed by: Simba Parr MD 02/06/2025 01:33 PM EDT Dictated By: Simba Parr MD Signed By: <Electronically signed by Simba Parr MD in OV> 02/06/25 1333 DD/ 1004 TD/TT: 02/06/25 1023 Waste Paper Hammermill Operator: us Pipe Anderson MD IM US PROCEDURES Final Res ult * Albumin, Random Urine W/Creatinine (01/05/2025 2:20 PM EST) Creatinine, Urine 72.11 mg/dL [facility] Microalbumin Urine 14.0 mg/L [facility] Microalbum Creatinine Ratio Ur 19.4 <30 ug/mg cr [facility] Comment:Albumin/Creatinine R atio Reference Ranges: Normal: < 30 ug/mg creatinine Microalbuminuria: 30 - 300 ug/mg creatinineClinical Albuminuria: > 300 ug/mg creatinine 01/05/2025 2:20 PM EST 01/05/2025 5:52 PM EST us Pipe Anderson MD LAB URINE ORDERABLES Final Result Performing Organization Address [facility] Co de Phone Number [facility] [address] [place] [phone] * (ABNORMAL) Lipid Panel, Standard (01/05/2025 2:15 PM EST) Triglycerides 158(H) <150 mg/dL [facility] Comment:Desirable Triglyceri de: less than 150 mg/dLBorderline High Triglyceride 150-199 mg/dLHigh Triglyceride: 200-499 mg/dLVery High Triglyceride: greater than or equal to 5OO mg/dL Cholesterol 156 <200 mg/dL [facility] Comment:Desirable Cholestero l: less than 200 mg/dLBorderline High Cholesterol: 200-239 mg/dLHigh Cholesterol: greater than 239 mg/dL LDL Cholesterol Calculated 82 <100 mg/dL [facility] Comment:Desirable LDL: less than 100 mg/dLNear Optimal/Above Optimal LDL: 110- 129 mg/dLBorderline High LDL: 130-159 mg/dLHigh LDL: 160-189 mg/dLVery High LDL: greater than or equal to 190 mg/dL HDL Cholesterol 43 >40 mg/dL [facility] Comment:Desirable HDL: great er than 40 mg/dL Note: This HDL assay may give artificially low results in patients with liver disease. 01/05/2025 2:15 PM EST 01/05/2025 5:50 PM EST us Pipe Anderson MD LAB BLOOD ORDERABLES Final Result Performing Organization Address [facility] Co de Phone Number [facility] [address] [place] [phone] * (ABNORMAL) Comprehensive Metabolic Panel (01/05/2025 2:15 PM EST) Pathologist [facility] Sodium 140 135 - 145 mmol/L [facility] Potassium 3.5 3.3 - 5.1 mmol/L [facility] Chloride 101 96 - 108 mmol/L [facility] Carbon Dioxide 27 22 - 29 mmol/L [facility] Anion Gap 16 12 - 20 [facility] Urea Nitrogen (BUN) 15 9 - 16 mg/dL [facility] Creatinine, Serum 0.58 0.5 - 1.4 mg/dL [facility] Estimated Glomerular Filt Rate >60 [facility] Comment:Chronic Kidney Disea se: Estimated GFR < 60 mL/min/1.71h7Acqndi Kidney Disease: Estimated GFR < 15 mL/min/1.73m2 Glucose 175(H) 60 - 115 mg/dL [facility] Calcium 9.7 8.4 - 10.2 mg/dL [facility] Bilirubin, Total 0.3 0.0 - 1.0 mg/dL [facility] Aspartate Amino Transferase 30 5 - 31 U/L [facility] Alanine Aminotransferase 55(H) 0 - 31 U/L [facility] Total Protein 8.0 6.5 - 8.0 g/dL [facility] Albumin Level 4.2 3.5 - 5.0 g/dL [facility] Alkaline Phosphatase 96 39 - 117 U/L [facility] 01/05/2025 2:15 PM EST 01/05/2025 5:50 PM EST us Pipe Anderson MD LAB BLOOD ORDERABLES Final Result [facility] [address] [place] [phone] [phone] * (ABNORMAL) POCT Glucose (01/05/2025 2:09 PM EST) Pathologist [facility] Glucose Blood, POC 273(A) 60 - 200 mg/dL QC Media Lot # [id number] Lot# Expiration Date 4082,948 Blood Capillary blood specimen / Unknown 01/05/2025 2:09 PM EST us Pipe Anderson MD POINT OF CARE TEST ENTER/ED IT ORDERABLES Final Result * (ABNORMAL) POCT A1C (01/05/2025 1:43 PM EST) Hemoglobin A1C 13.4(A) 4.0 - 6.0 % QC Media Lot # [id number] Lot# Expiration Date ,026 Blood 01/05/2025 1:43 PM EST us Pipe Anderson MD POINT OF CARE TEST ENTER/ED IT ORDERABLES Final Result * BI Mammogram Screening Tomosynthesis Bilateral (11/30/2024 1:50 PM EST) Anatomical Region Laterality Modality Breast Bilateral Mammography 11/30/2024 1:50 PM EST Narrative 12/10/2024 6:59 AM EST ? [facility] ? [address] ?[place] [address] ? Mammography Report ? Signed with Addenda ? Patient: Brittany Hernandez ?M ?? R#: [id number] ? : 1970 ?Acct:[id number] ? Age/Sex: 54 / F ?ADM Date: //25 ? Loc: HO.MAMMO ? Attending Dr: Pipe Anderson MD ? Ordering Physician: Justin,Thevenin Raúl MD ?Results: 1 ?? Negative ? Date of Service: 11/30/24 ?Follow Up: 1 Year From Orig ?? inal Mammogram ? Procedure(s): MM tomosynthesis screening BI ?? Accession Number(s): [id number] ? cc: Pipe Anderson MD ?ADDENDUM ? [...] 12/10/24 0656 ? DD/ 1350 ? TD/TT: 11/30/241416 ? Waste [employer] Hammermill Operator: ? Procedure Note Donsahara, Keiko - 12/25/2024 [facility] [address] [place], [place] [address] Mammography Report Signed with Anneliese Patient: Randy Hernandez R#: [id number] : 1970Acct:[id number] Age/Sex: 54 / FADM Date: 11/30/24 Loc: HO.MAMMO Attending Dr: Pipe Anderson MD Ordering Physician: Pipe Anderson MDResults: 1 Negative Date of Service: 11/30/24Follow Up: 1 Year From Orig [facility] Mammogram Procedure(s): MM tomosynthesis screening BI Accession Number(s): [id number] cc: Pipe Anderson MD ADDENDUM ADDENDUM #1 ADDENDUM: The current mammogram has been reviewed and remains BI-RADS as follows OVERALL ASSESSMENT: BI-RADS 1 - Negative RECOMMENDATION: 1 year F/U Electronically signed by: Yamileth Arroyo DO 12/25/2024 03:25 PM EST Addendum Dictated [...] 12/10/24 0656 DD/ 1350 TD/TT: 11/30/24 1417 [employer] Hamm[employer] Operator: us Pipe Anderson MD IM BI PROCEDURES Edited Re sult - Final * Image-Guided Pap with Age-Based Screening Protocols (03/02/2023 2:16 PM EDT) Comment [facility] Comment: This order for age-based cervical cancer and STI screening follows ACOG guidelines(PB 168, 140, DED889). See individual assays for performing site location. Clinical Information: None given [facility] LMP: NONE GIVEN [facility] Prev. PAP: NONE GIVEN [facility] Prev. BX: NONE GIVEN [facility] SOURCE: None given [facility] Statement Of Adequacy: [facility] Comment: Satisfactory for evaluation. Endocervical/transformation zone component present. Interpretation/ Result: Negative for intraepithelial lesion or malignancy. [employer] COMMENT: This Pap test has been evaluated with computer assisted technology. [facility] Cytotechnologis t: [facility] Comment: JXM, CT(ASCP) CT screening location: [address] ??[phone] (Always Message) [facility] Comment: EXPLANATORY NOTE: The Pap is a [...] HPV nRNA E6/E7 Not Detected Not Detected [facility] Comment: Methodology: Special Events Driver-Mediated Amplification This assay detects E6/E7 viral messenger RNA (mRNA) from 14 high-risk HPV types (16,18,31,33,35,39,45,51,52,56,58,59,66,68). Cervical sources are required for HPV testing. If a vaginal source from a patient who has had a total hysterectomy with removal of cervix was submitted, please contact the testing laboratory for alternative testing options. For additional information, please refer to http://education.[employer]/faq/QKM965h9 (This link if provided for information/ educational purposes only.) Cytology specimen container (physical object) 03/02/2023 2:16 PM EDT 03/03/2023 5:29 AM EDT Shannon Faith CNM LAB BLOOD ORDERABLES Liliana l Result [address], [place] [address] [employer] [address] [place] [phone] * (ABNORMAL) Colonoscopy (11/09/2019) Anatomical Region Laterality Modality Endoscopy Narrative 11/09/2019 Transverse colon polyp removed. Needs a repeat Colonoscopy in 2023. Historical Provider MD ENDOSCOPY PROCEDURE ORDER AR Final Result from Last 3 Months or Most Recently Relevant to Health Maintenance Insurance [facility] STANDARD [employer] MEDICARE REPLACEMENT Care Teams Eyeglass Lens Generator Relationship Specialty Start Date End Date Pipe Anderson MD [address] [place] [address] PCP - General Internal Medicine 04/14/21 Faviola Richard PharmD [address] [place] [phone] Pharmacist Internal Medicine 01/05/25 Beltran Iglesias VisualizerWriter Editor 04/21/24 Marcos Hanks Office Systems Technology InstructorWriter Editor 07/06/24
--- OUTSIDE RECORDS SUMMARY | 2025-03-13 15:24 | XMS_ITS | Encounter Summary ---
Author Organization [employer] Address [address] [facility] 7 [place] [address] Care [address] Project Manager Name Role Phone Pipe Anderson MD Primary Care Provider [phone] Faviola Richard PharmD Unavailable [phone] Reason for Visit * Reason Comments Med Refill Encounter Details Date Type Department Care Team ([facility] st Contact Info) Description 03/12/2025 Refill [facility] [address] [place], [place] [phone] Pipe Anderson MD [address] [place] [address] Diabetic polyneuropathy associated with type 2 diabetes mellitus (CMS/HCC); Anxiety; Persistent depressive disorder Social History Tobacco Use Types Packs/Day Years [...] Description 04/10/2025 1:45 PM EDT Office Visit [facility] MED & PEDS [address] [place], [place] [phone] Pipe Anderson MD [address] [place] [address] 06/11/2025 1:30 PM EDT Office Visit [facility] OPTOMETRY [address] [place] [address] Julieta Issa, OD [address] [place] [address] documented as of this encounter Goals Goal Patient Goal Type Associated Problems Recent Progress Patient-Stated? Author Blood Pressure < 140/90 Blood Pressure 122/58(2024 1:50 PM EST) No DelJayce ortiz, PharmD Hemoglobin A1c < 7 Result Component 13.4(01/05/20 1:43 PM EST) No DellogJayce godinez, PharmD documented as of this encounter Visit Diagnoses Diagnosis Diabetic polyneuropathy associated with type 2 diabetes mellitus (CMS/HCC) Anxiety Anxiety state, unspecified Persistent depressive disorder documented in this encounter Additional Health Concerns Assessment Noted Time PHQ-9 Depression Total Score: 14 07/28/ 024 4:22 PM EDT documented as of this encounter Care Teams Rd Project Manager Relationship Specialty Start Date End Date Pipe Anderson MD [address] [place] [phone] PCP - General Internal Medicine 04/14/21 Faviola Richard PharmD [address] [place] [phone] Pharmacist Internal Medicine 01/05/25 Beltran Iglesias Welfare AnalystDye Tub Operator 04/21/24 Marcos Hanks Color StrainerDye Tub Operator 07/06/24 documented as of this encounter
--- OUTSIDE RECORDS SUMMARY | 2025-03-13 15:24 | XMS_ITS | Encounter Summary ---
Author Organization [employer] Address [address] [facility] 7 [place] [address] Care Team Providers Care Card Filer Name Role Phone Pipe Anderson MD Primary Care Provider [phone] Faviola Richard PharmD Unavailable [phone] Reason for Visit * Reason Comments Med Refill Encounter Details Date Type Department Care Team ([facility] st Contact Info) Description 03/08/2025 Refill [facility] [address] [place], [place] [phone] Pipe Anderson MD [address] [place] [address] Uncontrolled type 2 diabetes mellitus with hyperglycemia (CMS/HCC) Social History Tobacco Use Types Packs/Day [...] Description 04/10/2025 1:45 PM EDT Office Visit [facility] MED & PEDS [address] [place] [address] Pipe Anderson MD [address] [place], [place] [phone] 06/11/2025 1:30 PM EDT Office Visit [facility] OPTOMETRY [address] [place] [address] Luis ManuelJulieta evrdin, OD [address] [place] [address] documented as of this encounter Goals Goal Patient Goal Type Associated Problems Recent Progress Patient-Stated? Author Blood Pressure < 140/90 Blood Pressure 122/58(2024 1:50 PM EST) No DellogJayce godinez, PharmD Hemoglobin A1c < 7 Result Component 13.4(01/05/20 25 1:43 PM EST) No DellogGerardo godinezis, PharmD documented as of this encounter Visit Diagnoses Diagnosis Uncontrolled type 2 diabetes mellitus with hyperglycemia (CMS/HCC) documented in this encounter Additional Health Concerns Assessment Noted Time PHQ-9 Depression Total Score: 14 024 4:22 PM EDT documented as of this encounter Care Teams Card Filer Relationship Specialty Start Date End Date Pipe Anderson MD [address] [place] [address] PCP - General Internal Medicine 04/14/21 Faviola Richard, Lis [address] [place] [address] Pharmacist Internal Medicine 01/05/25 Beltran Iglesias Apron CleanerBobbin Trucker 04/21/24 Marcos Hanks Quality Lab TechnicianBobbin Trucker 07/06/24 documented as of this encounter
--- OUTSIDE RECORDS SUMMARY | 2025-03-13 15:24 | XMS_ITS | Encounter Summary ---
Author Organization [employer] Address [address] [facility] 7t [place] [address] Care Team Providers Care Dental Service Chief Name Role Phone Pipe Anderson MD Primary Care Provider [phone] Jayce Tristan PharmD Unavailable Unavail able Faviola Richard PharmD Unavailable [phone] Reason for Visit * Reason Onset Date Comments Referral 10/13/2023 Encounter Details Date Type Department Care Team ([facility] st Contact Info) Description 10/13/2023 Telephone [facility] [address] [place] [address] Pipe Anderson MD [address] [place] [address] Referral Social History Tobacco Use Types Packs/Day Years Used Date Smoking Tobacco: Former Smokeless Tobacco: Never Housing Stability Answer Date Recorded What is your housing situation today? I have mannsanjay andrews 09/27/[address] you [...] t he electric, gas, oil or water [employer] threatened to shut off services in your [...] 10:58 AM EST Returned call to pt's VN alli regarding message below. VN informed that pt was referred to teammonths ago and has no showed to multiple appts. Pt needs to call and r/s appt with DM team. VN states she will let pt know. * Telephone Encounter - Diana Toscano RN - 10/13/2023 3:33 PM EST Please review message below and advise if pt can be referred to account relationship manager for pt's DM. * Telephone Encounter - Mikael Carrero - 10/13/2023 10:12 AM EST Cortes Gong the patients VN requesting a referral for a account relationship manager for the patient any questions please call [phone] documented in this encounter Plan of Treatment Upcoming Encounters Date Type Department Care Team (Late st Contact Info) Description 04/10/2025 1:45 PM EDT Office Visit [facility] MED & PEDS [address] [place], [place] [phone] Pipe Anderson MD [address] [place] [address] 06/11/2025 1:30 PM EDT Office Visit [facility] OPTOMETRY [address] [place] [address] Julieta Issa, OD [address] [place] [address] documented as of this encounter Goals Goal Patient Goal Type Associated Problems Recent Progress Patient-Stated? Author Blood Pressure < 140/90 Blood Pressure 122/58(2024 1:50 PM EST) No Jayce Tristan, PharmD Hemoglobin A1c < 7 Result Component 13.4(01/05/20 1:43 PM EST) No Jayce Tristan, PharmD documented as of this encounter Visit Diagnoses Not on filedocumented in this encounter Care Teams Dental Service Chief Relationship Specialty Start Date End Date Pipe Anderson MD [address] [place] [address] PCP - General Internal Medicine 04/14/21 Jayce Tristan, PharmD [address] [place] [address] Pharmacist Internal Medicine 11/13/22 01/07/25 Faviola Richard PharmD [address] [place] [address] Pharmacist Internal Medicine 01/05/25 Beltran Iglesias Machine Assembler For Puller OverCase Manager 04/21/24 Marcos Hanks Director Of Online MerchandisingCase Manager 07/06/24 documented as of this encounter
--- OUTSIDE RECORDS SUMMARY | 2025-03-13 15:24 | XMS_ITS | Encounter Summary ---
Author Organization [employer] Address [address] [facility] [address] [place] [address] Care Team Providers Care Photo Lab Specialist Name Role Phone Pipe Anderson MD Primary Care Provider [phone] Jayce Tristan PharmD Unavailable Unavail able Faviola Richard PharmD Unavailable [phone] Reason for Visit * Reason Onset Date Comments Durable Medical Equipment 07/19/2024 Encounter Details Date Type Department Care Team (Late st Contact Info) Description 07/19/2024 Telephone [facility] [address] [place] [address] Pipe Anderson MD [address] [place] [address] Durable Medical Equipment Social History Tobacco Use [...] t he electric, gas, oil or water [email or web address] threatened to shut off services in your [...] Description 04/10/2025 1:45 PM EDT Office Visit [facility] MED & PEDS [address] [place] [address] Pipe Anderson MD [address] [place] [address] 06/11/2025 1:30 PM EDT Office Visit [facility] OPTOMETRY [address] [place] [address] Julieat Issa, OD [address] [place] [address] documented as of this encounter Goals Goal Patient Goal Type Associated Problems Recent Progress Patient-Stated? Author Blood Pressure < 140/90 Blood Pressure 122/58(2024 1:50 PM EST) No Jayce Tristan, PharmEneida Hemoglobin A1c < 7 Result Component 13.4(01/05/20 1:43 PM EST) No Jayce Tristan PharmD documented as of this encounter Visit Diagnoses Not on filedocumented in this encounter Care Teams Photo Lab Specialist Relationship Specialty Start Date End Date Pipe Anderson MD [address] [place] [address] PCP - General Internal Medicine 04/14/21 Jayce Tristan PharmD [address] [place] [address] Pharmacist Internal Medicine 11/13/22 01/07/25 Faviola Richard PharmD [address] [place] [address] Pharmacist Internal Medicine 01/05/25 Beltran Iglesias Reel TenderSupervisor [address] 04/21/24 Marcos Hanks Inseam TrimmerSupervisor [address] 07/06/24 documented as of this encounter
--- OUTSIDE RECORDS SUMMARY | 2025-03-13 15:24 | XMS_ITS | Encounter Summary ---
Author Organization [employer] Address [address] [place] [address] 7 [place] [address] Care Team Providers Care Inside Outside Sales Representative Name Role Phone Pipe Anderson MD Primary Care Provider [phone] Jayce Tristan PharmD Unavailable Unavail able Faviola Richard PharmD Unavailable [phone] Reason for Visit * Reason Comments Med Refill Encounter Details Date Type Department Care Team ([facility] Contact Info) Description 06/19/2024 Refill [facility] CH[facility] MED & PEDS [address] [place], [place] [phone] Pipe Anderson MD [address] [place] [address] Diabetic polyneuropathy associated with type 2 diabetes [...] 04/10/2025 1:45 PM EDT Office Visit [facility] MED & PEDS [address] [place], [place] [phone] Pipe Anderson MD [address] [place], [place] [phone] 06/11/2025 1:30 PM EDT Office Visit [facility] OPTOMETRY [address] [place] [address] Julieta Issa, OD [address] [place] [address] documented as of this encounter Goals Goal [...] diabetes mellitus (CMS/HCC) documented in this encounter Care Teams Inside Outside Sales Representative Relationship Specialty Start Date End Date Pipe Anderson MD [address] [place], [place] [phone] PCP - General Internal Medicine 04/14/21 Jayce Tristan, PharmD [address] [place] [address] Pharmacist Internal Medicine 11/13/22 01/07/25 Faviola Richard PharmD [address] [place] [address] Pharmacist Internal Medicine 01/05/25 Beltran Iglseias Echocardiography Radiology TechnologistInclusion Manager 04/21/24 Marcos Hanks Oxygen Equipment PreparerInclusion Manager 07/06/24 documented as of this encounter
--- OUTSIDE RECORDS SUMMARY | 2025-03-13 15:24 | XMS_ITS | Encounter Summary ---
Author Organization [employer] Address [address] [facility] 7 [place] [address] Care Team Providers Care Brick Washer Name Role Phone Pipe Anderson MD Primary Care Provider [phone] Jayce Tristan PharmD Unavailable Unavail able Faviola Richard PharmD Unavailable [phone] Encounter Details Date Type Department Care Team ([facility] st Contact Info) Description 07/28/2024 Orders Only [facility] CHC MED & PEDS [address] [place], [place] [phone] Pipe Anderson MD [address] [place] [address] Uncontrolled type 2 diabetes mellitus with hyperglycemia [...] Description 04/10/2025 1:45 PM EDT Office Visit [facility] CHC MED & PEDS [address] [place] [address] Pipe Anderson MD [address] [place] [address] 06/11/2025 1:30 PM EDT Office Visit [facility] OPTOMETRY [address] [place] [address] Luis ManuelJulieta, OD [address] [place] [address] documented as of this encounter Goals Goal [...] documented as of this encounter Care Teams Brick Washer Relationship Specialty Start Date End Date Pipe Anderson MD [address] [place] [address] PCP - General Internal Medicine 04/14/21 Jayce Tristan, PharmD [address] [place] [address] Pharmacist Internal Medicine 11/13/22 01/07/25 Faviola Richard, BhavnaD [address] [place] [address] Pharmacist Internal Medicine 01/05/25 Beltran Iglesias Bindery SupervisorCrop Or Grain Farmworker 04/21/24 Marcos Hanks Design MakerCrop Or Grain Farmworker 07/06/24 documented as of this encounter
--- OUTSIDE RECORDS SUMMARY | 2025-03-13 15:24 | XMS_ITS | Encounter Summary ---
Author Organization [employer] Address [address] [place] [address] 7 [place] [address] Care Team Providers Care Drill Rig Operator Helper Name Role Phone Pipe Anderson MD Primary Care Provider [phone] Jayce Tristan PharmD Unavailable Unavail able Faviola Richard PharmD Unavailable [phone] Reason for Referral * Consultation (Routine) - Pending Review Specialty Diagnoses / Procedures Referred By Contac t Referred To Contact Pharmacy Diagnoses Uncontrolled type 2 diabetes mellitus with hyperglycemia (CMS/HCC) Pipe Anderson MD [address] [place] [address] Phone: tel: fax: Referral ID Status Reason Start Date Expiration Date Visits Requested Visits Authorized [id number] Pending Review Consult and Treat 12/26/2024 12/26/2025 6 6 Encounter Details Date Type Department Care Team (Late st Contact Info) Description 12/26/2024 Orders Only [facility] CHC MED & PEDS [address] [place] [address] Pipe Anderson MD [address] [place], [place] [phone] Uncontrolled type 2 diabetes mellitus with hyperglycemia [...] Description 04/10/2025 1:45 PM EDT Office Visit [facility] CH[facility] MED & PEDS [address] [place] [address] Pipe Anderson MD [address] [place] [address] 06/11/2025 1:30 PM EDT Office Visit [facility] OPTOMETRY [address] [place] [address] Julieta Issa, OD [address] [place] [address] Scheduled Referrals Name Type Priority Associated Diagnoses [...] Uncontrolled type 2 diabetes mellitus with hyperglycemia ([facility])- Primary documented in this encounter Additional Health Concerns Assessment Noted Time PHQ-9 Depression Total Score: 14 024 4:22 PM EDT documented as of this encounter Care Teams Drill Rig Operator Helper Relationship Specialty Start Date End Date Pipe Anderson MD [address] [place] [address] PCP - General Internal Medicine 04/14/21 Jayce Tristan, PharmD [address] [place] [address] Pharmacist Internal Medicine 11/13/22 01/07/25 Faviola Richard PharmD [address] [place] [address] Pharmacist Internal Medicine 01/05/25 Beltran Iglesias Cause AnalystCafe Cook 04/21/24 Marcos Hanks Joist SetterCafe Cook 07/06/24 documented as of this encounter
== END 2025-03-13 13:34 | disposition home or self-care (01) ==
LOC: HO.HGI 12:38
PROVIDERS: PCP Internal Medicine; Visit Provider Nurse Practitioner
DX: K59.00 Constipation, unspecified (principal); Z80.0 Family history of malignant neoplasm of digestive organs; K63.5 Polyp of colon
CPT/HCPCS: 99213

== ENCOUNTER → 2025-03-13 12:38 | Outpatient (BNVA) | payer MEDICARE, MEDICAID, SELFPAY | PROVIDERS: PCP Internal Medicine; Visit Provider Nurse Practitioner | DX: K59.00 Constipation, unspecified (principal); K63.5 Polyp of colon; Z80.0 Family history of malignant neoplasm of digestive organs | CPT/HCPCS: 99212 ==

== ENCOUNTER 2025-06-01 14:27 | Emergency (ER) | payer OTHER, SELFPAY ==
--- NOTE | ~2025-06-01 | XR_ITS ---
CLINICAL HISTORY: CP, SOB Two views of the chest. COMPARISON: None provided. FINDINGS: Low lung volumes. Borderline cardiomegaly, likely exaggerated secondary to low lung volumes. No consolidation. Mild bronchial wall thickening. No pleural effusion. No pneumothorax. Mild spondylosis. No acute fracture. IMPRESSION: 1. Low lung volumes. 2. Bronchial wall thickening. Nonspecific finding can be seen with pulmonary edema or a multifocal infectious or inflammatory process. This document has been electronically signed by: Mariano Mar MD on 06/01/2025 15:42:24
[2025-06-01 14:36] VITALS: BP 131/62; PULSE 85; RESP 20; TEMP 36.4; O2SAT 98; BMI 34.7
--- NOTE | 2025-06-01 14:37 | ED_ITS ---
HPI - General Adult General Chief complaint: Upper Respiratory Symptoms Stated complaint: bronchitis ? Time Seen by Provider: 06/01/25 14:38 Source: patient Mode of arrival: ambulatory Limitations: no limitations History of Present Illness ED Provider: KAIA CALDWELL PA-C HPI narrative: 54 year old female with pmhx significant for DM, diabetic neuropathy HTN, IBS, and asthma that presents to the ED today for concerns of bronchitis. She reports cough productive of green sputum x2 weeks. Admits to associated shortness of breath and chest pain on coughing only. Reports sick contact with her cousin approx 2 weeks ago who had bronchitis. Denies fever, chills, sore throat, rashes, congestion, body aches, rhinorrhea, N/V/D, urinary sx. Trialed Nyquil and cough drops at home without much improvement. She admits she used to smoke 6-7 blunts of marijuana/day and 1 pack of cigarettes/ day. She stopped smoking approx 6 years ago. She drinks alcohol socially. Reports previous history of bronchitis and a PNA with hospitalization in 2002. No acute asthma exacerbations requiring hospitalization. Stopped using inhaler many years ago as she has not experienced any symptoms since. Denies wheezing. Related Data Home Medications ?Medication ?Instructions ?Recorded ?Confirmed gabapentin 100 mg capsule 100 mg PO TID 01/26/2202/20 lisinopril 10 mg tablet 10 mg PO DAILY 01/26/2201/28 atorvastatin 80 mg tablet 80 mg PO BEDTIME 12/22/22 insulin aspart U-100 100 unit/mL 26 unit subcut TID 02/20/25 (3 mL) subcutaneous pen insulin glargine U-300 conc 300 50 unit subcut BEDTIME 10/12/24 02/20/25 unit/mL (3 mL) subcutaneous pen (Toujeo Max U-300 SoloStar) paroxetine HCl 20 mg tablet 20 mg PO QAM 10/12/2401/28 Previous Rx's ?Medication ?Instructions ?Recorded albuterol sulfate 90 mcg/actuation 2 puff inhalation Q 4-6H PRN 04/03/23 aerosol inhaler (ProAir HFA) shortness of breath or wh eezing #6.7 grams sennosides 8.6 mg capsule (senna) 17.2 mg (2 x 8.6 mg) PO BEDTIME 01/29/25 constipation 30 days #60 caps albuterol sulfate 90 mcg/actuation 2 puff inhalation Q 20M PRN 06/01/25 aerosol inhaler (Ventolin HFA) shortness of breath or wheezing #6.7 grams amoxicillin 875 mg-potassium 1 tab PO BID 7 days #14 t abs 06/01/25 clavulanate 125 mg tablet azithromycin 250 mg tablet 250 mg PO DAILY 4 days #4 t abs 06/01/25 benzonatate 100 mg capsule 100 mg PO BID PRN cough #20 caps 06/01/25 Allergies Allergy/AdvReac Type Severity Reaction Status Date / Time lobster Allergy Severe Itching Verified 06/01/25 14:37 shrimp Allergy Mild EYE ITCHING Verified 06/01/25 14:37 Review of Systems 2 Review of Systems: Constitutional: No fever, chills, fatigue, night sweats, weight changes ENT/Mouth: No ear pain, hearing loss, nasal congestion, sinus pain, rhinorrhea, sore throat Eyes: No eye pain, swelling, redness, vision changes, discharge Cardio: No chest pain, palpitations, ARNETT, orthopnea, peripheral edema Pulm: No wheezing, hemoptysis, +cough, +sob, +ARNETT GI: No nausea, vomiting, hematemesis, abdominal pain, diarrhea, constipation, hematochezia, melena : No irregular bleeding, dysuria, frequency, urgency, hesitancy, hematuria, flank pain, urinary flow changes, urinary incontinence or retention MSK: No back pain, neck pain, joint pain, myalgias Skin: No lesions, rashes Neuro: No weakness, numbness, paresthesias, LOC, dizziness, headache Psych: No anxiety/panic, depression, SI/HI, AH/VH All other systems reviewed and are negative. [facility] Past Medical History Attestation statement: The following information was validated with the patient. Source: old records reviewed and nursing notes reviewed Medical History Diabetes Cutaneous abscess of back [any part, except buttock] Abscess Sebaceous cyst Pre-op examination Morbid obesity Umbilical hernia RUQ abdominal pain Hypertension Diabetes H. pylori infection Irritable bowel syndrome with diarrhea Surgical History History of surgery Status post hysteroscopic ablation of endometrium Breast abscess History of appendectomy H/O umbilical hernia repair H/O colonoscopy Hx of hemorrhoidectomy Hx of hernia repair Hx of tubal ligation Family History Family History Father Heart problem Asthma Mother Colon cancer HTN (hypertension) Varicose vein of leg Family history of diabetes mellitus Maternal Aunt Pancreatic cancer Family/Other Breast cancer Social History Social History Household Members: None Alcohol intake: current Alcohol intake frequency: does not drink Patient Tobacco Use Status: Former Tobacco user Smoked in Last 30 Days: No Use of substances other than those prescribed or required for medical reasons: No Substance Use Type: Marijuana Advance Directives: No Advance Directives Information Provided: No Physical Exam ED Vital Signs: Vital Signs - 24 hr 06/01/25 14:36 06/01/25 15:26 Temperature 97.6 F Pulse Rate 85 Respiratory Rate 20 Blood Pressure 131/62 Pulse Oximetry 98 Oxygen Delivery Method Room Air Room Air BMI result Body Mass Index 34.7 Vital signs stable, not hypoxic, afebrile General: Well appearing, in no acute distress. Skin: Warm, dry, intact. No rashes or lesions. Head: Normocephalic, atraumatic. EENT: Hearing is intact b/l. Conjunctiva clear. PERRLA. EOM intact. Moist mucous membranes.? Neck: Supple without LAD Cardiac: Chest wall symmetric. RRR. no JVD. Lungs: Normal respiratory effort without accessory muscle use. Abdomen: Soft, non-tender, non-distended. No rebound tenderness or guarding. Positive BS x4. Back: No midline spinous or paraspinal tenderness. No step off deformity. Ext: Upper and lower extremities atraumatic, without tenderness, deformity, swelling or erythema. no pitting edema. no calf tenderness. Neuro: AOx3. Normal speech. Ambulating with steady gait. Course Course Course Narrative: This is an RME: Additional HPI, ROS, PE not included below will be deferred to primary provider. RME assessment and note performed by: Vivien Elder PA-C This is a 61-ccld-ftc-female, with a hx of insulin dependent diabetes, HTN, neuropathy, who presents to the ER with complaints of intermittently productive cough x 2 weeks. Reports hx of bronchitis and symptoms feel similar. Had asthma many years ago. Reporting some SOB and chest tightness with cough. No DIANE or fevers. She has not been monitoring her glucose but still continues to give herself insulin. No sick contacts. No nausea, vomiting or diarrhea. Plan: Labs, EKG, CXR, viral swabs Reevaluation(s) Reevaluation #1: CBC showing slight leukopenia at 3.8. No left shift. No anemia. H&H stable. Chemistry showing hypomagnesemia to 1.5. Normal potassium. Repletion ordered. No LESLIE. Glucose elevated to 458, no anion gap. I do not have concern for DKA at this time as she is asymptomatic. Liver function is around baseline. Troponin undetectable. EKG showing NSR, rate 81 BNP, no acute ischemic changes. BNP undetectable. Unlikely CHF. negative covid, flu, rsv. Chest x-ray showing low lung volumes with bronchial wall thickening, nonspecific however can be seen with pulmonary edema v multifocal infection or inflammatory process. > concern for pneumonia. she does not meet criteria for sepsis. Her vitals are stable. She is not hypoxic, afebrile. She is likely hyperglycemic due to poor diabetic management and secondary to infection. > 1L IVF + 10 units insulin ordered with plan to recheck glucose > first dose augmentin + azithromycin ordered 1712 -- POC checked after first 5 of IV insulin - improved to 216. IVF hanging. will d/c second 5 of insulin. > discussed all results with patient. You shared decision-making to determine disposition. Patient will be discharged with oral antibiotics. advised PCP follow up. Patient has remained stable throughout ED visit today. Discussed worrisome signs and symptoms and when to return to the ED. All questions answered at this time. Patient is agreeable with disposition and stable for discharge. Medications Administered Generic Name Dose Route Start Last Admin Trade Name Freq PRN Reason Stop Dose Admin Sodium Chloride 1,000 mls @ 999 mls/hr 06/01/25 16:45 06/01/25 16:58 Ns IV 06/01/25 17:45 999 mls/hr .Q1H1M SONIA Administration Discontinued Medications Generic Name Dose Route Start Last Admin Trade Name Freq PRN Reason Stop Dose Admin Amoxicillin/Clavulanate Potassium 875 mg 06/01/25 16:49 06/01/25 16:58 Amoxicillin/Potassium Clav 875 Mg Tablet PO 06/01/25 16:50 875 mg ONCE ONE Administration Azithromycin 500 mg 06/01/25 16:49 06/01/25 16:58 Azithromycin 500 Mg Tablet PO 06/01/25 16:50 500 mg ONCE ONE Administration Magnesium Sulfate 2 gm in 50 mls @ 150 mls/hr 06/01/25 16:07 06/01/25 16:29 Magnesium Sulfate/H2o IV 06/01/25 16:26 150 mls/hr ONCE ONE Administration Insulin Human Regular 5 unit 06/01/25 15:58 06/01/25 16:28 Insulin Regular, Human 100 Unit/Ml 10 Ml Vial IVPUSH 06/01/25 15:59 5 unit ONCE ONE Administration Insulin Human Regular 5 unit 06/01/25 16:44 06/01/25 17:12 Insulin Regular, Human 100 Unit/Ml 10 Ml Vial IVPUSH 06/01/25 16:45 Not Given ONCE ONE Medical Decision Making Medical Decision Making MDM Narrative: 54 year old female with pmhx significant for DM, diabetic neuropathy HTN, IBS, and asthma that presents to the ED today for concerns of bronchitis. Vital signs stable. Afebrile. Not hypoxic. She is well-appearing and in no acute distress. Sitting comfortably on exam bed. No respiratory distress, no tripoding. Lungs are CTA bilaterally. There is no pitting edema. There is no JVD. Abdomen soft, ND/NT. Labs, ekg, cxr, viral swabs ordered from triage. IV insulin, IV magnesium, and IVF ordered. Differential Diagnosis Differential Diagnoses: The differential diagnosis associated with the presentation includes bronchitis, URI, pharyngitis/ laryngitis, pneumonia, COPD, COPD exacerbation, asthma exacerbation, viral syndrome, CHF, DKA, hyperglycemia Admission/Observation not indicated. Lab Data 06/01/25 15:11 06/01/25 15:12 Labs: Lab Results 06/01/25 06/01/25 06/01/25 Range/Units 15:11 15:12 17:00 WBC 3.8 L (4.8-10.8) X10*3/uL RBC 4.95 (4.20-5.50) X10*6/uL Hgb 13.5 (12.0-16.0) g/dl Hct 40.5 (37.0-47.0) % MCV 81.8 (80.0-98.0) fL MCH 27.3 (27.0-33.0) pg MCHC 33.3 (31.0-35.0) g/dl RDW 14.1 (11.0-16.0) % Plt Count 271 (160-400) X10*3/uL MPV 10.3 (9.4-12.3) fL Immature Gran % (Auto) 0.3 (0.0-0.4) % Neut % (Auto) 49.7 (45-73) % Lymph % (Auto) 35.3 (20-40) % [place] % (Auto) 8.4 (2-11) % Eos % (Auto) 5.5 H (0-4) % Baso % (Auto) 0.8 (0-2) % Lymph # (Auto) 1.4 (1.2-4.9) X10*3/uL [place] # (Auto) 0.3 (0.1-1.2) X10*3/uL Eos # (Auto) 0.2 (0.0-0.4) X10*3/uL Baso # (Auto) 0.0 (0.0-0.2) X10*3/uL Abs Immat Gran (auto) 0.01 (0.00-0.03) X10*3/uL Absolute Neuts (auto) 1.9 L (2.0-8.3) x10*3/uL Absolute Nucleated RBC 0.000 (0.0-0.012) X10*3/uL Nucleated RBC % (auto) 0.0 (0.0-0.2) /100WBC Sodium 138 (135-145) mmol/L Potassium 3.5 (3.3-5.1) mmol/L Chloride 101 (96-108) mmol/L Carbon Dioxide 26 (22-29) mmol/L Anion Gap 15 (12-20) BUN 12 (9-16) mg/dL Creatinine 0.66 (0.5-1.4) mg/dL Estim Creat Clear Calc 106.8 Estimated GFR > 60 POC Glucose 458 H* 216 H (60-115) mg/dL Random Glucose 423 H* (60-115) mg/dL Calcium 9.4 (8.4-10.2) mg/dL Magnesium 1.5 L (1.6-2.6) mg/dL Total Bilirubin 0.3 (0.0-1.0) mg/dL Direct Bilirubin 0.1 (0.0-0.5) mg/dL AST 24 (5-31) U/L ALT 40 H (0-31) U/L Alkaline Phosphatase 104 (39-117) U/L Troponin I High Sens < 2.7 (<3.5-17.0) ng/L B-Natriuretic Peptide < 10 (<100) pg/mL Total Protein 7.4 (6.5-8.0) g/dL Albumin 4.3 (3.5-5.0) g/dL Influenza Type A (PCR) NEGATIVE (Negative) Influenza Type B (PCR) NEGATIVE (Negative) RSV RNA Qual (PCR) NEGATIVE (Negative) SARS-CoV-2 RNA (RT-PCR) NEGATIVE (Negative) Discharge Plan Discharge Clinical Impression: CAP (community acquired pneumonia), Hyperglycemia, Hypomagnesemia Patient Disposition: Home, Self-Care Instructions: Community Acquired Pneumonia (ED), Hypomagnesemia (ED) Additional Instructions: Your blood sugar was very elevated today. Your magnesium was also low. You were given repletion. You were treated with insulin and IV fluids with improvement. Make sure you are monitoring your blood sugar at home. If your sugar becomes too high, this can be life threatening. You tested negative for covid, flu, rsv. Your chest xray is concerning for pneumonia. Your vitals are stable and your oxygen levels are fine. I am starting you on two different antibiotics (augmentin and azithromycin). Take both of these as prescribed and to completion. On Augmentin, softer bowel movements are to be expected. Call your provider if you move your bowels more than 4 times a day, your bowel movements are almost all liquid, or you get a rash.? Please follow up with your PCP. Return with new or worsening symptoms. In the case of an emergency call 911. Prescriptions: New amoxicillin-pot clavulanate 875-125 mg tablet 1 tab PO BID 7 Days Qty: 14 0RF azithromycin 250 mg tablet 250 mg PO DAILY 4 Days Qty: 4 0RF Rx Instructions: start on day 2 of therapy albuterol sulfate [Ventolin HFA] 90 mcg/actuation HFA aerosol inhaler 2 puff inhalation Q20M PRN (Reason: shortness of breath or wheezing) Qty: 6.7 0RF benzonatate 100 mg capsule 100 mg PO BID PRN (Reason: cough) Qty: 20 0RF No Action senna 8.6 mg capsule 17.2 mg PO BEDTIME 30 Days Qty: 60 4RF albuterol sulfate [ProAir HFA] 90 mcg/actuation HFA aerosol inhaler 2 puff inhalation Q4-6H PRN (Reason: shortness of breath or wheezing) Qty: 6.7 0RF Toujeo Max U-300 SoloStar 300 unit/mL (3 mL) insulin pen 50 unit subcut BEDTIME gabapentin 100 mg capsule 100 mg PO TID lisinopril 10 mg tablet 10 mg PO DAILY atorvastatin 80 mg tablet 80 mg PO BEDTIME insulin aspart U-100 100 unit/mL (3 mL) insulin pen 26 unit subcut TID paroxetine HCl 20 mg tablet 20 mg PO QAM Referrals: Pipe Anderson MD [Primary Care Provider, Medical] Print Language: Malian
--- NOTE | 2025-06-01 14:40 | ECG_ITS ---
Test Reason : CP Blood Pressure : */* mmHG Vent. Rate : 81 BPM Atrial Rate : 81 BPM P-R Int : 140 ms QRS Dur : 92 ms QT Int : 372 ms P-R-T Axes : 54 32 19 degrees QTcB Int : 432 ms Normal sinus rhythm Nonspecific T wave abnormality Abnormal ECG When compared with ECG of 03-Apr-2023 19:17, Nonspecific T wave abnormality, worse in Anterior leads Referred By: Vivien Elder Electronically Signed By: GAYATRI SAHU MD
[2025-06-01 15:21] LABS: Glucose, Whole Blood 458 mg/dL (60-115)
[2025-06-01 15:27] LABS: Hematocrit 40.5 % (37.0-47.0); Hemoglobin 13.5 g/dl (12.0-16.0); Imm Gran Abs Auto 0.01 X10*3/uL (0.00-0.03); Imm Gran Pct Auto 0.3 % (0.0-0.4); Lymphocytes Absolute Auto 1.4 X10*3/uL (1.2-4.9); MANUAL DIFF FLAG NO; Mean Corpuscular HGB Conc 33.3 g/dl (31.0-35.0); Mean Corpuscular Hemoglobin 27.3 pg (27.0-33.0); Mean Corpuscular Volume 81.8 fL (80.0-98.0); NRBC Abs Auto 0.000 X10*3/uL (0.0-0.012); NRBC Pct Auto 0.0 /100WBC (0.0-0.2); Platelet Count 271 X10*3/uL (160-400); Red Blood Count 4.95 X10*6/uL (4.20-5.50); White Blood Count 3.8 X10*3/uL (4.8-10.8)
--- OUTSIDE RECORDS SUMMARY | 2025-06-01 15:36 | XMS_ITS | Encounter Summary ---
Author Organization [employer] Address [address] [place] [address] Care Team Providers Care Cast Iron Drain Pipe Layer Name Role Phone Pipe Anderson MD Primary Care Provider [phone] Jayce Tristan PharmD Unavailable Unavail able Faviola Richard PharmD Unavailable [phone] Encounter Details Date Type Department Care Team (Late st Contact Info) Description 03/23/2024 Orders Only [facility] [address], [place] [phone] Pipe Anderson MD [address] [place] [address] Social History Tobacco Use Types Packs/Day Years [...] Care Team (Late st Contact Info) Description 06/11/2025 1:30 PM EDT Office Visit [facility] [address] [place] [address] Luis ManuelJulieta verdin, OD [address] [place] [address] 07/12/2025 1:45 PM EDT Office Visit [facility] [address], [place] [phone] Pipe Anderson MD [address] [place] [address] documented as of this encounter Goals Goal Patient Goal Type Associated Problems Recent Progress Patient-Stated? Author Blood Pressure < 140/90 Blood Pressure 153/72(2024 2:06 PM EDT) No Jayce Tristan, PharmD Hemoglobin A1c < 7 Result Component 13.1(04/10/20 3:36 PM EDT) No Jayce Tristan, PharmD documented as of this encounter Visit Diagnoses Not on filedocumented in this encounter Care Teams Cast Iron Drain Pipe Layer Relationship Specialty Start Date End Date Pipe Anderson MD [address] [place] [address] PCP - General Internal Medicine 04/14/21 Jayce Tristan, PharmD [address] [place] [address] Pharmacist Internal Medicine 11/13/22 01/07/25 Faviola Richard PharmD [address] [place] [address] Pharmacist Internal Medicine 01/05/25 Beltran Iglesias Program ParaprofessionalFlight Crew Scheduler 04/21/24 Marcos Hanks Billing Control ClerkFlight Crew Scheduler 07/06/24 documented as of this encounter
[2025-06-01 15:57] LABS: Troponin-I High Sensitivity < 2.7 ng/L (<3.5-17.0)
[2025-06-01 16:02] LABS: Alanine Aminotransferase 40 U/L (0-31); Albumin Level 4.3 g/dL (3.5-5.0); Alkaline Phosphatase 104 U/L (39-117); Anion Gap 15 (12-20); Aspartate Amino Transferase 24 U/L (5-31); Blood Urea Nitrogen 12 mg/dL (9-16); Calcium 9.4 mg/dL (8.4-10.2); Carbon Dioxide 26 mmol/L (22-29); Chloride 101 mmol/L (96-108); Creatinine Clr Calc Pharmacy 106.8; Estimated Glomerular Filt Rate > 60; Magnesium 1.5 mg/dL (1.6-2.6); Potassium 3.5 mmol/L (3.3-5.1); Sodium 138 mmol/L (135-145); Total Protein 7.4 g/dL (6.5-8.0)
[2025-06-01 16:03] LABS: Resp Syncy Virus RNA Qual PCR NEGATIVE (Negative); SARS COV2 PCR INHOUSE NEGATIVE (Negative)
[2025-06-01] MEDS: Magnesium Sulfate/H2O 2 GM/50 ML PIGGYBACK IV (16:29)
[2025-06-01 16:40] LABS: B Type Natriuretic Peptide < 10 pg/mL (<100)
[2025-06-01 17:03] LABS: Glucose, Whole Blood 216 mg/dL (60-115)
--- NOTE | 2025-06-01 17:12 | PC.NURSE ---
Patient's POC checked before second IV insulin dose given, POC 218, provider Vandana made aware. Decision to not give 2nd IV insulin dose made by provider, not administered.
[2025-06-01 18:24] VITALS: BP 130/64; PULSE 75; RESP 16; TEMP 36.7; O2SAT 95
== END 2025-06-01 18:25 | disposition home or self-care (01) ==
PROVIDERS: Physician Assistant Medical; Emergency Provider Emergency Medicine Emergency Medical Services; PCP Internal Medicine
DX: J18.9 Pneumonia, unspecified organism (principal); E11.65 Type 2 diabetes mellitus with hyperglycemia; E61.2 Magnesium deficiency; R07.89 Other chest pain; R06.02 Shortness of breath; R11.0 Nausea; Z79.4 Long term (current) use of insulin; Z79.899 Other long term (current) drug therapy
CPT/HCPCS: 71046; 80048; 80076; 82947; 83735; 83880; 84484; 85025; 87637; 93005; 96361; 96365; 96375; 99284; 99285; J3475

== ENCOUNTER → 2025-06-01 14:40 | Outpatient (BNV) | payer OTHER, SELFPAY | PROVIDERS: Emergency Provider Emergency Medicine Emergency Medical Services; PCP Internal Medicine; Visit Provider Internal Medicine Cardiovascular Disease | DX: R94.31 Abnormal electrocardiogram [ECG] [EKG] (principal); R07.9 Chest pain, unspecified | CPT/HCPCS: 93010 ==

== ENCOUNTER → 2025-06-01 14:40 | Outpatient (BNV) | payer OTHER, SELFPAY | PROVIDERS: Emergency Provider Emergency Medicine Emergency Medical Services; PCP Internal Medicine; Visit Provider Radiology Diagnostic Radiology | DX: R06.02 Shortness of breath (principal); J98.4 Other disorders of lung; J98.09 Other diseases of bronchus, not elsewhere classified | CPT/HCPCS: 71046 ==

== ENCOUNTER 2025-06-09 14:02 | Emergency (ER) | payer OTHER, SELFPAY ==
--- NOTE | ~2025-06-09 | US_ITS ---
CLINICAL HISTORY: lle edema VENOUS DUPLEX ULTRASOUND LEFT LOWER EXTREMITY Comparison: None provided Findings: The visualized deep veins are fully compressible with normal Doppler color flow and spectral tracings. No popliteal cyst. IMPRESSION: 1. Negative for left lower extremity deep vein thrombosis. This document has been electronically signed by: Demetra Andre DO on 06/09/2025 16:19:18
--- NOTE | ~2025-06-09 | XR_ITS ---
CLINICAL HISTORY: sob, known pna on 7 4 2 view chest x-ray Comparison: CR/SR - XR CHEST 1V - 03/09/23 11:53 EDT Findings: Mild stranding in the left base. No consolidation, pleural effusion or pneumothorax. Normal size heart. No acute fracture. IMPRESSION: Mild left basilar atelectasis and/or scarring, otherwise no acute cardiopulmonary process. This document has been electronically signed by: Demetra Andre DO on 06/09/2025 16:21:27
[2025-06-09 14:29] VITALS: BP 136/66; PULSE 86; RESP 20; TEMP 37; O2SAT 98; BMI 33.3
--- NOTE | 2025-06-09 14:30 | ED.LOWEXIN ---
HPI - Extremity Injury (Lower) General Chief Complaint: General Medical Stated Complaint: foot swelling Time Seen by Provider: 06/09/25 17:31 Source: patient, RN notes reviewed and old records reviewed Mode of arrival: ambulatory Limitations: no limitations History of Present Illness ED Provider: Lanie SIMPSON Narrative: The patient is a 54-year-old woman with a history of type 2 diabetes on insulin who comes to the emergency room because she has been having swelling of her legs over the last few weeks. This is more apparent in her left leg. She feels the left leg is swollen and itchy. She also has some swelling in the right leg but it is less so. No chest pain or shortness of breath. No fever, sweats, chills. The patient was here about a week ago with respiratory symptoms. She had a nondiagnostic chest x-ray. She was treated for presumed pneumonia. Related Data Home Medications ?Medication ?Instructions ?Recorded ?Confirmed gabapentin 100 mg capsule 100 mg PO TID 01/26/22 02/20/25 lisinopril 10 mg tablet 10 mg PO DAILY 01/26/22 02/20/25 atorvastatin 80 mg tablet 80 mg PO BEDTIME 12/22/22 02/20/25 insulin aspart U-100 100 unit/mL 26 unit subcut TID 10/12/24 02/20/25 (3 mL) subcutaneous pen insulin glargine U-300 conc 300 50 unit subcut BEDTIME 10/12/24 02/20/25 unit/mL (3 mL) subcutaneous pen (Toujeo Max U-300 SoloStar) paroxetine HCl 20 mg tablet 20 mg PO QAM 10/12/24 02/20/25 Previous Rx's ?Medication ?Instructions ?Recorded albuterol sulfate 90 mcg/actuation 2 puff inhalation Q4-6H PRN 04/03/23 aerosol inhaler (ProAir HFA) shortness of breath or wheezing #6.7 grams sennosides 8.6 mg capsule (senna) 17.2 mg (2 x 8.6 mg) PO BEDTIME 01/29/25 constipation 30 days #60 caps albuterol sulfate 90 mcg/actuation 2 puff inhalation Q20M PRN 06/01/25 aerosol inhaler (Ventolin HFA) shortness of breath or wheezing #6.7 grams amoxicillin 875 mg-potassium 1 tab PO BID 7 days #14 tabs 06/01/25 clavulanate 125 mg tablet azithromycin 250 mg tablet 250 mg PO DAILY 4 days #4 tabs 06/01/25 benzonatate 100 mg capsule 100 mg PO BID PRN cough #20 caps 06/01/25 Allergies Allergy/AdvReac Type Severity Reaction Status Date / Time lobster Allergy Severe Itching Verified 06/09/25 14:36 shrimp Allergy Mild EYE ITCHING Verified 06/09/25 14:36 Review of Systems Review of Systems: Yes all other systems are reviewed and are negative [facility] Past Medical History Medical History Diabetes Cutaneous abscess of back [any part, except buttock] Abscess Sebaceous cyst Pre-op examination Morbid obesity Umbilical hernia RUQ abdominal pain Hypertension Diabetes H. pylori infection Irritable bowel syndrome with diarrhea Surgical History History of surgery Status post hysteroscopic ablation of endometrium Breast abscess History of appendectomy H/O umbilical hernia repair H/O colonoscopy Hx of hemorrhoidectomy Hx of hernia repair Hx of tubal ligation Family History Family History Father Heart problem Asthma Mother Colon cancer HTN (hypertension) Varicose vein of leg Family history of diabetes mellitus Maternal Aunt Pancreatic cancer Family/Other Breast cancer Social History Social History Household Members: None Alcohol intake: current Alcohol intake frequency: does not drink Patient Tobacco Use Status: Former Tobacco user Substance Use Type: Marijuana Advance Directives: No Advance Directives Information Provided: No Physical Exam Vital Signs: Vital Signs: Last Vital Signs Temp 98.6 F 06/09/25 14:29 Pulse 86 06/09/25 14:29 Resp 20 06/09/25 14:29 BP 136/66 06/09/25 14:29 Pulse Ox 98 06/09/25 14:29 O2 Del Method Room Air 06/09/25 14:29 BMI result Body Mass Index 33.3 Const: Other: The patient is awake, alert, pleasant, cooperative. She does not appear in acute distress. She looks quite well. Orientation/consciousness: patient oriented x3 HEENT: Other: Face is symmetrical, mucous membranes moist. Eyes: Other: Pupils are round equal, conjunctivae are clear, extraocular movements intact Neck: Neck: Yes normal visual inspection, Yes full ROM and Yes no JVD Resp: Effort & Inspection: normal respiratory effort Auscultation: clear to auscultation bilaterally Cardio: Rate: regular rate Rhythm: regular rhythm Heart sounds: S1 normal heart sound present and S2 normal heart sound present GI: Other: Abdomen is soft and nontender Skin: Other: There is some edema to both lower legs. The edema is pitting. This is more obvious at the left ankle in the right ankle. The skin is otherwise unremarkable. No erythema. Neuro: General: patient oriented x3, tone normal, moves all extremities, no focal motor deficits and CN's II-XI intact bilaterally Extrem: Other: The patient has some edema of both lower legs, most prominent at the ankles. This is more apparent at the left ankle than the right. No significant tenderness. Both feet are well-perfused. Course Course Course Narrative: This is a RME preformed in triage by Yaneth Cerna PA-C. Date: 06/09/25, time 235 pm. Patient presents with sob and LLE swelling for a week Patient was seen here on 06/01/2025 for shortness of breath and a cough. She was diagnosed clinically with pneumonia and given antibiotic. Patient reports her cough is certainly improved but she is still feeling short of breath and endorsing orthopnea. She reports several years ago being told to wear compression stockings and then she discontinued it as she did not seem to have the issue. Her legs feel heavy and she gets short of breath with exertion still. Last night for approximately 5 seconds she felt central chest pain that was sharp like in nature and then went away it did not reoccur did not travel anywhere. Did not feel like heartburn to her. She denies any paresthesias or weakness of her limbs. At rest she does not feel any or shortness of breath but when she walks she does. She is denying any fevers nasal congestion or sore throats no falls no trauma. No headache or dizziness. Patient is a diabetic on insulin she does not monitor her blood sugars. Work UP: cardiac/pulm work up, concern for pulmonary edema/ heart failure Will defer full ROS and PE to treating provider. Patient will continued to be monitored in the interim. Medical Decision Making Medical Decision Making [facility] Narrative: The patient is a 54-year-old female with a history of diabetes who was here for evaluation of lower extremity edema. The edema is present in both legs but more apparent in the left leg. She has a negative DVT ultrasound of the left leg. She has an undetectable D-dimer. She has an EKG which is unchanged from previous. She has a normal troponin and BNP. CBC shows an unremarkable white count and differential. Clinically the patient does not seem acutely ill. I think this is a case of peripheral edema without associated heart failure or DVT or other acutely dangerous process. No sign of infection. I think the patient might require compression stockings. I discuss this with the patient. I think she may be discharged to follow up with the regular doctor. Lab Data 06/09/25 14:56 06/09/25 14:56 Labs: Lab Results 06/09/25 06/09/25 Range/Units 14:56 14:57 WBC 3.6 L (4.8-10.8) X10*3/uL RBC 4.98 (4.20-5.50) X10*6/uL Hgb 13.7 (12.0-16.0) g/dl Hct 40.1 (37.0-47.0) % MCV 80.5 (80.0-98.0) fL MCH 27.5 (27.0-33.0) pg MCHC 34.2 (31.0-35.0) g/dl RDW 14.0 (11.0-16.0) % Plt Count 254 (160-400) X10*3/uL MPV 9.8 (9.4-12.3) fL Immature Gran % (Auto) 0.3 (0.0-0.4) % Neut % (Auto) 52.3 (45-73) % Lymph % (Auto) 34.3 (20-40) % Clark % (Auto) 7.2 (2-11) % Eos % (Auto) 5.3 H (0-4) % Baso % (Auto) 0.6 (0-2) % Lymph # (Auto) 1.2 (1.2-4.9) X10*3/uL Clark # (Auto) 0.3 (0.1-1.2) X10*3/uL Eos # (Auto) 0.2 (0.0-0.4) X10*3/uL Baso # (Auto) 0.0 (0.0-0.2) X10*3/uL Abs Immat Gran (auto) 0.01 (0.00-0.03) X10*3/uL Absolute Neuts (auto) 1.9 L (2.0-8.3) x10*3/uL Absolute Nucleated RBC 0.000 (0.0-0.012) X10*3/uL Nucleated RBC % (auto) 0.0 (0.0-0.2) /100WBC D-Dimer High Sensitivty < 150 NG/ML Sodium 136 (135-145) mmol/L Potassium 4.0 (3.3-5.1) mmol/L Chloride 100 (96-108) mmol/L Carbon Dioxide 28 (22-29) mmol/L Anion Gap 12 (12-20) BUN 12 (9-16) mg/dL Creatinine 0.69 (0.5-1.4) mg/dL Estim Creat Clear Calc 103.7 Estimated GFR > 60 Fasting Glucose 391 H* (60-99) mg/dL Calcium 9.7 (8.4-10.2) mg/dL Total Bilirubin 0.3 (0.0-1.0) mg/dL AST 23 (5-31) U/L ALT 39 H (0-31) U/L Alkaline Phosphatase 96 (39-117) U/L Troponin I High Sens < 2.7 (<3.5-17.0) ng/L B-Natriuretic Peptide < 10 (<100) pg/mL Total Protein 7.4 (6.5-8.0) g/dL Albumin 4.3 (3.5-5.0) g/dL Discharge Plan Discharge Clinical Impression: Edema of lower extremity Patient Disposition: Home, Self-Care Additional Instructions: Your testing in the emergency room today seems quite reassuring. There is no sign of a blood clot. There is no sign of heart failure. Please continue your regular medications. Please consider getting compression stockings for your legs. Compression stockings may require a specification of a pressure of the stockings. 20-30 mmHg his a good starting pressure. Please discuss this further with your regular doctor. If you feel significantly worse at any time please return to the emergency room for re-evaluation. Prescriptions: No Action senna 8.6 mg capsule 17.2 mg PO BEDTIME 30 Days Qty: 60 4RF albuterol sulfate [ProAir HFA] 90 mcg/actuation HFA aerosol inhaler 2 puff inhalation Q4-6H PRN (Reason: shortness of breath or wheezing) Qty: 6.7 0RF Toujeo Max U-300 SoloStar 300 unit/mL (3 mL) insulin pen 50 unit subcut BEDTIME amoxicillin-pot clavulanate 875-125 mg tablet 1 tab PO BID 7 Days Qty: 14 0RF azithromycin 250 mg tablet 250 mg PO DAILY 4 Days Qty: 4 0RF Rx Instructions: start on day 2 of therapy albuterol sulfate [Ventolin HFA] 90 mcg/actuation HFA aerosol inhaler 2 puff inhalation Q20M PRN (Reason: shortness of breath or wheezing) Qty: 6.7 0RF benzonatate 100 mg capsule 100 mg PO BID PRN (Reason: cough) Qty: 20 0RF gabapentin 100 mg capsule 100 mg PO TID lisinopril 10 mg tablet 10 mg PO DAILY atorvastatin 80 mg tablet 80 mg PO BEDTIME insulin aspart U-100 100 unit/mL (3 mL) insulin pen 26 unit subcut TID paroxetine HCl 20 mg tablet 20 mg PO QAM Referrals: Pipe Anderson MD [Primary Care Provider, Medical] Print Language: Nigerien
--- NOTE | 2025-06-09 14:36 | ECG_ITS ---
Test Reason : CHEST PAIN Blood Pressure : */* mmHG Vent. Rate : 85 BPM Atrial Rate : 85 BPM P-R Int : 136 ms QRS Dur : 96 ms QT Int : 358 ms P-R-T Axes : 62 23 22 degrees QTcB Int : 426 ms Normal sinus rhythm Low voltage QRS Nonspecific T wave abnormality Abnormal ECG When compared with ECG of 01-Jun-2025 15:11, No significant change was found Referred By: Yaneth Cerna Electronically Signed By: Micheal Melgar
[2025-06-09 15:03] LABS: Hematocrit 40.1 % (37.0-47.0); Hemoglobin 13.7 g/dl (12.0-16.0); Imm Gran Abs Auto 0.01 X10*3/uL (0.00-0.03); Imm Gran Pct Auto 0.3 % (0.0-0.4); Lymphocytes Absolute Auto 1.2 X10*3/uL (1.2-4.9); MANUAL DIFF FLAG NO; Mean Corpuscular HGB Conc 34.2 g/dl (31.0-35.0); Mean Corpuscular Hemoglobin 27.5 pg (27.0-33.0); Mean Corpuscular Volume 80.5 fL (80.0-98.0); NRBC Abs Auto 0.000 X10*3/uL (0.0-0.012); NRBC Pct Auto 0.0 /100WBC (0.0-0.2); Platelet Count 254 X10*3/uL (160-400); Red Blood Count 4.98 X10*6/uL (4.20-5.50); White Blood Count 3.6 X10*3/uL (4.8-10.8)
[2025-06-09 15:11] LABS: D Dimer High Sensitivity < 150 NG/ML
[2025-06-09 15:23] LABS: B Type Natriuretic Peptide < 10 pg/mL (<100)
[2025-06-09 15:31] LABS: Troponin-I High Sensitivity < 2.7 ng/L (<3.5-17.0)
[2025-06-09 15:34] LABS: Alanine Aminotransferase 39 U/L (0-31); Albumin Level 4.3 g/dL (3.5-5.0); Alkaline Phosphatase 96 U/L (39-117); Anion Gap 12 (12-20); Aspartate Amino Transferase 23 U/L (5-31); Blood Urea Nitrogen 12 mg/dL (9-16); Calcium 9.7 mg/dL (8.4-10.2); Carbon Dioxide 28 mmol/L (22-29); Chloride 100 mmol/L (96-108); Creatinine Clr Calc Pharmacy 103.7; Estimated Glomerular Filt Rate > 60; Potassium 4.0 mmol/L (3.3-5.1); Sodium 136 mmol/L (135-145); Total Protein 7.4 g/dL (6.5-8.0)
--- OUTSIDE RECORDS SUMMARY | 2025-06-09 17:34 | XMS_ITS | Encounter Summary ---
Author Organization [employer] Address [address] [facility] [address] [place] [address] Care Team Providers Care Sports Clerk Name Role Phone Pipe Anderson MD Primary Care Provider [phone] Jayce Tristan PharmD Unavailable Unavail able Faviola Richard PharmD Unavailable [phone] Encounter Details Date Type Department Care Team (Late st Contact Info) Description 03/23/2024 Orders Only [facility] [address] [place], [place] [phone] Pipe Anderson MD [address] [place] [address] Social History Tobacco Use Types Packs/Day Years [...] Description 06/11/2025 1:30 PM EDT Office Visit [facility] [address] [place] [address] Luis ManuelJulieta verdin, OD [address] [place] [address] 07/12/2025 1:45 PM EDT Office Visit [facility] [address] [place], [place] [phone] Pipe Anderson MD [address] [place] [address] documented as of this encounter Goals Goal Patient Goal Type Associated Problems Recent Progress Patient-Stated? Author Blood Pressure < 140/90 Blood Pressure 153/72(2024 2:06 PM EDT) No Jayce Tristan, PharmD Hemoglobin A1c < 7 Result Component 13.1(04/10/20 3:36 PM EDT) No Jayce Tristan, PharmD documented as of this encounter Visit Diagnoses Not on filedocumented in this encounter Care Teams Sports Clerk Relationship Specialty Start Date End Date Pipe Anderson MD [address] [place] [address] PCP - General Internal Medicine 04/14/21 Jayce Tristan, PharmD [address] [place] [address] Pharmacist Internal Medicine 11/13/22 01/07/25 Faviola Richard PharmD [address] [place] [address] Pharmacist Internal Medicine 01/05/25 06/03/25 Beltran Iglesias Buffer CopperPerianesthesia Rn 04/21/24 Marcos Hanks Manager BackgroundPerianesthesia Rn 07/06/24 documented as of this encounter
[2025-06-09 18:08] LABS: Glucose, Whole Blood 267 mg/dL (60-115)
[2025-06-09 18:26] VITALS: BP 150/79; PULSE 82; RESP 16; TEMP 36.8; O2SAT 96
[2025-06-09 18:29] VITALS: BP 150/79; PULSE 82; RESP 16; TEMP 36.8; O2SAT 96
== END 2025-06-09 18:29 | disposition home or self-care (01) ==
PROVIDERS: Physician Assistant Medical; Emergency Provider Emergency Medicine; PCP Internal Medicine
DX: R60.9 Edema, unspecified (principal); R07.9 Chest pain, unspecified; M79.89 Other specified soft tissue disorders; L29.9 Pruritus, unspecified; Z79.899 Other long term (current) drug therapy
CPT/HCPCS: 36415; 71046; 80053; 82947; 83880; 84484; 85025; 85379; 93005; 93971; 99284

== ENCOUNTER → 2025-06-09 14:36 | Outpatient (BNV) | payer OTHER, SELFPAY | PROVIDERS: Emergency Provider Emergency Medicine; PCP Internal Medicine; Visit Provider Internal Medicine Cardiovascular Disease | DX: R07.9 Chest pain, unspecified (principal); R94.31 Abnormal electrocardiogram [ECG] [EKG] | CPT/HCPCS: 93010 ==

== ENCOUNTER → 2025-06-09 14:36 | Outpatient (BNV) | payer OTHER, SELFPAY | PROVIDERS: PCP Internal Medicine; Visit Provider Radiology Diagnostic Radiology | DX: R22.42 Localized swelling, mass and lump, left lower limb (principal); R06.02 Shortness of breath; J18.9 Pneumonia, unspecified organism | CPT/HCPCS: 71046; 93971 ==

== ENCOUNTER 2025-06-26 13:25 | Outpatient (REF) | payer OTHER, SELFPAY ==
--- NOTE | ~2025-06-26 | US_ITS ---
EXAMINATION: US LOWER EXTREMITY VEINS LIMITED FOLLOW UP LEFT HISTORY: left leg edema. r/o DVT COMPARISON: Comparison is made with the prior examination dated 06/09/2025. TECHNIQUE: Duplex and color Doppler sonographic examination of the deep venous system of the left lower extremity was performed. FINDINGS: The common femoral, superficial femoral, and popliteal veins are patent demonstrating normal compressibility, spontaneous flow, and augmentation. There is a normal color and spectral Doppler waveform appearance of the visualized deep venous system above the knee. The posterior tibial and peroneal veins are patent. US/US venous duplex LE LT IMPRESSION: No evidence of acute DVT in the left lower extremity. Electronically signed by: Simba Parr MD 06/26/2025 02:09 PM EDT
--- OUTSIDE RECORDS SUMMARY | 2025-06-26 14:17 | XMS_ITS | Encounter Summary ---
Author Organization [employer] Address [address] [facility] [address] [place] [address] Care Team Providers Care Slitter Service And Setter Name Role Phone Pipe Anderson MD Primary Care Provider [phone] Jayce Tristan PharmD Unavailable Unavail able Faviola Richard PharmD Unavailable [phone] Encounter Details Date Type Department Care Team ([facility] Contact Info) Description 03/23/2024 Orders Only [facility] [address] [place], [place] [phone] Pipe Anderson MD [address] [place] [address] Social History Tobacco Use Types Packs/Day Years [...] Care Team (Late st Contact Info) Description 07/12/2025 1:45 PM EDT Office Visit [facility] [address] [place] [address] Pipe Anderson MD [address] [place] [address] documented as of this encounter Goals Goal Patient Goal Type Associated Problems Recent Progress Patient-Stated? Author Blood Pressure < 140/90 Blood Pressure 135/75(2024 10:09 AM EDT) No Jayce Tristan, PharmD Hemoglobin A1c < 7 Result Component 13.1(04/10/20 3:36 PM EDT) No Jayce Tristan, PharmD documented as of this encounter Visit Diagnoses Not on filedocumented in this encounter Care Teams Slitter Service And Setter Relationship Specialty Start Date End Date Pipe Anderson MD [address] [place] [address] PCP - General Internal Medicine 04/14/21 Jayce Tristan, PharmD [address] [place] [address] Pharmacist Internal Medicine 11/13/22 01/07/25 Faviola Richard, PharmD [address] [place] [address] Pharmacist Internal Medicine 01/05/25 06/03/25 Beltran Iglesias Services Delivery DriverFrame Stripper 04/21/24 Marcos Hanks Executor Of EstateFrame Stripper 07/06/24 documented as of this encounter
[2025-06-26 16:17] LABS: MANUAL DIFF FLAG NO
[2025-06-26 16:23] LABS: Hematocrit 41.9 % (37.0-47.0); Hemoglobin 13.7 g/dl (12.0-16.0); Imm Gran Abs Auto 0.01 X10*3/uL (0.00-0.03); Imm Gran Pct Auto 0.2 % (0.0-0.4); Lymphocytes Absolute Auto 1.4 X10*3/uL (1.2-4.9); Mean Corpuscular HGB Conc 32.7 g/dl (31.0-35.0); Mean Corpuscular Hemoglobin 27.3 pg (27.0-33.0); Mean Corpuscular Volume 83.5 fL (80.0-98.0); NRBC Abs Auto 0.000 X10*3/uL (0.0-0.012); NRBC Pct Auto 0.0 /100WBC (0.0-0.2); Platelet Count 251 X10*3/uL (160-400); Red Blood Count 5.02 X10*6/uL (4.20-5.50); White Blood Count 4.2 X10*3/uL (4.8-10.8)
[2025-06-27 03:59] LABS: ~HepC Num1 0.09 S/CO (0.00-0.79); ~Hepatitis C Antibody Nonreactive (Nonreactive)
== END 2025-06-26 13:26 | disposition home or self-care (01) ==
LOC: HO.HMGCX 13:25
PROVIDERS: PCP Internal Medicine; Visit Provider Internal Medicine
DX: Z11.59 Encounter for screening for other viral diseases (principal); R60.0 Localized edema; R74.01 Elevation of levels of liver transaminase levels; R74.8 Abnormal levels of other serum enzymes; L03.116 Cellulitis of left lower limb
CPT/HCPCS: 36415; 85025; 85652; 86803; 93971

== ENCOUNTER → 2025-06-26 13:38 | Outpatient (BNV) | payer OTHER, SELFPAY | PROVIDERS: PCP Internal Medicine; Visit Provider Radiology Diagnostic Radiology | DX: R22.42 Localized swelling, mass and lump, left lower limb (principal) | CPT/HCPCS: 93971 ==

== ENCOUNTER 2025-08-11 13:42 | Emergency (ER) | payer OTHER, SELFPAY ==
--- NOTE | ~2025-08-11 | XR_ITS ---
CLINICAL HISTORY: cough 2 view chest x-ray Comparison: CR - XR CHEST 2V - 06/09/25 15:14 EDT Findings: No consolidation or effusion. Normal size heart. No acute fracture. IMPRESSION: 1. No acute findings. This document has been electronically signed by: Ken Richardson MD on 08/11/2025 14:35:18
[2025-08-11 13:56] VITALS: BP 124/69; PULSE 83; RESP 18; TEMP 37.3; O2SAT 98; BMI 36.8
--- NOTE | 2025-08-11 13:56 | ED.GENADULT ---
HPI - General Adult General Chief complaint: Upper Respiratory Symptoms Stated complaint: cough for week Time Seen by Provider: 08/11/25 16:05 Source: patient Mode of arrival: ambulatory Limitations: no limitations History of Present Illness ED Provider: Ina Larson PA-C HPI narrative: Patient is a 54 year old assigned female at with a history of DM presenting to the emergency department today with a cough. Patient states that over the last week she has had a cough that is not getting better. Patient denies any other complaints at this time. Onset (ago): week(s) (1) Related Data Home Medications ?Medication ?Instructions ?Recorded ?Confirmed gabapentin 100 mg capsule 100 mg PO TID 01/26/22 02/20/25 lisinopril 10 mg tablet 10 mg PO DAILY 01/26/22 02/20/25 atorvastatin 80 mg tablet 80 mg PO BEDTIME 12/22/22 02/20/25 insulin aspart U-100 100 unit/mL 26 unit subcut TID 10/12/24 02/20/25 (3 mL) subcutaneous pen insulin glargine U-300 conc 300 50 unit subcut BEDTIME 10/12/24 02/20/25 unit/mL (3 mL) subcutaneous pen (Toujeo Max U-300 SoloStar) paroxetine HCl 20 mg tablet 20 mg PO QAM 10/12/24 02/20/25 Previous Rx's ?Medication ?Instructions ?Recorded albuterol sulfate 90 mcg/actuation 2 puff inhalation Q4-6H PRN 04/03/23 aerosol inhaler (ProAir HFA) shortness of breath or wheezing #6.7 grams sennosides 8.6 mg capsule (senna) 17.2 mg (2 x 8.6 mg) PO BEDTIME 01/29/25 constipation 30 days #60 caps albuterol sulfate 90 mcg/actuation 2 puff inhalation Q20M PRN 06/01/25 aerosol inhaler (Ventolin HFA) shortness of breath or wheezing #6.7 grams amoxicillin 875 mg-potassium 1 tab PO BID 7 days #14 tabs 06/01/25 clavulanate 125 mg tablet azithromycin 250 mg tablet 250 mg PO DAILY 4 days #4 tabs 06/01/25 benzonatate 100 mg capsule 100 mg PO BID PRN cough #20 caps 06/01/25 amoxicillin 875 mg-potassium 1 tab PO BID 7 days #14 tabs 08/11/25 clavulanate 125 mg tablet doxycycline hyclate 100 mg tablet 100 mg PO BID 7 days #14 tabs 08/11/25 Allergies Allergy/AdvReac Type Severity Reaction Status Date / Time lobster Allergy Severe Itching Verified 06/09/25 14:36 shrimp Allergy Mild EYE ITCHING Verified 06/09/25 14:36 shellfish derived (shellfish) Allergy Itching Verified 08/11/25 13:58 Review of Systems Constitutional: Constitutional: Reports as per HPI Eyes: Eyes: Reports as per HPI ENT: Reports as per HPI Cardiovascular: Cardiovascular: Reports as per HPI Respiratory: Respiratory: Reports as per HPI Gastrointestinal: Gastrointestinal: Reports as per HPI Genitourinary: Genitourinary: Reports as per HPI Musculoskeletal: Musculoskeletal: Reports as per HPI Integumentary/Breasts: Skin/Breast: Reports as per HPI Neurologic: Reports as per HPI Psychiatric: Psychiatric: Reports as per HPI Endocrine: Endocrine: Reports as per HPI Hematologic/Lymphatic: Hematologic/Lymphatic: Reports as per HPI Allergic/Immunologic: Allergic/Immunologic: Reports as per HPI [facility] Past Medical History Attestation statement: The following information was validated with the patient. Source: old records reviewed and nursing notes reviewed Medical History Diabetes Cutaneous abscess of back [any part, except buttock] Abscess Sebaceous cyst Pre-op examination Morbid obesity Umbilical hernia RUQ abdominal pain Hypertension Diabetes H. pylori infection Irritable bowel syndrome with diarrhea Surgical History History of surgery Status post hysteroscopic ablation of endometrium Breast abscess History of appendectomy H/O umbilical hernia repair H/O colonoscopy Hx of hemorrhoidectomy Hx of hernia repair Hx of tubal ligation Family History Family History Father Heart problem Asthma Mother Colon cancer HTN (hypertension) Varicose vein of leg Family history of diabetes mellitus Maternal Aunt Pancreatic cancer Family/Other Breast cancer Social History Social History Household Members: None Alcohol intake: current Alcohol intake frequency: does not drink Patient Tobacco Use Status: Former Tobacco user Substance Use Type: Marijuana Advance Directives: No Advance Directives Information Provided: No Do you have a plan to hurt others: No Plan Physical Exam ED Vital Signs: Vital Signs - 24 hr 08/11/25 13:56 08/11/25 16:06 08/11/25 16:09 Temperature 99.1 F 97 F 97 F Pulse Rate 83 82 82 Respiratory Rate 18 16 16 Blood Pressure 124/69 139/79 139/79 Pulse Oximetry 98 98 98 Oxygen Delivery Method Room Air Room Air Room Air BMI result Body Mass Index 36.8 Const General: cooperative, no acute distress, alert and awake Nutritional Appearance: well nourished Orientation/consciousness: patient oriented x3 HENMT Head: Yes normal to inspection and Yes atraumatic Ears: hearing grossly normal bilaterally and external ears normal General nose exam: Normal external nose present, no nasal discharge noted and no epistaxis Face and sinus: Yes normal facial exam, No abrasion and No laceration Mouth: Normal oral and palatal mucosa present, no drooling and no muffled voice Eyes General: appearance normal, both eyes and all related structures Periorbital: periorbital findings normal Eyelids: Yes eyelids normal Conjunctivae: conjunctivae normal Pupils: Equal, round and reactive pupils present EOM: EOMs intact bilaterally Neck Neck: Yes normal visual inspection and Yes full ROM Resp Effort & Inspection: normal respiratory effort and able to speak in complete sentences Neuro General: patient oriented x3, moves all extremities and CN's II-XI intact bilaterally Cranial nerves: Yes Equal, round and reactive pupils present Cognition (Neuro): normal cognition Extrem General: Yes normal to inspection, Yes full ROM and Yes capillary refill normal Psych Appearance: grossly normal Mental Status: mental status grossly normal Affect: normal affect Attitude: cooperative Thought process: Normal thought process present Thought content: Normal thought content present Insight: Good insight present (Psych) Course Course Course Narrative: Rapid medical examination performed in triage by Ina Larson PA-C. Patient is a 54 year old assigned female at presenting to the emergency department with a cough. Detailed physical exam and review of systems are deferred to the inner tube tuber machine operator. Imaging and swabs ordered. Patient placed back in the waiting room pending room availability and results. Medical Decision Making Medical Decision Making MDM Narrative: Patient is a 54 year old assigned female at with a history of DM presenting to the emergency department today with a cough. Patient's physical exam was as noted in the physical exam portion of this note. Patient's chest x-ray showed no acute process. Patient's COVID-19 and Influenza testing was negative. Given patient's length of symptoms - will treat for atypical PNA / cough / URI. I explained my physical exam findings as well as all test results to the patient. I answered all questions asked by the patient. I stressed the importance of the patient taking her medication as directed (either prescribed or as the over the counter packaging recommends). I stressed the importance of the patient following up with her primary care provider. I stressed the importance of the patient returning to the emergency department immediately if her symptoms were to worsen or if she were to develop any dizziness, shortness of breath, difficulty breathing, chest pain, blurry vision, loss of vision, nausea, vomiting, abdominal pain, fever, chills, back pain, or any other complaints. Patient verbalized agreement and understanding with this treatment plan and discharge. Differential Diagnosis Differential Diagnoses: The differential diagnosis associated with the presentation includes URI PNA COVID-19 Influenza Cough Admission/Observation Consideration of admission/observation: Escalation of care including admission/observation considered Patient would have been admitted to the hospital had her work up had any findings where hospital admission was appropriate and her clinical presentation warranted hospital admission. Lab Data [facility] Lab Attestation statement: I reviewed the patient's lab results. My interpretation of these results are in the [facility] Rationale portion of this note. Labs: Lab Results 08/11/25 Range/Units 14:17 COVID-19 (ZACH) Negative (Negative) COVID-19 Clin Com See Note Influenza Type A (DAVID) Negative (Negative) Influenza Type B (DAVID) Negative (Negative) Influenza A & B Note See Note Independent Interpretation I performed an independent interpretation of an: Plain X-Ray Interpretation: My interpretation is in agreement with the radiologist's impression of this imaging study. Reason for Exam: cough CLINICAL HISTORY: cough 2 view chest x-ray Comparison: CR - XR CHEST 2V - 06/09/25 15:14 EDT Findings: No consolidation or effusion. Normal size heart. No acute fracture. IMPRESSION: 1. No acute findings. This document has been electronically signed by: Ken Richardson MD on 08/11/2025 14:35:18 Dictated By: Ken Richardson MD Signed By: Electronically signed by Ken Richardson MD 08/11/25 0346 Radiology Impression Discussion of test interpretation with radiology: I have reviewed the radiologist's reading. Prescription Management I considered prescription management with: Antibiotic (patient prescribed an antibiotic given her length of symptoms) Chronic Conditions Patient?s care impacted by: Diabetes Discharge Plan Discharge Clinical Impression: Cough Qualifiers: Cough type: subacute Qualified Code(s): R05.2 - Subacute cough Patient Disposition: Home, Self-Care Instructions: Acute Cough (ED) Additional Instructions: Your x-ray and swabs were negative however, given the length of your symptoms - we are going to treat with antibiotics. IF you are prescribed home medications and/or you are taking over the counter medications at home - it is very important you continue to do so as prescribed / directed unless told otherwise. Follow up with your primary care provider. Return to the emergency department immediately if your symptoms worsen or if you develop any numbness, tingling, dizziness, shortness of breath, difficulty breathing, chest pain, blurry vision, loss of vision, nausea, vomiting, abdominal pain, fever, chills, back pain, or any other complaints. Please see the information below about our Patient Portal. If you are not yet enrolled in the [facility] Patient Portal, you will receive an enrollment email invitation following your visit to any [facility] care setting. You may also self-enroll in the Patient Portal by visiting our website: [email or web address] The following information is required to access the Patient Portal: - Your [facility] Medical Record Number - Your personal home email address (must match what is in your electronic medical record, Registration staff can assist with this) - Name - Date of Capabilities of the Patient Portal: - Message some providers - View upcoming appointments - Access your health summary, medical history, and visit history - View current conditions and allergies - View procedure and lab results - View your medications, including guidelines, side effects, and precautions - Complete pre-appointment questionnaires requested by your provider - Ready summary reports of your office visits and procedures To access the Patient Portal Mobile Ehsan, follow these directions: - Search utoopia in the Ehsan Store or [employer] Store - Download the Ehsan - Search for [facility] - Enter your login/password Prescriptions: New doxycycline hyclate 100 mg tablet 100 mg PO BID 7 Days Qty: 14 0RF amoxicillin-pot clavulanate 875-125 mg tablet 1 tab PO BID 7 Days Qty: 14 0RF No Action senna 8.6 mg capsule 17.2 mg PO BEDTIME 30 Days Qty: 60 4RF albuterol sulfate [ProAir HFA] 90 mcg/actuation HFA aerosol inhaler 2 puff inhalation Q4-6H PRN (Reason: shortness of breath or wheezing) Qty: 6.7 0RF Toujeo Max U-300 SoloStar 300 unit/mL (3 mL) insulin pen 50 unit subcut BEDTIME amoxicillin-pot clavulanate 875-125 mg tablet 1 tab PO BID 7 Days Qty: 14 0RF azithromycin 250 mg tablet 250 mg PO DAILY 4 Days Qty: 4 0RF Rx Instructions: start on day 2 of therapy albuterol sulfate [Ventolin HFA] 90 mcg/actuation HFA aerosol inhaler 2 puff inhalation Q20M PRN (Reason: shortness of breath or wheezing) Qty: 6.7 0RF benzonatate 100 mg capsule 100 mg PO BID PRN (Reason: cough) Qty: 20 0RF gabapentin 100 mg capsule 100 mg PO TID lisinopril 10 mg tablet 10 mg PO DAILY atorvastatin 80 mg tablet 80 mg PO BEDTIME insulin aspart U-100 100 unit/mL (3 mL) insulin pen 26 unit subcut TID paroxetine HCl 20 mg tablet 20 mg PO QAM Referrals: Pipe Anderson MD [Primary Care Provider, Medical] Interventions: ED Discharge Assessment Last Done: 08/11/25 16:09 Discharge Date/Time: 08/11/25 16:10 Print Language: Belgian
--- OUTSIDE RECORDS SUMMARY | 2025-08-11 14:23 | XMS_ITS | Encounter Summary ---
Author Organization [employer] Address [address] [facility] [address] [place] [address] Care Team Providers Care Project Associate Name Role Phone Pipe Anderson MD Primary Care Provider [phone] Jayce Tristan PharmD Unavailable Unavail able Faviola Richard PharmD Unavailable [phone] Encounter Details Date Type Department Care Team ([facility] Contact Info) Description 05/14/2023 Abstract [facility] MED & PEDS [address] [place], [place] [id number] Pipe Anderson MD [address] [place] [address] Social History Tobacco Use Types Packs/Day Years [...] Author Blood Pressure < 140/90 Blood Pressure 136/74(2024 1:36 PM EDT) No Jayce Tristan, PharmD Hemoglobin A1c < 7 Result Component 13.3(07/12/20 2:11 PM EDT) No Jayce Tristan, PharmD documented as of this encounter Visit Diagnoses Not on filedocumented in this encounter Care Teams Project Associate Relationship Specialty Start Date End Date Pipe Anderson MD [address] [place] [address] PCP - General Internal Medicine 04/14/21 Jayce Tristan, PharmD [address] [place] [address] Pharmacist Internal Medicine 11/13/22 01/07/25 Faviola Richard PharmD [address] [place] [address] Pharmacist Internal Medicine 01/05/25 06/03/25 Beltran Iglesias End Touching Machine OperatorStage Setting Painter Apprentice 04/21/24 Marcos aHnks PeoplesoftStage Setting Painter Apprentice 07/06/24 documented as of this encounter
--- OUTSIDE RECORDS SUMMARY | 2025-08-11 14:23 | XMS_ITS | Encounter Summary ---
Author Organization [employer] Address [address] [place] [address] [address] [place] [address] Care Team Providers Care Jewelry Facer Name Role Phone Pipe Anderson MD Primary Care Provider [phone] Jayce Tristan PharmD Unavailable Unavail able Faviola Richard PharmD Unavailable [phone] Reason for Referral * Consultation (Routine) - Canceled Specialty Diagnoses / Procedures Referred By Contnidia t Referred To Contact Pharmacy Diagnoses Uncontrolled type 2 diabetes mellitus with hyperglycemia (CMS/HCC) Pipe Anderson MD [address] [place] [address] Phone: tel: fax: Referral ID Status Reason Start Date Expiration Date V isits Requested Visits Authorized [id number] Canceled Consult and Treat 12/26/2024 12/26/2025 6 6 Encounter Details Date Type Department Care Team (Late st Contact Info) Description 12/26/2024 Orders Only [facility] MED & PEDS [address] [place] [address] Pipe Anderson MD [address] [place] [address] Uncontrolled type 2 diabetes mellitus with hyperglycemia [...] documented as of this encounter Care Teams Jewelry Facer Relationship Specialty Start Date End Date Pipe Anderson MD [address] [place] [address] PCP - General Internal Medicine 04/14/21 Jayce Tristan PharmD [address] [place] [address] Pharmacist Internal Medicine 11/13/22 01/07/25 Faviola Richard PharmD [address] [place] [id number] Pharmacist Internal Medicine 01/05/25 06/03/25 Beltran Iglesias Credit AdjusterDietary Service Aide 04/21/24 Marcos Hanks Cow BuyerDietary Service Aide 07/06/24 documented as of this encounter
--- OUTSIDE RECORDS SUMMARY | 2025-08-11 14:23 | XMS_ITS | Encounter Summary ---
Author Organization [employer] Address [address] [facility] [address] [place] [address] Care Team Providers Care Amortization Clerk Name Role Phone Pipe Anderson MD Primary Care Provider [phone] Jayce Tristan PharmD Unavailable Unavail able Faviola Richard PharmD Unavailable [phone] Reason for Visit * Reason Comments Med Refill Encounter Details Date Type Department Care Team ([facility] Contact Info) Description 06/19/2024 Refill [facility] MED & PEDS [address] [place], [place] [phone] Pipe Anderson MD [address] [place] [address] Diabetic polyneuropathy associated with type 2 diabetes [...] polyneuropathy associated with type 2 diabetes mellitus ([facility]) documented in this encounter Care Teams Amortization Clerk Relationship Specialty Start Date End Date Pipe Anderson MD [address] [place] [address] PCP - General Internal Medicine 04/14/21 Jayce Tristan, PharmD [address] [place] [address] Pharmacist Internal Medicine 11/13/22 01/07/25 Faviola Richard PharmD [address] [place] [address] Pharmacist Internal Medicine 01/05/25 06/03/25 Beltran Iglesias Organ Pipe Maker MetalOil Developer 04/21/24 Marcos Hanks Neurology Physician AssistantOil Developer 07/06/24 documented as of this encounter
--- OUTSIDE RECORDS SUMMARY | 2025-08-11 14:23 | XMS_ITS | Encounter Summary ---
Author Organization [employer] Address [address] [facility] [address] [place] [address] Care Team Providers Care Refrigerator Room Clerk Name Role Phone Pipe Anderson MD Primary Care Provider [phone] Jayce Tristan PharmD Unavailable Unavail able Faviola Richard PharmD Unavailable [phone] Encounter Details Date Type Department Care Team ([facility] Contact Info) Description 07/28/2024 Orders Only [facility] MED & PEDS [address] [place], [place] [phone] Pipe Anderson MD [address] [place] [address] Uncontrolled type 2 diabetes mellitus with hyperglycemia [...] AM EDT documented as of this encounter Functional Status * Over the past 2 weeks, how often have you been bothered by any of the following problems? Question Answer Date of Assessment Author Patient Health Questionnaire-2 Score 2 07/01 4:22 PM EDT Kimmy Hernandez MA * If you checked off any problems on this questionnaire so far, Question Answer Date of Assessment Author How difficult have these problems made it for you to do your work, take care of things at home, or get along with other people? Somewhat difficult 07/28/2024 4:22 PM VIDALT Kimmy Hernandez MA * Over the past 2 weeks, how often have you been bothered by any of the following problems? Question Answer Date of Assessment Author Little interest or pleasure in doing things Several days 07/28/2024 4:22 PM Kimmy Velazquez MA Feeling down, depressed, or hopeless Several days 07/28/2024 4:22 PM VIDALT Kimmy Hernandez MA Trouble falling or staying asleep, or sleeping too much Nearly every day 07/28/2024 4:22 PM Kimmy Velazquez MA Feeling tired or having little energy Nearly every day 07/28/2024 4:22 PM Kimmy Velazquez MA Poor appetite or overeating Nearly every day 07/28/2024 4:22 PM VIDALT Kimmy Hernandez MA Feeling bad about yourself - or that you are a failure or have let yourself or your family down More than half the days 07/28/2024 4:22 PM EDT Kimmy Hernandez MA Trouble concentrating on things, such as reading the newspaper or watching television Not at all 07/28/2024 4:22 PM EDT Kimmy Hernandez MA Moving or speaking so slowly that other people could have noticed? Or the opposite - being so fidgety or restless that you have been moving around a lot more than usual. Several days 07/28/2024 4:22 PM EDT Kimmy Hernandez MA Thoughts that you would be better off or hurting yourself in some way Not at all 07/28/2024 4:22 PM EDT Kimmy Hernandez MA Patient Health Questionnaire-9 Score 14 07/28/2024 4:22 PM EDT Kimmy Hernandez M A documented as of this encounter Plan of [...] Uncontrolled type 2 diabetes mellitus with hyperglycemia (CMS/[facility])- Primary documented in this encounter Additional Health Concerns Assessment Noted Time PHQ-9 Depression Total Score: 14 024 4:22 PM EDT documented as of this encounter Care Teams Refrigerator Room Clerk Relationship Specialty Start Date End Date Pipe Anderson MD [address] [place] [address] PCP - General Internal Medicine 04/14/21 Jayce Tristan, PharmD [address] [place] [address] Pharmacist Internal Medicine 11/13/22 01/07/25 Faviola Richard PharmD [address] [place] [address] Pharmacist Internal Medicine 01/05/25 06/03/25 Beltran Iglesias Landscape ArtistMechanical Project Manager 04/21/24 Marcos Hanks Electronics RecyclerMechanical Project Manager 07/06/24 documented as of this encounter
--- OUTSIDE RECORDS SUMMARY | 2025-08-11 14:23 | XMS_ITS | Clinical Summary ---
Author Organization [employer] Address [address] [facility] [address] [place] [address] Care Team Providers Care Tank Washer Name Role Phone Pipe Anderson MD Primary Care Provider [phone] Allergies Active Allergy Reactions Criticality Noted Date Comments Shellfish Allergy Itching High 06/01/2024 Shrimp Extract Low 06/01/2024 Other Reaction(s): EYE ITCHING Medications * This document contains information received from the source organization and may not represent a complete record from that organization. Senna-Time 8.6 MG tablet TAKE 2 TABS BY MOUTH AT BEDTIME NEEDED CONSTIPATION 12/22/19 23 Active hydrocortisone 2.5 % creamIndications:C andidal intertrigo Apply topically 2 times daily. 28 g 01/04/20 23 Active Lancet Devices (Lancing Device) misc Use to check blood sugar daily as directed 1 each 04/16/20 23 Active Ventolin HFA 108 (90 Base) MCG/ACT inhaler INHALE 2 PUFFS EVERY 4 TO 6 HOURS NEEDED FOR SHORTNESS OF BREATH OR FOR WHEEZE 04/04/20 23 Active ibuprofen 600 MG tabletIndications: Chronic right shoulder pain Take 1 tablet (600 mg) by mouth every 6 (six) hours if needed for mild pain. 30 tablet 12/03/19 24 Active Elastic Bandages & Supports (Medical Compression Stockings) miscIndications:Ve nous insufficiency Knee high, 15-20 mm/Hg. 1 each 1 07/28/20 24 Active insulin glargine (Toujeo Max SoloStar) 300 UNIT/ML injectionIndicatio ns:Uncontrolled type 2 diabetes mellitus with hyperglycemia (CMS/HCC) INJECT 50 SUBCUTANEOUSLY AT BEDTIME 6 mL 11 09/15/20 24 Active Tirzepatide (Mounjaro) 2.5 MG/0.5ML solution auto-injectorIndic ations:Uncontrolle d type 2 diabetes mellitus with hyperglycemia (CMS/HCC) Inject 2.5 mg under the skin 1 (one) time per week. 2 mL 01/05/20 25 Active Continuous Glucose Sensor (FreeStyle José Manuel 3 Plus Sensor) miscIndications:Un controlled type 2 diabetes mellitus with hyperglycemia (CMS/HCC) 1 each every 15 days. 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 30 g 04/10/20 25 026 Active atorvastatin (Lipitor) 80 MG tablet TAKE ONE TABLET EVERY NIGHT AT BEDTIME 90 tablet 3 04/12/20 25 Active Alcohol Swabs (Alcohol Prep) 70 % pads USE DIRECTED TO INJECT insulin AND check BLOOD SUGAR UP TO FOUR TIMES DAILY 100 each 11 05/09/20 25 Active gabapentin (Neurontin) 100 MG capsuleIndications :Diabetic polyneuropathy associated with type 2 diabetes mellitus (CMS/HCC) TAKE ONE CAPSULE TWICE DAILY IN THE MORNING AND AT BEDTIME 60 capsule 1 05/11/20 25 Active insulin aspart (NovoLOG FLEXPEN) 100 UNIT/ML penIndications:Unc ontrolled type 2 diabetes mellitus with hyperglycemia (CMS/HCC) INJECT 20 UNITS subcutaneously BEFORE BREAKFAST, 10 UNITS BEFORE LUNCH AND 20 UNITS BEFORE SUPPER DIRECTED 15 mL 2 06/05/20 25 Active lisinopril 10 MG tablet TAKE ONE TABLET EVERY MORNING 90 tablet 3 06/13/20 25 Active triamcinolone (Kenalog) 0.1 % cream Apply topically Once per day. Mix with cerave or moisturizing cream and apply to affected area daily prn pruritus 80 g 06/23/20 25 Active Emollient (CeraVe Moisturizing) cream Mix with triamcinolone cream and apply to affected area daily 340 g 06/23/20 25 Active Blood Glucose Monitoring Suppl (FreeStyle Brooklyn Lite) w/Device kit Use to test blood sugar 3x times daily 1 kit 06/23/20 25 Active azithromycin (Zithromax) 250 MG tablet Take 250 mg by mouth. 06/01/20 25 Active benzonatate (Tessalon) 100 MG capsule Take 100 mg by mouth. 06/01/20 25 Active Easy Touch Lancets 33G/Twist miscIndications:Ty pe 2 diabetes mellitus with hyperglycemia, without long-term current use of insulin (CMS/HCC) USE TO TEST BLOOD SUGAR THREE TIMES DAILY 100 each 07/12/20 25 Active glucose blood (FreeStyle Precision Chet Test) test stripIndications:U ncontrolled type 2 diabetes mellitus with hyperglycemia (CMS/HCC),Type 2 diabetes mellitus with hyperglycemia, without long-term current use of insulin (CMS/HCC) Test blood sugar up to 3 times daily as directed 100 each 07/12/20 25 026 Active FREESTYLE LITE test stripIndications:U ncontrolled type 2 diabetes mellitus with hyperglycemia (CMS/HCC) Use to test blood sugar 2 times daily 100 each 07/12/20 25 026 Active Alcohol Swabs 70 % padsIndications:Un controlled type 2 diabetes mellitus with hyperglycemia (CMS/HCC) Use to test blood sugar 2 times daily 100 each 07/12/20 25 Active Blood Glucose Monitoring Suppl (FreeStyle Brooklyn Lite) w/Device kitIndications:Unc ontrolled type 2 diabetes mellitus with hyperglycemia (CMS/HCC) Use to test blood sugar 2 times daily 1 kit 07/12/20 25 Active gabapentin (Neurontin) 100 MG capsuleIndications :Diabetic polyneuropathy associated with type 2 diabetes mellitus (CMS/HCC) Take 2 capsules (200 mg) by mouth every 8 (eight) hours. 180 capsule 07/12/20 25 026 Active Active Problems Problem Noted Date Diagnosed Date Cellulitis of left leg 06/23/2025 Assessment & Plan (06/23/2025 11:11 AM EDT): Unclear if related to venous insufficiency or DVT? Order DVT ultrasound and labs this week, advised patient to go to ED if swelling increases despite below POC. Start Augmentin twice daily x 10 days Apply triamcinolone cream mixed with CeraVe on affected area to decrease pruritus and follow-up with PCP for further evaluation once she completes antibiotics. Irritable bowel syndrome with diarrhea Upper respiratory [...] diabetes mellitus with hyper glycemia 08/18/2012 Encounters * This document contains information received from the source organization and may not represent a complete record from that organization. Date Type Department Care Team Description 07/12/2025 1:45 PM EDT Office Visit [facility] [address] [place] [address] Pipe Anderson MD Uncontrolled type 2 diabetes mellitus with hyperglycemia (CMS/HCC) (Primary Dx); Cellulitis of left leg; Gastroesophageal reflux disease without esophagitis; Primary hypertension; Type 2 diabetes mellitus with hyperglycemia, without long-term current use of insulin (CMS/HCC); Edema of left lower leg; Diabetic polyneuropathy associated with type 2 diabetes mellitus (CMS/HCC) 07/12/2025 Travel 06/26/2025 Results Follow-Up [facility] [address] [place] [address] Pipe Anderson MD Lower Extremity Venous Duplex 06/23/2025 10:20 AM EDT Office Visit [facility] [address] [place] [address] Teresa Schuler MD Cellulitis of left leg (Primary Dx); Edema of left lower leg 06/23/2025 Travel 06/19/2025 Telephone [facility] [address] [place] [address] Pipe Anderson MD ER Follow-up 06/11/2025 1:30 PM EDT Office Visit [facility] [address] [place], [place] [phone] Julieta Issa, OD Type 2 diabetes mellitus without ophthalmic manifestations ([facility]/HCC) (Primary Dx); Lattice degeneration of right retina; Dry eyes, bilateral; Mixed type age-related cataract, both eyes; Presbyopia 06/11/2025 Travel 06/11/2025 Refill [facility] [address] [place] [address] Pipe Anderson MD 06/09/2025 Orders Only GENERIC EXTERNAL DATA DEPARTMENT Provider, Generic External Data 06/01/2025 Orders Only GENERIC EXTERNAL DATA DEPARTMENT Provider, Generic External Data 06/01/2025 Refill [facility] [address] [place] [address] Pipe Anderson MD Uncontrolled type 2 diabetes mellitus with hyperglycemia (CMS/HCC) 05/21/2025 Telephone [facility] [address] [place] [address] Pipe Anderson MD Care Coordination 05/11/2025 Refill [facility] [address] [place] [address] Pipe Anderson MD Diabetic polyneuropathy associated with type 2 diabetes mellitus ([facility]/HCC) from Last 3 Months Immunizations Immunization Administration Dates Next Due Hep B, adult [...] Packs/Day Years Used Date Smoking Tobacco: Former Passive Smoke Exposure: Past Smokeless Tobacco: Never Tobacco Cessation:Counseling Given: Not Answered Depression Answer Date Recorded Patient Health Questionnaire-9 Score 4 07/12/2025 Patient Health Questionnaire-9 Score 4 07/12/2025 Last PHQ-9: Questionnaire Data Not on file 0 07/12/2025 Housing Stability Answer Date Recorded What is your housing situation today? I have mann andrews 04/03/[address] you li ve. Do you have problems with any of the following? None of the above 04/03/2025 Food Insecurity Answer Date Recorded Within the past 12 months, y ou worried that your food would run out before you got money to buy more: Never True 04/03/2025 Within the past 12 months,th e food you bought just didn't last and you didn't have enough money to get more: Never True 04/2025 Transportation Answer Date Recorded In the past 12 months, has l ack of transportation kept you from medical appts, meetings, work or from getting things needed for daily living? No 04/03/2025 Utilities Answer Date Recorded In the past 12 months, has t he electric, gas, oil or water company threatened to shut off services in your home? No 04/03/2025 Depression Answer Date Recorded Patient Health Questionnaire-2 Score 2 07/12/2025 Internet Access Answer Date Recorded Internet Access Q1 Yes 04/03/2025 Internet Access Q2 Not on file 04/03/2025 Comments No Sex and Gender Information Value Date Recorded Sex Assigned at Female 09/28/2022 10:16 AM EDT Legal Sex Female 10:16 AM EDT Gender Identity Female 09/28/2022 10:16 AM EDT Sexual Orientation Straight 09/28/2022 10 :16 AM EDT Last Filed Vital Signs Vital Sign Reading Time Taken Comments Blood Pressure 136/74 07/12/2025 1:36 PM EDT Pulse 80 07/12/2025 1:36 PM EDT Temperature 36.9 C (98.5 F) 07/12/2025 1:36 PM EDT Respiratory Rate 20 07/12/2025 1:36 PM EDT Oxygen Saturation 98% 07/12/2025 1:36 PM EDT Inhaled Oxygen Concentration - - Weight 91.3 kg (201 lb 3.2 oz) 07/12/2025 1:36 P M EDT Height 160 cm (5' 3 ) 07/12/2025 1:36 PM EDT Body Mass Index 35.64 07/12/2025 1:36 PM EDT Plan of Treatment Health Maintenance Due Date Last Done Comments CT Colonography 1970 FIT DNA/Cologuard 1970 FIT 1970 FOBT 1970 HIV Screening 1970 Sigmoidoscopy 1970 COVID-19 Vaccine ( season) 2025 10/05/2022, 04/28/2022, 03/30/2022 Influenza Vaccine (#1) 2025 , 08/26/2023, 11/04/2022, Additional history exists Diabetes: Hemoglobin A1C 10/12/2025 025, 04/10/2025, 01/05/2025, Additional history exists Diabetes: Urine Protein Screening 01/05/2026 01/05/2025, 06/04/2021 Lipid Panel 01/05/2026 01/05/2025, 09/30, 09/19/2021, Additional history exists Pap Smear 03/02/2026 03/02/2023, 02/23/2018 SDOH Screening 04/03/2026 04/03/2025 Diabetes: Foot Exam 04/10/2026 04/10/2025 Tobacco Screening 06/27/2026 06/27/2025 Alcohol/Substance Use Screening 07/12/2026 07/12/2025 Depression Screening 07/12/2026 07/12/2025, 07/12/20 25 Disability Screening 07/12/2026 07/12/2025 Mammogram 11/30/2026 11/30/2024, 09/29, 08/18/2022, Additional history exists Eye Exam 06/11/2027 06/11/2025, 05/29, 06/11/2025, Additional history exists Cervical Cancer Screening 03/02/2028 HPV/Cotest 03/02/2028 03/02/2023, 02/23/2018 Colonoscopy 11/09/2029 11/09/2019 Colorectal Cancer Screening 11/09/2029 DTaP/Tdap/Td Vaccines (3 - Td or Tdap) 01/05/2035 01/05/2025, 01/10/2013, 05/22/2002 RSV Patients and Patients Aged 60 years or older (1 - 1-dose 75+ series) 2045 Hepatitis B Vaccines Completed 03/11/2015, 12/03/2014, 03/13/2008 Pneumococcal Vaccine: 50+ Years Completed 09/03/2022, 05/17/2003 Zoster Vaccines Completed 11/05/2022, 09/03/2022 Hepatitis C Screening Completed 06/26/2025 HIB Vaccines Aged Out No longer eligi [...] patient's age to complete this topic Meningococcal B Vaccine Aged Out No l onger eligible based on patient's age to complete [...] Result Component 13.3(07/12/20 2:11 PM EDT) No Dellogono, Jayce, PharmD Procedures Procedure Name Priority Date/Time Associated Diagnosis Comments POCT GLYCATED HEMOGLOBIN, TOTAL Routine 07/12/2025 2:11 PM EDT Uncontrolled type 2 diabetes mellitus with hyperglycemia (CMS/HCC) POCT GLUCOSE Routine 07/12/2025 2:11 PM EDT Uncontrolled type 2 diabetes mellitus with hyperglycemia (CMS/HCC) CBC WITH AUTO DIFFERENTIAL Routine 06/26/2025 2:04 PM EDT Cellulitis of left leg SED RATE BY MODIFIED WESTERGREN Routine 06/26/2025 2:04 PM EDT Cellulitis of left leg HEPATITIS C AB W/REFL TO HCV RNA, QN, PCR Routine 06/26/2025 2:04 PM EDT Transaminitis Elevated liver enzymes LOWER EXTREMITY VENOUS DUPLEX LEFT Urgent 06/26/2025 1:51 PM EDT Edema of left lower leg GLUCOSE, WHOLE BLOOD Routine 06/09/2025 6:03 PM EDT XR CHEST 2 VIEWS Routine 06/09/2025 4:21 PM EDT LOWER EXTREMITY VENOUS DUPLEX LEFT Routine 06/09/2025 4:19 PM EDT B TYPE NATRIURETIC PEPTIDE (BNP) Routine 06/09/2025 2:57 PM EDT COMPREHENSIVE METABOLIC PANEL, FASTING Routine 06/09/2025 2:56 PM EDT HIGH SENSITIVITY TROPONIN I Routine 06/09/2025 2:56 PM EDT D DIMER HIGH SENSITIVITY Routine 06/09/2025 2:56 PM EDT CBC WITH AUTO DIFFERENTIAL Routine 06/09/2025 2:56 PM EDT GLUCOSE, WHOLE BLOOD Routine 06/01/2025 5:00 PM EDT XR CHEST 2 VIEWS Routine 06/01/2025 3:42 PM EDT B TYPE NATRIURETIC PEPTIDE (BNP) Routine 06/01/2025 3:12 PM EDT MAGNESIUM Routine 06/01/2025 3:12 PM EDT BASIC METABOLIC PANEL Routine 06/01/2025 3:12 PM EDT HEPATIC FUNCTION PANEL Routine 06/01/2025 3:12 PM EDT HIGH SENSITIVITY TROPONIN I Routine 06/01/2025 3:12 PM EDT SARS COV2/INFLUENZA A/B AND RSV RNA QL NAAT Routine 06/01/2025 3:12 PM EDT CBC WITH AUTO DIFFERENTIAL Routine 06/01/2025 3:11 PM EDT GLUCOSE, WHOLE BLOOD Routine 06/01/2025 3:11 PM EDT ALBUMIN, RANDOM URINE W/CREATININE Routine 01/05/2025 2:20 PM EST LIPID PANEL, STANDARD Routine 01/05/2025 2:15 PM EST BI MAMMOGRAM SCREENING TOMOSYNTHESIS BILATERAL Routine 11/30/2024 1:50 PM EST IMAGE-GUIDED PAP W/AGE BASED SCR PROTOCOLS Routine 03/02/2023 2:16 PM EDT Cervical cancer screening COLONOSCOPY Routine 11/09/2019 from Last 3 Months or Most Recently Relevant to Health Maintenance Results * (ABNORMAL) POCT HGB A1C (07/12/2025 2:11 PM EDT) Hemoglobin A1C 13.3(A) 4.0 - 5.7 % QC Media Lot # [id number] Lot# Expiration Date [id number] Blood 07/12/2025 2:11 PM EDT Pipe Anderson MD POINT OF CARE TEST ENTER/ED IT ORDERABLES Final Result * (ABNORMAL) POCT Glucose (07/12/2025 2:11 PM EDT) Pathologist [facility] Glucose Blood, POC 313(A) 60 - 200 mg/dL QC Media Lot # [id number] Lot# Expiration Date [id number] Blood Capillary blood specimen / Unknown 07/12/2025 2:11 PM EDT Pipe Anderson MD POINT OF CARE TEST ENTER/ED IT ORDERABLES Final Result * (ABNORMAL) CBC auto differential (06/26/2025 2:04 PM EDT) Only the most recent of3 resultswithin the time period is included. [facility] White Blood Count 4.2(L) 4.8 - 10.8 X10*3/uL [facility] Red Blood Count 5.02 4.20 - 5.50 X10*6/uL [facility] Hemoglobin 13.7 12.0 - 16.0 g/dl [facility] Hematocrit 41.9 37.0 - 47.0 % [facility] Mean Corpuscular Volume 83.5 80.0 - 98.0 fL [facility] Mean Corpuscular Hemoglobin 27.3 27.0 - 33.0 pg [facility] Mean Corpuscular HGB Conc 32.7 31.0 - 35.0 g/dl [facility] Red Cell Distribution Width 13.7 11.0 - 16.0 % [facility] Platelet Count 251 160 - 400 X10*3/uL [facility] Mean Platelet Volume 11.1 9.4 - 12.3 fL [facility] Neutrophils Percent Auto 53.2 45 - 73 % [facility] Imm Gran Pct Auto 0.2 0.0 - 0.4 % [facility] Lymphocytes Percent Auto 33.6 20 - 40 % [facility] Monocytes Percent Auto 8.2 2 - 11 % [facility] Eosinophils Percent Auto 3.6 0 - 4 % [facility] Basophils Percent Auto 1.2 0 - 2 % [facility] NRBC Pct Auto 0.0 0.0 - 0.2 /100WBC [facility] Neutrophils Absolute Auto 2.2 2.0 - 8.3 x10*3/uL [facility] Imm Gran Abs Auto 0.01 0.00 - 0.03 X10*3/uL [facility] Lymphocytes Absolute Auto 1.4 1.2 - 4.9 X10*3/uL [facility] Monocytes Absolute Auto 0.3 0.1 - 1.2 X10*3/uL [facility] Eosinophils Absolute Auto 0.2 0.0 - 0.4 X10*3/uL [facility] Basophils Absolute Auto 0.1 0.0 - 0.2 X10*3/uL [facility] NRBC Abs Auto 0.000 0.0 - 0.012 X10*3/uL [facility] Blood Venous blood specimen / Unknown 06/26/2025 2:04 PM EDT 06/26/2025 4:14 PM EDT us Teresa Schuler MD LAB BLOOD ORDERABLES Fin al Result [facility] [address] [place] [phone] * Hepatitis C Antibody with Reflex to HCV, RNA, Quantitative, Real-Time PCR (06/26/2025 2:04 PM EDT) Hepatitis C Antibody Nonreactive Nonreactive [facility] Comment:Antibodies to HCV no t detected; does not exclude early acuteHCV infection. Blood Venous blood specimen / Unknown 06/26/2025 2:04 PM EDT 06/26/2025 4:17 PM EDT us Pipe Anderson MD LAB BLOOD ORDERABLES Final Result Performing Organization Address [facility] Co de Phone Number [facility] [address] [place] [phone] * Sed Rate by Modified Westergren (06/26/2025 2:04 PM EDT) Erythrocyte Sedimentation Rate 16 0 - 20 MM/HR [facility] Comment:Patients with polycy themia and many hemoglobin abnormalitiesmay have depressed sed rates whereas patients with anemiamay have elevated sed rates. Blood Venous blood specimen / Unknown 06/26/2025 2:04 PM EDT 06/26/2025 4:14 PM EDT Teresa Schuler MD LAB BLOOD ORDERABLES Fin al Result Performing Organization Address [facility] Co de Phone Number [facility] [address] [place] [phone] * Lower Extremity Venous Duplex (06/26/2025 1:51 PM EDT) Only the most recent of2 resultswithin the time period is included. 06/26/2025 1:51 PM EDT Narrative [facility] - 06/26/2025 2:12 PM EDT [facility] [place] [address] Ultrasound Report Signed Patient: Brittany Hernandez R#: [id number] : 1970 Acct:[id number] Age/Sex: 54 / F ADM Date: 06/26/25 Loc: HO.HMGCX Attending Dr: Teresa Schuler MD Ordering Physician: Teresa Schuler MD Date of Service: 06/26/25 Procedure(s): US venous duplex LE Accession Number(s): [id number] cc: Pipe Anderson MD; Teresa Schuler MD EXAMINATION: US LOWER EXTREMITY VEINS LIMITED FOLLOW UP LEFT HISTORY: left leg edema. r/o DVT COMPARISON: Comparison is made with the prior examination dated 06/09/2025. TECHNIQUE: Duplex and color Doppler sonographic examination of the deep venous system of the left lower extremity was performed. FINDINGS: The common femoral, superficial femoral, and popliteal veins are patent demonstrating normal compressibility, spontaneous flow, and augmentation. There is a normal color and spectral Doppler waveform appearance of the visualized deep venous system above the knee. The posterior tibial and peroneal veins are patent. US/US venous duplex LE LT IMPRESSION: No evidence of acute DVT in the left lower extremity. Electronically signed by: Simba Parr MD 06/26/2025 02:09 PM EDT RP Dictated By: Simba Parr MD Signed By: <Electronically signed by Simba Parr MD in OV> 06/26/25 1409 DD/ 1351 TD/TT: 06/26/25 1359 Electro Plater: Procedure Note Donotuseinterpreter, Image - 06/26/2025 [facility] [address] [place] [address] [place] [address] Ultrasound Report Signed Patient: Randy Hernandez#: [id number] : 1970Acct:[id number] Age/Sex: 54 / FADM Date: 06/26/25 Loc: HO.HMGCX Attending Dr: Teresa Schuler MD Ordering Physician: Teresa Schuler MD Date of Service: 06/26/25 Procedure(s): US venous duplex LE LT Accession Number(s): [id number] cc: Pipe Anderson MD; Teresa Schuler MD EXAMINATION: US LOWER EXTREMITY VEINS LIMITED FOLLOW UP LEFT HISTORY: left leg edema. r/o DVT COMPARISON: Comparison is made with the prior examination dated 06/09/2025. TECHNIQUE: Duplex and color Doppler sonographic examination of the deep venous system of the left lower extremity was performed. FINDINGS: The common femoral, superficial femoral, and popliteal veins are patent demonstrating normal compressibility, spontaneous flow, and augmentation. There is a normal color and spectral Doppler waveform appearance of the visualized deep venous system above the knee. The posterior tibial and peroneal veins are patent. US/US venous duplex LE LT IMPRESSION: No evidence of acute DVT in the left lower extremity. Electronically signed by: Simba Parr MD 06/26/2025 02:09 PM EDT RP Dictated By: Simba Parr MD Signed By: <Electronically signed by Simba Parr MD in OV> 06/26/25 1409 DD/ 1351 TD/TT: 06/26/25 1359 Electro Plater: us Teresa Schuler MD CV VASCULAR PROCEDURES F inal Result Performing Organization Address [facility] Co de Phone Number [facility] [address] [place] [phone] * (ABNORMAL) Glucose, Whole Blood (06/09/2025 6:03 PM EDT) Only the most recent of3 resultswithin the time period is included. Glucose, Whole Blood 267(H) 60 - 115 mg/dL [facility] Comment:METER #: [id number] 06/09/2025 6:03 PM EDT 06/09/2025 6:08 PM EDT us Generic External Data Provider LAB BLOOD ORDERAB LES Final Result Performing Organization Address [facility] Co de Phone Number [facility] [address] [place] [phone] * XR Chest 2 Views (06/09/2025 4:21 PM EDT) Only the most recent of2 resultswithin the time period is included. Anatomical Region Laterality Modality Chest Radiographic Edna ging 06/09/2025 4:21 PM EDT Narrative 06/09/2025 4:22 PM EDT [address] [address] XRay Report Signed Patient: Brittany Hernandez R#: [id number] : 1970 Acct:[id number] Age/Sex: 54 / F ADM Date: 06/09/25 Loc: HO.ED Attending Dr: Ordering Physician: Yaneth Cerna PA-C Date of Service: 06/09/25 Procedure(s): XR chest 2V Accession Number(s): [id number] cc: Pipe Anderson MD; Yaneth Cerna PA-C CLINICAL HISTORY: sob, known pna on 7 4 2 view chest x-ray Comparison: CR/SR - XR CHEST 1V - 03/09/23 11:53 EDT Findings: Mild stranding in the left base. No consolidation, pleural effusion or pneumothorax. Normal size heart. No acute fracture. IMPRESSION: Mild left basilar atelectasis and/or scarring, otherwise no acute cardiopulmonary process. This document has been electronically signed by: Demetra Andre DO on 06/09/2025 16:21:27 Dictated By: Demetra Andre MD Signed By: <Electronically signed by Demetra nAdre MD in OV> 06/09/25 1622 DD/ 1621 TD/TT: 06/09/25 1621 Electro Plater: Procedure Note Donotuseinterpreter, Image - 06/09/[address] [address] XRay Report Signed Patient: Randy Hernandez R#: [id number] : 1970Acct:[id number] Age/Sex: 54 / FADM Date: 06/09/25 Loc: HO.ED Attending Dr: Ordering Physician: Yaneth Ceran PA-C Date of Service: 06/09/25 Procedure(s): XR chest 2V Accession Number(s): [id number] cc: Pipe Anderson MD; Yaneth Cerna PA-C CLINICAL HISTORY: sob, known pna on 7 4 2 view chest x-ray Comparison: CR/SR - XR CHEST 1V - 03/09/23 11:53 EDT Findings: Mild stranding in the left base. No consolidation, pleural effusion or pneumothorax. Normal size heart. No acute fracture. IMPRESSION: Mild left basilar atelectasis and/or scarring, otherwise no acute cardiopulmonary process. This document has been electronically signed by: Demetra Andre DO on 06/09/2025 16:21:27 Dictated By: Demetra Andre MD Signed By: <Electronically signed by Demetra Andre MD in OV> 06/09/251621 DD/ 162 TD/TT: 06/09/251620 Electro Plater: [facility] External Provider IMG XR PROCEDURES Edited Result - Final * B Type Natriuretic Peptide (BNP) (06/09/2025 2:57 PM EDT) Only the most recent of2 resultswithin the time period is included. B Type Natriuretic Peptide <10 <100 pg/mL [facility] 06/09/2025 2:57 PM EDT 06/09/2025 3:00 PM EDT Generic External Data Provider LAB BLOOD ORDERAB LES Final Result [facility] [address] [place] [phone] * (ABNORMAL) Comprehensive Metabolic Panel, Fasting (06/09/2025 2:56 PM EDT) Sodium 136 135 - 145 mmol/L [facility] Potassium 4.0 3.3 - 5.1 mmol/L [facility] Chloride 100 96 - 108 mmol/L [facility] Carbon Dioxide 28 22 - 29 mmol/L [facility] Anion Gap 12 12 - 20 [facility] Urea Nitrogen (BUN) 12 9 - 16 mg/dL [facility] Creatinine, Serum 0.69 0.5 - 1.4 mg/dL [facility] Creatinine Clr Calc Pharmacy 103.7 [facility] Comment:Provided height and weight: 165.1 cm,90.8 kg.eGFR (calculated from the MDRD study equation) and eCrCl(calculated from the Cockcroft-Gault equation) are based ondifferent parameters and may not yield comparable results.If eCrCl result is absurd, please check patient'sheight/weight. Estimated Glomerular Filt Rate >60 [facility] Comment:Chronic Kidney Disea se: Estimated GFR < 60 mL/min/1.77u8Lnplpl Kidney Disease: Estimated GFR < 15 mL/min/1.73m2 Glucose Fasting 391(HH) 60 - 99 mg/dL [facility] Comment:Critical value for t est(s): FBS Results called to and readback by: DR. MCCRARY Person calling: NGUYENQ Date:06/09/25 Time: 0643T fasting glucose of 126 mg/dl or greater on more than oneoccasion is considered diagnostic of diabetes. Calcium 9.7 8.4 - 10.2 mg/dL [facility] Bilirubin, Total 0.3 0.0 - 1.0 mg/dL [facility] Aspartate Amino Transferase 23 5 - 31 U/L [facility] Alanine Aminotransferase 39(H) 0 - 31 U/L [facility] Total Protein 7.4 6.5 - 8.0 g/dL [facility] Albumin Level 4.3 3.5 - 5.0 g/dL [facility] Alkaline Phosphatase 96 39 - 117 U/L [facility] 06/09/2025 2:56 PM EDT 06/09/2025 3:00 PM EDT us Generic External Data Provider LAB BLOOD ORDERAB LES Final Result [facility] [address] [place] [phone] * D Dimer High Sensitivity (06/09/2025 2:56 PM EDT) [facility] D Dimer High Sensitivity <150 NG/ML [facility] Comment:D-DIMER HS REFERENCE RANGENote: Our assay reports D-Dimer Units (D- DU).The cut-off value for venous thromboembolic (VTE) disease is230 ng/mL. This value has a very high negative predictivevalue when the patient has a low to moderate clinicalprobability of VTE.The upper limit of normal is 243 ng/mL. 06/09/2025 2:56 PM EDT 06/09/2025 3:00 PM EDT Generic External Data Provider LAB BLOOD ORDERAB LES Final Result Performing Organization Address [facility] Co de Phone Number [facility] [address] [place] [phone] * High Sensitivity Troponin I (06/09/2025 2:56 PM EDT) Only the most recent of2 resultswithin the time period is included. [facility] TROPONIN I HIGH SENSITIVITY <2.7 <3.5 - 17.0 ng/L [facility] Comment:The Kim high sens itivity Troponin-I results should beused in conjunction with other diagnostic information suchas ECG, clinical observations and information, and patientsymptoms to aid in the diagnosis of [place]. 06/09/2025 2:56 PM EDT 06/09/2025 3:00 PM EDT Generic External Data Provider LAB BLOOD ORDERAB LES Final Result Performing Organization Address [facility]/ZIP Co de Phone Number [facility] [address] [place] [phone] * SARS-CoV-2 RNA, Influenza A/B, and RSV RNA, Ql NAAT (06/01/2025 3:12 PM EDT) [facility] Influenza A PCR NEGATIVE Negative [facility] Influenza B PCR NEGATIVE Negative [facility] Resp Syncy Virus RNA Qual PCR NEGATIVE Negative [facility] SARS COV2 PCR NEGATIVE Negative [facility] Comment:All test results mus t be correlated with clinical findings.Negative results do not preclude SARS-CoV2, influenza Avirus, influenza B virus and/or RSV infectionand should not be used as the sole basis for treatment orother patient management decisions. Negative results must becombined with clinical observations, patient history, andepidemiological information.This test has not been evaluated for monitoring treatment ofinfection.This test has been authorized by the FDA under an EmergencyUse Authorization (EUA) for use by authorized laboratories.Testing performed on the Your[employer]MD GeneXpert utilizingreal-time RT-PCR.All SARS CoV2 and positive influenza A/B results arereported to [facility]. 06/01/2025 3:12 PM EDT 06/01/2025 3:25 PM EDT Generic External Data Provider LAB MICROBIOLOGY - GENERAL ORDERABLES Final Result Performing Organization Address [facility]/ZIP Co de Phone Number [facility] [address] [place] [phone] * (ABNORMAL) Magnesium (06/01/2025 3:12 PM EDT) Pathologist [facility] Magnesium 1.5(L) 1.6 - 2.6 mg/dL [facility] 06/01/2025 3:12 PM EDT 06/01/2025 3:25 PM EDT Generic External Data Provider LAB BLOOD ORDERAB LES Final Result Performing Organization Address [facility] Co de Phone Number [facility] [address] [place] [phone] * (ABNORMAL) Hepatic Function Panel (06/01/2025 3:12 PM EDT) Bilirubin, Total 0.3 0.0 - 1.0 mg/dL [facility] Bilirubin, Direct 0.1 0.0 - 0.5 mg/dL [facility] Aspartate Amino Transferase 24 5 - 31 U/L [facility] Alanine Aminotransferase 40(H) 0 - 31 U/L [facility] Total Protein 7.4 6.5 - 8.0 g/dL [facility] Albumin Level 4.3 3.5 - 5.0 g/dL [facility] Alkaline Phosphatase 104 39 - 117 U/L [facility] 06/01/2025 3:12 PM EDT 06/01/2025 3:25 PM EDT us Generic External Data Provider LAB BLOOD ORDERAB LES Final Result [facility] [address] [place], [place] [phone] * (ABNORMAL) Basic Metabolic Panel (06/01/2025 3:12 PM EDT) Sodium 138 135 - 145 mmol/L [facility] Potassium 3.5 3.3 - 5.1 mmol/L [facility] Chloride 101 96 - 108 mmol/L [facility] Carbon Dioxide 26 22 - 29 mmol/L [facility] Anion Gap 15 12 - 20 [facility] Urea Nitrogen (BUN) 12 9 - 16 mg/dL [facility] Creatinine, Serum 0.66 0.5 - 1.4 mg/dL [facility] Creatinine Clr Calc Pharmacy 106.8 [facility] Comment:Provided height and weight: 162.56 cm,91.6 kg.eGFR (calculated from the MDRD study equation) and eCrCl(calculated from the Cockcroft-Gault equation) are based ondifferent parameters and may not yield comparable results.If eCrCl result is absurd, please check patient'sheight/weight. Estimated Glomerular Filt Rate >60 [facility] Comment:Chronic Kidney Disea se: Estimated GFR < 60 mL/min/1.73a3Lhtrsi Kidney Disease: Estimated GFR < 15 mL/min/1.73m2 Glucose 423(HH) 60 - 115 mg/dL [facility] Comment:Critical value for t est(s): GLUR Results called to and readback by: MONTIEL Person calling: VICKYMARK Date: 06/01/25 Time: 1601 Calcium 9.4 8.4 - 10.2 mg/dL [facility] 06/01/2025 3:12 PM EDT 06/01/2025 3:25 PM EDT us Generic External Data Provider LAB BLOOD ORDERAB LES Final Result Performing Organization Address [facility] Co de Phone Number [facility] [address] [place] [address] [phone] * Albumin, Random Urine W/Creatinine (01/05/2025 2:20 PM EST) Creatinine, Urine 72.11 mg/dL [facility] Microalbumin Urine 14.0 mg/L [facility] Microalbum Creatinine Ratio Ur 19.4 <30 ug/mg cr [facility] Comment:Albumin/Creatinine R atio Reference Ranges: Normal: < 30 ug/mg creatinine Microalbuminuria: 30 - 300 ug/mg creatinineClinical Albuminuria: > 300 ug/mg creatinine 01/05/2025 2:20 PM EST 01/05/2025 5:52 PM EST us Pipe Anderson MD LAB URINE ORDERABLES Final Result Performing Organization Address [facility] Co de Phone Number [facility] [address] [place] [phone] * (ABNORMAL) Lipid Panel, Standard (01/05/2025 2:15 PM EST) Triglycerides 158(H) <150 mg/dL [facility] Comment:Desirable Triglyceri de: less than 150 mg/dLBorderline High Triglyceride 150-199 mg/dLHigh Triglyceride: 200-499 mg/dLVery High Triglyceride: greater than or equal to 5OO mg/dL Cholesterol 156 <200 mg/dL [facility] Comment:Desirable Cholestero l: less than 200 mg/dLBorderline High Cholesterol: 200-239 mg/dLHigh Cholesterol: greater than 239 mg/dL LDL Cholesterol Calculated 82 <100 mg/dL [facility] Comment:Desirable LDL: less than 100 mg/dLNear Optimal/Above Optimal LDL: 110- 129 mg/dLBorderline High LDL: 130-159 mg/dLHigh LDL: 160-189 mg/dLVery High LDL: greater than or equal to 190 mg/dL HDL Cholesterol 43 >40 mg/dL [facility] Comment:Desirable HDL: great er than 40 mg/dL Note: This HDL assay may give artificially low results in patients with liver disease. 01/05/2025 2:15 PM EST 01/05/2025 5:50 PM EST Pipe Anderson MD LAB BLOOD ORDERABLES Final Result [facility] [address] [place] [phone] * BI Mammogram Screening Tomosynthesis Bilateral (11/30/2024 1:50 PM EST) Anatomical Region Laterality Modality Breast Bilateral Mammography 11/30/2024 1:50 PM EST Narrative 12/10/2024 6:59 AM EST [facility] [address] [place] [address] Mammography Report Signed with Addenda Patient: Brittany Hernandez R#: [id number] : 1970 Acct:[id number] Age/Sex: 54 / F ADM Date: 11/30/24 Loc: HO.MAMMO Attending Dr: Pipe Anderosn MD Ordering Physician: Pipe Anderson MD Results: 1 Negative Date of Service: 11/30/24 Follow Up: 1 Year From Orig ina Mammogram Procedure(s): MM tomosynthesis screening BI Accession Number(s): [id number] cc: Pipe Anderson MD ADDENDUM ADDENDUM #1 ADDENDUM: The current mammogram has been reviewed and remains BI-RADS as follows OVERALL ASSESSMENT: BI-RADS 1 - Negative RECOMMENDATION: 1 year F/U Electronically signed by: Yamileth Arroyo DO 12/25/2024 03:25 PM EST RP Addendum Dictated By: Yamileth Arroyo DO Addendum Signed By: <Electronically signed by Yamileth Arroyo DO in OV> 12/25/24 1525 Addendum Cosigned By: [...] OV> 12/10/24 0656 DD/ 49 TD/TT: 11/30/241416 Electro Plater: Procedure Note Donotuseinterpreter, Image - 12/25/2024 [facility] [address] [place] [address] [place] [address] Mammography Report Signed with Addenda Patient: Randy Hernandez R#: [id number] : 1970Acct:[id number] Age/Sex: 54 / FADM Date: 11/30/24 Loc: HO.MAMMO Attending Dr: Pipe Anderson MD Ordering Physician: Pipe Anderson MDResults: 1 Negative Date of Service: 11/30/24Follow Up: 1 Year From Orig ina Mammogram Procedure(s): MM tomosynthesis screening BI Accession Number(s): [id number] cc: Pipe Anderson MD ADDENDUM ADDENDUM #1 [...] 12/10/24 0656 DD/ 1350 TD/TT: 11/30/24 1417 Electro Plater: us Pipe Anderson MD [facility] BI PROCEDURES Edited Re sult - Final * Image-Guided Pap with Age-Based Screening Protocols (03/02/2023 2:16 PM EDT) Comment [facility] Comment: This order for age-based cervical cancer and STI screening follows ACOG guidelines(PB 168, 140, AVI687). See individual assays for performing site location. Clinical Information: None given [facility] LMP: NONE GIVEN [facility] Prev. PAP: NONE GIVEN [facility] Prev. BX: NONE GIVEN [facility] SOURCE: None given [facility] Statement Of Adequacy: [facility] Comment: Satisfactory for evaluation. Endocervical/transformation zone component present. Interpretation/ Result: Negative for intraepithelial lesion or malignancy. [facility] COMMENT: This Pap test has been evaluated with computer assisted technology. [employer]: [facility] Comment: CHEPE SARMIENTO(ASCP) CT screening location: [place] [address] (Always Message) [facility]cloudt Comment: EXPLANATORY NOTE: The Pap is a [...] HPV nRNA E6/E7 Not Detected Not Detected [facility] Comment: Methodology: Management Manager-Mediated Amplification This assay detects E6/E7 viral messenger RNA (mRNA) from 14 high-risk HPV types (16,18,31,33,35,39,45,51,52,56,58,59,66,68). Cervical sources are required for HPV testing. If a vaginal source from a patient who has had a total hysterectomy with removal of cervix was submitted, please contact the testing laboratory for alternative testing options. For additional information, please refer to http://education.[employer]/faq/CFX712t5 (This link if provided for information/ educational purposes only.) Cytology specimen container (physical object) 03/02/2023 2:16 PM EDT 03/03/2023 5:29 AM EDT Shannon Faith CN LAB BLOOD ORDERABLES Liliana l Result [facility] [address], [place] [address] [employer] [facility] [employer] [address] [place] [phone] * (ABNORMAL) Colonoscopy (11/09/2019) Anatomical Region Laterality Modality Endoscopy Narrative 11/09/2019 Transverse colon polyp removed. Needs a repeat Colonoscopy in 2023. Historical Provider MD ENDOSCOPY PROCEDURE ORDER AR Final Result from Last 3 Months or Most Recently Relevant to Health Maintenance Insurance [facility] ONE CARE < 65 Care Teams Tank Washer Relationship Specialty Start Date End Date Pipe Anderson MD [address] [place] [phone] PCP - General Internal Medicine 04/14/21 Beltran Iglesias Facility Operations ManagerSafety Pin Assembling Machine Operator 04/21/24 Marcos Hanks Paleology ProfessorSafety Pin Assembling Machine Operator 07/06/24
--- OUTSIDE RECORDS SUMMARY | 2025-08-11 14:23 | XMS_ITS | Encounter Summary ---
Author Organization [employer] Address [address] [facility] 7t [place] [address] Care Team Providers Care Coldfusion Name Role Phone Pipe Anderson MD Primary Care Provider [phone] Jayce Tristan PharmD Unavailable Unavail able Faviola Richard PharmD Unavailable [phone] Encounter Details Date Type Department Care Team ([facility] Contact Info) Description 03/23/2024 Orders Only [facility] MED & PEDS [address] [place], [place] [phone] Pipe Anderson MD [address] [place] [address] Social History Tobacco Use Types Packs/Day Years [...] Blood Pressure 136/74(2024 1:36 PM EDT) No DellogonoJayce, PharmD Hemoglobin A1c < 7 Result Component 13.3(07/12/20 2:11 PM EDT) No Jayce Tristan, PharmD documented as of this encounter Visit Diagnoses Not on filedocumented in this encounter Care Teams Coldfusion Relationship Specialty Start Date End Date Pipe Anderson MD [address] [place] [address] PCP - General Internal Medicine 04/14/21 Jayce Tristan, PharmD [address] [place] [address] Pharmacist Internal Medicine 11/13/22 01/07/25 Faviola Richard PharmD [address] [place] [address] Pharmacist Internal Medicine 01/05/25 06/03/25 Beltran Iglesias Lunchroom WorkerEating Disorder Specialist 04/21/24 Marcos Hanks Food CriticEating Disorder Specialist 07/06/24 documented as of this encounter
--- OUTSIDE RECORDS SUMMARY | 2025-08-11 14:23 | XMS_ITS | Encounter Summary ---
Author Organization [employer] Address [address] [facility] [address]t [place] [address] Care Team Providers Care Clay Miner Name Role Phone Pipe Anderson MD Primary Care Provider [phone] Encounter Details Date Type Department Care Team ([facility] Contact Info) Description 06/26/2025 Results Follow-Up [facility] MED & PEDS [address] [place], [place] [phone] Pipe Anderson MD [address] [place] [address] Lower Extremity Venous Duplex Social History Tobacco Use Types Packs/Day Years Used Date Smoking Tobacco: Former Passive Smoke Exposure: Past Smokeless Tobacco: Never Depression Answer Date Recorded [...] Recorded Patient Health Questionnaire-2 Score 2 07/28/2024 Internet Access Answer Date Recorded Internet Access [...] Blood Pressure 136/74(2024 1:36 PM EDT) No Dellogono, Jayce, PharmD Hemoglobin A1c < 7 Result Component 13.3(07/12/20 25 2:11 PM EDT) No Dellogono, Jayce, PharmD documented as of this encounter Visit Diagnoses Not on filedocumented in this encounter Additional Health Concerns Assessment Noted Time PHQ-9 Depression Total Score: 14 024 4:22 PM EDT documented as of this encounter Care Teams Clay Miner Relationship Specialty Start Date End Date Pipe Anderson MD [address] [place] [phone] PCP - General Internal Medicine 04/14/21 Beltran Iglesias Ict TeacherComputer Training Specialist 04/21/24 Marcos Hanks Tobacco SizerComputer Training Specialist 07/06/24 documented as of this encounter
--- OUTSIDE RECORDS SUMMARY | 2025-08-11 14:23 | XMS_ITS | Encounter Summary ---
Author Organization [employer] Address [address] [facility] 7t [place] [address] Care Team Providers Care Design Engineer Products Name Role Phone Pipe Anderson MD Primary Care Provider [phone] Jayce Tristan PharmD Unavailable Unavail able Faviola Richard PharmD Unavailable [phone] Reason for Visit * Reason Comments Med Refill Encounter Details Date Type Department Care Team ([facility] Contact Info) Description 11/06/2024 Refill [facility] MED [facility] PEDS [address] [place], [place] [phone] Pipe Anderson MD [address] [place] [address] Diabetic polyneuropathy associated with type 2 diabetes [...] documented as of this encounter Care Teams Design Engineer Products Relationship Specialty Start Date End Date Pipe Anderson MD [address] [place] [address] PCP - General Internal Medicine 04/14/21 Jayce Tristan, PharmD [address] [place] [address] Pharmacist Internal Medicine 11/13/22 01/07/25 Faviola Richard PharmD [address] [place] [address] Pharmacist Internal Medicine 01/05/25 06/03/25 Beltran Iglesias Journey LinemanGas Torch Solderer 04/21/24 Marcos Hanks Collection Support SpecialistGas Torch Solderer 07/06/24 documented as of this encounter
--- OUTSIDE RECORDS SUMMARY | 2025-08-11 14:23 | XMS_ITS | Encounter Summary ---
Author Organization [employer] Address [address] [facility] [address] [place] [address] Care Team Providers Care Reproduction Specialist Name Role Phone Pipe Anderson MD Primary Care Provider [phone] Jayce Tristan PharmD Unavailable Unavail able Faviola Richard PharmD Unavailable [phone] Reason for Visit * Reason Onset Date Comments Referral 10/13/2023 Encounter Details Date Type Department Care Team ([facility] st Contact Info) Description 10/13/2023 Telephone [facility] [address] [place] [address] Pipe Anderson MD [address] [place], [place] [phone] Referral Social History Tobacco Use Types Packs/Day [...] t he electric, gas, oil or water [employer] threatened to shut off services in your [...] advise if pt can be referred to rn supplemental for pt's DM. * Telephone Encounter - Mikael Carrero - 10/13/2023 10:12 AM EST Tc zack Gong the patients VN requesting a referral for a rn supplemental for the patient any questions please call [phone] documented in this encounter Plan of Treatment Not on file documented as of this encounter Goals Goal Patient Goal Type Associated Problems Recent Progress Patient-Stated? Author Blood Pressure < 140/90 Blood Pressure 136/74(2024 1:36 PM EDT) No Dellogono, Jayce, PharmD Hemoglobin A1c < 7 Result Component 13.3(07/12/20 2:11 PM EDT) No Dellogono Jayce, PharmD documented as of this encounter Visit Diagnoses Not on filedocumented in this encounter Care Teams Reproduction Specialist Relationship Specialty Start Date End Date Pipe Anderson MD [address] [place] [address] PCP - General Internal Medicine 04/14/21 Jayce Tristan, BhavnaD [address] [place] [address] Pharmacist Internal Medicine 11/13/22 01/07/25 Faviola Richard PharmD [address] [place] [phone] Pharmacist Internal Medicine 01/05/25 06/03/25 Beltran Iglesias Rack Production WorkerRn Night 04/21/24 Marcos Hanks Slate Roofer HelperRn Night 07/06/24 documented as of this encounter
[2025-08-11 14:47] LABS: COVID-19 Test Negative (Negative); IDNOW Serial# 55D5AD1C; IDNOW Serial# 58CA691E; Influenza B2 Negative (Negative)
[2025-08-11 16:06] VITALS: BP 139/79; PULSE 82; RESP 16; TEMP 36.1; O2SAT 98
[2025-08-11 16:09] VITALS: BP 139/79; PULSE 82; RESP 16; TEMP 36.1; O2SAT 98
== END 2025-08-11 16:10 | disposition home or self-care (01) ==
PROVIDERS: Physician Assistant Medical; Emergency Provider Emergency Medicine; PCP Internal Medicine
DX: R05.2 Subacute cough (principal); E11.9 Type 2 diabetes mellitus without complications; I10 Essential (primary) hypertension; Z03.818 Encounter for observation for suspected exposure to other biological agents ruled out; Z79.4 Long term (current) use of insulin; Z79.899 Other long term (current) drug therapy
CPT/HCPCS: 71046; 87502; 87635; 99282; 99283

== ENCOUNTER → 2025-08-11 13:56 | Outpatient (BNV) | payer OTHER, SELFPAY | PROVIDERS: PCP Internal Medicine; Visit Provider Radiology Diagnostic Radiology | DX: R05.9 Cough, unspecified (principal) | CPT/HCPCS: 71046 ==

== ENCOUNTER 2025-08-22 13:32 | Outpatient (AMB) | payer OTHER, MEDICAID, SELFPAY ==
--- NOTE | 2025-08-22 13:52 | A.OFFVIS_ITS ---
Vital Signs 08/22/25 13:59 Height 5 ft 2 in Weight 201 lb 4.513 oz BMI 36.8 BP 124/68 Blood Pressure Location Rt brachial Position Sitting Pulse 85 Pulse Source Pulse Oximeter Pulse Oximetry (%) 98 Oxygen Delivery Method Room Air Intake Visit Reasons: Uncontrolled T2DM w/hyperglycemia Intake Note: New patient externally referred by PCP for T2DM. Last Diabetic Eye exam: Less than a year unsure exactly when Last Podiatry Visit: Does not see a Forest Pathology Associate Professor Random Glucose: 366 mg/dl Hgb A1C: 13.3% 07/12/2025 Manager Marketing Communications Required: No Accompanied by: Self / Same As Patient Allergies lobster Allergy (Severe, Verified 08/22/25 14:00) Itching shrimp Allergy (Mild, Verified 08/22/25 14:00) EYE ITCHING shellfish derived (shellfish) Allergy (Verified 08/22/25 14:00) Itching Medication List - Last Reconciled 08/22/25 by Simba Hall MD albuterol sulfate 90 mcg/actuation (ProAir HFA) 2 puffs inhalation Q4-6H PRN albuterol sulfate 90 mcg/actuation (Ventolin HFA) 2 puffs inhalation Q20M PRN amoxicillin-pot clavulanate 875-125 mg 1 tab PO BID 7 days amoxicillin-pot clavulanate 875-125 mg 1 tab PO BID 7 days atorvastatin 80 mg PO BEDTIME azithromycin 250 mg PO DAILY 4 days benzonatate 100 mg PO BID PRN blood sugar diagnostic (FreeStyle Test strips) As directed blood-glucose meter (FreeStyle Lite Meter kit) As directed blood-glucose sensor (FreeStyle José Manuel 3 Plus Sensor device) As directed change every 15 days blood-glucose,car servicer,cont (FreeStyle José Manuel 3 [employer]) As directed doxycycline hyclate 100 mg PO BID 7 days gabapentin 100 mg PO TID insulin aspart U-100 26 units subcut TID insulin glargine U-300 conc (Toujeo Max U-300 SoloStar) 50 units subcut BEDTIME lancets (FreeStyle Lancets) As directed lisinopril 10 mg PO DAILY paroxetine HCl 20 mg PO QAM sennosides (senna) 17.2 mg (2 x 8.6 mg) PO BEDTIME 30 days HPI Comments Details: 54 YO F who is seen in consultation for T2DM at the request of PCP. Initially diagnosed with T2DM in 2003. Never saw endo before Was initially started on treatment with metformin.Had severe diaarhea . Could not tolerate Mounjaro or Ozempic Current regimen Toujeo 50 units . Novolog 26 units TID. Checks sugars sporadically times per day. Unfortunately, patient did not bring log book, sensor glucometer to visit Not Reports low sugars . Most recent A1C 13.3 on 07/02/2025, Family history of T2DM in aunts - Type 2 DM, grandmother . Has eyes checked yearly, last eye exam 02/2025 , denies retinopathy. Has neuropathy, not sees podiatry. Denies nephropathy, on JUHI/ARB. UAC [] as measured on []. Has HLD, on statin. Last LDL [] as measured on []. Denies CAD. Not Had diabetes education. [facility] Medical History Diabetes Cutaneous abscess of back [any part, except buttock] Abscess Sebaceous cyst Pre-op examination Morbid obesity Umbilical hernia RUQ abdominal pain Hypertension Diabetes H. pylori infection Irritable bowel syndrome with diarrhea Surgical History History of surgery Status post hysteroscopic ablation of endometrium Breast abscess History of appendectomy H/O umbilical hernia repair H/O colonoscopy Hx of hemorrhoidectomy Hx of hernia repair Hx of tubal ligation Family History Father Heart problem Asthma Mother Colon cancer HTN (hypertension) Varicose vein of leg Family history of diabetes mellitus Maternal Aunt Pancreatic cancer Family/Other Breast cancer Social History Household Members: None Alcohol intake: current Alcohol intake frequency: does not drink Patient Tobacco Use Status: Former Tobacco user Substance Use Type: Marijuana Physical Exam Vital Signs: Last Vital Signs Pulse 85 08/22/25 13:59 BP 124/68 08/22/25 13:59 Pulse Ox 98 08/22/25 13:59 Oxygen Delivery Method Room Air 08/22/25 13:59 BMI result Body Mass Index 36.8 Absence of Cushingoid features. Absence of acromegalic features. Neck exam reveals nl size thyroid about 15 gms. No thyroid nodules palpable. No carotid bruits present. Lungs CTA. Heart S1 S2, Reg R/R. No M/R/ G. Skin exam reveals absence of vitiligo or acanthosis nigricans. Abdominal exam reveals Soft NT/ND with NA BS. No organomegaly present. Neck Other: . Extrem Other: Visual exam of foot performed. No ulcerations or open lesions. No onchomycosis, no callouses.Pulses 2 + distally Sensation intact to monofilament exam. Vibratory sensation sensed is intact with 128 Hz tuning fork Assessment & Plan Assessment & Plan (1) Poorly controlled type 2 diabetes mellitus: Code(s): E11.65 - Type 2 diabetes mellitus with hyperglycemia Category: Medical Plan: This is a 54-year-old female with a history of type 2 diabetes being treated with basal-bolus insulin with poor glycemic control and known microvascular complications namely neuropathy. Plan is to have the patient check her point of cares pre and post meals or to initiate a sensor namely José Manuel 3+. sensor and reader Could not make any changes to the regimen because lack of data. We will send to plant floor automation manager and direct sales consultant. Have extensive discussion with the patient regarding the correlation of poor glycemic control to development and progression of complications Orders: Referrals Diabetes Education Referral E11.65 - Type 2 diabetes mellitus with hyperglycemia Nutrition/Dietitian Referral E11.65 - Type 2 diabetes mellitus with hyperglycemia Medications: New blood-glucose,car servicer,cont (FreeStyle José Manuel 3 [employer]) As directed 1 ea 0RF blood-glucose sensor (FreeStyle José Manuel 3 Plus Sensor device) As directed change every 15 days 2 ea 5RF Coding Level of Care Code New Pt Level 5 (66455) Diagnoses Poorly controlled type 2 diabetes mellitus E11.65
[2025-08-22 13:59] VITALS: BP 124/68; PULSE 85; O2SAT 98; BMI 36.8
[2025-08-22 14:26] LABS: Glucose, Whole Blood 366 mg/dL (60-115)
--- OUTSIDE RECORDS SUMMARY | 2025-08-22 15:58 | XMS_ITS | Encounter Summary ---
Author Organization [employer] Address [address] [facility] 7t [place] [address] Care Team Providers Care Hydrographical Technical Officer Name Role Phone Pipe Anderson MD Primary Care Provider [phone] Jayce Tristan PharmD Unavailable Unavail able Faviola Richard PharmD Unavailable [phone] Encounter Details Date Type Department Care Team ([facility] Contact Info) Description 07/28/2024 Orders Only [facility] CHC MED & PEDS [address] [place], [place] [phone] Pipe Anderson MD [address] [place] [address] Uncontrolled type 2 diabetes mellitus with hyperglycemia [...] Uncontrolled type 2 diabetes mellitus with hyperglycemia (CMS/[facility])- Primary documented in this encounter Additional Health Concerns Assessment Noted Time PHQ-9 Depression Total Score: 14 024 4:22 PM EDT documented as of this encounter Care Teams Hydrographical Technical Officer Relationship Specialty Start Date End Date Pipe Anderson MD [address] [place] [address] PCP - General Internal Medicine 04/14/21 Jayce Tristan, PharmD [address] [place] [address] Pharmacist Internal Medicine 11/13/22 01/07/25 Faviola Richard PharmD [address] [place] [address] Pharmacist Internal Medicine 01/05/25 06/03/25 Beltran Iglesias Storage Wharfage ClerkUtility Repairer 04/21/24 Marcos Hanks Business Process AnalystUtility Repairer 07/06/24 documented as of this encounter
--- OUTSIDE RECORDS SUMMARY | 2025-08-22 15:58 | XMS_ITS | Encounter Summary ---
Author Organization [employer] Address [address] [facility] 7t [place] [address] Care Team Providers Care Green Chain Operator Name Role Phone Pipe Anderson MD Primary Care Provider [phone] Jayce Tristan PharmD Unavailable Unavail able Faviola Richard PharmD Unavailable [phone] Encounter Details Date Type Department Care Team ([facility] Contact Info) Description 03/23/2024 Orders Only [facility] MED & PEDS [address] [place], [place] [phone] Pipe Anderson MD [address] [place] [address] Social History Tobacco Use Types Packs/Day Years [...] on filedocumented in this encounter Care Teams Green Chain Operator Relationship Specialty Start Date End Date Pipe Anderson MD [address] [place] [address] PCP - General Internal Medicine 04/14/21 Jayce Tristan, PharmD [address] [place] [address] Pharmacist Internal Medicine 11/13/22 01/07/25 Faviola Richard PharmD [address] [place] [address] Pharmacist Internal Medicine 01/05/25 06/03/25 Beltran Iglesias Research AideWeb Production Manager 04/21/24 Marcos Hanks Cigarette Lighter RepairerWeb Production Manager 07/06/24 documented as of this encounter
--- OUTSIDE RECORDS SUMMARY | 2025-08-22 15:58 | XMS_ITS | Encounter Summary ---
Author Organization [employer] Address [address] 7t [place] [address] Care Team Providers Care Welding Machine Operator Gas Name Role Phone Pipe Anderson MD Primary Care Provider [phone] Jayce Tristan PharmD Unavailable Unavail able Faviola Richard PharmD Unavailable [phone] Reason for Visit * Reason Onset Date Comments Referral 10/13/2023 Encounter Details Date Type Department Care Team ([facility] st Contact Info) Description 10/13/2023 Telephone [facility] [address] [place] [address] Pipe Anderson MD [address] [place], [place] [phone] Referral Social History Tobacco Use Types Packs/Day [...] t he electric, gas, oil or water [employer] threatened to shut off services in your [...] advise if pt can be referred to funeral pre arrangement specialist for pt's DM. * Telephone Encounter - Mikael Carrero - 10/13/2023 10:12 AM EST Tc zack Gong the patients VN requesting a referral for a funeral pre arrangement specialist for the patient any questions please call [phone] documented in this encounter Plan of Treatment [...] on filedocumented in this encounter Care Teams Welding Machine Operator Gas Relationship Specialty Start Date End Date Pipe Anderson MD [address] [place] [address] PCP - General Internal Medicine 04/14/21 Jayce Tristan, BhavnaD [address] [place] [address] Pharmacist Internal Medicine 11/13/22 01/07/25 Faviola Richard PharmD [address] [place] [address] Pharmacist Internal Medicine 01/05/25 06/03/25 Beltran Iglesias Laboratory TechnologistEight Section Blower 04/21/24 Marcos Hanks Radiation EngineerEight Section Blower 07/06/24 documented as of this encounter
--- OUTSIDE RECORDS SUMMARY | 2025-08-22 15:58 | XMS_ITS | Encounter Summary ---
Author Organization [employer] Address [address] [place] [address] 7 [place] [address] Care Team Providers Care Head Grinder Name Role Phone Pipe Anderson MD Primary Care Provider [phone] Jayce Tristan PharmD Unavailable Unavail able Faviola Richard PharmD Unavailable [phone] Reason for Referral * Consultation (Routine) - Canceled Specialty Diagnoses / Procedures Referred By Contnidia t Referred To Contact Pharmacy Diagnoses Uncontrolled type 2 diabetes mellitus with hyperglycemia (CMS/HCC) Pipe Anderson MD [address] [place] [address] Phone: tel: fax: Referral ID Status Reason Start Date Expiration Date V isits Requested Visits Authorized [id number] Canceled Consult and Treat 12/26/2024 12/26/2025 6 6 Encounter Details Date Type Department Care Team (Late st Contact Info) Description 12/26/2024 Orders Only [facility] CHC MED & PEDS [address] [place] [address] Pipe Anderson MD [address] [place] [address] Uncontrolled type 2 diabetes mellitus with hyperglycemia [...] documented as of this encounter Care Teams Head Grinder Relationship Specialty Start Date End Date Pipe Anderson MD [address] [place] [address] PCP - General Internal Medicine 04/14/21 Jayce Tristan PharmD [address] [place] [address] Pharmacist Internal Medicine 11/13/22 01/07/25 Faviola Richard PharmD [address] [place] [address] Pharmacist Internal Medicine 01/05/25 06/03/25 Beltran Iglesias Finisher Fine Diamond DiesDirector Geothermal Operations 04/21/24 Marcos Hanks Registered AssociateDirector Geothermal Operations 07/06/24 documented as of this encounter
--- OUTSIDE RECORDS SUMMARY | 2025-08-22 15:58 | XMS_ITS | Encounter Summary ---
Author Organization [employer] Address [address] [facility] 7t [place] [address] Care Team Providers Care Manager Grant Name Role Phone Pipe Anderson MD Primary Care Provider [phone] Encounter Details Date Type Department Care Team ([facility] Contact Info) Description 08/22/2025 Orders Only GENERIC EXTERNAL DATA DEPARTMENT Provider, Generic External Data Social History Tobacco Use Types Packs/Day Years [...] Result Component 13.3(07/12/20 2:11 PM EDT) No DellogJayce godinez, PharmD documented as of this encounter Procedures Procedure Name Priority Date/Time Associated Diagnosis Comments GLUCOSE, WHOLE BLOOD Routine 08/22/2025 2:09 PM EDT documented in this encounter Results * (ABNORMAL) Glucose, Whole Blood (08/22/2025 2:09 PM EDT) Glucose, Whole Blood 366(HH) 60 - 115 mg/dL [facility] Comment:METER #: [id number] Testing performed in the Endocrinology Department [address] , [address], [facility]. 08/22/2025 2:09 PM EDT 08/22/2025 2:25 PM EDT us Generic External Data Provider LAB BLOOD ORDERAB LES Final Result [facility] [address] [place] [address] [phone] documented in this encounter Visit Diagnoses Not on filedocumented in this encounter Additional Health Concerns Assessment Noted Time PHQ-9 Depression Total Score: 4 07/12/20 1:36 PM EDT documented as of this encounter Care Teams Manager Grant Relationship Specialty Start Date End Date Pipe Anderson MD [address] [place] [address] PCP - General Internal Medicine 04/14/21 Beltran Iglesias Family Centered SpecialistTester Rocket Engine 04/21/24 Marcos Hanks School Bus Driver/CustodianTester Rocket Engine 07/06/24 documented as of this encounter
--- OUTSIDE RECORDS SUMMARY | 2025-08-22 15:58 | XMS_ITS | Encounter Summary ---
Author Organization [email or web address] Address [address] [facility] 7t [place] [address] Care Team Providers Care Marketing Performance Analyst Name Role Phone Pipe Anderson MD Primary Care Provider [phone] Encounter Details Date Type Department Care Team ([facility] Contact Info) Description 06/26/2025 Results Follow-Up [facility] CHC MED & PEDS [address] [place], [place] [phone] Pipe Anderson MD [address] [place] [address] Lower Extremity Venous Duplex Social History Tobacco [...] documented as of this encounter Care Teams Marketing Performance Analyst Relationship Specialty Start Date End Date Pipe Anderson MD [address] [place] [address] PCP - General Internal Medicine 04/14/21 Beltran Iglesias Shift ManagerDeck Officer 04/21/24 Marcos Hanks Computing TutorDeck Officer 07/06/24 documented as of this encounter
--- OUTSIDE RECORDS SUMMARY | 2025-08-22 15:58 | XMS_ITS | Encounter Summary ---
Author Organization [employer] Address [address] [facility] 7t [place] [address] Care Team Providers Care Salon Shampoo Assistant Name Role Phone Pipe Anderson MD Primary Care Provider [phone] Jayce Tristan PharmD Unavailable Unavail able Faviola Richard PharmD Unavailable [phone] Reason for Visit * Reason Comments Med Refill Encounter Details Date Type Department Care Team ([facility] Contact Info) Description 06/19/2024 Refill [facility] CHC MED & PEDS [address] [place], [place] [phone] Pipe Anderson MD [address] [place] [address] Diabetic polyneuropathy associated with type 2 diabetes [...] polyneuropathy associated with type 2 diabetes mellitus ([facility]) documented in this encounter Care Teams Salon Shampoo Assistant Relationship Specialty Start Date End Date Pipe Anderson MD [address] [place] [address] PCP - General Internal Medicine 04/14/21 Jayce Tristan, PharmD [address] [place] [address] Pharmacist Internal Medicine 11/13/22 01/07/25 Faviola Richard PharmD [address] [place] [address] Pharmacist Internal Medicine 01/05/25 06/03/25 Beltran Iglesias Fast Food WorkerBass Viol Repairer 04/21/24 Marcos Hanks Creative Art DirectorBass Viol Repairer 07/06/24 documented as of this encounter
--- OUTSIDE RECORDS SUMMARY | 2025-08-22 15:58 | XMS_ITS | Encounter Summary ---
Author Organization [employer] Address [address] [facility] 7t [place] [address] Care Team Providers Care Timber Sprinkler Name Role Phone Pipe Anderson MD Primary Care Provider [phone] Jayce Tristan PharmD Unavailable Unavail able Faviola Richard PharmD Unavailable [phone] Encounter Details Date Type Department Care Team ([facility] [address] Contact Info) Description 05/14/2023 Abstract [facility] MED & PEDS [address] [place], [place] [phone] Pipe Anderson MD [address] [place] [address] Social History Tobacco Use Types Packs/Day Years [...] on filedocumented in this encounter Care Teams Timber Sprinkler Relationship Specialty Start Date End Date Pipe Anderson MD [address] [place] [address] PCP - General Internal Medicine 04/14/21 Jayce Tristan, PharmD [address] [place] [address] Pharmacist Internal Medicine 11/13/22 01/07/25 Faviola Richard PharmD [address] [place] [address] Pharmacist Internal Medicine 01/05/25 06/03/25 Beltran Iglesias Gluing Machine FeederSpecial Deputy Sheriff 04/21/24 Marcos Hanks Spud DrillerSpecial Deputy Sheriff 07/06/24 documented as of this encounter
--- OUTSIDE RECORDS SUMMARY | 2025-08-22 15:58 | XMS_ITS | Encounter Summary ---
Author Organization [employer] Address [address] [facility] 7t [place] [address] Care Team Providers Care Fbi Profiler Name Role Phone Pipe Anderson MD Primary Care Provider [phone] Jayce Tristan PharmD Unavailable Unavail able Faviola Richard PharmD Unavailable [phone] Reason for Visit * Reason Comments Med Refill Encounter Details Date Type Department Care Team ([facility] Contact Info) Description 11/06/2024 Refill [facility] CHC MED & PEDS [address] [place], [place] [phone] Pipe Anderson MD [address] [place] [address] Diabetic polyneuropathy associated with type 2 diabetes [...] documented as of this encounter Care Teams Fbi Profiler Relationship Specialty Start Date End Date Pipe Anderson MD [address] [place] [address] PCP - General Internal Medicine 04/14/21 Jayce Tristan, PharmD [address] [place] [address] Pharmacist Internal Medicine 11/13/22 01/07/25 Faviola Richard PharmD [address] [place] [address] Pharmacist Internal Medicine 01/05/25 06/03/25 Beltran Iglesias Glass MechanicValue Analysis Coordinator 04/21/24 Marcos Hanks Corrugator HelperValue Analysis Coordinator 07/06/24 documented as of this encounter
--- OUTSIDE RECORDS SUMMARY | 2025-08-22 15:58 | XMS_ITS | Clinical Summary ---
Author Organization [email or web address] Address [address] [place] [address] Care Team Providers Care Translation Director Name Role Phone Pipe Anderson MD Primary Care Provider [phone] Allergies Active Allergy Reactions Criticality Noted Date [...] 25 Active Blood Glucose Monitoring Suppl (FreeStyle Midkiff Lite) w/Device kit Use to test blood [...] 25 Active Blood Glucose Monitoring Suppl (FreeStyle Midkiff Lite) w/Device kitIndications:Unc ontrolled type 2 diabetes [...] organization. Date Type Department Care Team Description 08/22/2025 Orders Only GENERIC EXTERNAL DATA DEPARTMENT Provider, Generic External Data 08/11/2025 Orders Only [facility] External Provider, [facility] 07/12/2025 1:45 PM EDT Office Visit [facility] [address] [place] [address] Pipe Anderson MD Uncontrolled type 2 diabetes mellitus with hyperglycemia ([facility]) (Primary Dx); Cellulitis of left leg; Gastroesophageal reflux disease without esophagitis; Primary hypertension; Type 2 diabetes mellitus with hyperglycemia, without long-term current use of insulin ([facility]/HCC); Edema of left lower leg; Diabetic polyneuropathy associated with type 2 diabetes mellitus ([facility]/HCC) 07/12/2025 Travel 06/26/2025 Results Follow-Up [facility] [address] [place] [address] Pipe Anderson MD Lower Extremity Venous Duplex 06/23/2025 10:20 AM EDT Office Visit [facility] [address] [place] [phone] Teresa Schuler MD Cellulitis of left leg (Primary Dx); Edema of left lower leg 06/23/2025 Travel 06/19/2025 Telephone [facility] [address] [place] [address] Pipe Anderson MD ER Follow-up 06/11/2025 1:30 PM EDT Office Visit [facility]OM[facility] [address] [place], [place] [phone] Luis Manuel, Julieta, OD Type 2 diabetes mellitus without ophthalmic manifestations ([facility]/HCC) (Primary Dx); Lattice degeneration of right retina; Dry eyes, bilateral; Mixed type age-related cataract, both eyes; Presbyopia 06/11/2025 Travel 06/11/2025 Refill [facility] [address] [place] [address] Pipe Anderson MD 06/09/2025 Orders Only GENERIC EXTERNAL DATA DEPARTMENT Provider, Generic External Data 06/01/2025 Orders Only GENERIC EXTERNAL DATA DEPARTMENT Provider, Generic External Data 06/01/2025 Refill [facility] [address] [place] [address] Pipe Anderson MD Uncontrolled type 2 diabetes mellitus with hyperglycemia ([facility]/HCC) from Last 3 Months Immunizations Immunization Administration [...] 2:11 PM EDT) No Jayce Tristan, PharmD Procedures Procedure Name Priority Date/Time Associated Diagnosis Comments GLUCOSE, WHOLE BLOOD Routine 08/22/2025 2:09 PM EDT XR CHEST 2 VIEWS Routine 08/11/2025 2:35 PM EDT COVID-19 ID NOW ([facility]) Routine 08/11/2025 2:17 PM EDT INFLUENZA A B2 ID NOW ([facility]) Routine 08/11/2025 2:17 PM EDT POCT GLYCATED HEMOGLOBIN, TOTAL Routine 07/12/2025 2:11 [...] Relevant to Health Maintenance Results * (ABNORMAL) Glucose, Whole Blood (08/22/2025 2:09 PM EDT) Glucose, Whole Blood 366(HH) 60 - 115 mg/dL [facility] Comment:METER #: [id number] Testing performed in the Endocrinology Department [address] , [address], [facility]. 08/22/2025 2:09 PM EDT 08/22/2025 2:25 PM EDT us Generic External Data Provider LAB BLOOD ORDERAB LES Final Result Performing Organization Address City/State/[facility] Co de Phone Number [facility] [address] [place] [phone] * XR Chest 2 Views (08/11/2025 2:35 PM EDT) Only the most recent of3 resultswithin the time period is included. Anatomical Region Laterality Modality Chest Radiographic Edna ging 08/11/2025 2:35 PM EDT Narrative 08/11/2025 2:36 PM EDT [address] [address] XRay Report Signed Patient: Brittany Hernandez R#: [id number] : 1970 Acct:[id number] Age/Sex: 54 / F ADM Date: 08/11/25 Loc: HO.ED Attending Dr: Ordering Physician: Ina Larson Date of Service: 08/11/25 Procedure(s): XR chest 2V Accession Number(s): [id number] cc: Pipe Anderson MD; Ina Larson Reason for Exam: cough CLINICAL HISTORY: cough 2 view chest x-ray Comparison: CR - XR CHEST 2V - 06/09/25 15:14 EDT Findings: No consolidation or effusion. Normal size heart. No acute fracture. IMPRESSION: 1. No acute findings. This document has been electronically signed by: Ken Richardson MD on 08/11/2025 14:35:18 Dictated By: Ken Richardson MD Signed By: <Electronically signed by Ken Richardson MD in OV> 08/11/251435 DD/ 34 TD/TT: 08/11/251434 Legend Maker: Procedure Note Donotuseinterpreter, Image - 08/11/[address] [address] XRay Report Signed Patient: Randy Hernandez R#: [id number] : 1970Acct:[id number] Age/Sex: 54 / FADM Date: 08/11/25 Loc: .ED Attending Dr: Ordering Physician: Ina Larson Date of Service: 08/11/25 Procedure(s): XR chest 2V Accession Number(s): [id number] cc: Pipe Anderson MD; Ina Larson Reason for Exam: cough CLINICAL HISTORY: cough 2 view chest x-ray Comparison: CR - XR CHEST 2V - 06/09/25 15:14 EDT Findings: No consolidation or effusion. Normal size heart. No acute fracture. IMPRESSION: 1. No acute findings. This document has been electronically signed by: Ken Richardson MD on 08/11/2025 14:35:18 Dictated By: Ken Richardson MD Signed By: <Electronically signed by Ken Richardson MD in OV> 08/11/256 DD/ 34 TD/TT: 08/11/251434 Legend Maker: us [facility] External Provider IMG XR PROCEDURES Edited Result - Final * Influenza A B2 ID NOW ([facility]) (08/11/2025 2:17 PM EDT) IDNOW SERIAL# [id number] [facility] Influenza A Negative Negative [facility] Influenza B2 Negative Negative [facility] Influenza A B2 Note See Note [facility] Comment:The [facility] ID NOW In fluenza A B2 test is used for thequalitative detection of influenza A and B from patientswith signs and symptoms of respiratory infection.Negative results do not preclude influenza virus infectionand should not be used as the sole basis for diagnosis,treatment or other patient management decisions.There is a risk of false negative results due to thepresence of variants in the viral targets of the assay, lowlevels of virus in the specimen and co- infection withRespiratory Syncytial Virus. 08/11/2025 2:17 PM EDT 08/11/2025 2:25 PM EDT us Generic External Data Provider LAB MICROBIOLOGY - GENERAL ORDERABLES Final Result [facility] [address] [place] [address] [phone] * COVID-19 ID NOW ([place]) (08/11/2025 2:17 PM EDT) IDNOW SERIAL# [id number] [facility] COVID-19 TEST Negative Negative [facility] COVID-19 NOTE See Note [facility] Comment: Results are for the identification of SARS-CoV2 RNA. TheSARS-CoV2 RNA is generally detectable in respiratory samplesduring the acute phase of infection. Positive results areindicative of the presence of SARS-CoV-2 RNA; clinicalcorrelation with patient history and other diagnosticinformation is necessary to determine patient infectionstatus. Positive results do not rule out bacterial infectionor co- infection with other viruses.Testing facilities within the [facility] and itsterritories are required to report all positive results tothe appropriate public health authorities.Negative results should be treated as presumptive and, ifinconsistent with clinical signs and symptoms or necessaryfor patient management, should be tested with differentauthorized or cleared molecular tests. Negative results donot preclude SARS-CoV2 RNA infection and should not be usedas the sole basis for patient management decisions. Negativeresults should be considered in the context of a patient'srecent exposures, history and the presence of clinical signsand symptoms consistent with COVID-19.This test has been authorized by the FDA under an EmergencyUse Authorization (EUA) for use by authorized laboratories.Testing performed on the [employer] ID NOW utilizing NAAT. 08/11/2025 2:17 PM EDT 08/11/2025 2:25 PM EDT us Generic External Data Provider LAB MOLECULAR CHARLIE GNOSTICS ORDERABLES Final Result [facility] [address] [place] [phone] * (ABNORMAL) POCT HGB A1C (07/12/2025 2:11 PM EDT) [facility] Hemoglobin A1C 13.3(A) 4.0 - 5.7 % QC Media Lot # [id number] Lot# Expiration Date 08 Blood 07/12/2025 2:11 PM EDT Pipe Anderson MD POINT OF CARE TEST ENTER/ED IT ORDERABLES Final Result * (ABNORMAL) POCT Glucose (07/12/2025 2:11 PM EDT) [facility] Glucose Blood, POC 313(A) 60 - 200 mg/dL QC Media Lot # [id number] Lot# Expiration Date Blood Capillary blood specimen / Unknown 07/12/2025 2:11 PM EDT Pipe Anderson MD POINT OF CARE TEST ENTER/ED IT ORDERABLES Final Result * (ABNORMAL) CBC auto differential (06/26/2025 2:04 PM EDT) Only the most recent of3 resultswithin the time period is included. Pathologist [facility] White Blood Count 4.2(L) 4.8 - 10.8 X10*3/uL [facility] Red Blood Count 5.02 4.20 - 5.50 X10*6/uL [facility] Hemoglobin 13.7 12.0 - 16.0 g/dl [facility] Hematocrit 41.9 37.0 - 47.0 % [facility] Mean Corpuscular Volume 83.5 80.0 - 98.0 fL [facility] Mean Corpuscular Hemoglobin 27.3 27.0 - 33.0 pg [facility] Mean Corpuscular HGB Conc 32.7 31.0 - 35.0 g/dl [facility] Red Cell Distribution Width 13.7 11.0 - 16.0 % [facility] Platelet Count 251 160 - 400 X10*3/uL [facility] Mean Platelet Volume 11.1 9.4 - 12.3 fL [facility] Neutrophils Percent Auto 53.2 45 - 73 % [facility] Imm Gran Pct Auto 0.2 0.0 - 0.4 % [facility] Lymphocytes Percent Auto 33.6 20 - 40 % [facility] Monocytes Percent Auto 8.2 2 - 11 % [facility] Eosinophils Percent Auto 3.6 0 - 4 % [facility] Basophils Percent Auto 1.2 0 - 2 % [facility] NRBC Pct Auto 0.0 0.0 - 0.2 /100WBC [facility] Neutrophils Absolute Auto 2.2 2.0 - 8.3 x10*3/uL [facility] Imm Gran Abs Auto 0.01 0.00 - 0.03 X10*3/uL [facility] Lymphocytes Absolute Auto 1.4 1.2 - 4.9 X10*3/uL [facility] Monocytes Absolute Auto 0.3 0.1 - 1.2 X10*3/uL [facility] Eosinophils Absolute Auto 0.2 0.0 - 0.4 X10*3/uL [facility] Basophils Absolute Auto 0.1 0.0 - 0.2 X10*3/uL [facility] NRBC Abs Auto 0.000 0.0 - 0.012 X10*3/uL [facility] Blood Venous blood specimen / Unknown 06/26/2025 2:04 PM EDT 06/26/2025 4:14 PM EDT Teresa Schuler MD LAB BLOOD ORDERABLES Fin al Result Performing Organization Address [facility] Co de Phone Number [facility] [address] [place] [phone] * Hepatitis C Antibody with Reflex to HCV, RNA, Quantitative, Real-Time PCR (06/26/2025 2:04 PM EDT) Hepatitis C Antibody Nonreactive Nonreactive [facility] Comment:Antibodies to HCV no t detected; does not exclude early acuteHCV infection. Blood Venous blood specimen / Unknown 06/26/2025 2:04 PM EDT 06/26/2025 4:17 PM EDT Pipe Anderson MD LAB BLOOD ORDERABLES Final Result Performing Organization Address [facility] de Phone Number [facility] [address] [place] [phone] * Sed Rate by Modified Darlineren (06/26/2025 2:04 PM EDT) Pathologist [facility] Erythrocyte Sedimentation Rate 16 0 - 20 MM/HR [facility] Comment:Patients with polycy themia and many hemoglobin abnormalitiesmay have depressed sed rates whereas patients with anemiamay have elevated sed rates. Blood Venous blood specimen / Unknown 06/26/2025 2:04 PM EDT 06/26/2025 4:14 PM EDT Teresa Schuler MD LAB BLOOD ORDERABLES Fin al Result Performing Organization Address [facility] Co de Phone Number [facility] [address] [place] [phone] * Lower Extremity Venous Duplex (06/26/2025 1:51 PM EDT) Only the most recent of2 resultswithin the time period is included. 06/26/2025 1:51 PM EDT [facility] IMAGING - 06/26/2025 2:12 PM EDT [facility] Adult Primary Care [facility] [place] [address] Ultrasound Report Signed Patient: Brittany Hernandez#: [id number] : 1970 Acct:[id number] Age/Sex: 54 / F ADM Date: 06/26/25 Loc: [facility] Attending Dr: Teresa Schuler MD Ordering Physician: Teresa Schuler MD Date of Service: 06/26/25 Procedure(s): US venous duplex LE LT Accession Number(s): [id number] cc: Pipe Anderson MD; Teresa Schuler MD [...] Simba Parr MD 06/26/2025 02:09 PM EDT Dictated By: Simba Parr MD Signed By: <Electronically signed by Simba Parr MD in OV> 06/26/25 1409 DD/ 1351 TD/TT: 06/26/25 1359 Legend Maker: Procedure Note Donotuseinterpreter, Image - 06/26/2025 [facility] Adult Primary Care [facility] [place] [address] Ultrasound Report Signed Patient: Randy Hernandez R#: [id number] : 1970Acct:[id number] Age/Sex: 54 / FADM Date: 06/26/25 Loc: HO.HMGCX Attending Dr: Teresa Schuler MD Ordering Physician: Teresa Schuler MD Date of Service: 06/26/25 Procedure(s): US venous duplex LE LT Accession Number(s): [id number] cc: Pipe Anderson MD; Teresa Schuler MD [...] 06/26/25 1409 DD/ 1351 TD/TT: 06/26/25 1359 Legend Maker: us Teresa Schuler MD CV VASCULAR PROCEDURES F inal Result [facility] [address] [place] [phone] * (ABNORMAL) Glucose, Whole Blood (06/09/2025 6:03 PM EDT) Only the most recent of3 resultswithin the time period is included. Glucose, Whole Blood 267(H) 60 - 115 mg/dL [facility] Comment:METER #: [id number] 06/09/2025 6:03 PM EDT 06/09/2025 6:08 PM EDT Generic External Data Provider LAB BLOOD ORDERAB LES Final Result Performing Organization Address [facility]/ZIP Co de Phone Number [facility] [address] [place] [phone] * B Type Natriuretic Peptide (BNP) (06/09/2025 2:57 PM EDT) Only the most recent of2 resultswithin the time period is included. [facility] B Type Natriuretic Peptide <10 <100 pg/mL [facility] 06/09/2025 2:57 PM EDT 06/09/2025 3:00 PM EDT Generic External Data Provider LAB BLOOD ORDERAB LES Final Result Performing Organization Address [facility]/ZIP Co de Phone Number [facility] [address] [place] [phone] * (ABNORMAL) Comprehensive Metabolic Panel, Fasting (06/09/2025 2:56 PM EDT) [facility] Sodium 136 135 - 145 mmol/L [facility] Potassium 4.0 3.3 - 5.1 mmol/L [facility] Chloride 100 96 - 108 mmol/L [facility] Carbon Dioxide 28 22 - 29 mmol/L [facility] Anion Gap 12 12 - 20 [facility] Urea Nitrogen (BUN) 12 9 - 16 mg/dL [facility] Creatinine, Serum 0.69 0.5 - 1.4 mg/dL [facility] Creatinine Clr Calc Pharmacy 103.7 [facility] Comment:Provided height and weight: 165.1 cm,90.8 kg.eGFR (calculated from the MDRD study equation) and eCrCl(calculated from the Cockcroft-Gault equation) are based ondifferent parameters and may not yield comparable results.If eCrCl result is absurd, please check patient'sheight/weight. Estimated Glomerular Filt Rate >60 [facility] Comment:Chronic Kidney Disea se: Estimated GFR < 60 mL/min/1.94o8Oulvze Kidney Disease: Estimated GFR < 15 mL/min/1.73m2 Glucose Fasting 391(HH) 60 - 99 mg/dL [facility] Comment:Critical value for t est(s): FBS Results called to and readback by: DR. MCCRARY Person calling: NGUYENQ Date:06/09/25 Time: 5280U fasting glucose of 126 mg/dl or greater on more than oneoccasion is considered diagnostic of diabetes. Calcium 9.7 8.4 - 10.2 mg/dL [facility] Bilirubin, Total 0.3 0.0 - 1.0 mg/dL [facility] Aspartate Amino Transferase 23 5 - 31 U/L [facility] Alanine Aminotransferase 39(H) 0 - 31 U/L [facility] Total Protein 7.4 6.5 - 8.0 g/dL [facility] Albumin Level 4.3 3.5 - 5.0 g/dL [facility] Alkaline Phosphatase 96 39 - 117 U/L [facility] 06/09/2025 2:56 PM EDT 06/09/2025 3:00 PM EDT us Generic External Data Provider LAB BLOOD ORDERAB LES Final Result [facility] [address] [place] [phone] [phone] * D Dimer High Sensitivity (06/09/2025 2:56 PM EDT) D Dimer High Sensitivity <150 NG/ML [facility] Comment:D-DIMER HS REFERENCE RANGENote: Our [...] ORDERAB LES Final Result Performing Organization Address [facility] Phone Number [facility] [address] [place] [phone] * High Sensitivity Troponin I (06/09/2025 2:56 PM EDT) Only the most recent of2 resultswithin the time period is included. Pathologist [facility] TROPONIN I HIGH SENSITIVITY <2.7 <3.5 - 17.0 ng/L [facility] Comment:The [facility] high sens itivity Troponin-I results should beused in conjunction with other diagnostic information suchas ECG, clinical observations and information, and patientsymptoms to aid in the diagnosis of RI. 06/09/2025 2:56 PM EDT 06/09/2025 3:00 PM EDT Generic External Data Provider LAB BLOOD ORDERAB LES Final Result Performing Organization Address [facility] Phone Number [facility] [address] [place] [phone] * SARS-CoV-2 RNA, Influenza A/B, and RSV RNA, Ql NAAT (06/01/2025 3:12 PM EDT) Pathologist [facility] Influenza A PCR NEGATIVE Negative [facility] Influenza B PCR NEGATIVE Negative [facility] Resp Syncy Virus RNA Qual PCR NEGATIVE Negative [facility] SARS COV2 PCR NEGATIVE Negative [facility] Comment:All test results mus t be [...] use by authorized laboratories.Testing performed on the [employer] GeneXpert utilizingreal-time RT-PCR.All SARS CoV2 and positive influenza A/B results arereported to [facility]. 06/01/2025 3:12 PM EDT 06/01/2025 3:25 PM EDT Generic External Data Provider LAB MICROBIOLOGY - GENERAL ORDERABLES Final Result Performing Organization Address [facility] Co de Phone Number [facility] [address] [place] [phone] * (ABNORMAL) Magnesium (06/01/2025 3:12 PM EDT) Magnesium 1.5(L) 1.6 - 2.6 mg/dL [facility] 06/01/2025 3:12 PM EDT 06/01/2025 3:25 PM EDT Generic External Data Provider LAB BLOOD ORDERAB LES Final Result Performing Organization Address [facility] Co de Phone Number [facility] [address] [place] [phone] * (ABNORMAL) Hepatic Function Panel (06/01/2025 3:12 PM EDT) Bilirubin, Total 0.3 0.0 - 1.0 mg/dL [facility] Bilirubin, Direct 0.1 0.0 - 0.5 mg/dL [facility] Aspartate Amino Transferase 24 5 - 31 U/L [facility] Alanine Aminotransferase 40(H) 0 - 31 U/L [facility] Total Protein 7.4 6.5 - 8.0 g/dL [facility] Albumin Level 4.3 3.5 - 5.0 g/dL [facility] Alkaline Phosphatase 104 39 - 117 U/L [facility] 06/01/2025 3:12 PM EDT 06/01/2025 3:25 PM EDT us Generic External Data Provider LAB BLOOD ORDERAB LES Final Result [facility] [address] [place] [phone] * (ABNORMAL) Basic Metabolic Panel (06/01/2025 3:12 PM EDT) Sodium 138 135 - 145 mmol/L [facility] Potassium 3.5 3.3 - 5.1 mmol/L [facility] Chloride 101 96 - 108 mmol/L [facility] Carbon Dioxide 26 22 - 29 mmol/L [facility] Anion Gap 15 12 - 20 [facility] Urea Nitrogen (BUN) 12 9 - 16 mg/dL [facility] Creatinine, Serum 0.66 0.5 - 1.4 mg/dL [facility] Creatinine Clr Calc Pharmacy 106.8 [facility] Comment:Provided height and weight: 162.56 cm,91.6 kg.eGFR (calculated from the MDRD study equation) and eCrCl(calculated from the Cockcroft-Gault equation) are based ondifferent parameters and may not yield comparable results.If eCrCl result is absurd, please check patient'sheight/weight. Estimated Glomerular Filt Rate >60 [facility] Comment:Chronic Kidney Disea se: Estimated GFR < 60 mL/min/1.46x3Ndiegm Kidney Disease: Estimated GFR < 15 mL/min/1.73m2 Glucose 423(HH) 60 - 115 mg/dL [facility] Comment:Critical value for t est(s): GLUR Results called to and readback by: DINESH Person calling: JORGE LUIS Date: 06/01/25 Time: 1601 Calcium 9.4 8.4 - 10.2 mg/dL [facility] 06/01/2025 3:12 PM EDT 06/01/2025 3:25 PM EDT us Generic External Data Provider LAB BLOOD ORDERAB LES Final Result Performing Organization Address [facility] Co de Phone Number [facility] [address] [place] [phone] * Albumin, Random Urine W/Creatinine (01/05/2025 2:20 PM EST) Creatinine, Urine 72.11 mg/dL [facility] Microalbumin Urine 14.0 mg/L [facility] Microalbum Creatinine Ratio Ur 19.4 <30 ug/mg cr [facility] Comment:Albumin/Creatinine R atio Reference Ranges: Normal: < 30 ug/mg creatinine Microalbuminuria: 30 - 300 ug/mg creatinineClinical Albuminuria: > 300 ug/mg creatinine 01/05/2025 2:20 PM EST 01/05/2025 5:52 PM EST us Pipe Anderson MD LAB URINE ORDERABLES Final Result Performing Organization Address [facility] Co de Phone Number [facility] [address] [place] [phone] * (ABNORMAL) Lipid Panel, Standard (01/05/2025 2:15 PM EST) Triglycerides 158(H) <150 mg/dL [facility] Comment:Desirable Triglyceri de: less than 150 mg/dLBorderline High Triglyceride 150-199 mg/dLHigh Triglyceride: 200-499 mg/dLVery High Triglyceride: greater than or equal to 5OO mg/dL Cholesterol 156 <200 mg/dL [facility] Comment:Desirable Cholestero l: less than 200 mg/dLBorderline High Cholesterol: 200-239 mg/dLHigh Cholesterol: greater than 239 mg/dL LDL Cholesterol Calculated 82 <100 mg/dL [facility] Comment:Desirable LDL: less than 100 mg/dLNear Optimal/Above Optimal LDL: 110- 129 mg/dLBorderline High LDL: 130-159 mg/dLHigh LDL: 160-189 mg/dLVery High LDL: greater than or equal to 190 mg/dL HDL Cholesterol 43 >40 mg/dL [facility] Comment:Desirable HDL: great er than 40 mg/dL Note: This HDL assay may give artificially low results in patients with liver disease. 01/05/2025 2:15 PM EST 01/05/2025 5:50 PM EST Pipe Anderson MD LAB BLOOD ORDERABLES Final Result Performing Organization Address City/State/[facility] Co de Phone Number [facility] [address] [place] [phone] * BI Mammogram Screening Tomosynthesis Bilateral (11/30/2024 1:50 PM EST) Anatomical Region Laterality Modality Breast Bilateral Mammography 11/30/2024 1:50 PM EST Narrative 12/10/2024 6:59 AM EST [address] [place] [address] Mammography Report Signed with Addenda Patient: Brittany Hernandez Prashant#: [id number] : 1970 Acct:[id number] Age/Sex: 54 / F ADM Date: 11/30/24 Loc: HO.MAMMO Attending Dr: Pipe Anderson MD Ordering Physician: Pipe Anderson MD Results: 1 Negative Date of Service: 11/30/24 Follow Up: 1 Year From Orig ina Mammogram Procedure(s): MM tomosynthesis screening BI Accession Number(s): [id number] cc: Pipe Anderson MD ADDENDUM ADDENDUM #1 [...] OV> 12/10/24 0656 DD/ 49 TD/TT: 11/30/241416 Legend Maker: Procedure Note Donotuseinterpreter, Image - 12/25/2024 [facility] [address] [place] [address] Mammography Report Signed with Addenda Patient: Randy Hernandez R#: [id number] : 1970Acct:[id number] Age/Sex: 54 / FADM Date: 11/30/24 Loc: HO.MAMMO Attending Dr: Pipe Anderson MD Ordering Physician: Pipe Anderson MDResults: 1 Negative Date of Service: 11/30/24Follow Up: 1 Year From Orig inal Mammogram Procedure(s): MM tomosynthesis screening BI Accession Number(s): [id number] cc: Pipe Anderson MD ADDENDUM ADDENDUM #1 [...] OV> 12/10/24 0656 DD/ 49 TD/TT: 11/30/241416 Legend Maker: Pipe Anderson MD IMG BI PROCEDURES Edited Re sult - Final * Image-Guided Pap with Age-Based Screening Protocols (03/02/2023 2:16 PM EDT) Comment DoctorC Comment: This order for age-based cervical cancer and STI screening follows ACOG guidelines(PB 168, 140, BJU939). See individual assays for performing site location. Clinical Information: None given [a]list games Diagnost LMP: NONE GIVEN [email or web address] Prev. PAP: NONE GIVEN [email or web address] Prev. BX: NONE GIVEN [a]list games Diagnost SOURCE: None given [email or web address] Statement Of Adequacy: DoctorC Comment: Satisfactory for evaluation. Endocervical/transformation zone component present. Interpretation/ Result: Negative for intraepithelial lesion or malignancy. DoctorC COMMENT: This Pap test has been evaluated with computer assisted technology. DoctorC Cytotechnologis t: DoctorC Comment: JXM, CT(ASCP) CT screening location: [place] [address] (Always Message) DoctorC Comment: EXPLANATORY NOTE: The Pap is a [...] HPV nRNA E6/E7 Not Detected Not Detected DoctorC Comment: Methodology: Telegraphic Instrument Supervisor-Mediated Amplification This assay detects E6/E7 viral messenger RNA (mRNA) from 14 high-risk HPV types (16,18,31,33,35,39,45,51,52,56,58,59,66,68). Cervical sources are required for HPV testing. If a vaginal source from a patient who has had a total hysterectomy with removal of cervix was submitted, please contact the testing laboratory for alternative testing options. For additional information, please refer to http://education.[employer]/faq/IEK087t7 (This link if provided for information/ educational purposes only.) Cytology specimen container (physical object) 03/02/2023 2:16 PM EDT 03/03/2023 5:29 AM EDT Shannon Faith CNM LAB BLOOD ORDERABLES Liliana adarsh Result [facility] [address], [place] [address] [email or web address] [facility] [address] [place] [address] * (ABNORMAL) Colonoscopy (11/09/2019) Anatomical Region Laterality Modality Endoscopy Narrative 11/09/2019 Transverse colon polyp removed. Needs a repeat Colonoscopy in 2023. us Historical Provider MD ENDOSCOPY PROCEDURE ORDER AR Final Result from Last 3 Months or Most Recently Relevant to Health Maintenance Insurance [facility] < 65 * Guarantor: Brittany Hernandez Account Type Relation to Patient Date of Phone Billing Address Personal/Family Self [address] [facility] [address] [place] [address] * Guarantor: Brittany Hernandez Account Type Relation to Patient Date of Phone Billing Address Personal/Family Self [address] [facility] [address] [place] [address] Care Teams Translation Director Relationship Specialty Start Date End Date Pipe Anderson MD [address] [place] [address] PCP - General Internal Medicine 04/14/21 Beltran Iglesias Furniture RestorerSenior Java Programmer Analyst 04/21/24 Marcos Hanks Kiln StokerSenior Java Programmer Analyst 07/06/24
== END 2025-08-22 14:32 | disposition home or self-care (01) ==
LOC: HO.ENCR 13:32
PROVIDERS: PCP Internal Medicine; Visit Provider Internal Medicine Endocrinology, Diabetes & Metabolism
DX: E11.65 Type 2 diabetes mellitus with hyperglycemia (principal); Z79.4 Long term (current) use of insulin
CPT/HCPCS: 99204

== ENCOUNTER → 2025-08-22 13:32 | Outpatient (BNVA) | payer OTHER, SELFPAY | PROVIDERS: PCP Internal Medicine; Visit Provider Internal Medicine Endocrinology, Diabetes & Metabolism | DX: E11.65 Type 2 diabetes mellitus with hyperglycemia (principal) | CPT/HCPCS: 82947; 99202 ==

== ENCOUNTER 2025-08-26 23:34 | Emergency (ER) | payer OTHER, SELFPAY ==
[2025-08-26 23:38] VITALS: BP 150/67; PULSE 83; RESP 18; TEMP 36.9; O2SAT 98; BMI 36.9
[2025-08-26 23:51] LABS: Glucose, Whole Blood 443 mg/dL (60-115)
[2025-08-26 23:55] LABS: MANUAL DIFF FLAG NO
[2025-08-26 23:56] LABS: Hematocrit 39.6 % (37.0-47.0); Hemoglobin 13.1 g/dl (12.0-16.0); Imm Gran Abs Auto 0.00 X10*3/uL (0.00-0.03); Imm Gran Pct Auto 0.0 % (0.0-0.4); Lymphocytes Absolute Auto 2.4 X10*3/uL (1.2-4.9); Mean Corpuscular HGB Conc 33.1 g/dl (31.0-35.0); Mean Corpuscular Hemoglobin 27.1 pg (27.0-33.0); Mean Corpuscular Volume 82.0 fL (80.0-98.0); NRBC Abs Auto 0.000 X10*3/uL (0.0-0.012); NRBC Pct Auto 0.0 /100WBC (0.0-0.2); Platelet Count 244 X10*3/uL (160-400); Red Blood Count 4.83 X10*6/uL (4.20-5.50); White Blood Count 5.5 X10*3/uL (4.8-10.8)
--- OUTSIDE RECORDS SUMMARY | 2025-08-26 23:57 | XMS_ITS | Encounter Summary ---
Author Organization [employer] Address [address] [facility] 7t [place] [address] Care Team Providers Care Heavy Equipment Diesel Mechanic Name Role Phone Pipe Anderson MD Primary Care Provider [phone] Jayce Tristan PharmD Unavailable Unavail able Faviola Richard PharmD Unavailable [phone] Encounter Details Date Type Department Care Team ([facility] Contact Info) Description 03/23/[address] [facility] MED & PEDS [address] [place], [place] [phone] Pipe Anderson MD [address] [place] [address] Social History Tobacco Use Types Packs/Day Years [...] on filedocumented in this encounter Care Teams Heavy Equipment Diesel Mechanic Relationship Specialty Start Date End Date Pipe Anderson MD [address] [place] [address] PCP - General Internal Medicine 04/14/21 Jayce Tristan, PharmD [address] [place] [address] Pharmacist Internal Medicine 11/13/22 01/07/25 Faviola Richard PharmD [address] [place] [address] Pharmacist Internal Medicine 01/05/25 06/03/25 Beltran Iglesias Glaze SupervisorSolar Project Engineer 04/21/24 Marcos Hanks Body Builder ApprenticeSolar Project Engineer 07/06/24 documented as of this encounter
--- OUTSIDE RECORDS SUMMARY | 2025-08-26 23:57 | XMS_ITS | Encounter Summary ---
Author Organization [employer] Address [address] [facility] 7t [place] [address] Care Team Providers Care Community Outreach Manager Name Role Phone Pipe Anderson MD Primary Care Provider [phone] Jayce Tristan PharmD Unavailable Unavail able Faviola Richard PharmD Unavailable [phone] Encounter Details Date Type Department Care Team ([facility] Contact Info) Description 07/28/2024 Orders Only [facility] CHC MED & PEDS [address] [place], [place] [phone] Pipe Anderson MD [address] [place] [address] Uncontrolled type 2 diabetes mellitus with hyperglycemia [...] Uncontrolled type 2 diabetes mellitus with hyperglycemia (HCC)- Primary documented in this encounter Additional Health Concerns Assessment Noted Time PHQ-9 Depression Total Score: 14 024 4:22 PM EDT documented as of this encounter Care Teams Community Outreach Manager Relationship Specialty Start Date End Date Pipe Anderson MD [address] [place] [address] PCP - General Internal Medicine 04/14/21 Jayce Tristan, PharmD [address] [place] [address] Pharmacist Internal Medicine 11/13/22 01/07/25 Faviola Richard PharmD [address] [place] [address] Pharmacist Internal Medicine 01/05/25 06/03/25 Beltran Iglesias Cell LinerJackhammer Splitter Operator 04/21/24 Marcos Hanks Mill AttendantJackhammer Splitter Operator 07/06/24 documented as of this encounter
--- OUTSIDE RECORDS SUMMARY | 2025-08-26 23:57 | XMS_ITS | Encounter Summary ---
Author Organization [employer] Address [address] [facility] 7t [place] [address] Care Team Providers Care Human Resource Officer Name Role Phone Pipe Anderson MD Primary Care Provider [phone] Jayce Tristan PharmD Unavailable Unavail able Faviola Richard PharmD Unavailable [phone] Reason for Visit * Reason Comments Med Refill Encounter Details Date Type Department Care Team ([facility] Contact Info) Description 11/06/2024 Refill [facility] CHC MED & PEDS [address] [place], [place] [phone] Pipe Anderson MD [address] [place] [address] Diabetic polyneuropathy associated with type 2 diabetes [...] polyneuropathy associated with type 2 diabetes mellitus (HCC) documented in this encounter Additional Health Concerns Assessment Noted Time PHQ-9 Depression Total Score: 14 024 4:22 PM EDT documented as of this encounter Care Teams Human Resource Officer Relationship Specialty Start Date End Date Pipe Anderson MD [address] [place] [address] PCP - General Internal Medicine 04/14/21 Jayce Tristan, PharmD [address] [place] [address] Pharmacist Internal Medicine 11/13/22 01/07/25 Faviola Richard PharmD [address] [place] [address] Pharmacist Internal Medicine 01/05/25 06/03/25 Beltran Iglesias Cutting Tool SharpenerPowerhouse Mechanic Supervisor 04/21/24 Marcos Hanks Tdp Displays AnalystPowerhouse Mechanic Supervisor 07/06/24 documented as of this encounter
--- OUTSIDE RECORDS SUMMARY | 2025-08-26 23:57 | XMS_ITS | Encounter Summary ---
Author Organization [employer] Address [address] [facility] 7t [place] [address] Care Team Providers Care Military Science Teacher Name Role Phone iPpe Anderson MD Primary Care Provider [phone] Encounter Details Date Type Department Care Team ([facility] Contact Info) Description 08/22/2025 Orders Only GENERIC [...] Whole Blood 366(HH) 60 - 115 mg/dL [facility] Comment:METER #: [id number] Testing performed in the Endocrinology Department [address] , [address], [facility]. 08/22/2025 2:09 PM EDT 08/22/2025 2:25 PM EDT us Generic External Data Provider LAB BLOOD ORDERAB LES Final Result [facility] [address] [place] [address] [phone] documented in this encounter Visit Diagnoses Not on filedocumented in this encounter Additional Health Concerns Assessment Noted Time PHQ-9 Depression Total Score: 4 07/12/20 1:36 PM EDT documented as of this encounter Care Teams Military Science Teacher Relationship Specialty Start Date End Date Pipe Anderson MD [address] [place] [address] PCP - General Internal Medicine 04/14/21 Beltran Iglesias Computer Support TechnicianSecurity Sales Manager 04/21/24 Marcos Hanks Ticket ManagerSecurity Sales Manager 07/06/24 documented as of this encounter
--- OUTSIDE RECORDS SUMMARY | 2025-08-26 23:57 | XMS_ITS | Encounter Summary ---
Author Organization [employer] Address [address] [facility] 7t [place] [address] Care Team Providers Care Education Professor Name Role Phone Pipe Anderson MD Primary Care Provider [phone] Jayce Tristan PharmD Unavailable Unavail able Faviola Richard PharmD Unavailable [phone] Reason for Visit * Reason Comments Med Refill Encounter Details Date Type Department Care Team ([facility] Contact Info) Description 06/19/2024 Refill [facility] CHC MED & PEDS [address] [place], [place] [phone] Pipe Anderson MD [address] [place] [address] Diabetic polyneuropathy associated with type 2 diabetes [...] diabetes mellitus (HCC) documented in this encounter Care Teams Education Professor Relationship Specialty Start Date End Date Pipe Anderson MD [address] [place] [address] PCP - General Internal Medicine 04/14/21 Jayce Tristan, PharmD [address] [place] [address] Pharmacist Internal Medicine 11/13/22 01/07/25 Faviola Richard PharmD [address] [place] [address] Pharmacist Internal Medicine 01/05/25 06/03/25 Beltran Iglesias Scanner OperatorGas Turbine Powerplant Mechanic Helper 04/21/24 Marcos Hanks Respiratory ScientistGas Turbine Powerplant Mechanic Helper 07/06/24 documented as of this encounter
--- OUTSIDE RECORDS SUMMARY | 2025-08-26 23:57 | XMS_ITS | Encounter Summary ---
Author Organization [employer] Address [address] [facility] 7t [place] [address] Care Team Providers Care Picture Enlarger Name Role Phone Pipe Anderson MD Primary Care Provider [phone] Encounter Details Date Type Department Care Team ([facility] Contact Info) Description 06/26/2025 Results Follow-Up [facility] CHC MED & PEDS [address] [place], [place] [phone] Pipe Anderson MD [address] [place] [address] Lower Extremity Venous Duplex Social History Tobacco [...] Assessment Author Patient Health Questionnaire-2 Score 2 06/29 1:36 PM EDT Lenny Deshpande MA * Little interest or pleasure in doing things Answer Date of Assessment Author Several days 07/12/2025 1:36 PM EDT Lenny Deshpande MA * Feeling down, depressed, or hopeless Answer Date of Assessment Author Several days 07/12/2025 1:36 PM EDT Lenny Deshpande MA * Trouble falling or staying asleep, or sleeping too much Answer Date of Assessment Author Several days 07/12/2025 1:36 PM EDT Lenny Deshpande MA * Feeling tired or having little energy Answer Date of Assessment Author Several days 07/12/2025 1:36 PM EDT Lenny Deshpande MA * Poor appetite or overeating Answer Date of Assessment Author Not at all 07/12/2025 1:36 PM EDT Lenny Deshpande MA * Feeling bad about yourself - or that you are a failure or have let yourself or your family down Answer Date of Assessment Author Not at all 07/12/2025 1:36 PM EDT Lenny Deshpande MA * Trouble concentrating on things, such as reading the newspaper or watching television Answer Date of Assessment Author Not at all 07/12/2025 1:36 PM EDT Lenny Deshpande MA * Moving or speaking so slowly that other people could have noticed? Or the opposite - being so fidgety or restless that you have been moving around a lot more than usual. Answer Date of Assessment Author Not at all 07/12/2025 1:36 PM EDT Lenny Deshpande MA * Thoughts that you would be better off or hurting yourself in some way Answer Date of Assessment Author Not at all 07/12/2025 1:36 PM EDT Lenny Deshpande MA * Patient Health Questionnaire-9 Score Answer Date of Assessment Author 4 07/12/2025 1:36 PM EDT Lenny Deshpande MA * How difficult have these problems made it for you to do your work, take care of things at home, or get along with other people? Answer Date of Assessment Author Not difficult at all 07/12/2025 1:36 PM EDT Lenny Martini MA documented as of this encounter Plan of Treatment Not on file documented as of this encounter Goals Goal Patient Goal Type Associated Problems Recent Progress Patient-Stated? Author Blood Pressure < 140/90 Blood Pressure 136/74(2024 1:36 PM EDT) No Dellogono, Jayce, PharmD Hemoglobin A1c < 7 Result Component 13.3(07/12/20 25 2:11 PM EDT) No Dellogono Jayce, PharmD documented as of this encounter Visit Diagnoses Not on filedocumented in this encounter Additional Health Concerns Assessment Noted Time PHQ-9 Depression Total Score: 14 024 4:22 PM EDT documented as of this encounter Care Teams Picture Enlarger Relationship Specialty Start Date End Date Pipe Anderson MD [address] [place] [address] PCP - General Internal Medicine 04/14/21 Beltran Iglesias Sales Support RepresentativeDirector Of Corporate Strategy 04/21/24 Marcos Hanks Drawer In HandDirector Of Corporate Strategy 07/06/24 documented as of this encounter
--- OUTSIDE RECORDS SUMMARY | 2025-08-26 23:57 | XMS_ITS | Encounter Summary ---
Author Organization [email or web address] Address [address] [facility] [address] 7[address] [place] [address] Care Team Providers Care Golf Course Designer Name Role Phone Pipe Anderson MD Primary Care Provider [phone] Jayce Tristan PharmD Unavailable Unavail able Faviola Richard PharmD Unavailable [phone] Reason for Visit * Reason Onset Date Comments Referral 10/13/2023 Encounter Details Date Type Department Care Team ([facility] st Contact Info) Description 10/13/2023 Telephone [facility] [address] [place] [address] Pipe Anderson MD [address] [place], [place] [phone] Referral Social History Tobacco Use Types Packs/Day [...] t he electric, gas, oil or water [employer] threatened to shut off services in your [...] advise if pt can be referred to rouge mixer for pt's DM. * Telephone Encounter - Mikael Carrero - 10/13/2023 10:12 AM EST Tc zack Gong the patients VN requesting a referral for a rouge mixer for the patient any questions please call [phone] documented in this encounter Plan of Treatment [...] on filedocumented in this encounter Care Teams Golf Course Designer Relationship Specialty Start Date End Date Pipe Anderson MD [address] [place] [address] PCP - General Internal Medicine 04/14/21 Jayce Tristan, BhavnaD [address] [place] [address] Pharmacist Internal Medicine 11/13/22 01/07/25 Faviola Richard PharmD [address] [place] [address] Pharmacist Internal Medicine 01/05/25 06/03/25 Beltran Iglesias Apparatus LinemanEtcher Enameling 04/21/24 Marcos Hanks Florist HelperEtcher Enameling 07/06/24 documented as of this encounter
--- OUTSIDE RECORDS SUMMARY | 2025-08-26 23:57 | XMS_ITS | Clinical Summary ---
Author Organization [employer] Address [address] [facility] [address] [place] [address] Care Team Providers Care Pickle Pumper Name Role Phone Pipe Anderson MD Primary Care Provider [phone] Allergies Active Allergy Reactions Criticality Noted Date [...] ns:Uncontrolled type 2 diabetes mellitus with hyperglycemia (HCC) INJECT 50 SUBCUTANEOUSLY AT BEDTIME 6 mL 11 09/15/20 24 Active Tirzepatide (Mounjaro) 2.5 MG/0.5ML solution auto-injectorIndic ations:Uncontrolle d type 2 diabetes mellitus with hyperglycemia (HCC) Inject 2.5 mg under the skin 1 (one) time per week. 2 mL 01/05/20 25 Active Continuous Glucose Sensor (FreeStyle José Manuel 3 Plus Sensor) miscIndications:Un controlled type 2 diabetes mellitus with hyperglycemia (HCC) 1 each every 15 days. 2 each 11 01/05/20 25 Active PARoxetine (Paxil) 20 MG tabletIndications: Anxiety,Persistent depressive disorder TAKE ONE TABLET EVERY MORNING 30 tablet 11 03/12/20 25 Active insulin pen needle (B-D ULTRAFINE III SHORT PEN) 31G X 8 mm miscIndications:Ty pe 2 diabetes mellitus with hyperglycemia, without long-term current use of insulin (HCC) USE TO INJECT insulin THREE TIMES DAILY [...] associated with type 2 diabetes mellitus (HCC) TAKE ONE CAPSULE TWICE DAILY IN THE MORNING AND AT BEDTIME 60 capsule 1 05/11/20 25 Active insulin aspart (NovoLOG FLEXPEN) 100 UNIT/ML penIndications:Unc ontrolled type 2 diabetes mellitus with hyperglycemia (HCC) INJECT 20 UNITS subcutaneously BEFORE BREAKFAST, 10 [...] 25 Active Blood Glucose Monitoring Suppl (FreeStyle Logsden Lite) w/Device kit Use to test blood sugar 3x times daily 1 kit 06/23/20 25 Active azithromycin (Zithromax) 250 MG tablet Take 250 mg by mouth. 06/01/20 Active benzonatate (Tessalon) 100 MG capsule Take 100 mg by mouth. 06/01/20 25 Active Easy Touch Lancets 33G/Twist miscIndications:Ty pe 2 diabetes mellitus with hyperglycemia, without long-term current use of insulin (HCC) USE TO TEST BLOOD SUGAR THREE TIMES DAILY 100 each 11 07/12/20 25 Active glucose blood (FreeStyle Precision Chet Test) test stripIndications:U ncontrolled type 2 diabetes mellitus with hyperglycemia (HCC),Type 2 diabetes mellitus with hyperglycemia, without long-term current use of insulin (HCC) Test blood sugar up to 3 times daily as directed 100 each 07/12/20 25 026 Active FREESTYLE LITE test stripIndications:U ncontrolled type 2 diabetes mellitus with hyperglycemia (HCC) Use to test blood sugar 2 times daily 100 each 12 07/12/20 25 026 Active Alcohol Swabs 70 % padsIndications:Un controlled type 2 diabetes mellitus with hyperglycemia (HCC) Use to test blood sugar 2 times daily 100 each 07/12/20 25 Active Blood Glucose Monitoring Suppl (FreeStyle Logsden Lite) w/Device kitIndications:Unc ontrolled type 2 diabetes mellitus with hyperglycemia (HCC) Use to test blood sugar 2 times daily 1 kit 07/12/20 25 Active gabapentin (Neurontin) 100 MG capsuleIndications :Diabetic polyneuropathy associated with type 2 diabetes mellitus (HCC) Take 2 capsules (200 mg) by mouth [...] organization. Date Type Department Care Team Description 08/26/2025 Orders Only GENERIC EXTERNAL DATA DEPARTMENT Provider, Generic External Data 08/22/2025 Orders Only GENERIC EXTERNAL DATA DEPARTMENT Provider, Generic External Data 08/11/2025 Orders Only [facility] External Provider, [facility] 07/12/2025 1:45 PM EDT Office Visit [facility] [address] [place] [address] Pipe Anderson MD Uncontrolled type 2 diabetes mellitus with hyperglycemia (CMS/HCC) (Primary Dx); Cellulitis of left leg; Gastroesophageal reflux disease without esophagitis; Primary hypertension; Type 2 diabetes mellitus with hyperglycemia, without long-term current use of insulin (CMS/HCC); Edema of left lower leg; Diabetic polyneuropathy associated with type 2 diabetes mellitus (CMS/HCC) 07/12/2025 Travel 06/26/2025 Results Follow-Up [facility] [address] [place] [address] Pipe Anderson MD Lower Extremity Venous Duplex 06/23/2025 10:20 AM EDT Office Visit [facility] [address] [place] [address] Teresa Schuler MD Cellulitis of left leg (Primary Dx); Edema of left lower leg 06/23/2025 Travel 06/19/2025 Telephone [facility] [address] [place] [address] Pipe Anderson MD ER Follow-up 06/11/2025 1:30 PM EDT Office Visit [facility] [address] [place] [address] Luis Manuel, Julieta, OD Type 2 diabetes mellitus without ophthalmic manifestations (CMS/HCC) (Primary Dx); Lattice degeneration of right retina; Dry eyes, bilateral; Mixed type age-related cataract, both eyes; Presbyopia 06/11/2025 Travel 06/11/2025 Refill [facility] [address] [place] [address] Pipe Anderson MD 06/09/2025 Orders Only GENERIC EXTERNAL DATA DEPARTMENT Provider, Generic External Data 06/01/2025 Orders Only GENERIC EXTERNAL DATA DEPARTMENT Provider, Generic External Data 06/01/2025 Refill [facility] [address] [place] [address] Pipe Anderson MD Uncontrolled type 2 diabetes mellitus with hyperglycemia (CMS/HCC) from Last 3 Months Immunizations Immunization Administration [...] 07/12/2026 07/12/2025 Depression Screening 07/12/2026 07/12/2025, 07/12/20 Disability Screening 07/12/2026 07/12/2025 Mammogram 11/30/2026 11/30/2024, [...] Procedure Name Priority Date/Time Associated Diagnosis Comments CBC WITH AUTO DIFFERENTIAL Routine 08/26/2025 11:47 PM EDT GLUCOSE, WHOLE BLOOD Routine 08/26/2025 11:42 PM EDT GLUCOSE, WHOLE BLOOD Routine 08/22/2025 2:09 PM [...] Relevant to Health Maintenance Results * (ABNORMAL) CBC auto differential (08/26/2025 11:47 PM EDT) Only the most recent of4 resultswithin the time period is included. White Blood Count 5.5 4.8 - 10.8 X10*3/uL [facility] Red Blood Count 4.83 4.20 - 5.50 X10*6/uL [facility] Hemoglobin 13.1 12.0 - 16.0 g/dl [facility] Hematocrit 39.6 37.0 - 47.0 % [facility] Mean Corpuscular Volume 82.0 80.0 - 98.0 fL [facility] Mean Corpuscular Hemoglobin 27.1 27.0 - 33.0 pg [facility] Mean Corpuscular HGB Conc 33.1 31.0 - 35.0 g/dl [facility] Red Cell Distribution Width 13.7 11.0 - 16.0 % [facility] Platelet Count 244 160 - 400 X10*3/uL [facility] Mean Platelet Volume 10.4 9.4 - 12.3 fL [facility] Neutrophils Percent Auto 47.4 45 - 73 % [facility] Imm Gran Pct Auto 0.0 0.0 - 0.4 % [facility] Lymphocytes Percent Auto 43.6(H) 20 - 40 % [facility] Monocytes Percent Auto 7.2 2 - 11 % [facility] Eosinophils Percent Auto 1.3 0 - 4 % [facility] Basophils Percent Auto 0.5 0 - 2 % [facility] NRBC Pct Auto 0.0 0.0 - 0.2 /100WBC [facility] Neutrophils Absolute Auto 2.6 2.0 - 8.3 x10*3/uL [facility] Imm Gran Abs Auto 0.00 0.00 - 0.03 X10*3/uL [facility] Lymphocytes Absolute Auto 2.4 1.2 - 4.9 X10*3/uL [facility] Monocytes Absolute Auto 0.4 0.1 - 1.2 X10*3/uL [facility] Eosinophils Absolute Auto 0.1 0.0 - 0.4 X10*3/uL [facility] Basophils Absolute Auto 0.0 0.0 - 0.2 X10*3/uL [facility] NRBC Abs Auto 0.000 0.0 - 0.012 X10*3/uL [facility] 08/26/2025 11:4 7 PM EDT 08/26/2025 11:53 PM EDT Generic External Data Provider LAB BLOOD ORDERAB LES Final Result Performing Organization Address [facility]/ZIP Co de Phone Number [facility] [address] [place] [phone] * (ABNORMAL) Glucose, Whole Blood (08/26/2025 11:42 PM EDT) Only the most recent of4 resultswithin the time period is included. Glucose, Whole Blood 443(HH) 60 - 115 mg/dL [facility] Comment:METER #: [id number] 08/26/2025 11:4 2 PM EDT 08/26/2025 11:49 PM EDT us Generic External Data Provider LAB BLOOD ORDERAB LES Final Result Performing Organization Address [facility]/ZIP Co de Phone Number [facility] [address] [place] [phone] * (ABNORMAL) Glucose, Whole Blood (08/22/2025 2:09 PM EDT) Glucose, Whole Blood 366(HH) 60 - 115 mg/dL [facility] Comment:METER #: [id number] Testing performed in the Endocrinology Department [address], [facility]. 08/22/2025 2:09 PM EDT 08/22/2025 2:25 PM EDT us Generic External Data Provider LAB BLOOD ORDERAB LES Final Result Performing Organization Address City/State/[facility] Co de Phone Number [facility] [address] [place] [phone] * XR Chest 2 Views (08/11/2025 2:35 PM EDT) Only the most recent of3 resultswithin the time period is included. Anatomical Region Laterality Modality Chest Radiographic Edna ging 08/11/2025 2:35 PM EDT Narrative 08/11/2025 2:36 PM EDT [address] [address] XRay Report Signed Patient: Brittany Hernandez R#: [id number] : 1970 Acct:[id number] Age/Sex: 54 / F ADM Date: 08/11/25 Loc: HO.ED Attending Dr: Ordering Physician: Ina Larson Date of Service: 08/11/25 Procedure(s): XR chest 2V Accession Number(s): [id number] cc: Pipe Anderson MD; Ina Larson Reason [...] signed by Ken Richardson MD in OV> 08/11/25 1436 DD/ 1435 TD/TT: 08/11/25 1435 [employer] Observer: Procedure Note Donotuseinterpreter, Image - 08/11/2025 [address] [place] [address] XRay Report Signed Patient: Randy Hernandez R#: [id number] : 1970Acct:[id number] Age/Sex: 54 / FADM Date: 08/11/25 Loc: .ED Attending Dr: Ordering Physician: Ina Larson Date of Service: 08/11/25 Procedure(s): XR chest 2V Accession Number(s): [id number] cc: Pipe Anderson MD; Ina Larson Reason [...] signed by Ken Richardson MD in OV> 08/11/25 1436 DD/ 1435 TD/TT: 08/11/25 1435 [employer] Observer: [facility] External Provider IMG XR PROCEDURES Edited Result - Final * Influenza A B2 ID NOW ([facility]) (08/11/2025 2:17 PM EDT) IDNOW SERIAL# [id number] [facility] Influenza A Negative Negative [facility] Influenza B2 Negative Negative [facility] Influenza A B2 Note See Note [facility] Comment:The [facility] ID NOW In [...] LAB MICROBIOLOGY - GENERAL ORDERABLES Final Result [facility] [address] [place] [address] [phone] * COVID-19 ID NOW ([place]AT[facility]) (08/11/2025 2:17 PM EDT) IDNOW SERIAL# [id number] [facility] COVID-19 TEST Negative Negative [facility] COVID-19 NOTE See Note [facility] Comment: Results are for the identification of SARS-CoV2 RNA. TheSARS-CoV2 RNA is generally detectable in respiratory samplesduring the acute phase of infection. Positive results areindicative of the presence of SARS-CoV-2 RNA; clinicalcorrelation with patient history and other diagnosticinformation is necessary to determine patient infectionstatus. Positive results do not rule out bacterial infectionor co- infection with other viruses.Testing facilities within the [facility] and itsterritories are required to report [...] use by authorized laboratories.Testing performed on the [facility] ID NOW utilizing NAAT. 08/11/2025 2:17 PM EDT 08/11/2025 2:25 PM EDT us Generic External Data Provider LAB MOLECULAR CHARLIE GNOSTICS ORDERABLES Final Result Performing Organization Address City/[facility]/ZIP Co de Phone Number [facility] [address] [place] [phone] * (ABNORMAL) POCT HGB A1C (07/12/2025 2:11 PM EDT) Hemoglobin A1C 13.3(A) 4.0 - 5.7 % QC Media Lot # [id number] Lot# Expiration Date 47, Blood 07/12/2025 2:11 PM EDT us Pipe Anderson MD POINT OF CARE TEST ENTER/ED IT ORDERABLES Final Result * (ABNORMAL) POCT Glucose (07/12/2025 2:11 PM EDT) Pathologist [facility] Glucose Blood, POC 313(A) 60 - 200 mg/dL QC Media Lot # [id number] Lot# Expiration Date 733 Blood Capillary blood specimen / Unknown 07/12/2025 2:11 PM EDT Pipe Anderson MD POINT OF CARE TEST ENTER/ED IT ORDERABLES Final Result * Hepatitis C Antibody with Reflex to HCV, RNA, Quantitative, Real-Time PCR (06/26/2025 2:04 PM EDT) Pathologist [facility] Hepatitis C Antibody Nonreactive Nonreactive [facility] Comment:Antibodies to HCV no t detected; does not exclude early acuteHCV infection. Blood Venous blood specimen / Unknown 06/26/2025 2:04 PM EDT 06/26/2025 4:17 PM EDT Pipe Anderson MD LAB BLOOD ORDERABLES Final Result [facility] [address] [place] [address] [phone] * Sed Rate by Modified Darlineren (06/26/2025 2:04 PM EDT) Erythrocyte Sedimentation Rate 16 0 - 20 MM/HR [facility] Comment:Patients with polycy themia and many hemoglobin abnormalitiesmay have depressed sed rates whereas patients with anemiamay have elevated sed rates. Blood Venous blood specimen / Unknown 06/26/2025 2:04 PM EDT 06/26/2025 4:14 PM EDT us Teresa Schuler MD LAB BLOOD ORDERABLES Fin al Result [facility] [address] [place] [phone] * Lower Extremity Venous Duplex (06/26/2025 1:51 PM EDT) Only the most recent of2 resultswithin the time period is included. 06/26/2025 1:51 PM EDT Narrative [facility] - 06/26/2025 2:12 PM EDT [facility] [address] [place] [address] [place] [address] Ultrasound Report Signed Patient: Brittany Hernandez#: [id number] : 1970 Acct:[id number] Age/Sex: 54 / F ADM Date: 06/26/25 Loc: HO.HMGCX Attending Dr: Teresa Schuler MD Ordering Physician: Teresa Schuler MD Date of Service: 06/26/25 Procedure(s): US venous duplex LE Accession Number(s): [id number] cc: Pipe Anderson MD; Teresa Schuler MD [...] veins are patent. US/US venous duplex LE IMPRESSION: No evidence of acute DVT in the left lower extremity. Electronically signed by: Simba Parr MD 06/26/2025 02:09 PM EDT Dictated By: Simba Parr MD Signed By: <Electronically signed by Simba Parr MD in OV> 06/26/25 1409 DD/ 1351 TD/TT: 06/26/25 1359 [employer] Observer: Procedure Note Donotuseinterpreter, Image - 06/26/2025 [facility] [address] [place] [address] [place] [address] Ultrasound Report Signed Patient: Randy Hernandez R#: [id number] : 1970Acct:[id number] Age/Sex: 54 / FADM Date: 06/26/25 Loc: .HMGCX Attending Dr: Teresa Schuler MD Ordering Physician: Teresa Schuler MD Date of Service: 06/26/25 Procedure(s): US venous duplex [facility] Accession Number(s): [id number] cc: Pipe Anderson MD; Teresa Schuler MD [...] 06/26/25 1409 DD/ 1351 TD/TT: 06/26/25 1359 [employer] Observer: us Teresa Schuler MD CV VASCULAR PROCEDURES F inal Result Performing Organization Address [facility] Co de Phone Number [facility] [address] [place] [address] * B Type Natriuretic Peptide (BNP) (06/09/2025 2:57 PM EDT) Only the most recent of2 resultswithin the time period is included. [facility] B Type Natriuretic Peptide <10 <100 pg/mL [facility] 06/09/2025 2:57 PM EDT 06/09/2025 3:00 PM EDT Generic External Data Provider LAB BLOOD ORDERAB LES Final Result Performing Organization Address [facility] Co de Phone Number [facility] [address] [place] [phone] * (ABNORMAL) Comprehensive Metabolic Panel, Fasting (06/09/2025 2:56 PM EDT) [facility] Sodium 136 135 - 145 mmol/L [facility] Potassium 4.0 3.3 - 5.1 mmol/L [facility] Chloride 100 96 - 108 mmol/L [facility] Carbon Dioxide 28 22 - 29 mmol/L [facility] Anion Gap 12 12 - 20 [facility] Urea Nitrogen (BUN) 12 9 - 16 mg/dL [facility] Creatinine, Serum 0.69 0.5 - 1.4 mg/dL [facility] Creatinine Clr Calc Pharmacy 103.7 [facility] Comment:Provided height and weight: 165.1 cm,90.8 kg.eGFR (calculated from the MDRD study equation) and eCrCl(calculated from the Cockcroft-Gault equation) are based ondifferent parameters and may not yield comparable results.If eCrCl result is absurd, please check patient'sheight/weight. Estimated Glomerular Filt Rate >60 [facility] Comment:Chronic Kidney Disea se: Estimated GFR < 60 mL/min/1.19l6Byhbpq Kidney Disease: Estimated GFR < 15 mL/min/1.73m2 Glucose Fasting 391(HH) 60 - 99 mg/dL [facility] Comment:Critical value for t est(s): FBS Results called to and readback by: DR. MCCRARY Person calling: NGUYENQ Date:06/09/25 Time: 7723Z fasting glucose of 126 mg/dl or greater on more than oneoccasion is considered diagnostic of diabetes. Calcium 9.7 8.4 - 10.2 mg/dL [facility] Bilirubin, Total 0.3 0.0 - 1.0 mg/dL [facility] Aspartate Amino Transferase 23 5 - 31 U/L [facility] Alanine Aminotransferase 39(H) 0 - 31 U/L [facility] Total Protein 7.4 6.5 - 8.0 g/dL [facility] Albumin Level 4.3 3.5 - 5.0 g/dL [facility] Alkaline Phosphatase 96 39 - 117 U/L [facility] 06/09/2025 2:56 PM EDT 06/09/2025 3:00 PM EDT us Generic External Data Provider LAB BLOOD ORDERAB LES Final Result [facility] [address] [place] [phone] * D Dimer High Sensitivity (06/09/2025 2:56 PM EDT) D Dimer High Sensitivity <150 NG/ML [facility] Comment:D-DIMER HS REFERENCE RANGENote: Our [...] ORDERAB LES Final Result Performing Organization Address [facility] Co de Phone Number [facility] [address] [place] [phone] * High Sensitivity Troponin I (06/09/2025 2:56 PM EDT) Only the most recent of2 resultswithin the time period is included. Pathologist [facility] TROPONIN I HIGH SENSITIVITY <2.7 <3.5 - 17.0 ng/L [facility] Comment:The [facility] high sens itivity Troponin-I results should beused in conjunction with other diagnostic information suchas ECG, clinical observations and information, and patientsymptoms to aid in the diagnosis of [place]. 06/09/2025 2:56 PM EDT 06/09/2025 3:00 PM EDT [employer] External Data Provider LAB BLOOD ORDERAB LES Final Result Performing Organization Address [facility] de Phone Number [facility] [address] [place] [phone] * SARS-CoV-2 RNA, Influenza A/B, and RSV RNA, Ql NAAT (06/01/2025 3:12 PM EDT) Pathologist [facility] Influenza A PCR NEGATIVE Negative [facility] Influenza B PCR NEGATIVE Negative [facility] Resp Syncy Virus RNA Qual PCR NEGATIVE Negative [facility] SARS COV2 PCR NEGATIVE Negative [facility] Comment:All test results mus t be [...] use by authorized laboratories.Testing performed on the [employer] GeneXpert utilizingreal-time RT-PCR.All SARS CoV2 and positive influenza A/B results arereported to [facility]. 06/01/2025 3:12 PM EDT 06/01/2025 3:25 PM EDT Generic External Data Provider LAB MICROBIOLOGY - GENERAL ORDERABLES Final Result Performing Organization Address [facility] Co de Phone Number [facility] [address] [place] [phone] * (ABNORMAL) Magnesium (06/01/2025 3:12 PM EDT) Pathologist [facility] Magnesium 1.5(L) 1.6 - 2.6 mg/dL [facility] 06/01/2025 3:12 PM EDT 06/01/2025 3:25 PM EDT Generic External Data Provider LAB BLOOD ORDERAB LES Final Result Performing Organization Address [facility]/ZIP Co de Phone Number [facility] [address] [place] [phone] * (ABNORMAL) Hepatic Function Panel (06/01/2025 3:12 PM EDT) Bilirubin, Total 0.3 0.0 - 1.0 mg/dL [facility] Bilirubin, Direct 0.1 0.0 - 0.5 mg/dL [facility] Aspartate Amino Transferase 24 5 - 31 U/L [facility] Alanine Aminotransferase 40(H) 0 - 31 U/L [facility] Total Protein 7.4 6.5 - 8.0 g/dL [facility] Albumin Level 4.3 3.5 - 5.0 g/dL [facility] Alkaline Phosphatase 104 39 - 117 U/L [facility] 06/01/2025 3:12 PM EDT 06/01/2025 3:25 PM EDT us Generic External Data Provider LAB BLOOD ORDERAB LES Final Result [facility] [address] [place] [phone] * (ABNORMAL) Basic Metabolic Panel (06/01/2025 3:12 PM EDT) Sodium 138 135 - 145 mmol/L [facility] Potassium 3.5 3.3 - 5.1 mmol/L [facility] Chloride 101 96 - 108 mmol/L [facility] Carbon Dioxide 26 22 - 29 mmol/L [facility] Anion Gap 15 12 - 20 [facility] Urea Nitrogen (BUN) 12 9 - 16 mg/dL [facility] Creatinine, Serum 0.66 0.5 - 1.4 mg/dL [facility] Creatinine Clr Calc Pharmacy 106.8 [facility] Comment:Provided height and weight: 162.56 cm,91.6 kg.eGFR (calculated from the MDRD study equation) and eCrCl(calculated from the Cockcroft-Gault equation) are based ondifferent parameters and may not yield comparable results.If eCrCl result is absurd, please check patient'sheight/weight. Estimated Glomerular Filt Rate >60 [facility] Comment:Chronic Kidney Disea se: Estimated GFR < 60 mL/min/1.80i5Lfkdis Kidney Disease: Estimated GFR < 15 mL/min/1.73m2 Glucose 423(HH) 60 - 115 mg/dL [facility] Comment:Critical value for t est(s): GLUR Results called to and readback by: MONTIEL Person calling: FLEMINC Date: 06/01/25 Time: 1601 Calcium 9.4 8.4 - 10.2 mg/dL [facility] 06/01/2025 3:12 PM EDT 06/01/2025 3:25 PM EDT us Generic External Data Provider LAB BLOOD ORDERAB LES Final Result Performing Organization Address [facility] Co de Phone Number [facility] [address] [place] [phone] * Albumin, Random Urine W/Creatinine (01/05/2025 2:20 PM EST) Creatinine, Urine 72.11 mg/dL [facility] Microalbumin Urine 14.0 mg/L [facility] Microalbum Creatinine Ratio Ur 19.4 <30 ug/mg cr [facility] Comment:Albumin/Creatinine R atio Reference Ranges: Normal: < 30 ug/mg creatinine Microalbuminuria: 30 - 300 ug/mg creatinineClinical Albuminuria: > 300 ug/mg creatinine 01/05/2025 2:20 PM EST 01/05/2025 5:52 PM EST us Pipe Anderson MD LAB URINE ORDERABLES Final Result Performing Organization Address [facility] Co de Phone Number [facility] [address] [place] [phone] * (ABNORMAL) Lipid Panel, Standard (01/05/2025 2:15 PM EST) Triglycerides 158(H) <150 mg/dL [facility] Comment:Desirable Triglyceri de: less than 150 mg/dLBorderline High Triglyceride 150-199 mg/dLHigh Triglyceride: 200-499 mg/dLVery High Triglyceride: greater than or equal to 5OO mg/dL Cholesterol 156 <200 mg/dL [facility] Comment:Desirable Cholestero l: less than 200 mg/dLBorderline High Cholesterol: 200-239 mg/dLHigh Cholesterol: greater than 239 mg/dL LDL Cholesterol Calculated 82 <100 mg/dL [facility] Comment:Desirable LDL: less than 100 mg/dLNear Optimal/Above Optimal LDL: 110- 129 mg/dLBorderline High LDL: 130-159 mg/dLHigh LDL: 160-189 mg/dLVery High LDL: greater than or equal to 190 mg/dL HDL Cholesterol 43 >40 mg/dL [facility] Comment:Desirable HDL: great er than 40 mg/dL Note: This HDL assay may give artificially low results in patients with liver disease. 01/05/2025 2:15 PM EST 01/05/2025 5:50 PM EST us Pipe Anderson MD LAB BLOOD ORDERABLES Final Result [facility] [address], [place] [phone] * BI Mammogram Screening Tomosynthesis Bilateral (11/30/2024 1:50 PM EST) Anatomical Region Laterality Modality Breast Bilateral Mammography 11/30/2024 1:50 PM EST Narrative 12/10/2024 6:59 AM EST [facility] [address] 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 [place], [place] [address] Mammography Report Signed with Addenda Patient: Randy Hernandez R#: [id number] : 1970Acct:[id number] Age/Sex: 54 / FADM Date: 11/30/24 Loc: HO.MAMMO Attending Dr: Pipe Anderson MD Ordering Physician: Pipe Anderson MDResults: 1 Negative Date of Service: 11/30/24Follow Up: 1 Year From [facility] Mammogram Procedure(s): MM tomosynthesis screening BI Accession Number(s): [id number] cc: Pipe Anderson MD ADDENDUM ADDENDUM #1 [...] Arroyo DO in OV> 12/10/24 0656 DD/ 135 TD/TT: 11/30/24 141 Artillery Or Naval Gunfire Observer: us Pipe Anderson MD IMG BI PROCEDURES Edited Re sult - Final * Image-Guided Pap with Age-Based Screening Protocols (03/02/2023 2:16 PM EDT) Comment [employer] Comment: This order for age-based cervical cancer and STI screening follows ACOG guidelines(PB 168, 140, DKJ862). See individual assays for performing site location. Clinical Information: None given [facility] LMP: NONE GIVEN [facility] Prev. PAP: NONE GIVEN [facility] Prev. BX: NONE GIVEN OZ [facility] SOURCE: None given [employer] Statement Of Adequacy: [employer] Comment: Satisfactory for evaluation. Endocervical/transformation zone component present. Interpretation/ Result: Negative for intraepithelial lesion or malignancy. [employer] COMMENT: This Pap test has been evaluated with computer assisted technology. [employer] Cytotechnologis t: [employer] Comment: JXM, CT(ASCP) CT screening location: [place] [address] (Always Message) [employer] Comment: EXPLANATORY NOTE: The Pap is a [...] HPV nRNA E6/E7 Not Detected Not Detected [employer] Comment: Methodology: Oracle Database Developer-Mediated Amplification This assay detects E6/E7 viral messenger RNA (mRNA) from 14 high-risk HPV types (16,18,31,33,35,39,45,51,52,56,58,59,66,68). Cervical sources are required for HPV testing. If a vaginal source from a patient who has had a total hysterectomy with removal of cervix was submitted, please contact the testing laboratory for alternative testing options. For additional information, please refer to http://education.Bureaux A Partager/faq/BTS074g2 (This link if provided for information/ educational purposes only.) Cytology specimen container (physical object) 03/02/2023 2:16 PM EDT 03/03/2023 5:29 AM EDT Shannon Faith CNM LAB BLOOD ORDERABLES Liliana adarsh Result [facility] [address], [place] [address] [facility] [address] [place] [address] * (ABNORMAL) Colonoscopy (11/09/2019) Anatomical Region Laterality Modality Endoscopy Narrative 11/09/2019 Transverse colon polyp removed. Needs a repeat Colonoscopy in 2023. us Historical Provider MD ENDOSCOPY PROCEDURE ORDER AR Final Result from Last 3 Months or Most Recently Relevant to Health Maintenance Insurance [facility] ONE CARE < 65 Care Teams Pickle Pumper Relationship Specialty Start Date End Date Pipe Anderson MD [address] [place] [id number] PCP - General Internal Medicine 04/14/21 Beltran Iglesias Brick LayerJava Swing Developer 04/21/24 Marcos Hanks Blowing EngineerJava Swing Developer 07/06/24
--- OUTSIDE RECORDS SUMMARY | 2025-08-26 23:58 | XMS_ITS | Encounter Summary ---
Author Organization [employer] Address [address] [facility] 7[address] [place] [address] Care Team Providers Care Mail Forwarding System Markup Clerk Name Role Phone Pipe Anderson MD Primary Care Provider [phone] Jayce Tristan PharmD Unavailable Unavail able Faviola Richard PharmD Unavailable [phone] Encounter Details Date Type Department Care Team ([facility] Contact Info) Description 05/14/2023 Abstract [facility] [address] [place], [place] [id number] Pipe Anderson MD [address] [place] [address] Social History Tobacco Use Types Packs/Day Years [...] on filedocumented in this encounter Care Teams Mail Forwarding System Markup Clerk Relationship Specialty Start Date End Date Pipe Anderson MD [address] [place] [address] PCP - General Internal Medicine 04/14/21 Jayce Tristan, PharmD [address] [place] [address] Pharmacist Internal Medicine 11/13/22 01/07/25 Faviola Richard PharmD [address] [place] [address] Pharmacist Internal Medicine 01/05/25 06/03/25 Beltran Iglesias Dye House HandRn Night 04/21/24 Marcos Hanks Garment SupervisorRn Night 07/06/24 documented as of this encounter
--- OUTSIDE RECORDS SUMMARY | 2025-08-26 23:58 | XMS_ITS | Encounter Summary ---
Author Organization [employer] Address [address] [facility] 7[address] [place] [address] Care Team Providers Care Ballet Dancer Name Role Phone Pipe Anderson MD Primary Care Provider [phone] Encounter Details Date Type Department Care Team ([facility] Contact Info) Description 08/26/2025 Orders Only GENERIC EXTERNAL DATA [...] Jayce, PharmD documented as of this encounter Procedures Procedure Name Priority Date/Time Associated Diagnosis Comments CBC WITH AUTO DIFFERENTIAL Routine 08/26/2025 11:47 PM EDT GLUCOSE, WHOLE BLOOD Routine 08/26/2025 11:42 PM EDT documented in this encounter Results * (ABNORMAL) CBC auto differential (08/26/2025 11:47 PM EDT) White Blood Count 5.5 4.8 - 10.8 X10*3/uL [facility] Red Blood Count 4.83 4.20 - 5.50 X10*6/uL [facility] Hemoglobin 13.1 12.0 - 16.0 g/dl [facility] Hematocrit 39.6 37.0 - 47.0 % [facility] Mean Corpuscular Volume 82.0 80.0 - 98.0 fL [facility] Mean Corpuscular Hemoglobin 27.1 27.0 - 33.0 pg [facility] Mean Corpuscular HGB Conc 33.1 31.0 - 35.0 g/dl [facility] Red Cell Distribution Width 13.7 11.0 - 16.0 % [facility] Platelet Count 244 160 - 400 X10*3/uL [facility] Mean Platelet Volume 10.4 9.4 - 12.3 fL [facility] Neutrophils Percent Auto 47.4 45 - 73 % [facility] Imm Gran Pct Auto 0.0 0.0 - 0.4 % [facility] Lymphocytes Percent Auto 43.6(H) 20 - 40 % [facility] Monocytes Percent Auto 7.2 2 - 11 % [facility] Eosinophils Percent Auto 1.3 0 - 4 % [facility] Basophils Percent Auto 0.5 0 - 2 % [facility] NRBC Pct Auto 0.0 0.0 - 0.2 /100WBC [facility] Neutrophils Absolute Auto 2.6 2.0 - 8.3 x10*3/uL [facility] Imm Gran Abs Auto 0.00 0.00 - 0.03 X10*3/uL [facility] Lymphocytes Absolute Auto 2.4 1.2 - 4.9 X10*3/uL [facility] Monocytes Absolute Auto 0.4 0.1 - 1.2 X10*3/uL [facility] Eosinophils Absolute Auto 0.1 0.0 - 0.4 X10*3/uL [facility] Basophils Absolute Auto 0.0 0.0 - 0.2 X10*3/uL [facility] NRBC Abs Auto 0.000 0.0 - 0.012 X10*3/uL [facility] 08/26/2025 11:4 7 PM EDT 08/26/2025 11:53 PM EDT us Generic External Data Provider LAB BLOOD ORDERAB LES Final Result [facility] [address] [place] [address] [phone] * (ABNORMAL) Glucose, Whole Blood (08/26/2025 11:42 PM EDT) Glucose, Whole Blood 443(HH) 60 - 115 mg/dL [facility] Comment:METER #: [id number] 08/26/2025 11:4 2 PM EDT 08/26/2025 11:49 PM EDT us Generic External Data Provider LAB BLOOD ORDERAB LES Final Result [facility] [address] [place] [address] [phone] documented in this encounter Visit Diagnoses Not on filedocumented in this encounter Additional Health Concerns Assessment Noted Time PHQ-9 Depression Total Score: 4 07/12/20 25 1:36 PM EDT documented as of this encounter Care Teams Ballet Dancer Relationship Specialty Start Date End Date Pipe Anderson MD [address] [place] [id number] PCP - General Internal Medicine 04/14/21 Beltran Iglesias Machine WorkerRefractory Technician 04/21/24 Marcos Hanks Bar PilotRefractory Technician 07/06/24 documented as of this encounter
--- OUTSIDE RECORDS SUMMARY | 2025-08-26 23:58 | XMS_ITS | Encounter Summary ---
Author Organization [employer] Address [address] [place] [address] 7 [place] [address] Care Team Providers Care Underground Electrician Name Role Phone Pipe Anderson MD Primary Care Provider [phone] Jayce Tristan PharmD Unavailable Unavail able Faviola Richard PharmD Unavailable [phone] Reason for Referral * Consultation (Routine) - Canceled Specialty Diagnoses / Procedures Referred By Swapna t Referred To Contact Pharmacy Diagnoses Uncontrolled type 2 diabetes mellitus with hyperglycemia (HCC) Pipe Anderson MD [address] [place] [address] Phone: tel: fax: Referral ID Status Reason Start Date Expiration Date V isits Requested Visits Authorized [id number] Canceled Consult and Treat 12/26/2024 12/26/2025 6 6 Encounter Details Date Type Department Care Team (Late st Contact Info) Description 12/26/2024 Orders Only [facility] [address] [place] [address] Pipe Anderson MD [address] [place] [address] Uncontrolled type 2 diabetes mellitus with hyperglycemia [...] Blood Pressure 136/74(2024 1:36 PM EDT) No Delloggretchen, Jayce, PharmD Hemoglobin A1c < 7 Result Component 13.3(07/12/20 2:11 PM EDT) No DellogJayce godinez, PharmD documented as of this encounter Visit Diagnoses Diagnosis Uncontrolled type 2 diabetes mellitus with hyperglycemia (HCC)- Primary documented in this encounter Additional Health Concerns Assessment Noted Time PHQ-9 Depression Total Score: 14 024 4:22 PM EDT documented as of this encounter Care Teams Underground Electrician Relationship Specialty Start Date End Date Pipe Anderson MD [address] [place] [address] PCP - General Internal Medicine 04/14/21 Jayce Tristan PharmD [address] [place] [address] Pharmacist Internal Medicine 11/13/22 01/07/25 Faviola Richard PharmD [address] [place] [address] Pharmacist Internal Medicine 01/05/25 06/03/25 Beltran Iglesias Silk Screen CutterManager Solution 04/21/24 Marcos Hanks Costume SeamstressManager Solution 07/06/24 documented as of this encounter
[2025-08-27 00:14] LABS: Alanine Aminotransferase 38 U/L (0-31); Albumin Level 4.4 g/dL (3.5-5.0); Alkaline Phosphatase 114 U/L (39-117); Anion Gap 13 (12-20); Aspartate Amino Transferase 25 U/L (5-31); Blood Urea Nitrogen 20 mg/dL (9-16); Calcium 9.7 mg/dL (8.4-10.2); Carbon Dioxide 29 mmol/L (22-29); Chloride 96 mmol/L (96-108); Creatinine Clr Calc Pharmacy 83.6; Estimated Glomerular Filt Rate > 60; Potassium 4.4 mmol/L (3.3-5.1); Sodium 134 mmol/L (135-145); Total Protein 7.5 g/dL (6.5-8.0)
[2025-08-27] MEDS: Lactated Ringers 1,000 ML 999 ML IV ×2 (00:40→03:49)
--- NOTE | 2025-08-27 00:51 | PC.NURSE ---
Assumed care of pt, presents with hyperglycemia, pt states that her glucose at home was 423 and her take her insulin Humalog 26 units and long acting, and she rechecked 30mins later and her glucose rehan to 443, pt recently started to see a mixer crane operator. denies blurry vision, N/V, aaox4, family at bedside.
[2025-08-27 01:27] LABS: Appearance Urine Clear; Glucose Urine UA >=1000 mg/dL (Negative); PH 6.5 (5.0-9.0); Specific Gravity - Urine >= 1.030 (1.005-1.025); UMIC TRIGGER UACC YES
[2025-08-27 01:32] LABS: UACC Culture Trigger YES
[2025-08-27 02:17] LABS: Magnesium 1.4 mg/dL (1.6-2.6)
[2025-08-27] MEDS: Magnesium Sulfate/H2O 2 GM/50 ML PIGGYBACK IV (02:40)
--- NOTE | 2025-08-27 04:45 | ED.RECABL ---
HPI - Recheck/Abnormal Lab/Rx General Chief Complaint: Recheck/Abnormal Lab/Rx Stated Complaint: 423 blood sugar, light headed Time Seen by Provider: 08/27/25 00:14 Source: patient and old records reviewed Mode of arrival: ambulatory Limitations: no limitations History of Present Illness ED Provider: Dr. Diana Arias HPI narrative: 54-year-old female with history of poorly-controlled diabetes, hypertension presenting with continued elevated blood sugar. Patient was recently seen by her reliability specialist and told to come to the emergency department if her blood sugar went over 400. Today she measured a blood sugar of 423 at home. Upon arrival to the emergency department, blood sugars as high as 443. She is not really having any new symptoms though. Denies fevers, vomiting, chest pain, difficulty breathing, skin rashes, bowel changes, urinary complaints, known sick contacts. No recent steroid use. She did have a recent URI and was treated for pneumonia with amoxicillin and doxycycline. Admits that she finish that course of antibiotics and feels as though she has improved. She takes 26 units of NovoLog in the morning and 50 units of Toujeo at night. Took both of those today. Related Data Home Medications ?Medication ?Instructions ?Recorded ?Confirmed gabapentin 100 mg capsule 100 mg PO TID 01/26/22 08/22/25 lisinopril 10 mg tablet 10 mg PO DAILY 01/26/22 08/22/25 atorvastatin 80 mg tablet 80 mg PO BEDTIME 12/22/22 08/22/25 insulin aspart U-100 100 unit/mL 26 unit subcut TID 10/12/24 08/22/25 (3 mL) subcutaneous pen insulin glargine U-300 conc 300 50 unit subcut BEDTIME 10/12/24 08/22/25 unit/mL (3 mL) subcutaneous pen (Toujeo Max U-300 SoloStar) paroxetine HCl 20 mg tablet 20 mg PO QAM 10/12/24 08/22/25 blood sugar diagnostic (FreeStyle 08/22/25 08/22/25 Test strips) blood-glucose meter (FreeStyle 08/22/25 08/22/25 Lite Meter kit) lancets 28 gauge (FreeStyle 08/22/25 08/22/25 Lancets) Previous Rx's ?Medication ?Instructions ?Recorded albuterol sulfate 90 mcg/actuation 2 puff inhalation Q4-6H PRN 04/03/23 aerosol inhaler (ProAir HFA) shortness of breath or wheezing #6.7 grams sennosides 8.6 mg capsule (senna) 17.2 mg (2 x 8.6 mg) PO BEDTIME 01/29/25 constipation 30 days #60 caps albuterol sulfate 90 mcg/actuation 2 puff inhalation Q20M PRN 06/01/25 aerosol inhaler (Ventolin HFA) shortness of breath or wheezing #6.7 grams amoxicillin 875 mg-potassium 1 tab PO BID 7 days #14 tabs 06/01/25 clavulanate 125 mg tablet azithromycin 250 mg tablet 250 mg PO DAILY 4 days #4 tabs 06/01/25 benzonatate 100 mg capsule 100 mg PO BID PRN cough #20 caps 06/01/25 amoxicillin 875 mg-potassium 1 tab PO BID 7 days #14 tabs 08/11/25 clavulanate 125 mg tablet doxycycline hyclate 100 mg tablet 100 mg PO BID 7 days #14 tabs 08/11/25 blood-glucose sensor (FreeStyle #2 ea 08/23/25 José Manuel 3 Plus Sensor device) blood-glucose,contact representative,cont #1 ea 08/23/25 (FreeStyle José Manuel 3 Seneca) magnesium oxide 200 mg PO DAILY #14 tabs 08/27/25 Allergies Allergy/AdvReac Type Severity Reaction Status Date / Time lobster Allergy Severe Itching Verified 08/26/25 23:45 shrimp Allergy Mild EYE ITCHING Verified 08/26/25 23:45 shellfish derived (shellfish) Allergy Itching Verified 08/26/25 23:45 Review of Systems Review of Systems: As per HPI, full review of systems performed and negative but for the above mentioned pertinent positives and negatives. [facility] Past Medical History Medical History Diabetes Cutaneous abscess of back [any part, except buttock] Abscess Sebaceous cyst Pre-op examination Morbid obesity Umbilical hernia RUQ abdominal pain Hypertension Diabetes H. pylori infection Irritable bowel syndrome with diarrhea Surgical History History of surgery Status post hysteroscopic ablation of endometrium Breast abscess History of appendectomy H/O umbilical hernia repair H/O colonoscopy Hx of hemorrhoidectomy Hx of hernia repair Hx of tubal ligation Family History Family History Father Heart problem Asthma Mother Colon cancer HTN (hypertension) Varicose vein of leg Family history of diabetes mellitus Maternal Aunt Pancreatic cancer Family/Other Breast cancer Social History Social History Household Members: None Alcohol intake: current Alcohol intake frequency: does not drink Patient Tobacco Use Status: Former Tobacco user Smoked in Last 30 Days: No Substance Use Type: Marijuana Advance Directives: No Advance Directives Information Provided: No Physical Exam Exam: Exam: GENERAL: Well-Appearing, conversant, no acute distress. SKIN: Normal skin color for ethnicity, warm, dry, no rashes noted. HEENT: Normocephalic, atraumatic, no stridor, posterior oropharynx nonerythematous, dentition intact, EOMI. NECK: Soft, supple, full ROM, midline structures nontender, no step-offs, no deformities, no lymphadenopathy. CHEST: Heart regular rate and rhythm, no murmurs, symmetric chest rise and fall. PULMONARY: Clear to auscultation bilaterally, no labored breathing, no wheezes/rhales/rhonchi. ABDOMINAL: Soft, nondistended, nontender, positive bowel sounds in all quadrants. : Deferred. MUSCULOSKELETAL: Normal tone, full range of motion, no deformities, no peripheral edema. NEURO: Alert and oriented x3, CN II through XII intact, equal strength and sensation bilateral upper and lower extremities, no focal neurologic deficits. PSYCHIATRIC: Normal affect, fluid speech, good eye contact and appropriate demeanor. Vital Signs: Vital Signs: Last Vital Signs Temp 98.4 F 08/26/25 23:38 Pulse 83 08/26/25 23:38 Resp 18 08/26/25 23:38 BP 150/67 H 08/26/25 23:38 Pulse Ox 98 08/26/25 23:38 O2 Del Method Room Air 08/26/25 23:38 BMI result Body Mass Index 36.9 Medications Administered Discontinued Medications Generic Name Dose Route Start Last Admin Trade Name Freq PRN Reason Stop Dose Admin Lactated Ringer's 1,000 mls @ 999 mls/hr 08/27/25 00:24 08/27/25 02:00 Lr IV 08/27/25 01:24 Infused .Q1H1M ONE Infusion Magnesium Sulfate 2 gm in 50 mls @ 25 mls/hr 08/27/25 02:17 08/27/25 02:40 Magnesium Sulfate/H2o IV 08/27/25 04:16 25 mls/hr ONCE ONE Administration Lactated Ringer's 1,000 mls @ 999 mls/hr 08/27/25 03:06 08/27/25 03:49 Lr IV 08/27/25 04:06 999 mls/hr .Q1H1M ONE Administration Medical Decision Making Medical Decision Making MDM Narrative: 54-year-old female with a history of insulin-dependent diabetes presenting with hyperglycemia from home. Differential diagnosis includes poorly-controlled diabetes, DKA, HHS, infectious process, glucometer error, ACS, among others. Plan for broad-based workup to evaluate for emergent pathology. Patient is currently pain-free, without shortness of breath or nausea. Has been taking all of her medications as prescribed. Recently seen by endocrinology and had adjustments with her insulin regimen. She is hemodynamically stable and resting comfortably at this time. Patient does not have evidence of DKA. Plan for 2 L of IV fluid to bring her sugar down. If it does not bring her blood sugars down appropriately, we will give insulins. Repeat blood sugar after 2 L of IV fluid has significantly improved. She is down to 266. She also received 2 g of magnesium for repletion of hypomagnesemia. Using shared decision making, plan for discharge home to follow-up with primary care and/or specialist. Patient understands and agrees with plan for discharge. Discharged home in stable condition. Differential Diagnosis Differential Diagnoses: The differential diagnosis associated with the presentation includes (As above) Admission/Observation Consideration of admission/observation: Escalation of care including admission/observation considered Lab Data [facility] Lab Attestation statement: I reviewed the patient's lab results. 08/26/25 23:47 08/26/25 23:47 Labs: Lab Results 08/26/25 08/26/25 08/27/25 Range/Units 23:42 23:47 01:18 WBC 5.5 (4.8-10.8) X10*3/uL RBC 4.83 (4.20-5.50) X10*6/uL Hgb 13.1 (12.0-16.0) g/dl Hct 39.6 (37.0-47.0) % MCV 82.0 (80.0-98.0) fL MCH 27.1 (27.0-33.0) pg MCHC 33.1 (31.0-35.0) g/dl RDW 13.7 (11.0-16.0) % Plt Count 244 (160-400) X10*3/uL MPV 10.4 (9.4-12.3) fL Immature Gran % (Auto) 0.0 (0.0-0.4) % Neut % (Auto) 47.4 (45-73) % Lymph % (Auto) 43.6 H (20-40) % Cooke % (Auto) 7.2 (2-11) % Eos % (Auto) 1.3 (0-4) % Baso % (Auto) 0.5 (0-2) % Lymph # (Auto) 2.4 (1.2-4.9) X10*3/uL Cooke # (Auto) 0.4 (0.1-1.2) X10*3/uL Eos # (Auto) 0.1 (0.0-0.4) X10*3/uL Baso # (Auto) 0.0 (0.0-0.2) X10*3/uL Abs Immat Gran (auto) 0.00 (0.00-0.03) X10*3/uL Absolute Neuts (auto) 2.6 (2.0-8.3) x10*3/uL Absolute Nucleated RBC 0.000 (0.0-0.012) X10*3/uL Nucleated RBC % (auto) 0.0 (0.0-0.2) /100WBC Sodium 134 L (135-145) mmol/L Potassium 4.4 (3.3-5.1) mmol/L Chloride 96 (96-108) mmol/L Carbon Dioxide 29 (22-29) mmol/L Anion Gap 13 (12-20) BUN 20 H (9-16) mg/dL Creatinine 0.81 (0.5-1.4) mg/dL Estim Creat Clear Calc 83.6 Estimated GFR > 60 POC Glucose 443 H* (60-115) mg/dL Random Glucose 501 H* (60-115) mg/dL Calcium 9.7 (8.4-10.2) mg/dL Magnesium 1.4 L* (1.6-2.6) mg/dL Total Bilirubin 0.3 (0.0-1.0) mg/dL AST 25 (5-31) U/L ALT 38 H (0-31) U/L Alkaline Phosphatase 114 (39-117) U/L Total Protein 7.5 (6.5-8.0) g/dL Albumin 4.4 (3.5-5.0) g/dL Urine Color Yellow Urine Appearance Clear Urine pH 6.5 (5.0-9.0) Ur Specific [place] >= 1.030 H (1.005-1.025) Urine Protein Negative (Neg-Trace) mg/dL Urine Glucose (UA) >=1000 H (Negative) mg/dL Urine Ketones Negative (Negative) mg/dL Urine Blood Negative (Negative) Urine Nitrite Negative (Negative) Ur Leukocyte Esterase Small (1+) H (Negative) Urine RBC 0-2 (0-2) /HPF Urine WBC 21-50 H (0-5) /HPF Ur Squamous Epith Cells 3-5 (0-2) /HPF Urine Bacteria None Seen (None Seen) Hyaline Casts 0-2 (0-2) /LPF External Record Review External record reviewed: Inpatient record and Office record Chronic Conditions Patient?s care impacted by: Diabetes and Hypertension Discharge Plan Discharge Clinical Impression: Hyperglycemia due to type 2 diabetes mellitus, Poorly controlled type 2 diabetes mellitus, Hypomagnesemia Patient Disposition: Home, Self-Care Instructions: Hypomagnesemia (ED), Type 2 Diabetes Management for Adults (ED) Additional Instructions: Take magnesium 200mg daily for the next 2 weeks. Follow up with your primary care doctor and reliability specialist as soon as possible to discuss blood sugar management. Return to the ER with any new or worsening symptoms including: fevers, chest pain, difficulty breathing, vomiting, or any new symptoms that concern you. Call 911 with any medical emergency. Prescriptions: New magnesium oxide 200 mg magnesium tablet 200 mg PO DAILY Qty: 14 0RF No Action senna 8.6 mg capsule 17.2 mg PO BEDTIME 30 Days Qty: 60 4RF (DME) [employer]ily[employer] José Manuel 3 Plus Sensor Device See Rx Instructions .Route Qty: 2 5RF Rx Instructions: As directed change every 15 days (DME) FreeStyle José Manuel 3 Seneca Misc See Rx Instructions .Route Qty: 1 0RF Rx Instructions: As directed albuterol sulfate [ProAir HFA] 90 mcg/actuation HFA aerosol inhaler 2 puff inhalation Q4-6H PRN (Reason: shortness of breath or wheezing) Qty: 6.7 0RF Toujeo Max U-300 SoloStar 300 unit/mL (3 mL) insulin pen 50 unit subcut BEDTIME amoxicillin-pot clavulanate 875-125 mg tablet 1 tab PO BID 7 Days Qty: 14 0RF azithromycin 250 mg tablet 250 mg PO DAILY 4 Days Qty: 4 0RF Rx Instructions: start on day 2 of therapy albuterol sulfate [Ventolin HFA] 90 mcg/actuation HFA aerosol inhaler 2 puff inhalation Q20M PRN (Reason: shortness of breath or wheezing) Qty: 6.7 0RF benzonatate 100 mg capsule 100 mg PO BID PRN (Reason: cough) Qty: 20 0RF doxycycline hyclate 100 mg tablet 100 mg PO BID 7 Days Qty: 14 0RF amoxicillin-pot clavulanate 875-125 mg tablet 1 tab PO BID 7 Days Qty: 14 0RF gabapentin 100 mg capsule 100 mg PO TID lisinopril 10 mg tablet 10 mg PO DAILY atorvastatin 80 mg tablet 80 mg PO BEDTIME insulin aspart U-100 100 unit/mL (3 mL) insulin pen 26 unit subcut TID paroxetine HCl 20 mg tablet 20 mg PO QAM (DME) FreeStyle Test Strip See Rx Instructions .Route Rx Instructions: As directed (DME) blood-glucose meter [FreeStyle Lite Meter] Kit See Rx Instructions .Route Rx Instructions: As directed (DME) lancets [FreeStyle Lancets] 28 gauge misc See Rx Instructions .Route Rx Instructions: As directed Print Language: Albanian
[2025-08-27 04:50] LABS: Glucose, Whole Blood 266 mg/dL (60-115)
[2025-08-27 05:14] VITALS: BP 150/67; PULSE 83; RESP 18; TEMP 36.9; O2SAT 98
== END 2025-08-27 05:19 | disposition home or self-care (01) ==
PROVIDERS: Emergency Provider Emergency Medicine; PCP Internal Medicine
DX: R79.89 Other specified abnormal findings of blood chemistry (principal); E11.65 Type 2 diabetes mellitus with hyperglycemia; R11.0 Nausea; Z79.4 Long term (current) use of insulin; Z79.899 Other long term (current) drug therapy
CPT/HCPCS: 36415; 80053; 81001; 82947; 83735; 85025; 87086; 96361; 96365; 96366; 99284; J3475; J7120

== ENCOUNTER → 2025-09-12 12:47 | Outpatient (AMB) | payer OTHER, SELFPAY ==
--- NOTE | 2025-09-12 13:05 | A.OFFVIS_ITS ---
Vital Signs 09/12/25 13:25 Height 5 ft 2 in Weight 196 lb 3.382 oz BMI 35.9 BP 133/71 Blood Pressure Location Lt brachial Position Sitting Pulse 84 Intake Visit Reasons: 6 mo f/u CIC Intake Note: Patient in office today in follow up of CIC. 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 Accompanied by: Self / Same As Patient Allergies lobster Allergy (Severe, Verified 08/26/25 23:45) Itching shrimp Allergy (Mild, Verified 08/26/25 23:45) EYE ITCHING shellfish derived (shellfish) Allergy (Verified 08/26/25 23:45) Itching HPI HPI 6 mo f/u CIC: Details: Assessment & Plan (1) Constipation: Code(s): K59.00 - Constipation, unspecified Category: Medical (2) Family history of colon cancer: Code(s): Z80.0 - Family history of malignant neoplasm of digestive organs Category: Medical (3) Sessile colonic polyp: Comment: Of transverse colon in 2019 but lost a biopsy aeb Code(s): K63.5 - Polyp of colon Category: Medical Plan PATIENT SPEAKS CHINESE It appears she is here today again for colonoscopy discussion, but she no showed to her procedure in January of this year. She had 12/18/[address] Heller and I suppose it sessile polyp was removed however the biopsy showed only vegetable matter. She had to call to cancel her scope because her dtr suddenly went into labor and she had to watch her children. She wants to reschedule it. She received the senna, but her CIC has lessened w/o her needing it, but she has it if she decides she needs it. She is satisfied with this. She denies any cardiac or respiratory problems. There are no prior problems with anesthesia or sedation. There are no infectious disease problems. Her last colonoscopy was 12/18/[address] Heller and I suppose it sessile polyp was removed however the biopsy showed only vegetable matter Return office visit in 6 months. COLONOSCOPY 10/19/2025 TODAY'S VISIT [facility] Medical History Diabetes Cutaneous abscess of back [any part, except buttock] Abscess Sebaceous cyst Pre-op examination Morbid obesity Umbilical hernia RUQ abdominal pain Hypertension Diabetes H. pylori infection Irritable bowel syndrome with diarrhea Surgical History History of surgery Status post hysteroscopic ablation of endometrium Breast abscess History of appendectomy H/O umbilical hernia repair H/O colonoscopy Hx of hemorrhoidectomy Hx of hernia repair Hx of tubal ligation Family History Father Heart problem Asthma Mother Colon cancer HTN (hypertension) Varicose vein of leg Family history of diabetes mellitus Maternal Aunt Pancreatic cancer Family/Other Breast cancer Social History Household Members: None Alcohol intake: current Alcohol intake frequency: does not drink Patient Tobacco Use Status: Former Tobacco user Substance Use Type: Marijuana Review of Systems Const Denies fatigue, Denies fever(s), Denies night sweats, Denies poor appetite and Denies weight loss ENT Reports Normal hearing present, Denies dental pain, Denies dysphagia, Denies hearing loss, Denies mouth pain, Denies odynophagia, Denies throat swelling, Denies tongue swelling and Reports other (Dentition adequate) Card Reports no additional complaints Resp Reports no additional complaints GI Details: Denies abdominal pain, Denies melena, Denies bloating, Denies hematochezia, Denies constipation, Denies GI cramping, Denies dysphagia, Denies excessive flatus, Denies early satiety, Denies heartburn, Denies diarrhea, Denies nausea, Denies odynophagia, Denies vomiting and Denies hematemesis Skin/Breast Denies pruritus, Denies lesions, Denies rash and Denies jaundice Neuro Reports Normal hearing present and Denies Abnormal speech present Endo Denies fatigue Aller/Immun Denies throat swelling and Denies tongue swelling Physical Exam Vital Signs: Last Vital Signs Pulse 84 09/12/25 13:25 BP 133/71 10/15/25 13:25 BMI result Body Mass Index 35.9 Const General: cooperative, no acute distress, well developed and well groomed Nutritional Appearance: well nourished and obese Orientation/consciousness: oriented to person, oriented to place and oriented to time Limitations: No language barrier HEENT Head: Yes normocephalic and Yes atraumatic Eyes General: appearance normal, both eyes and all related structures Pupils: Equal, round and reactive pupils present Neck Neck: Yes normal visual inspection and Yes no lymphadenopathy Thyroid: Thyroid normal Resp Effort & Inspection: normal respiratory effort and able to speak in complete sentences Auscultation: clear to auscultation bilaterally Cardio Rate: regular rate Rhythm: regular rhythm Heart sounds: Normal, physiologic split S2 sound present Peripheral pulses: radial pulses present and posterior tibial pulses present GI Inspection: No distended, Yes Abdominal panniculus present and Yes obesity Palpation (GI): Soft to palpation, nontender, no guarding, not rigid and No hepatosplenomegaly present Percussion: Yes normal to percussion Auscultation: normal bowel sounds Rectal Exam - Female: deferred Skin General skin exam: no rashes or lesions noted, turgor normal, skin not dry, no jaundice, No spider nevi and no striae Rashes: no rashes Nails: normal Neuro General: oriented to person, oriented to place and oriented to time Cranial nerves: Yes Equal, round and reactive pupils present and Yes Normal hearing present Speech: No Abnormal speech present Extrem General: Yes normal to inspection, No clubbing, No cyanosis and No edema Psych Appearance: grossly normal and well kempt Mental Status: mental status grossly normal Speech and movement: Normal speech and movement present Affect: normal affect Attitude: cooperative Thought process: Normal thought process present and not confabulating Thought content: Normal thought content present Insight: Fair insight present (Psych) Judgement: Fair judgement present (Psych) Assessment & Plan Assessment & Plan (1) Constipation: Code(s): K59.00 - Constipation, unspecified Category: Medical (2) Sessile colonic polyp: Comment: Of transverse colon in 2019 but lost a biopsy aeb Code(s): K63.5 - Polyp of colon Category: Medical Plan - The patient is a 54-year-old female presenting with the need to reschedule a colonoscopy. - An initial colonoscopy was planned but needed to be rescheduled and is now set for October 19, 2025, at 11:00 AM. - The patient had constipation but notes this resolved on its own, eliminating the need for senna. - The patient experienced a 4-pound weight loss, linked to changes in diet such as avoiding sweets and regular soda. COLONOSCOPY 10/19/2025 Medications: New peg 3350-electrolytes 236-22.74-6.74 -5.86 gram (Golytely) until fecal effluent is clear; do not exceed a total volume of 2,000 mL 240 mL PO Q10M 4,000 mL 0RF 1 day Z12.11 - Encounter for screening for malignant neoplasm of colon bisacodyl (Dulcolax (bisacodyl)) 10 mg (2 x 5 mg) PO BEDTIME 4 tabs 0RF 2 days Coding Level of Care Code Est Pt Level 3 (17362) Diagnoses Constipation K59.00 Sessile colonic polyp K63.5
[2025-09-12 13:25] VITALS: BP 133/71; PULSE 84; BMI 35.9
--- OUTSIDE RECORDS SUMMARY | 2025-09-12 16:09 | XMS_ITS | Encounter Summary ---
Author Organization [employer] Address [address] [place] [address] [address] [place] [address] Care Team Providers Care Quill Layer Name Role Phone Pipe Anderson MD Primary Care Provider [phone] Jayce Tristan PharmD Unavailable Unavail able Faviola Richard PharmD Unavailable [phone] Reason for Referral * Consultation (Routine) - Canceled Specialty Diagnoses / Procedures Referred By Swapna t Referred To Contact Pharmacy Diagnoses Uncontrolled type 2 diabetes mellitus with hyperglycemia (HCC) Pipe Anderson MD [address] [place] [address] Phone: tel: fax: Referral ID Status Reason Start Date Expiration Date V isits Requested Visits Authorized [id number] Canceled Consult and Treat 12/26/2024 12/26/2025 6 6 Encounter Details Date Type Department Care Team (Late st Contact Info) Description 12/26/2024 Orders Only [facility] [address] [place] [address] Pipe Anderson MD [address] [place] [address] Uncontrolled type 2 diabetes mellitus with hyperglycemia [...] documented as of this encounter Care Teams Quill Layer Relationship Specialty Start Date End Date Pipe Anderson MD [address] [place] [address] PCP - General Internal Medicine 04/14/21 Jayce Tristan PharmD [address] [place] [address] Pharmacist Internal Medicine 11/13/22 01/07/25 Faviola Richard PharmD [address] [place] [id number] Pharmacist Internal Medicine 01/05/25 06/03/25 Beltran Iglesias Head Of EnglishZipper Measurer 04/21/24 Marcos Hanks Bus AnalystZipper Measurer 07/06/24 documented as of this encounter
--- OUTSIDE RECORDS SUMMARY | 2025-09-12 16:09 | XMS_ITS | Clinical Summary ---
Author Organization [employer] Address [address] [facility] [address] [place] [address] Care Team Providers Care Sales Management Intern Name Role Phone Pipe Anderson MD Primary Care Provider [phone] Allergies Active Allergy Reactions Criticality Noted Date [...] 25 Active Blood Glucose Monitoring Suppl (FreeStyle [place] Lite) w/Device kit Use to test blood [...] 25 Active Blood Glucose Monitoring Suppl (FreeStyle [place] Lite) w/Device kitIndications:Unc ontrolled type 2 diabetes [...] organization. Date Type Department Care Team Description 08/27/2025 Orders Only GENERIC EXTERNAL DATA DEPARTMENT Provider, Generic External Data 08/26/2025 Orders Only GENERIC EXTERNAL DATA DEPARTMENT Provider, Generic External Data 08/22/2025 Orders Only GENERIC EXTERNAL DATA DEPARTMENT Provider, Generic External Data 08/11/2025 Orders Only [facility] External Provider, [facility] 07/12/2025 1:45 PM EDT Office Visit [facility] [address] [place] [address] Pipe Anderson MD Uncontrolled type 2 diabetes mellitus with hyperglycemia ([facility]) (Primary Dx); Cellulitis of left leg; Gastroesophageal reflux disease without esophagitis; Primary hypertension; Type 2 diabetes mellitus with hyperglycemia, without long-term current use of insulin ([facility]/HCC); Edema of left lower leg; Diabetic polyneuropathy associated with type 2 diabetes mellitus ([facility]/HCC) 07/12/2025 Travel 06/26/2025 Results Follow-Up [facility] [address] [place] [address] Pipe Anderson MD Lower Extremity Venous Duplex 06/23/2025 10:20 AM EDT Office Visit [facility] [address] [place] [address] Teresa Schuler MD Cellulitis of left leg (Primary Dx); Edema of left lower leg 06/23/2025 Travel 06/19/2025 Telephone [facility] [address] [place] [address] Pipe Anderson MD ER Follow-up from Last 3 Months Immunizations Immunization Administration [...] this topic Meningococcal Vaccine Aged Out No dmoinic kori eligible based on patient's age to [...] Pressure 136/74(2024 1:36 PM EDT) No Jayce Tristan PharmD Hemoglobin A1c < 7 Result Component 13.3(07/12/20 2:11 PM EDT) No Jayce Tristan PharmD Procedures Procedure Name Priority Date/Time Associated Diagnosis Comments GLUCOSE, WHOLE BLOOD Routine 08/27/2025 4:46 AM EDT URINALYSIS, COMPLETE, WITH REFLEX TO CULTURE Routine 08/27/2025 1:18 AM EDT CULTURE, URINE, ROUTINE Routine 08/27/2025 12:00 AM EDT MAGNESIUM Routine 08/26/2025 11:47 PM EDT COMPREHENSIVE METABOLIC PANEL Routine 08/26/2025 11:47 PM EDT CBC WITH AUTO DIFFERENTIAL Routine 08/26/2025 11:47 [...] PM EDT Edema of left lower leg ALBUMIN, RANDOM URINE W/CREATININE Routine 01/05/2025 2:20 PM EST LIPID PANEL, STANDARD Routine 01/05/2025 2:15 PM EST BI MAMMOGRAM SCREENING TOMOSYNTHESIS BILATERAL Routine 11/30/2024 1:50 PM EST IMAGE-GUIDED PAP W/AGE BASED SCR PROTOCOLS Routine 03/02/2023 2:16 PM EDT Cervical cancer screening COLONOSCOPY Routine 11/09/2019 from Last 3 Months or Most Recently Relevant to Health Maintenance Results * (ABNORMAL) Glucose, Whole Blood (08/27/2025 4:46 AM EDT) Only the most recent of2 resultswithin the time period is included. Glucose, Whole Blood 266(H) 60 - 115 mg/dL [facility] Comment:METER #: [id number] 08/27/2025 4:46 AM EDT 08/27/2025 4:49 AM EDT us Generic External Data Provider LAB BLOOD ORDERAB LES Final Result [facility] [address], [place] [phone] * (ABNORMAL) Urinalysis, Complete, with Reflex to Culture (08/27/2025 1:18 AM EDT) Color Urine Yellow [facility] Appearance Urine Clear [facility] PH 6.5 5.0 - 9.0 [facility] Glucose Urine UA >=1000(A) Negative mg/dL [facility] Urine Blood Negative Negative [facility] Specific Bicknell - Urine >=1.030(H) 1.005 - 1.025 [facility] Urine Protein Negative Neg-Trace mg/dL [facility] Urine Ketones Negative Negative mg/dL [facility] Nitrite Urine Negative Negative [facility] Leukocyte Esterase Urine Small (1+)(A) Negative [facility] RBC Urine 0-2 0 - 2 /HPF [facility] Urine WBC 21-50(A) 0 - 5 /HPF [facility] Urine Squamous Epithelial Cell 3-5 0 - 2 /HPF [facility] Urine Bacteria None Seen None Seen [facility] Hyaline Casts, Urine 0-2 0 - 2 /LPF [facility] 08/27/2025 1:18 AM EDT 08/27/2025 1:24 AM EDT Narrative [facility] - 08/27/2025 1:35 AM EDT Urine, Clean Catch us Generic External Data Provider LAB URINE ORDERAB LES Final Result Performing Organization Address City/[facility]/ZIP Co de Phone Number [facility] [address] [place] [phone] * Culture, Urine, Routine (08/27/2025 12:00 AM EDT) Urine Urine specimen obtained by clean catch procedure / Unknown 08/27/2025 08/27/2025 Comment:UACC Narrative [facility] - 08/28/2025 7:53 AM EDT Urine Culture Report Result Urine Culture < 10,000 cfu/ml Specimen Source: Urine clean catch Generic External Data Provider LAB MICROBIOLOGY - GENERAL ORDERABLES Final Result Performing Organization Address [facility] Co de Phone Number [facility] [address] [place] [address] [phone] * (ABNORMAL) CBC auto differential (08/26/2025 11:47 PM EDT) Only the most recent of2 resultswithin the time period is included. White Blood Count 5.5 4.8 - 10.8 X10*3/uL [facility] Red Blood Count 4.83 4.20 - 5.50 X10*6/uL [facility] Hemoglobin 13.1 12.0 - 16.0 g/dl [facility] Hematocrit 39.6 37.0 - 47.0 % [facility] Mean Corpuscular Volume 82.0 80.0 - 98.0 fL [facility] Mean Corpuscular Hemoglobin 27.1 27.0 - 33.0 pg [facility] Mean Corpuscular HGB Conc 33.1 31.0 - 35.0 g/dl [facility] Red Cell Distribution Width 13.7 11.0 - 16.0 % [facility] Platelet Count 244 160 - 400 X10*3/uL [facility] Mean Platelet Volume 10.4 9.4 - 12.3 fL [facility] Neutrophils Percent Auto 47.4 45 - 73 % [facility] Imm Gran Pct Auto 0.0 0.0 - 0.4 % [facility] Lymphocytes Percent Auto 43.6(H) 20 - 40 % [facility] Monocytes Percent Auto 7.2 2 - 11 % [facility] Eosinophils Percent Auto 1.3 0 - 4 % [facility] Basophils Percent Auto 0.5 0 - 2 % [facility] NRBC Pct Auto 0.0 0.0 - 0.2 /100WBC [facility] Neutrophils Absolute Auto 2.6 2.0 - 8.3 x10*3/uL [facility] Imm Gran Abs Auto 0.00 0.00 - 0.03 X10*3/uL [facility] Lymphocytes Absolute Auto 2.4 1.2 - 4.9 X10*3/uL [facility] Monocytes Absolute Auto 0.4 0.1 - 1.2 X10*3/uL [facility] Eosinophils Absolute Auto 0.1 0.0 - 0.4 X10*3/uL [facility] Basophils Absolute Auto 0.0 0.0 - 0.2 X10*3/uL [facility] NRBC Abs Auto 0.000 0.0 - 0.012 X10*3/uL [facility] 08/26/2025 11:4 7 PM EDT 08/26/2025 11:53 PM EDT us Generic External Data Provider LAB BLOOD ORDERAB LES Final Result [facility] [address] [place] [phone] * (ABNORMAL) Magnesium (08/26/2025 11:47 PM EDT) Magnesium 1.4(LL) 1.6 - 2.6 mg/dL [facility] Comment:Critical value for t est(s): MAGNESIUM Results called to gianna back by: HUE Person calling:MARYLIN Date:08/27/25 Time:216 08/26/2025 11:4 7 PM EDT 08/26/2025 11:53 PM EDT us Generic External Data Provider LAB BLOOD ORDERAB LES Final Result [facility] [address] [place] [phone] * (ABNORMAL) Comprehensive Metabolic Panel (08/26/2025 11:47 PM EDT) Sodium 134(L) 135 - 145 mmol/L [facility] Potassium 4.4 3.3 - 5.1 mmol/L [facility] Chloride 96 96 - 108 mmol/L [facility] Carbon Dioxide 29 22 - 29 mmol/L [facility] Anion Gap 13 12 - 20 [facility] Urea Nitrogen (BUN) 20(H) 9 - 16 mg/dL [facility] Creatinine, Serum 0.81 0.5 - 1.4 mg/dL [facility] Creatinine Clr Calc Pharmacy 83.6 [facility] Comment:Provided height and weight: 157.48 cm,91.6 kg.eGFR (calculated from the MDRD study equation) and eCrCl(calculated from the Cockcroft-Gault equation) are based ondifferent parameters and may not yield comparable results.If eCrCl result is absurd, please check patient'sheight/weight. Estimated Glomerular Filt Rate >60 [facility] Comment:Chronic Kidney Disea se: Estimated GFR < 60 mL/min/1.03f3Idscjw Kidney Disease: Estimated GFR < 15 mL/min/1.73m2 Glucose 501(HH) 60 - 115 mg/dL [facility] Comment:Critical value for t est(s):GLUCOSE Results called to gianna back by: BUBBA Person calling: Natalia:08/27/25 Time:0013 Calcium 9.7 8.4 - 10.2 mg/dL [facility] Bilirubin, Total 0.3 0.0 - 1.0 mg/dL [facility] Aspartate Amino Transferase 25 5 - 31 U/L [facility] Alanine Aminotransferase 38(H) 0 - 31 U/L [facility] Total Protein 7.5 6.5 - 8.0 g/dL [facility] Albumin Level 4.4 3.5 - 5.0 g/dL [facility] Alkaline Phosphatase 114 39 - 117 U/L [facility] 08/26/2025 11:4 7 PM EDT 08/26/2025 11:53 PM EDT Generic External Data Provider LAB BLOOD ORDERAB LES Final Result Performing Organization Address [facility] Co de Phone Number [facility] [address] [place] [phone] * (ABNORMAL) Glucose, Whole Blood (08/22/2025 2:09 PM EDT) Glucose, Whole Blood 366(HH) 60 - 115 mg/dL [facility] Comment:METER #: [id number] Testing performed in the Endocrinology Department [address], [address], [facility]. 08/22/2025 2:09 PM EDT 08/22/2025 2:25 PM EDT Generic External Data Provider LAB BLOOD ORDERAB LES Final Result Performing Organization Address [facility] Co de Phone Number [facility] [address] [place] [phone] * XR Chest 2 Views (08/11/2025 2:35 PM EDT) Anatomical Region Laterality Modality Chest Radiographic Edna ging 08/11/2025 2:35 PM EDT Narrative 08/11/2025 2:36 PM EDT [address] [address] XRay Report Signed Patient: AndrewBrittany Kunz#: [id number] : 1970 Acct:[id number] Age/Sex: 54 / F ADM Date: 08/11/25 Loc: HO.ED Attending Dr: Ordering Physician: Ina Larson Date of Service: 08/11/25 Procedure(s): XR chest 2V Accession Number(s): [id number] cc: Pipe Anderson MD; Ina Larson Reason [...] Richardson MD in OV> 08/11/25 1436 DD/ 34 TD/TT: 08/11/251434 Yarn Finisher: Procedure Note Donotuseinterpreter, Image - 08/11/[address] [address] XRay Report Signed Patient: Randy Hernandez R#: [id number] : 1970Acct:[id number] Age/Sex: 54 / FADM Date: 08/11/25 Loc: .ED Attending Dr: Ordering Physician: Ina Larson Date of Service: 08/11/25 Procedure(s): XR chest 2V Accession Number(s): [id number] cc: Pipe Anderson MD; Ina Larson Reason [...] 08/11/25 1436 DD/ 1435 TD/TT: 08/11/25 1435 Yarn Finisher: [facility] External Provider IMG XR PROCEDURES Edited Result - Final * Influenza A B2 ID NOW (Waters) (08/11/2025 2:17 PM EDT) IDNOW SERIAL# [id number] [facility] Influenza A Negative Negative [facility] Influenza B2 Negative Negative [facility] Influenza A B2 Note See Note [facility] Comment:The Waters ID NOW In [...] 2:17 PM EDT 08/11/2025 2:25 PM EDT Generic External Data Provider LAB MICROBIOLOGY - GENERAL ORDERABLES Final Result [facility] [address] [place] [phone] * COVID-19 ID NOW (WATERS) (08/11/2025 2:17 PM EDT) IDNOW SERIAL# [id number] [facility] COVID-19 TEST Negative Negative [facility] COVID-19 NOTE See Note [facility] Comment: Results are for the identification of SARS-CoV2 RNA. TheSARS-CoV2 RNA is generally detectable in respiratory samplesduring the acute phase of infection. Positive results areindicative of the presence of SARS-CoV-2 RNA; clinicalcorrelation with patient history and other diagnosticinformation is necessary to determine patient infectionstatus. Positive results do not rule out bacterial infectionor co- infection with other viruses.Testing facilities within the [place] and [facility] are required to report all positive results [...] use by authorized laboratories.Testing performed on the [employer] NOW utilizing NAAT. 08/11/2025 2:17 PM EDT 08/11/2025 2:25 PM EDT Generic External Data Provider LAB MOLECULAR CHARLIE GNOSTICS ORDERABLES Final Result [facility] [address] [place] [phone] * (ABNORMAL) POCT HGB A1C (07/12/2025 2:11 PM EDT) [facility] Hemoglobin A1C 13.3(A) 4.0 - 5.7 % QC Media Lot # [id number] Lot# Expiration Date 47,027 Blood 07/12/2025 2:11 PM EDT Pipe Anderson MD POINT OF CARE TEST ENTER/ED IT ORDERABLES Final Result * (ABNORMAL) POCT Glucose (07/12/2025 2:11 PM EDT) Pathologist [facility] Glucose Blood, POC 313(A) 60 - 200 mg/dL QC Media Lot # [id number] Lot# Expiration Date ,025 Blood Capillary blood specimen / Unknown 07/12/2025 2:11 PM EDT us Pipe Anderson MD POINT OF CARE TEST ENTER/ED IT ORDERABLES Final Result * Hepatitis C Antibody with Reflex to HCV, RNA, Quantitative, Real-Time PCR (06/26/2025 2:04 PM EDT) Hepatitis C Antibody Nonreactive Nonreactive [facility] Comment:Antibodies to HCV no t detected; does not exclude early acuteHCV infection. Blood Venous blood specimen / Unknown 06/26/2025 2:04 PM EDT 06/26/2025 4:17 PM EDT us Pipe Anderson MD LAB BLOOD ORDERABLES Final Result Performing Organization Address [facility] Co de Phone Number [facility] [address] [place] [phone] * Sed Rate by Modified Darlineren (06/26/2025 2:04 PM EDT) Erythrocyte Sedimentation Rate 16 0 - 20 MM/HR [facility] Comment:Patients with polycy themia and many hemoglobin abnormalitiesmay have depressed sed rates whereas patients with anemiamay have elevated sed rates. Blood Venous blood specimen / Unknown 06/26/2025 2:04 PM EDT 06/26/2025 4:14 PM EDT us Teresa Schuler MD LAB BLOOD ORDERABLES Fin al Result Performing Organization Address City/[facility]/ZIP Co de Phone Number [facility] [address] [place] [address] [phone] * Lower Extremity Venous Duplex (06/26/2025 1:51 PM EDT) 06/26/2025 1:51 PM EDT Narrative [facility] - 06/26/2025 2:12 PM EDT [facility] [place] [address] Ultrasound Report Signed Patient: Brittany Hernandez#: [id number] : 1970 Acct:[id number] Age/Sex: 54 / F ADM Date: 06/26/25 Loc: JUAN MANUELX Attending Dr: Teresa Schuler MD Ordering Physician: Teresa Schuler MD Date of Service: 06/26/25 Procedure(s): US venous duplex LE LT Accession Number(s): [id number] cc: Pipe Anderson MD; Teresa Schuler MD [...] 06/26/25 1409 DD/ 1351 TD/TT: 06/26/25 1359 Yarn Finisher: Procedure Note Donotuseinterpreter, Image - 06/26/2025 [facility] [place] [address] Ultrasound Report Signed Patient: Randy Hernandez R#: [id number] : 1970Acct:[id number] Age/Sex: 54 / FADM Date: 06/26/25 Loc: HMGRaúlX Attending Dr: Teresa Schuler MD Ordering Physician: Teresa Schuler MD Date of Service: 06/26/25 Procedure(s): US venous duplex LE LT Accession Number(s): [id number] cc: Pipe Anderson MD; Teresa Schuler MD [...] 06/26/25 1409 DD/ 1351 TD/TT: 06/26/25 1359 Yarn Finisher: Teresa Schuler MD CV VASCULAR PROCEDURES F inal Result [facility] [address] [place] [phone] * Albumin, Random Urine W/Creatinine (01/05/2025 2:20 PM EST) Creatinine, Urine 72.11 mg/dL [facility] Microalbumin Urine 14.0 mg/L [facility] Microalbum Creatinine Ratio Ur 19.4 <30 ug/mg cr [facility] Comment:Albumin/Creatinine R atio Reference Ranges: Normal: < 30 ug/mg creatinine Microalbuminuria: 30 - 300 ug/mg creatinineClinical Albuminuria: > 300 ug/mg creatinine 01/05/2025 2:20 PM EST 01/05/2025 5:52 PM EST us Pipe Anderson MD LAB URINE ORDERABLES Final Result Performing Organization Address City/[facility] Co de Phone Number [facility] [address] [place] [phone] * (ABNORMAL) Lipid Panel, Standard (01/05/2025 2:15 PM EST) Triglycerides 158(H) <150 mg/dL [facility] Comment:Desirable Triglyceri de: less than 150 mg/dLBorderline High Triglyceride 150-199 mg/dLHigh Triglyceride: 200-499 mg/dLVery High Triglyceride: greater than or equal to 5OO mg/dL Cholesterol 156 <200 mg/dL [facility] Comment:Desirable Cholestero l: less than 200 mg/dLBorderline High Cholesterol: 200-239 mg/dLHigh Cholesterol: greater than 239 mg/dL LDL Cholesterol Calculated 82 <100 mg/dL [facility] Comment:Desirable LDL: less than 100 mg/dLNear Optimal/Above Optimal LDL: 110- 129 mg/dLBorderline High LDL: 130-159 mg/dLHigh LDL: 160-189 mg/dLVery High LDL: greater than or equal to 190 mg/dL HDL Cholesterol 43 >40 mg/dL [facility] Comment:Desirable HDL: great er than 40 mg/dL Note: This HDL assay may give artificially low results in patients with liver disease. 01/05/2025 2:15 PM EST 01/05/2025 5:50 PM EST us Pipe Anderson MD LAB BLOOD ORDERABLES Final Result Performing Organization Address City/[facility]/ZIP Co de Phone Number [facility] [address] [place] [phone] * BI Mammogram Screening Tomosynthesis Bilateral (11/30/2024 1:50 PM EST) Anatomical Region Laterality Modality Breast Bilateral Mammography 11/30/2024 1:50 PM EST Narrative 12/10/2024 6:59 AM EST [place] [facility] [address] [place] [address] Mammography Report Signed with Addenda Patient: Brittany Hernandez#: [id number] : 1970 Acct:[id number] Age/Sex: 54 / F ADM Date: 11/30/24 Loc: HO.MAMMO Attending Dr: Pipe Anderson MD Ordering Physician: Pipe Anderson MD Results: 1 Negative Date of Service: 11/30/24 Follow Up: 1 Year From Orig ina Mammogram Procedure(s): MM tomosynthesis screening BI Accession Number(s): [id number] cc: Pipe Anderson MD ADDENDUM ADDENDUM #1 [...] OV> 12/10/24 0656 DD/ 135 TD/TT: 11/30/24 1417 Yarn Finisher: Procedure Note Donotuseinterpreter, Image - 12/25/2024 [facility] [address] [place] [address] Mammography Report Signed with Addenda Patient: Randy Hernandez R#: [id number] : 1970Acct:[id number] Age/Sex: 54 / FADM Date: 11/30/24 Loc: HO.MAMMO Attending Dr: Pipe Anderson MD Ordering Physician: Pipe Anderson MDResults: 1 Negative Date of Service: 11/30/24Follow Up: 1 Year From Orig inal Mammogram Procedure(s): MM tomosynthesis screening BI Accession Number(s): [id number] cc: Pipe Anderson MD ADDENDUM ADDENDUM #1 [...] by: Yamileth Arroyo DO 12/10/2024 06:56 AM [facility] Dictated By: Yamileth Arroyo DO Signed By: <Electronically signed by Yamileth Arroyo DO in OV> 12/10/24 0656 DD/ 1350 TD/TT: 11/30/24 1417 Yarn Finisher: Pipe Anderson MD IM BI PROCEDURES Edited Re sult - Final * Image-Guided Pap with Age-Based Screening Protocols (03/02/2023 2:16 PM EDT) Comment [facility] Comment: This order for age-based cervical cancer and STI screening follows ACOG guidelines(PB 168, 140, HLY140). See individual assays for performing site location. Clinical Information: None given [facility] LMP: NONE GIVEN [facility] Prev. PAP: NONE GIVEN [facility] Prev. BX: NONE GIVEN [facility] SOURCE: None given [facility] Statement Of Adequacy: [facility] Comment: Satisfactory for evaluation. Endocervical/transformation zone component present. Interpretation/ Result: Negative for intraepithelial lesion or malignancy. [facility] COMMENT: This Pap test has been evaluated with computer assisted technology. [employer] Cytotechnologis t: [employer] Comment: LeticiaXM, CT(ASCP) CT screening location: [address] [address] (Always Message) [employer] Comment: EXPLANATORY NOTE: The Pap is a [...] HPV nRNA E6/E7 Not Detected Not Detected [employer] Comment: Methodology: Poem Writer-Mediated Amplification This assay detects E6/E7 viral messenger RNA (mRNA) from 14 high-risk HPV types (16,18,31,33,35,39,45,51,52,56,58,59,66,68). Cervical sources are required for HPV testing. If a vaginal source from a patient who has had a total hysterectomy with removal of cervix was submitted, please contact the testing laboratory for alternative testing options. For additional information, please refer to http://education.sMedio/faq/DVY190r5 (This link if provided for information/ educational purposes only.) Cytology specimen container (physical object) 03/02/2023 2:16 PM EDT 03/03/2023 5:29 AM EDT Shannon [facility]ENSON LAB BLOOD ORDERABLES Liliana l Result [address], [place] [address] [employer] [address] [place] [phone] * (ABNORMAL) Colonoscopy (11/09/2019) Anatomical Region Laterality Modality Endoscopy Narrative 11/09/2019 Transverse colon polyp removed. Needs a repeat Colonoscopy in 2023. Historical Provider MD ENDOSCOPY PROCEDURE ORDER AR Final Result from Last 3 Months or Most Recently Relevant to Health Maintenance [facility] < 65 * Guarantor: Brittany Hernandez Account Type Relation to Patient Date of Phone Billing Address Personal/Family Self [address] Care Teams Sales Management Intern Relationship Specialty Start Date End Date Pipe Anderson MD [address] [place] [phone] PCP - General Internal Medicine 04/14/21 Beltran Iglesias Riverboat MasterFinancial Administrative Assistant 04/21/24 Marcos Hanks Dye Lab TechnicianFinancial Administrative Assistant 07/06/24
--- OUTSIDE RECORDS SUMMARY | 2025-09-12 16:09 | XMS_ITS | Encounter Summary ---
Author Organization [employer] Address 75 [facility] 7t [place] [address] Care Team Providers Care Lip Cutter Name Role Phone Pipe Anderson MD Primary Care Provider +1 [phone] Jayce Tristan PharmD Unavailable Unavail able Faviola Richard PharmD Unavailable [phone] Reason for Visit * Reason Comments Med Refill Encounter Details Date Type Department Care Team ([facility] Contact Info) Description 11/06/2024 Refill [facility] 505 [place], [place] [phone] Pipe Anderson MD 505 [place] [address] Diabetic polyneuropathy associated with type 2 diabetes [...] documented as of this encounter Care Teams Lip Cutter Relationship Specialty Start Date End Date Pipe Anderson MD 505 [place] [address] PCP - General Internal Medicine 04/14/21 Jayce Tristan, PharmD 505 [place] [address] Pharmacist Internal Medicine 11/13/22 01/07/25 Faviola Richard PharmD [address] [place] [address] Pharmacist Internal Medicine 01/05/25 06/03/25 Beltran Iglesias Hair DresserAddressing Machine Operator 04/21/24 Marcos Hanks Ripening Room HandAddressing Machine Operator 07/06/24 documented as of this encounter
--- OUTSIDE RECORDS SUMMARY | 2025-09-12 16:09 | XMS_ITS | Encounter Summary ---
Author Organization [employer] Address 75 [facility] 7t [place] [address] Care Team Providers Care Front Desk Monitor Name Role Phone Pipe Anderson MD Primary Care Provider [phone] Jayce Tristan PharmD Unavailable Unavail able Faviola Richard PharmD Unavailable [phone] Reason for Visit * Reason Comments Med Refill Encounter Details Date Type Department Care Team ([facility] Contact Info) Description 06/19/2024 Refill [facility] 505 [place], [place] [phone] Pipe Anderson MD 505 [place] [address] Diabetic polyneuropathy associated with type 2 diabetes [...] (HCC) documented in this encounter Care Teams Front Desk Monitor Relationship Specialty Start Date End Date Pipe Anderson MD 505 [place] [address] PCP - General Internal Medicine 04/14/21 Jayce Tristan, PharmD [address] [place] [address] Pharmacist Internal Medicine 11/13/22 01/07/25 Faviola Richard PharmD [address] [place] [address] Pharmacist Internal Medicine 01/05/25 06/03/25 Beltran Iglesias Commercial Green Building DesignerBuncher Operator 04/21/24 Marcos Hanks Loft RiggerBuncher Operator 07/06/24 documented as of this encounter
--- OUTSIDE RECORDS SUMMARY | 2025-09-12 16:09 | XMS_ITS | Encounter Summary ---
Author Organization [employer] Address 75 [facility] 7t [place] [address] Care Team Providers Care Cardiac Rehabilitation Program Director Name Role Phone Pipe Anderson MD Primary Care Provider [phone] Jayce Tristan PharmD Unavailable Unavail able Faviola Richard PharmD Unavailable [phone] Encounter Details Date Type Department Care Team ([facility] Contact Info) Description 05/14/2023 Abstract [facility] MED & PEDS 505 [place], [place] [phone] Pipe Anderson MD 505 [place] [address] Social History Tobacco Use Types Packs/Day Years [...] on filedocumented in this encounter Care Teams Cardiac Rehabilitation Program Director Relationship Specialty Start Date End Date Pipe Anderson MD 505 [place] [address] PCP - General Internal Medicine 04/14/21 Jayce Tristan, PharmD 505 [place] [address] Pharmacist Internal Medicine 11/13/22 01/07/25 Faviola Richard PharmD 230 [place] [address] Pharmacist Internal Medicine 01/05/25 06/03/25 Beltran Iglesias Seating CaptainGore Maker 04/21/24 Marcos Hanks Drilling And Production SuperintendentGore Maker 07/06/24 documented as of this encounter
--- OUTSIDE RECORDS SUMMARY | 2025-09-12 16:09 | XMS_ITS | Encounter Summary ---
Author Organization [email or web address] Address 75 [facility] 7t [place] [address] Care Team Providers Care Account Specialist Name Role Phone Pipe Anderson MD Primary Care Provider [phone] Jayce Tristan PharmD Unavailable Unavail able Faviola Richard PharmD Unavailable [phone] Encounter Details Date Type Department Care Team ([facility] Contact Info) Description 07/28/2024 Orders Only [facility] MED & PEDS 505 [place], [place] [phone] Pipe Anderson MD 505 [place] [address] Uncontrolled type 2 diabetes mellitus with hyperglycemia [...] documented as of this encounter Care Teams Account Specialist Relationship Specialty Start Date End Date Pipe Anderson MD 505 [place] [address] PCP - General Internal Medicine 04/14/21 Jayce Tristan, PharmD 505 [place] [address] Pharmacist Internal Medicine 11/13/22 01/07/25 Faviola Richard PharmD 230 [place] [address] Pharmacist Internal Medicine 01/05/25 06/03/25 Beltran Iglesias Microsoft DeveloperAssociate Programmer 04/21/24 Marcos Hanks Manager AthleticsAssociate Programmer 07/06/24 documented as of this encounter
--- OUTSIDE RECORDS SUMMARY | 2025-09-12 16:09 | XMS_ITS | Encounter Summary ---
Author Organization [employer] Address [address] [facility] [address] 7t [place] [address] Care Team Providers Care Pest Control Applicator Name Role Phone Pipe Anderson MD Primary Care Provider [phone] Jayce Tristan PharmD Unavailable Unavail able Faviola Richard PharmD Unavailable [phone] Reason for Visit * Reason Onset Date Comments Referral 10/13/2023 Encounter Details Date Type Department Care Team ([facility] st Contact Info) Description 10/13/2023 Telephone [facility] MEDICINE 230 [place] [address] Pipe Anderson MD 505 [place], [place] [phone] Referral Social History Tobacco Use Types Packs/Day [...] t he electric, gas, oil or water [employer] threatened to shut off services in your [...] advise if pt can be referred to material requirements worker for pt's DM. * Telephone Encounter - Mikael Carrero - 10/13/2023 10:12 AM EST Tc zack Gong the patients VN requesting a referral for a material requirements worker for the patient any questions please call [phone] documented in this encounter Plan of Treatment [...] on filedocumented in this encounter Care Teams Pest Control Applicator Relationship Specialty Start Date End Date Pipe Anderson MD 505 [place] [address] PCP - General Internal Medicine 04/14/21 Jayce Tristan, BhavnaD [address] [place] [address] Pharmacist Internal Medicine 11/13/22 01/07/25 Faviola Richard PharmD [address] [place] [address] Pharmacist Internal Medicine 01/05/25 06/03/25 Beltran Iglesias Power Plant OperatorSecurity Researcher 04/21/24 Marcos Hanks Software Quality Test EngineerSecurity Researcher 07/06/24 documented as of this encounter
--- OUTSIDE RECORDS SUMMARY | 2025-09-12 16:09 | XMS_ITS | Encounter Summary ---
Author Organization [employer] Address 75 [facility] 7t [place] [address] Care Team Providers Care Speeder Worker Name Role Phone Pipe Anderson MD Primary Care Provider [phone] Jayce Tristan PharmD Unavailable Unavail able Faviola Richard PharmD Unavailable [phone] Encounter Details Date Type Department Care Team ([facility] Contact Info) Description 03/23/2024 Orders Only [facility] MED & PEDS 505 [place], [place] [phone] Pipe Anderson MD [address] [place] [address] Social History Tobacco Use Types Packs/Day Years [...] on filedocumented in this encounter Care Teams Speeder Worker Relationship Specialty Start Date End Date Ppie Anderson MD 505 [place] [address] PCP - General Internal Medicine 04/14/21 Jayce Tristan, PharmD [address] [place] [address] Pharmacist Internal Medicine 11/13/22 01/07/25 Faviola Richard PharmD 230 [place] [address] Pharmacist Internal Medicine 01/05/25 06/03/25 Beltran Iglesias Head GrowerStorekeeper Steward 04/21/24 Marcos Hanks Paste Up WorkerStorekeeper Steward 07/06/24 documented as of this encounter
== END ==
LOC: HO.HGI 12:48
PROVIDERS: PCP Internal Medicine; Visit Provider Nurse Practitioner
DX: K59.00 Constipation, unspecified (principal); K63.5 Polyp of colon
CPT/HCPCS: 99213

== ENCOUNTER → 2025-09-12 12:47 | Outpatient (BNVA) | payer OTHER, SELFPAY | PROVIDERS: PCP Internal Medicine; Visit Provider Nurse Practitioner | DX: K63.5 Polyp of colon (principal); K59.00 Constipation, unspecified | CPT/HCPCS: 99212 ==

== ENCOUNTER 2025-10-08 14:54 | Outpatient (AMB) | payer OTHER, SELFPAY ==
--- OUTSIDE RECORDS SUMMARY | 2025-10-04 15:30 | XMS_ITS | Encounter Summary ---
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) Social History Tobacco Use Types [...] Author Blood Pressure < 140/90 Blood Pressure 151/76(2024 2:42 PM EDT) No Dellogono, Jayce, PharmD Hemoglobin A1c < 7 Result Component 13.3(07/12/20 2:11 PM EDT) No Dellogono, Jayce, PharmD documented as of this encounter Visit Diagnoses Diagnosis 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- Primary documented in this encounter Additional Health Concerns Assessment Noted Time PHQ-9 Depression Total Score: 4 07/12/20 25 1:36 PM EDT documented as of this encounter Care Teams Extra Gang Supervisor Relationship Specialty Start Date End Date Pipe Anderson MD [address] [place] [address] PCP - General Internal Medicine 04/14/21 Beltran Iglesias Adjunct Instructor Of Women'S StudiesIndustrial Relations Commissioner 04/21/24 Marcos Hanks Cloth Bin PackerIndustrial Relations Commissioner 07/06/24 documented as of this encounter
--- NOTE | 2025-10-08 15:26 | MHC.AMDMED ---
Intake Intake Visit Reasons: 60 mins Student Ministries Director Required: No Accompanied by: Self / Same As Patient Allergies lobster Allergy (Severe, Verified 08/26/25 23:45) Itching shrimp Allergy (Mild, Verified 08/26/25 23:45) EYE ITCHING shellfish derived (shellfish) Allergy (Verified 08/26/25 23:45) Itching HPI Comprehensive Diabetes Asmnt Most Recent Diabetes Results: Creatinine, (0.5-1.4) 0.81 mg/dL 08/26/25 BUN, (9-16) 20 mg/dL H 08/26/25 Sodium, (135-145) 134 mmol/L L 08/26/25 Potassium, (3.3-5.1) 4.4 mmol/L 08/26/25 Chloride, (96-108) 96 mmol/L 08/26/25 Carbon Dioxide, (22-29) 29 mmol/L 08/26/25 Calcium, (8.4-10.2) 9.7 mg/dL 08/26/25 AST, (5-31) 25 U/L 08/26/25 ALT, (0-31) 38 U/L H 08/26/25 Total Protein, (6.5-8.0) 7.5 g/dL 08/26/25 Albumin, (3.5-5.0) 4.4 g/dL 08/26/25 [facility] Medical History Diabetes Cutaneous abscess of back [any part, except buttock] Abscess Sebaceous cyst Pre-op examination Morbid obesity Umbilical hernia RUQ abdominal pain Hypertension Diabetes H. pylori infection Irritable bowel syndrome with diarrhea Surgical History History of surgery Status post hysteroscopic ablation of endometrium Breast abscess History of appendectomy H/O umbilical hernia repair H/O colonoscopy Hx of hemorrhoidectomy Hx of hernia repair Hx of tubal ligation Family History Father Heart problem Asthma Mother Colon cancer HTN (hypertension) Varicose vein of leg Family history of diabetes mellitus Maternal Aunt Pancreatic cancer Family/Other Breast cancer Social History Household Members: None Alcohol intake: current Alcohol intake frequency: does not drink Patient Tobacco Use Status: Former Tobacco user Substance Use Type: Marijuana Assessment & Plan Assessment & Plan (1) Poorly controlled type 2 diabetes mellitus: Code(s): E11.65 - Type 2 diabetes mellitus with hyperglycemia Plan: Patient at visit to set up an insert José Manuel 3+ with phone emery Patient has has not picked up José Manuel reader or José Manuel 3+ sensors Called patient's pharmacy at [facility], prescription through patient's insurance which is now covered. Patient agreed to vegetable picker reader and sensors tomorrow At today's visit we set up José Manuel 3+ emery on patient's smart phone in patient given sample José Manuel 3+ sensor Instructed Pt on what CGM can and can't do CGM Can: Give Pt minute by minute reading of glucose levels Displays glucose trend arrows that represents the direction glucose levels are fluctuating Give insight on decisions about how to dose insulin CGM cannot: Improve glucose control on its own Completely eliminate the need for all finger sticks Make dosing decision for you CGM is the reading of glucose in the interstitial fluid not actual blood glucose, finger sticks are still necessary when Pt's symptom?s do not match sensor reading and if sensors prompts Pt to do a fingerstick Instructed patient sensors water proof you can shower, or swim do not submerge sensor in water for over 30 minutes Is sensor falls off cannot put back in you need to replace sensor, customer service number given to patient for sensor replacement Sensor placed on the back of left arm Patient left visit with sensor in warmup Reviewed how to interpret trend arrows Discussed lag time between finger stick and sensor data.? Instructed patient the importance of having blood glucometer for backup testing if needed Reviewed delay of CGM from fingersticks Reminded Pt that if symptoms do not match sensor still needs to check fingersticks. Patient has visit with Dr. Hall tomorrow, she will be due for new A1c Patient will follow-up with Diabetes education in 1 month Portions of this note were created using voice recognition software, please excuse any words or phrases that may have been misinterpreted. Patient Instructions: Patient instruction: CGM provides information on blood glucose control throughout the day, including hyperglycemia and hypoglycemia. ? Continue to monitor blood glucose as instructed. Follow nutrition guidelines provided. Report any discomfort promptly to health care provider. ?Stay well-hydrated. You can bathe ,shower, swim and exercise while wearing the glucose sensor. Do not submerge glucose sensor in water for more than 30 minutes. Coding Level of Care Code Est Pt Level 1 (23978) Diagnoses Poorly controlled type 2 diabetes mellitus E11.65
--- OUTSIDE RECORDS SUMMARY | 2025-10-08 17:09 | XMS_ITS | Encounter Summary ---
Author Organization [employer] Address 75 [facility] 7 [place] [address] Care Team Providers Care Documentation Engineer Name Role Phone Pipe Anderson MD Primary Care Provider [phone] Reason for Visit * Reason Comments Med Refill Encounter Details Date Type Department Care Team ([facility] Contact Info) Description 10/08/2025 Refill [facility] MED & PEDS [address] [place], [place] [phone] Pipe Anderson MD 505 [place] [address] Uncontrolled type 2 diabetes mellitus with hyperglycemia (HCC); Uncontrolled type 2 diabetes mellitus with hyperglycemia (HCC) Social History Tobacco Use Types Packs/Day Years [...] type 2 diabetes mellitus with hyperglycemia (HCC) documented in this encounter Additional Health Concerns Assessment Noted Time PHQ-9 Depression Total Score: 4 07/12/20 25 1:36 PM EDT documented as of this encounter Care Teams Documentation Engineer Relationship Specialty Start Date End Date Pipe Anderson MD [address] [place] [address] PCP - General Internal Medicine 04/14/21 Beltran Iglesias Patient Care SecretarySemiconductor Wafers Etch Operator 04/21/24 Marcos Hanks Reducing Salon AttendantSemiconductor Wafers Etch Operator 07/06/24 documented as of this encounter
--- OUTSIDE RECORDS SUMMARY | 2025-10-08 17:09 | XMS_ITS | Encounter Summary ---
Author Organization [employer] Address 75 [facility] 7t [place] [address] Care Team Providers Care Curb Worker Name Role Phone Pipe Anderson MD Primary Care Provider [phone] Jayce Tristan PharmD Unavailable Unavail able Faviola Richard PharmD Unavailable [phone] Encounter Details Date Type Department Care Team ([facility] Contact Info) Description 07/28/2024 Orders Only [facility] MED & PEDS 505 [place], [place] [phone] Pipe Anderson MD [address] [place] [address] Uncontrolled type 2 diabetes mellitus with hyperglycemia [...] Blood Pressure 151/76(2024 2:42 PM EDT) No Jayce Tristan, PharmD Hemoglobin A1c < 7 Result Component 13.3(07/12/20 2:11 PM EDT) No Jayce Tristan, PharmD documented as of this encounter Visit Diagnoses Diagnosis Uncontrolled type 2 diabetes mellitus with hyperglycemia (HCC)- Primary documented in this encounter Additional Health Concerns Assessment Noted Time PHQ-9 Depression Total Score: 14 024 4:22 PM EDT documented as of this encounter Care Teams Curb Worker Relationship Specialty Start Date End Date Pipe Andesron MD [address] [place] [address] PCP - General Internal Medicine 04/14/21 Jayce Tristan, PharmD [address] [place] [address] Pharmacist Internal Medicine 11/13/22 01/07/25 Faviola Richard PharmD 230 [place] [address] Pharmacist Internal Medicine 01/05/25 06/03/25 Beltran Iglesias Lead Front Desk AgentChipper Operator 04/21/24 Marcos Hanks Supervisor Fireworks AssemblyChipper Operator 07/06/24 documented as of this encounter
--- OUTSIDE RECORDS SUMMARY | 2025-10-08 17:09 | XMS_ITS | Encounter Summary ---
Author Organization [employer] Address 75 [facility] 7t [place] [address] Care Team Providers Care Pension Examiner Name Role Phone Pipe Anderson MD Primary Care Provider [phone] Jayce Tristan PharmD Unavailable Unavail able Faviola Richard PharmD Unavailable [phone] Reason for Visit * Reason Comments Med Refill Encounter Details Date Type Department Care Team ([facility] Contact Info) Description 06/19/2024 Refill [facility] MED & PEDS [address] [place], [place] [phone] Pipe Anderson MD [address] [place] [address] Diabetic polyneuropathy associated with type 2 diabetes [...] (HCC) documented in this encounter Care Teams Pension Examiner Relationship Specialty Start Date End Date Pipe Anderson MD [address] [place] [address] PCP - General Internal Medicine 04/14/21 Jayce Tristan, PharmD [address] [place] [address] Pharmacist Internal Medicine 11/13/22 01/07/25 Faviola Richard PharmD [address] [place] [address] Pharmacist Internal Medicine 01/05/25 06/03/25 Beltran Iglesias Ballet Master/MistressCommission For The Blind Director 04/21/24 Marcos Hanks Auto Mechanics TeacherCommission For The Blind Director 07/06/24 documented as of this encounter
--- OUTSIDE RECORDS SUMMARY | 2025-10-08 17:09 | XMS_ITS | Encounter Summary ---
Author Organization [employer] Address 75 [facility] 7t [place] [address] Care Team Providers Care Calciner Operator Name Role Phone Pipe Anderson MD Primary Care Provider [phone] Jayce Tristan PharmD Unavailable Unavail able Faviola Richard PharmD Unavailable [phone] Reason for Visit * Reason Comments Med Refill Encounter Details Date Type Department Care Team ([facility] Contact Info) Description 11/06/2024 Refill [facility] MED & PEDS [address] [place], [place] [phone] Pipe Anderson MD [address] [place] [address] Diabetic polyneuropathy associated with type 2 diabetes [...] documented as of this encounter Care Teams Calciner Operator Relationship Specialty Start Date End Date Pipe Anderson MD [address] [place] [address] PCP - General Internal Medicine 04/14/21 Jayce Tristan, PharmD [address] [place] [address] Pharmacist Internal Medicine 11/13/22 01/07/25 Faviola Richard PharmD [address] [place] [address] Pharmacist Internal Medicine 01/05/25 06/03/25 Beltran Iglesias Director Of Front OfficeAsset Protection Greeter 04/21/24 Marcos Hanks Yarn CleanerAsset Protection Greeter 07/06/24 documented as of this encounter
--- OUTSIDE RECORDS SUMMARY | 2025-10-08 17:09 | XMS_ITS | Encounter Summary ---
Author Organization [employer] Address 75 [facility] 7t [place] [address] Care Team Providers Care Screen Printing Machine Operator Name Role Phone Pipe Anderson MD Primary Care Provider [phone] Encounter Details Date Type Department Care Team (Latest Contact Info) Description 10/03/2025 Travel Social History Tobacco Use Types Packs/Day [...] documented as of this encounter Care Teams Screen Printing Machine Operator Relationship Specialty Start Date End Date Pipe Anderson MD [address] [place] [address] PCP - General Internal Medicine 04/14/21 Beltran Iglesias Inclusion TeacherEtl Lead 04/21/24 Marcos Hanks Bench Machine OperatorEtl Lead 07/06/24 documented as of this encounter
--- OUTSIDE RECORDS SUMMARY | 2025-10-08 17:09 | XMS_ITS | Encounter Summary ---
Author Organization [employer] Address 75 [facility] 7t [place] [address] Care Team Providers Care Furniture Removalist'S Assistant Name Role Phone Pipe Anderson MD Primary Care Provider [phone] Jayce Tristan PharmD Unavailable Unavail able Faviola Richard PharmD Unavailable [phone] Encounter Details Date Type Department Care Team ([facility] Contact Info) Description 05/14/2023 Abstract [facility] MED & PEDS 505 [place], [place] [phone] Pipe Anderson MD 505 [place] [address] Social History Tobacco Use Types Packs/Day Years [...] PharmD Hemoglobin A1c < 7 Result Component 13.3(08/14/20 25 2:11 PM EDT) No Jayce Tristan, PharmD documented as of this encounter Visit Diagnoses Not on filedocumented in this encounter Care Teams Furniture Removalist'S Assistant Relationship Specialty Start Date End Date Pipe Anderson MD 505 [place] [address] PCP - General Internal Medicine 04/14/21 Jayce Tristan, PharmD [address] [place] [address] Pharmacist Internal Medicine 11/13/22 01/07/25 Faviola Richard PharmD 230 [place] [address] Pharmacist Internal Medicine 01/05/25 06/03/25 Beltran Iglesias ProducerRadio Television Technical Director 04/21/24 Marcos Hanks Supervisor Of CommunicationsRadio Television Technical Director 07/06/24 documented as of this encounter
--- OUTSIDE RECORDS SUMMARY | 2025-10-08 17:09 | XMS_ITS | Encounter Summary ---
Author Organization [employer] Address [address] [place] [address] 7 [place] [address] Care Team Providers Care Dedenter Name Role Phone Pipe Anderson MD Primary Care Provider [phone] Jayce Tristan PharmD Unavailable Unavail able Faviola Richard PharmD Unavailable [phone] Reason for Referral * Consultation (Routine) - Canceled Specialty Diagnoses / Procedures Referred By Swapna t Referred To Contact Pharmacy Diagnoses Uncontrolled type 2 diabetes mellitus with hyperglycemia (HCC) Pipe Anderson MD [address] [place] [address] Phone: tel: fax: Referral ID Status Reason Start Date Expiration Date V isits Requested Visits Authorized [id number] Canceled Consult and Treat 12/26/2024 12/26/2025 6 6 Encounter Details Date Type Department Care Team (Late st Contact Info) Description 12/26/2024 Orders Only [facility] [address] [place] [address] Pipe Anderson MD [address] [place] [address] Uncontrolled type 2 diabetes mellitus with hyperglycemia [...] Blood Pressure 151/76(2024 2:42 PM EDT) No DellogJayce godinez, PharmD Hemoglobin A1c < 7 Result Component 13.3(07/12/20 2:11 PM EDT) No Jayce Tristan, PharmD documented as of this encounter Visit Diagnoses Diagnosis Uncontrolled type 2 diabetes mellitus with hyperglycemia (HCC)- Primary documented in this encounter Additional Health Concerns Assessment Noted Time PHQ-9 Depression Total Score: 14 024 4:22 PM EDT documented as of this encounter Care Teams Dedenter Relationship Specialty Start Date End Date Pipe Anderson MD [address] [place] [address] PCP - General Internal Medicine 04/14/21 Jayce Tristan PharmD [address] [place] [address] Pharmacist Internal Medicine 11/13/22 01/07/25 Faviola Richard PharmD [address] [place] [phone] Pharmacist Internal Medicine 01/05/25 06/03/25 Beltran Iglesias Mounter [facility] 04/21/24 Marcos Hanks Copy Ch[facility] [facility] Fellowship 07/06/24 documented as of this encounter
--- OUTSIDE RECORDS SUMMARY | 2025-10-08 17:09 | XMS_ITS | Clinical Summary ---
Author Organization [employer] Address [address] [facility] 7t [place] [address] Care Team Providers Care Vp Rheumatology Name Role Phone Pipe Anderson MD Primary Care Provider [phone] Allergies Active Allergy Reactions Criticality Noted Date [...] 25 Active Blood Glucose Monitoring Suppl (FreeStyle Kulm Lite) w/Device kit Use to test blood [...] 25 Active Blood Glucose Monitoring Suppl (FreeStyle Kulm Lite) w/Device kitIndications:Unc ontrolled type 2 diabetes mellitus with hyperglycemia (HCC) Use to test blood sugar 2 times daily 1 kit 07/12/20 25 Active gabapentin (Neurontin) 100 MG capsuleIndications :Diabetic polyneuropathy associated with type 2 diabetes mellitus (HCC) Take 2 capsules (200 mg) by mouth every 8 (eight) hours. 180 capsule 07/12/20 25 026 Active Active Problems Problem Noted Date Diagnosed Date Umbilical hernia without obstruction and without gangrene 09/26/2025 Cellulitis of left leg 06/23/2025 Assessment & [...] Encounters Date Type Department Care Team Description 10/08/2025 Refill [facility] MED & PEDS [address] [place] [address] Pipe Anderson MD Uncontrolled type 2 diabetes mellitus with hyperglycemia (HCC); Uncontrolled type 2 diabetes mellitus with hyperglycemia (HCC) 10/04/2025 3:30 PM EST Office Visit [facility] [address], [place] [phone] Luis Manuel, Julieta, OD 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 (Primary Dx) 10/04/2025 Travel 10/03/2025 Travel 09/26/2025 3:00 PM EDT Office Visit [facility] [address] [place] [address] Barby Hand MD Primary hypertension (Primary Dx); Umbilical hernia without obstruction and without gangrene 09/26/2025 Travel 08/27/2025 Orders Only GENERIC EXTERNAL DATA DEPARTMENT Provider, Generic External Data 08/26/2025 Orders Only GENERIC EXTERNAL DATA DEPARTMENT Provider, Generic External Data 08/22/2025 Orders Only GENERIC EXTERNAL DATA DEPARTMENT Provider, Generic External Data 08/11/2025 Orders Only [facility] External Provider, [facility] 07/12/2025 1:45 PM EDT Office Visit [facility] MED & PEDS [address] [place] [address] Pipe Anderson MD Uncontrolled type 2 diabetes mellitus with hyperglycemia ([facility]/HCC) (Primary Dx); Cellulitis of left leg; Gastroesophageal reflux disease without esophagitis; Primary hypertension; Type 2 diabetes mellitus with hyperglycemia, without long-term current use of insulin (CMS/HCC); Edema of left lower leg; Diabetic polyneuropathy associated with type 2 diabetes mellitus (CMS/HCC) 07/12/2025 Travel from Last 3 Months Immunizations Immunization Administration [...] Sign Reading Time Taken Comments Blood Pressure 151/76 09/26/2025 2:42 PM EDT Pulse 84 09/26/2025 2:42 PM EDT Temperature 33.9 C (93 F) 09/26/2025 2:42 PM EDT Respiratory Rate 17 09/26/2025 2:42 PM EDT Oxygen Saturation 98% 09/26/2025 2:42 PM EDT Inhaled Oxygen Concentration - - Weight 91.4 kg (201 lb 9.6 oz) 09/26/2025 2:42 P M EDT Height 157.5 cm (5' 2 ) 09/26/2025 2:42 PM EDT Body Mass Index 36.87 09/26/2025 2:42 PM EDT Plan of Treatment Health Maintenance Due Date Last Done Comments CT Colonography 1970 FIT DNA/Cologuard 1970 FIT 1970 FOBT 1970 HIV Screening 1970 Sigmoidoscopy 1970 COVID-19 Vaccine ( season) 2025 10/05/2022, 04/28/2022, 03/30/2022 Diabetes: Hemoglobin A1C 10/12/2025 025, 04/10/2025, 01/05/2025, [...] 09/29, 08/18/2022, Additional history exists Eye Exam 10/04/2027 10/04/2025, 04/2025, 10/04/2025, Additional history exists Cervical Cancer Screening 03/02/2028 HPV/Cotest 03/02/2028 03/02/2023, 02/23/2018 Colonoscopy 11/09/2029 11/09/2019 Colorectal Cancer Screening 11/09/2029 DTaP/Tdap/Td Vaccines (4 - Td or Tdap) 08/01/2035 08/01/2025, 01/05/2025, 01/10/2013, Additional history exists Hepatitis B Vaccines Completed 03/11/2015, 12/03/2014, 03/13/2008 Pneumococcal Vaccine: 50+ Years Completed 09/03/2022, 05/17/2003 Zoster Vaccines Completed 11/05/2022, 09/03/2022 Hepatitis C Screening Completed 06/26/2025 Influenza Vaccine Completed 08/01/2025, , 08/26/2023, Additional history exists RSV Patients and Patients Aged 60 years or older Completed 08/01/2025 HIB Vaccines Aged Out No longer eligi [...] Pressure 151/76(2024 2:42 PM EDT) No Jayce Tristan PharmD Hemoglobin [...] type 2 diabetes mellitus with hyperglycemia (CMS/HCC) HEPATITIS C AB W/REFL TO HCV RNA, QN, PCR Routine 06/26/2025 2:04 PM EDT Transaminitis Elevated liver enzymes ALBUMIN, RANDOM [...] Whole Blood 266(H) 60 - 115 mg/dL [facility] Comment:METER #: [id number] 08/27/2025 4:46 AM EDT 08/27/2025 4:49 AM EDT Generic External Data Provider LAB BLOOD ORDERAB LES Final Result Performing Organization Address [facility]/ZIP Co de Phone Number [facility] [address] [place] [address] [phone] * (ABNORMAL) Urinalysis, Complete, with Reflex to Culture (08/27/2025 1:18 AM EDT) Color Urine Yellow [facility] Appearance Urine Clear [facility] PH 6.5 5.0 - 9.0 [facility] Glucose Urine UA >=1000(A) Negative mg/dL [facility] Urine Blood Negative Negative [facility] Specific [place] - Urine >=1.030(H) 1.005 - 1.025 [facility] Urine Protein Negative Neg-Trace mg/dL [facility] Urine Ketones Negative Negative mg/dL [facility] Nitrite Urine Negative Negative [facility] Leukocyte Esterase Urine Small (1+)(A) Negative [facility] RBC Urine 0-2 0 - 2 /HPF [facility] Urine WBC 21-50(A) 0 - 5 /HPF [facility] Urine Squamous Epithelial Cell 3-5 0 - 2 /HPF [facility] Urine Bacteria None Seen None Seen [facility] Hyaline Casts, Urine 0-2 0 - 2 /LPF [facility] 08/27/2025 1:18 AM EDT 08/27/2025 1:24 AM EDT Narrative [facility] - 08/27/2025 1:35 AM EDT Urine, Clean Catch us Generic External Data Provider LAB URINE ORDERAB LES Final Result Performing Organization Address [facility] Co de Phone Number [facility] [address] [place] [phone] * Culture, Urine, Routine (08/27/2025 12:00 AM EDT) Urine Urine specimen obtained by clean catch procedure / Unknown 08/27/2025 08/27/2025 Comment:UACC Narrative [facility] - 08/28/2025 7:53 AM EDT Urine Culture Report Result Urine Culture < 10,000 cfu/ml Specimen Source: Urine clean catch us Generic External Data Provider LAB MICROBIOLOGY - GENERAL ORDERABLES Final Result Performing Organization Address City/State/[facility] Co de Phone Number [facility] [address] [place] [phone] * (ABNORMAL) CBC auto differential (08/26/2025 11:47 PM EDT) White Blood Count 5.5 4.8 - 10.8 X10*3/uL [facility] Red Blood Count 4.83 4.20 - 5.50 X10*6/uL [facility] Hemoglobin 13.1 12.0 - 16.0 g/dl [facility] Hematocrit 39.6 37.0 - 47.0 % [facility] Mean Corpuscular Volume 82.0 80.0 - 98.0 fL [facility] Mean Corpuscular Hemoglobin 27.1 27.0 - 33.0 pg [facility] Mean Corpuscular HGB Conc 33.1 31.0 - 35.0 g/dl [facility] Red Cell Distribution Width 13.7 11.0 - 16.0 % [facility] Platelet Count 244 160 - 400 X10*3/uL [facility] Mean Platelet Volume 10.4 9.4 - 12.3 fL [facility] Neutrophils Percent Auto 47.4 45 - 73 % [facility] Imm Gran Pct Auto 0.0 0.0 - 0.4 % [facility] Lymphocytes Percent Auto 43.6(H) 20 - 40 % [facility] Monocytes Percent Auto 7.2 2 - 11 % [facility] Eosinophils Percent Auto 1.3 0 - 4 % [facility] Basophils Percent Auto 0.5 0 - 2 % [facility] NRBC Pct Auto 0.0 0.0 - 0.2 /100WBC [facility] Neutrophils Absolute Auto 2.6 2.0 - 8.3 x10*3/uL [facility] Imm Gran Abs Auto 0.00 0.00 - 0.03 X10*3/uL [facility] Lymphocytes Absolute Auto 2.4 1.2 - 4.9 X10*3/uL [facility] Monocytes Absolute Auto 0.4 0.1 - 1.2 X10*3/uL [facility] Eosinophils Absolute Auto 0.1 0.0 - 0.4 X10*3/uL [facility] Basophils Absolute Auto 0.0 0.0 - 0.2 X10*3/uL [facility] NRBC Abs Auto 0.000 0.0 - 0.012 X10*3/uL [facility] 08/26/2025 11:4 7 PM EDT 08/26/2025 11:53 PM EDT us Generic External Data Provider LAB BLOOD ORDERAB LES Final Result Performing Organization Address City/[facility] Co de Phone Number [facility] [address] [place] [phone] * (ABNORMAL) Magnesium (08/26/2025 11:47 PM EDT) Magnesium 1.4(LL) 1.6 - 2.6 mg/dL [facility] Comment:Critical value for t est(s): MAGNESIUM Results called to gianna back by: HUE Person calling:MARYLIN Date:08/27/25 Time:021 08/26/2025 11:4 7 PM EDT 08/26/2025 11:53 PM EDT us Generic External Data Provider LAB BLOOD ORDERAB LES Final Result Performing Organization Address [facility]/ZIP Co de Phone Number [facility] [address] [place] [phone] [phone] * (ABNORMAL) Comprehensive Metabolic Panel (08/26/2025 11:47 PM EDT) Sodium 134(L) 135 - 145 mmol/L [facility] Potassium 4.4 3.3 - 5.1 mmol/L [facility] Chloride 96 96 - 108 mmol/L [facility] Carbon Dioxide 29 22 - 29 mmol/L [facility] Anion Gap 13 12 - 20 [facility] Urea Nitrogen (BUN) 20(H) 9 - 16 mg/dL [facility] Creatinine, Serum 0.81 0.5 - 1.4 mg/dL [facility] Creatinine Clr Calc Pharmacy 83.6 [facility] Comment:Provided height and weight: 157.48 cm,91.6 kg.eGFR (calculated from the MDRD study equation) and eCrCl(calculated from the Cockcroft-Gault equation) are based ondifferent parameters and may not yield comparable results.If eCrCl result is absurd, please check patient'sheight/weight. Estimated Glomerular Filt Rate >60 [facility] Comment:Chronic Kidney Disea se: Estimated GFR < 60 mL/min/1.91i1Lyfowh Kidney Disease: Estimated GFR < 15 mL/min/1.73m2 Glucose 501(HH) 60 - 115 mg/dL [facility] Comment:Critical value for t est(s):GLUCOSE Results called to gianna back by: BUBBA Person calling: KARENate:08/27/25 Time:0013 Calcium 9.7 8.4 - 10.2 mg/dL [facility] Bilirubin, Total 0.3 0.0 - 1.0 mg/dL [facility] Aspartate Amino Transferase 25 5 - 31 U/L [facility] Alanine Aminotransferase 38(H) 0 - 31 U/L [facility] Total Protein 7.5 6.5 - 8.0 g/dL [facility] Albumin Level 4.4 3.5 - 5.0 g/dL [facility] Alkaline Phosphatase 114 39 - 117 U/L [facility] 08/26/2025 11:4 7 PM EDT 08/26/2025 11:53 PM EDT us Generic External Data Provider LAB BLOOD ORDERAB LES Final Result Performing Organization Address [facility] Co de Phone Number [facility] [address] [place] [phone] * (ABNORMAL) Glucose, Whole Blood (08/22/2025 2:09 PM EDT) Glucose, Whole Blood 366(HH) 60 - 115 mg/dL [facility] Comment:METER #: [id number] Testing performed in the Endocrinology Department [address] , [address], [facility]. 08/22/2025 2:09 PM EDT 08/22/2025 2:25 PM EDT us Generic External Data Provider LAB BLOOD ORDERAB LES Final Result Performing Organization Address [facility] Co de Phone Number [facility] [address] [place] [phone] * XR Chest 2 Views (08/11/2025 2:35 PM EDT) Anatomical Region Laterality Modality Chest Radiographic Edna ging 08/11/2025 2:35 PM EDT Narrative 08/11/2025 2:36 PM EDT [address] [address] XRay Report Signed Patient: Kamran Brittany Vidales#: [id number] : 1970 Acct:[id number] Age/Sex: 54 / F ADM Date: 08/11/25 Loc: HO.ED Attending Dr: Ordering Physician: Ina Larson Date of Service: 08/11/25 Procedure(s): XR chest 2V Accession Number(s): [id number] cc: Pipe Anderson MD; Ina Larson Reason [...] in OV> 08/11/256 DD/ 34 TD/TT: 08/11/251434 Mill Oiler: Procedure Note Donotuseinterpreter, Image - 08/11/2025 [place] [address] XRay Report Signed Patient: Randy Hernandez R#: [id number] : 1970Acct:[id number] Age/Sex: 54 / FADM Date: 08/11/25 Loc: .ED Attending Dr: Ordering Physician: Ina Larson Date of Service: 08/11/25 Procedure(s): XR chest 2V Accession Number(s): [id number] cc: Pipe Anderson MD; Ina Larson Reason [...] in OV> 08/11/256 DD/ 34 TD/TT: 08/11/251434 Mill Oiler: [facility] External Provider IMG XR PROCEDURES Edited Result - Final * Influenza A B2 ID NOW (Waters) (08/11/2025 2:17 PM EDT) IDNOW SERIAL# [id number] [facility] Influenza A Negative Negative [facility] Influenza B2 Negative Negative [facility] Influenza A B2 Note See Note [facility] Comment:The Waters ID NOW In fluenza [...] LAB MICROBIOLOGY - GENERAL ORDERABLES Final Result [facility] [address] [place] [phone] * COVID-19 ID NOW (WATERS) (08/11/2025 2:17 PM EDT) IDNOW SERIAL# [id number] [facility] COVID-19 TEST Negative Negative [facility] COVID-19 NOTE See Note [facility] Comment: Results are for the identification of SARS-CoV2 RNA. TheSARS-CoV2 RNA is generally detectable in respiratory samplesduring the acute phase of infection. Positive results areindicative of the presence of SARS-CoV-2 RNA; clinicalcorrelation with patient history and other diagnosticinformation is necessary to determine patient infectionstatus. Positive results do not rule out bacterial infectionor co- infection with other viruses.Testing facilities within the [facility] and itsterritories are required to report all [...] use by authorized laboratories.Testing performed on the [email or web address] ID NOW utilizing NAAT. 08/11/2025 2:17 PM EDT 08/11/2025 2:25 PM EDT us Generic External Data Provider LAB MOLECULAR CHARLIE GNOSTICS ORDERABLES Final Result [facility] [address] [place] [phone] * (ABNORMAL) POCT HGB A1C (07/12/2025 2:11 PM EDT) Pathologist [facility] Hemoglobin A1C 13.3(A) 4.0 - 5.7 % QC Media Lot # [id number] Lot# Expiration Date 58 Blood 07/12/2025 2:11 PM EDT Pipe Anderson MD POINT OF CARE TEST ENTER/ED IT ORDERABLES Final Result * (ABNORMAL) POCT Glucose (07/12/2025 2:11 PM EDT) Pathologist [facility] Glucose Blood, POC 313(A) 60 - 200 mg/dL QC Media Lot # [id number] Lot# Expiration Date Blood Capillary blood specimen / Unknown 07/12/2025 2:11 PM EDT Pipe Anderson MD POINT OF CARE TEST ENTER/ED IT ORDERABLES Final Result * Hepatitis C Antibody with Reflex to HCV, RNA, Quantitative, Real-Time PCR (06/26/2025 2:04 PM EDT) Hepatitis C Antibody Nonreactive Nonreactive [facility] Comment:Antibodies to HCV no t detected; does not exclude early acuteHCV infection. Blood Venous blood specimen / Unknown 06/26/2025 2:04 PM EDT 06/26/2025 4:17 PM EDT us Pipe Anderson MD LAB BLOOD ORDERABLES Final Result Performing Organization Address [facility]/ZIP Co de Phone Number [facility] [address] [place] [phone] * Albumin, Random Urine W/Creatinine (01/05/2025 2:20 PM EST) Creatinine, Urine 72.11 mg/dL [facility] Microalbumin Urine 14.0 mg/L [facility] Microalbum Creatinine Ratio Ur 19.4 <30 ug/mg cr [facility] Comment:Albumin/Creatinine R atio Reference Ranges: Normal: < 30 ug/mg creatinine Microalbuminuria: 30 - 300 ug/mg creatinineClinical Albuminuria: > 300 ug/mg creatinine 01/05/2025 2:20 PM EST 01/05/2025 5:52 PM EST us Pipe Anderson MD LAB URINE ORDERABLES Final Result Performing Organization Address City/[facility]/ZIP Co de Phone Number [facility] [address] [place] [phone] * (ABNORMAL) Lipid Panel, Standard (01/05/2025 2:15 PM EST) Triglycerides 158(H) <150 mg/dL [facility] Comment:Desirable Triglyceri de: less than 150 mg/dLBorderline High Triglyceride 150-199 mg/dLHigh Triglyceride: 200-499 mg/dLVery High Triglyceride: greater than or equal to 5OO mg/dL Cholesterol 156 <200 mg/dL [facility] Comment:Desirable Cholestero l: less than 200 mg/dLBorderline High Cholesterol: 200-239 mg/dLHigh Cholesterol: greater than 239 mg/dL LDL Cholesterol Calculated 82 <100 mg/dL [facility] Comment:Desirable LDL: less than 100 mg/dLNear Optimal/Above Optimal LDL: 110- 129 mg/dLBorderline High LDL: 130-159 mg/dLHigh LDL: 160-189 mg/dLVery High LDL: greater than or equal to 190 mg/dL HDL Cholesterol 43 >40 mg/dL [facility] Comment:Desirable HDL: great er than 40 mg/dL Note: This HDL assay may give artificially low results in patients with liver disease. 01/05/2025 2:15 PM EST 01/05/2025 5:50 PM EST Pipe Anderson MD LAB BLOOD ORDERABLES Final Result [facility] [address] [place] [phone] * BI Mammogram Screening Tomosynthesis Bilateral (11/30/2024 1:50 PM EST) Anatomical Region Laterality Modality Breast Bilateral Mammography 11/30/2024 1:50 PM EST Narrative 12/10/2024 6:59 AM EST [facility] [address] [place] [address] Mammography Report Signed with Addenda Patient: Brittany Hernandez#: [id number] : 1970 Acct:[id number] Age/Sex: 54 / F ADM Date: 11/30/24 Loc: HO.MAMMO Attending Dr: Pipe Anderson MD Ordering Physician: Pipe Anderson MD Results: 1 Negative Date of Service: 11/30/24 Follow Up: 1 Year From [facility] Mammogram Procedure(s): MM tomosynthesis screening BI Accession Number(s): [id number] cc: Pipe Anderson MD ADDENDUM ADDENDUM #1 [...] 12/10/24 0656 DD/ 49 TD/TT: 11/30/24 141 Mill Oiler: Procedure Note Donotuseinterpreter, Image - 12/25/2024 [facility] [address] [place], [place] [address] Mammography Report Signed with Addenda Patient: Randy Hernandez R#: [id number] : 1970Acct:[id number] Age/Sex: 54 / FADM Date: 11/30/24 Loc: HO.MAMMO Attending Dr: Pipe Anderson MD Ordering Physician: Pipe Anderson MDResults: 1 Negative Date of Service: 11/30/24Follow Up: 1 Year From Orig inal Mammogram Procedure(s): MM tomosynthesis screening BI Accession Number(s): [id number] cc: Pipe Anderson MD ADDENDUM ADDENDUM #1 [...] 12/10/24 0656 DD/ 1350 TD/TT: 11/30/24 1417 Mill Oiler: us Pipe Anderson MD IMG BI PROCEDURES Edited Re sult - Final * Image-Guided Pap with Age-Based Screening Protocols (03/02/2023 2:16 PM EDT) Comment [facility] Comment: This order for age-based cervical cancer and STI screening follows ACOG guidelines(PB 168, 140, CKS080). See individual assays for performing site location. Clinical Information: None given [facility] LMP: NONE GIVEN [facility] Prev. PAP: NONE GIVEN [facility] Prev. BX: NONE GIVEN [facility] SOURCE: None given [facility] Statement Of Adequacy: [facility] Comment: Satisfactory for evaluation. Endocervical/transformation zone component present. Interpretation/ Result: Negative for intraepithelial lesion or malignancy. [facility] COMMENT: This Pap test has been evaluated with computer assisted technology. [facility] Cytotechnologis t: [facility] Comment: JXM, CT(ASCP) CT screening location: [place] [address] (Always Message) [facility] Comment: EXPLANATORY NOTE: The Pap is a [...] HPV nRNA E6/E7 Not Detected Not Detected [facility] Comment: Methodology: [employer] Systems Sales Representative-Mediated Amplification This assay detects E6/E7 viral messenger RNA (mRNA) from 14 high-risk HPV types (16,18,31,33,35,39,45,51,52,56,58,59,66,68). Cervical sources are required for HPV testing. If a vaginal source from a patient who has had a total hysterectomy with removal of cervix was submitted, please contact the testing laboratory for alternative testing options. For additional information, please refer to http://education.88tc88.[employer] [facility]/faq/CVS963d3 (This link if provided for information/ educational purposes only.) Cytology specimen container (physical object) 03/02/2023 2:16 PM EDT 03/03/2023 5:29 AM EDT Shannon BENSONM LAB BLOOD ORDERABLES Liliana l Result [facility] [address] [place] [address] [employer] [facility] [address] [place] [phone] * (ABNORMAL) Colonoscopy (11/09/2019) Anatomical Region Laterality Modality Endoscopy Narrative 11/09/2019 Transverse colon polyp removed. Needs a repeat Colonoscopy in 2023. Historical Provider MD ENDOSCOPY PROCEDURE ORDER AR Final Result from Last 3 Months or Most Recently Relevant to Health Maintenance Insurance [address] [place] [address] [facility] ONE CARE < 65 Care Teams Vp Rheumatology Relationship Specialty Start Date End Date Pipe Anderson MD [address] [place] [phone] PCP - General Internal Medicine 04/14/21 Beltran Iglesias Sound Art InstructorLiving Nurse 04/21/24 Marcos Hanks Caddy MasterLiving Nurse 07/06/24
--- OUTSIDE RECORDS SUMMARY | 2025-10-08 17:09 | XMS_ITS | Encounter Summary ---
Author Organization [employer] Address [address] [facility] 7t [place] [address] Care Team Providers Care Interior Surface Insulation Worker Name Role Phone Pipe Anderson MD Primary Care Provider [phone] Jayce Tristan PharmD Unavailable Unavail able Faviola Richard PharmD Unavailable [phone] Encounter Details Date Type Department Care Team ([facility] Contact Info) Description 03/23/2024 Orders Only [facility] MED & PEDS [address] [place], [place] [phone] Pipe Anderson MD [address] [place] [address] Social History Tobacco Use Types Packs/Day Years [...] on filedocumented in this encounter Care Teams Interior Surface Insulation Worker Relationship Specialty Start Date End Date Pipe Anderson MD [address] [place] [address] PCP - General Internal Medicine 04/14/21 Jayce Tristan, PharmD [address] [place] [address] Pharmacist Internal Medicine 11/13/22 01/07/25 Faviola Richard PharmD [address] [place] [address] Pharmacist Internal Medicine 01/05/25 06/03/25 Beltran Iglesias Belt RepairerCrusher Feeder 04/21/24 Marcos Hanks Mountain Bike GuideCrusher Feeder 07/06/24 documented as of this encounter
--- OUTSIDE RECORDS SUMMARY | 2025-10-08 17:09 | XMS_ITS | Encounter Summary ---
Author Organization [employer] Address [address] [facility] [address] [place] [address] Care Team Providers Care Application Systems Architect Name Role Phone Pipe Anderson MD Primary Care Provider [phone] Jayce Tristan PharmD Unavailable Unavail able Faviola Richard PharmD Unavailable [phone] Reason for Visit * Reason Onset Date Comments Referral 10/13/2023 Encounter Details Date Type Department Care Team ([facility] st Contact Info) Description 10/13/2023 Telephone [facility] [address] [place] [address] Pipe Anderson MD [address] [place], [place] [phone] Referral Social History Tobacco Use Types Packs/Day [...] t he electric, gas, oil or water [employer] threatened to shut off services in your [...] advise if pt can be referred to caregivers homecare for pt's DM. * Telephone Encounter - Mikael Carrero - 10/13/2023 10:12 AM EST Tc zack Gong the patients VN requesting a referral for a caregivers homecare for the patient any questions please call [phone] documented in this encounter Plan of Treatment Not on file documented as of this encounter Goals Goal Patient Goal Type Associated Problems Recent Progress Patient-Stated? Author Blood Pressure < 140/90 Blood Pressure 151/76(2024 2:42 PM EDT) No DellogonoGerardois, PharmD Hemoglobin A1c < 7 Result Component 13.3(07/12/20 2:11 PM EDT) No Dellogono Jayce, PharmD documented as of this encounter Visit Diagnoses Not on filedocumented in this encounter Care Teams Application Systems Architect Relationship Specialty Start Date End Date Pipe Anderson MD [address] [place] [address] PCP - General Internal Medicine 04/14/21 Jayce Tristan, BhavnaD [address] [place] [address] Pharmacist Internal Medicine 11/13/22 01/07/25 Faviola Richard PharmD [address] [place] [address] Pharmacist Internal Medicine 01/05/25 06/03/25 Beltran Iglesias Outreach ManagerProperty Officer 04/21/24 Marcos Hanks Jacquard Card CutterProperty Officer 07/06/24 documented as of this encounter
--- OUTSIDE RECORDS SUMMARY | 2025-10-08 17:09 | XMS_ITS | Encounter Summary ---
Author Organization [employer] Address [address] [facility] 7t [place] [address] Care Team Providers Care Program Therapist Name Role Phone Pipe Anderson MD Primary Care Provider [phone] Encounter Details Date Type Department Care Team (Latest Contact Info) Description 10/04/2025 Travel Social History Tobacco Use Types Packs/Day [...] documented as of this encounter Care Teams Program Therapist Relationship Specialty Start Date End Date Pipe Anderson MD [address] [place] [address] PCP - General Internal Medicine 04/14/21 Beltran Iglesias Warehouse Record ClerkSecurity Tech 04/21/24 Marcos Hanks Returned Materials InspectorSecurity Tech 07/06/24 documented as of this encounter
== END 2025-10-08 15:35 | disposition home or self-care (01) ==
LOC: HO.ENCR 14:55
PROVIDERS: PCP Internal Medicine; Visit Provider Registered Nurse Diabetes Educator
DX: E11.65 Type 2 diabetes mellitus with hyperglycemia (principal)

== ENCOUNTER → 2025-10-08 14:54 | Outpatient (BNVA) | payer OTHER, SELFPAY | PROVIDERS: PCP Internal Medicine; Visit Provider Registered Nurse Diabetes Educator | DX: E11.65 Type 2 diabetes mellitus with hyperglycemia (principal) | CPT/HCPCS: 99211 ==

== ENCOUNTER 2025-10-09 14:52 | Outpatient (AMB) | payer OTHER, MEDICAID, SELFPAY ==
--- OUTSIDE RECORDS SUMMARY | 2025-10-04 15:30 | XMS_ITS | Encounter Summary ---
Author Organization [employer] Address [address] [facility] [address] 7t [place] [address] Care Team Providers Care Rehabilitation Assistant Name Role Phone Pipe Anderson MD Primary Care Provider [phone] Reason for Visit * Reason Comments eye discomfort Encounter Details Date Type Department Care Team ([facility] st Contact Info) Description 10/04/2025 3:30 PM EST Office Visit [facility] [address] [place] [address] Luis Manuel, Julieta, OD [address] [place] [address] Posterior subcapsular polar age-related cataract of right [...] documented as of this encounter Care Teams Rehabilitation Assistant Relationship Specialty Start Date End Date Pipe Anderson MD [address] [place] [address] PCP - General Internal Medicine 04/14/21 Beltran Iglesias Coremaking Machine SetterRod Greaser 04/21/24 Marcos Hanks Junior Systems AnalystRod Greaser 07/06/24 documented as of this encounter
--- NOTE | 2025-10-09 14:53 | MHC.OFFVIS ---
Vital Signs 10/09/25 14:58 Height 5 ft 2 in Weight 201 lb 11.567 oz BMI 36.9 BP 122/62 Blood Pressure Location Rt brachial Position Sitting Pulse 83 Pulse Source Pulse Oximeter Pulse Oximetry (%) 97 Oxygen Delivery Method Room Air Intake Visit Reasons: T2DM Intake Note: Patient present today for T2DM. Last Diabetic Eye exam: Less than a year unsure exactly when Last Podiatry Visit: Does not see a Printing Specialist Random Glucose: 161 mg/dl Hgb A1C: 12.3% 10/09/2025 Crew Boat Operator Required: No Accompanied by: Self / Same As Patient Allergies lobster Allergy (Severe, Verified 10/09/25 15:07) Itching shrimp Allergy (Mild, Verified 10/09/25 15:07) EYE ITCHING shellfish derived (shellfish) Allergy (Verified 10/09/25 15:07) Itching Medication List - Last Reconciled 10/09/25 by Simba Hall MD albuterol sulfate 90 mcg/actuation (Ventolin HFA) 2 puffs inhalation Q20M PRN atorvastatin 80 mg PO BEDTIME bisacodyl (Dulcolax (bisacodyl)) 10 mg (2 x 5 mg) PO BEDTIME 2 days blood sugar diagnostic (FreeStyle Test strips) As directed blood-glucose meter (FreeStyle Lite Meter kit) As directed blood-glucose sensor (FreeStyle José Manuel 3 Plus Sensor device) As directed change every 15 days blood-glucose,career development engineer,cont (FreeStyle José Manuel 3 Page) As directed gabapentin 200 mg PO TID insulin aspart U-100 26 units subcut TID insulin glargine U-300 conc (Toujeo Max U-300 SoloStar) 50 units subcut BEDTIME lancets (FreeStyle Lancets) As directed lisinopril 10 mg PO DAILY paroxetine HCl 20 mg PO QAM peg 3350-electrolytes 236-22.74-6.74 -5.86 gram (Golytely) 240 mL PO Q10M 1 day sennosides (senna) 17.2 mg (2 x 8.6 mg) PO BEDTIME 30 days HPI Comments Details: 54 YO F who is seen in consultation for T2DM at the request of PCP. Initially diagnosed with T2DM in 2003. Never saw endo before Was initially started on treatment with metformin.Had severe diaarhea . Could not tolerate Mounjaro or Ozempic Current regimen Toujeo 50 units . Novolog 26 units TID. José Manuel download shows she is using the sensor 7% of the time. There was only data for 1 day with average glucose of 293 and variability 25%. 5% in target range with 35% hyperglycemia and 60% very hyperglycemic and no hypoglycemia Not Reports low sugars . Most recent A1C 13.3 on 07/02/2025, Family history of T2DM in aunts - Type 2 DM, grandmother . Has eyes checked yearly, last eye exam 05/2025 , denies retinopathy. Has neuropathy, not sees podiatry. Denies nephropathy, on JUHI/ARB. UAC [] as measured on []. Has HLD, on statin. Last LDL [] as measured on []. Denies CAD. Had diabetes education. [facility] Medical History Diabetes Cutaneous abscess of back [any part, except buttock] Abscess Sebaceous cyst Pre-op examination Morbid obesity Umbilical hernia RUQ abdominal pain Hypertension Diabetes H. pylori infection Irritable bowel syndrome with diarrhea Surgical History History of surgery Status post hysteroscopic ablation of endometrium Breast abscess History of appendectomy H/O umbilical hernia repair H/O colonoscopy Hx of hemorrhoidectomy Hx of hernia repair Hx of tubal ligation Family History Father Heart problem Asthma Mother Colon cancer HTN (hypertension) Varicose vein of leg Family history of diabetes mellitus Maternal Aunt Pancreatic cancer Family/Other Breast cancer Social History Household Members: None Alcohol intake: current Alcohol intake frequency: does not drink Patient Tobacco Use Status: Former Tobacco user Substance Use Type: Marijuana Physical Exam Vital Signs: Last Vital Signs Pulse 83 10/09/25 14:58 BP 122/62 10/09/25 14:58 Pulse Ox 97 10/09/25 14:58 Oxygen Delivery Method Room Air 10/09/25 14:58 BMI result Body Mass Index 36.9 Absence of Cushingoid features. Absence of acromegalic features. Neck exam reveals nl size thyroid about 15 gms. No thyroid nodules palpable. No carotid bruits present. Lungs CTA. Heart S1 S2, Reg R/R. No M/R/ G. Skin exam reveals absence of vitiligo or acanthosis nigricans. Abdominal exam reveals Soft NT/ND with NA BS. No organomegaly present. Neck Other: . Extrem Other: Visual exam of foot performed. No ulcerations or open lesions. No onchomycosis, no callouses.Pulses 2 + distally Sensation intact to monofilament exam. Vibratory sensation sensed is intact with 128 Hz tuning fork Results AMB Hemoglobin A1c AMB Hemoglobin A1c 12.3 % Last Edit by DARINEL Griffith on 10/09/25 15:13 Results Reviewed Results Reviewed: Laboratory Last Values Glucose (Clinic) 161 mg/dL (60-115) H 10/09/25 15:03 Hgb A1c (Clinic) 12.3 % (4.0-6.0) H 10/09/25 15:07 Assessment & Plan Assessment & Plan (1) Poorly controlled type 2 diabetes mellitus: Code(s): E11.65 - Type 2 diabetes mellitus with hyperglycemia Category: Medical Plan: This is a 54-year-old female with a history of type 2 diabetes being treated with basal-bolus insulin with poor glycemic control and known microvascular complications namely neuropathy. She previously could not tolerate a G LP 1 or G LP 1/GI P namely Ozempic or Mounjaro Plan is to have the patient wear her sensor namely José Manuel 3+ more frequently. Could not make any changes to the regimen because lack of data. We will send to returned to certified lactation educator and lease picker. Have extensive discussion with the patient regarding the correlation of poor glycemic control to development and progression of complications. We will have patient follow up with primary care diabetes team in 4 weeks Orders: Orders AMB Hemoglobin A1c Today E11.65 - Type 2 diabetes mellitus with hyperglycemia Coding Level of Care Code Est Pt Level 4 (12951) Diagnoses Poorly controlled type 2 diabetes mellitus E11.65
[2025-10-09 14:58] VITALS: BP 122/62; PULSE 83; O2SAT 97; BMI 36.9
[2025-10-09 15:08] LABS: Glucose, Whole Blood 161 mg/dL (60-115)
--- OUTSIDE RECORDS SUMMARY | 2025-10-09 16:37 | XMS_ITS | Encounter Summary ---
Author Organization [employer] Address [address] [facility] 7t [place] [address] Care Team Providers Care Major Sales Associate Name Role Phone Pipe Anderson MD Primary Care Provider [phone] Jayce Tristan PharmD Unavailable Unavail able Faviola Richard PharmD Unavailable [phone] Encounter Details Date Type Department Care Team ([facility] Contact Info) Description 05/14/2023 Abstract [facility] MED & PEDS [address] [place], [place] [phone] Pipe Anderson MD [address] [place] [address] Social History Tobacco Use Types Packs/Day Years [...] on filedocumented in this encounter Care Teams Major Sales Associate Relationship Specialty Start Date End Date Pipe Anderson MD [address] [place] [address] PCP - General Internal Medicine 04/14/21 Jayce Tristan, PharmD [address] [place] [address] Pharmacist Internal Medicine 11/13/22 01/07/25 Faviola Richard PharmD [address] [place] [address] Pharmacist Internal Medicine 01/05/25 06/03/25 Beltran Iglesias Jukebox OperatorMoulder Operator 04/21/24 Marcos Hanks Locate TechnicianMoulder Operator 07/06/24 documented as of this encounter
--- OUTSIDE RECORDS SUMMARY | 2025-10-09 16:37 | XMS_ITS | Encounter Summary ---
Author Organization [employer] Address [address] [facility] 7t [place] [address] Care Team Providers Care Java User Interface Developer Name Role Phone Pipe Anderson MD Primary Care Provider [phone] Jayce Tristan PharmD Unavailable Unavail able Faviola Richard PharmD Unavailable [phone] Reason for Visit * Reason Comments Med Refill Encounter Details Date Type Department Care Team ([facility] Contact Info) Description 06/19/2024 Refill [facility] MED & PEDS [address] [place], [place] [phone] Pipe Anderson MD [address] [place] [address] Diabetic polyneuropathy associated with type 2 diabetes [...] (HCC) documented in this encounter Care Teams Java User Interface Developer Relationship Specialty Start Date End Date Pipe Anderson MD [address] [place] [address] PCP - General Internal Medicine 04/14/21 Jayce Tristan, PharmD [address] [place] [address] Pharmacist Internal Medicine 11/13/22 01/07/25 Faviola Richard PharmD [address] [place] [address] Pharmacist Internal Medicine 01/05/25 06/03/25 Beltran Iglesias Home HousekeeperLuggage Repairer 04/21/24 Marcos Hanks Erp Project ManagerLuggage Repairer 07/06/24 documented as of this encounter
--- OUTSIDE RECORDS SUMMARY | 2025-10-09 16:37 | XMS_ITS | Encounter Summary ---
Author Organization [employer] Address [address] [facility] [address]t [place] [address] Care Team Providers Care Naval Marine Engineer Name Role Phone Pipe Anderson MD Primary Care Provider [phone] Jayce Tristan PharmD Unavailable Unavail able Faviola Richard PharmD Unavailable [phone] Reason for Visit * Reason Comments Med Refill Encounter Details Date Type Department Care Team ([facility] Contact Info) Description 11/06/2024 Refill [facility] MED & PEDS [address] [place], [place] [phone] Pipe Anderson MD [address] [place] [address] Diabetic polyneuropathy associated with type 2 diabetes [...] documented as of this encounter Care Teams Naval Marine Engineer Relationship Specialty Start Date End Date Pipe Anderson MD [address] [place] [address] PCP - General Internal Medicine 04/14/21 Jayce Tritsan, PharmD [address] [place] [address] Pharmacist Internal Medicine 11/13/22 01/07/25 Faviola Richard PharmD [address] [place] [address] Pharmacist Internal Medicine 01/05/25 06/03/25 Beltran Iglesias Hat Blocking Machine OperatorLockstitch Back Maker 04/21/24 Marcos Hanks Baseball Sewer HandLockstitch Back Maker 07/06/24 documented as of this encounter
--- OUTSIDE RECORDS SUMMARY | 2025-10-09 16:37 | XMS_ITS | Encounter Summary ---
Author Organization [employer] Address [address] [facility] 7t [place] [address] Care Team Providers Care Motor Expert Name Role Phone Pipe Anderson MD Primary Care Provider [phone] Jayce Tristan PharmD Unavailable Unavail able Faviola Richard PharmD Unavailable [phone] Encounter Details Date Type Department Care Team ([facility] Contact Info) Description 07/28/[address] [facility] CH[facility] MED & PEDS [address] [place], [place] [phone] Pipe Anderson MD [address] [place] [address] Uncontrolled type 2 diabetes mellitus with hyperglycemia [...] at all 07/28/2024 4:22 PM EDT Kimmy Hrenandez [place] Moving or speaking so slowly that [...] documented as of this encounter Care Teams Motor Expert Relationship Specialty Start Date End Date Pipe Anderson MD [address] [place] [address] PCP - General Internal Medicine 04/14/21 Jayce Tristan, PharmD [address] [place] [address] Pharmacist Internal Medicine 11/13/22 01/07/25 Faviola Richard PharmD [address] [place] [address] Pharmacist Internal Medicine 01/05/25 06/03/25 Beltran Iglesias Adjunct Philosophy FacultyNurse Leader 04/21/24 Marcos Hanks Solar Energy Systems EngineerNurse Leader 07/06/24 documented as of this encounter
--- OUTSIDE RECORDS SUMMARY | 2025-10-09 16:37 | XMS_ITS | Clinical Summary ---
Author Organization [employer] Address [address] [address] [place] [address] Care Team Providers Care Robot Programmer Name Role Phone Pipe Anderson MD Primary Care Provider [phone] Allergies Active Allergy Reactions Criticality Noted Date [...] for mild pain. 30 tablet 024 Active Elastic Bandages & Supports (Medical Compression Stockings) miscIndications:V enous insufficiency Knee high, 15-20 mm/Hg. 1 each 1 024 Active Tirzepatide (Mounjaro) 2.5 MG/0.5ML solution auto-injectorIndi cations:Uncontrol led type 2 diabetes mellitus with hyperglycemia (HCC) Inject 2.5 mg under the skin 1 (one) time per week. 2 mL 025 Active Continuous Glucose Sensor (FreeStyle José Manuel 3 Plus Sensor) miscIndications:U ncontrolled type 2 diabetes mellitus with hyperglycemia (HCC) 1 each every 15 days. 2 each 11 025 Active PARoxetine (Paxil) 20 MG tabletIndications :Anxiety,Persiste nt depressive disorder TAKE ONE TABLET EVERY MORNING 30 tablet 11 025 Active insulin pen needle (B-D ULTRAFINE III SHORT PEN) 31G X 8 mm miscIndications:T ype 2 diabetes mellitus with hyperglycemia, without long-term current use of insulin (HCC) USE TO INJECT insulin THREE TIMES DAILY 100 each 025 Active nystatin (Mycostatin) creamIndications: Candidiasis of genitalia in female Apply topically 2 times daily. 30 g 025 2025 Active atorvastatin (Lipitor) 80 MG tablet TAKE ONE TABLET EVERY NIGHT AT BEDTIME 90 tablet 3 025 Active Alcohol Swabs (Alcohol Prep) 70 % pads USE DIRECTED TO INJECT insulin AND check BLOOD SUGAR UP TO FOUR TIMES DAILY 100 each 025 Active gabapentin (Neurontin) 100 MG capsuleIndication s:Diabetic polyneuropathy associated with type 2 diabetes mellitus (HCC) TAKE ONE CAPSULE TWICE DAILY IN THE MORNING AND AT BEDTIME 60 capsule 1 025 Active insulin aspart (NovoLOG FLEXPEN) 100 UNIT/ML penIndications:Un controlled type 2 diabetes mellitus with hyperglycemia (HCC) INJECT 20 UNITS subcutaneously BEFORE BREAKFAST, 10 UNITS BEFORE LUNCH AND 20 UNITS BEFORE SUPPER DIRECTED 15 mL 2 025 Active lisinopril 10 MG tablet TAKE ONE TABLET EVERY MORNING 90 tablet 3 025 Active triamcinolone (Kenalog) 0.1 % cream Apply topically Once per day. Mix with cerave or moisturizing cream and apply to affected area daily prn pruritus 80 g 025 Active Emollient (CeraVe Moisturizing) cream Mix with triamcinolone cream and apply to affected area daily 340 g 025 Active Blood Glucose Monitoring Suppl (FreeStyle [place] Lite) w/Device kit Use to test blood sugar 3x times daily 1 kit 025 Active azithromycin (Zithromax) 250 MG tablet Take 250 mg by mouth. Active benzonatate (Tessalon) 100 MG capsule Take 100 mg by mouth. Active Easy Touch Lancets 33G/Twist miscIndications:T ype 2 diabetes mellitus with hyperglycemia, without long-term current use of insulin (HCC) USE TO TEST BLOOD SUGAR THREE TIMES DAILY 100 each 11 Active glucose blood (FreeStyle Precision Chet Test) test stripIndications: Uncontrolled type 2 diabetes mellitus with hyperglycemia (HCC),Type 2 diabetes mellitus with hyperglycemia, without long-term current use of insulin ([facility]) Test blood sugar up to 3 times daily as directed 100 each 2025 Active FREESTYLE LITE test stripIndications: Uncontrolled type 2 diabetes mellitus with hyperglycemia (HCC) Use to test blood sugar 2 times daily 100 each 12 025 2025 Active Blood Glucose Monitoring Suppl (FreeStyle [place] Lite) w/Device kitIndications:Un controlled type 2 diabetes mellitus with hyperglycemia ([facility]) Use to test blood sugar 2 times daily 1 kit Active gabapentin (Neurontin) 100 MG capsuleIndication s:Diabetic polyneuropathy associated with type 2 diabetes mellitus (HCC) Take 2 capsules (200 mg) by mouth every 8 (eight) hours. 180 capsule 2025 Active Toujeo Max SoloStar 300 UNIT/ML injectionIndicati ons:Uncontrolled type 2 diabetes mellitus with hyperglycemia (HCC) INJECT 50 SUBCUTANEOUSLY AT BEDTIME 6 mL 11 Active Alcohol Swabs (Alcohol Prep) 70 % padsIndications:U ncontrolled type 2 diabetes mellitus with hyperglycemia (HCC) Use to test blood sugar 2 times daily 100 each 11 Active insulin glargine (Toujeo Max SoloStar) 300 UNIT/ML injectionIndicati ons:Uncontrolled type 2 diabetes mellitus with hyperglycemia (HCC) INJECT 50 SUBCUTANEOUSLY AT BEDTIME 6 mL 024 2024 Discontinued Alcohol Swabs 70 % padsIndications:U ncontrolled type 2 diabetes mellitus with hyperglycemia (HCC) Use to test blood sugar 2 times daily 100 each 025 2024 Discontinued Active Problems Problem Noted [...] Encounters Date Type Department Care Team Description 10/09/2025 Orders Only GENERIC EXTERNAL DATA DEPARTMENT Provider, Generic External Data 10/08/2025 Refill [facility] [address] [place] [address] Pipe Anderson MD Uncontrolled type 2 diabetes mellitus with hyperglycemia (HCC); Uncontrolled type 2 diabetes mellitus with hyperglycemia (HCC) 10/04/2025 3:30 PM EST Office Visit [facility] [address] [place] [address] Luis Manuel, Julieta, OD 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 (Primary Dx) 10/04/2025 Travel 10/03/2025 Travel 09/26/2025 3:00 PM EDT Office Visit [facility] [address] [place] [address] Barby Hand MD Primary hypertension (Primary Dx); Umbilical hernia without obstruction and without gangrene 09/26/2025 Travel 08/27/2025 Orders Only GENERIC EXTERNAL DATA DEPARTMENT Provider, Generic External Data 08/26/2025 Orders Only GENERIC EXTERNAL DATA DEPARTMENT Provider, Generic External Data 08/22/2025 Orders Only GENERIC EXTERNAL DATA DEPARTMENT Provider, Generic External Data 08/11/2025 Orders Only [facility] External Provider, [facility] 07/12/2025 1:45 PM EDT Office Visit [facility] [address] [place] [address] Pipe Anderson MD Uncontrolled type 2 diabetes [...] Associated Diagnosis Comments GLUCOSE, WHOLE BLOOD Routine 10/09/2025 3:03 PM EST GLUCOSE, WHOLE BLOOD Routine 08/27/2025 4:46 AM [...] EDT XR CHEST 2 VIEWS Routine 08/11/2025 2:3 5 PM EDT COVID-19 ID NOW (Kijubi) Routine 08/11/2025 2:17 PM EDT INFLUENZA A [...] Maintenance Results * (ABNORMAL) Glucose, Whole Blood (10/09/2025 3:03 PM EST) Only the most recent of2 resultswithin the time period is included. Glucose, Whole Blood 161(H) 60 - 115 mg/dL [facility] Comment:METER #: [id number] Testing performed in the Endocrinology Department [address] , [address], [facility]. 10/09/2025 3:03 PM EST 10/09/2025 3:08 PM EST Generic External Data Provider LAB BLOOD ORDERAB LES Final Result Performing Organization Address [facility]/ZIP Co de Phone Number [facility] [address] [place] [address] [phone] * (ABNORMAL) Glucose, Whole Blood (08/27/2025 4:46 AM EDT) Only the most recent of2 resultswithin the time period is included. Glucose, Whole Blood 266(H) 60 - 115 mg/dL [facility] Comment:METER #: [id number] 08/27/2025 4:46 AM EDT 08/27/2025 4:49 AM EDT us Generic External Data Provider LAB BLOOD ORDERAB LES Final Result Performing Organization Address City/[facility]/ZIP Co de Phone Number [facility] [address] [place] [phone] * (ABNORMAL) Urinalysis, Complete, with Reflex to Culture (08/27/2025 1:18 AM EDT) Color Urine Yellow [facility] Appearance Urine Clear [facility] PH 6.5 5.0 - 9.0 [facility] Glucose Urine UA >=1000(A) Negative mg/dL [facility] Urine Blood Negative Negative [facility] Specific [place] - Urine >=1.030(H) 1.005 - 1.025 [facility] Urine Protein Negative Neg-Trace mg/dL [facility] Urine Ketones Negative Negative mg/dL [facility] Nitrite Urine Negative Negative [facility] Leukocyte Esterase Urine Small (1+)(A) Negative [facility] RBC Urine 0-2 0 - 2 /HPF [facility] Urine WBC 21-50(A) 0 - 5 /HPF [facility] Urine Squamous Epithelial Cell 3-5 0 - 2 /HPF [facility] Urine Bacteria None Seen None Seen [facility] Hyaline Casts, Urine 0-2 0 - 2 /LPF [facility] 08/27/2025 1:1 8 AM EDT 08/27/2025 1:24 AM EDT [facility] - 08/27/2025 1:35 AM EDT Urine, Clean Catch Generic External Data Provider LAB URINE ORDERAB LES Final Result Performing Organization Address City/[facility]/ZIP Co de Phone Number [facility] [address] [place] [phone] * Culture, Urine, Routine (08/27/2025 12:00 AM EDT) Urine Urine specimen obtained by clean catch procedure / Unknown 08/27/2025 08/27/2025 Comment:[facility] - 08/28/2025 7:53 AM EDT Urine Culture Report Result Urine Culture < 10,000 cfu/ml Specimen Source: Urine clean catch Generic External Data Provider LAB MICROBIOLOGY - GENERAL ORDERABLES Final Result Performing Organization Address City/[facility]/ZIP Co de Phone Number [facility] [address] [place] [phone] * (ABNORMAL) CBC auto differential (08/26/2025 11:47 PM EDT) White Blood Count 5.5 4.8 - 10.8 X10*3/uL [facility] Red Blood Count 4.83 4.20 - 5.50 X10*6/uL [facility] Hemoglobin 13.1 12.0 - 16.0 g/dl [facility] Hematocrit 39.6 37.0 - 47.0 % [facility] Mean Corpuscular Volume 82.0 80.0 - 98.0 fL [facility] Mean Corpuscular Hemoglobin 27.1 27.0 - 33.0 pg [facility] Mean Corpuscular HGB Conc 33.1 31.0 - 35.0 g/dl [facility] Red Cell Distribution Width 13.7 11.0 - 16.0 % [facility] Platelet Count 244 160 - 400 X10*3/uL [facility] Mean Platelet Volume 10.4 9.4 - 12.3 fL [facility] Neutrophils Percent Auto 47.4 45 - 73 % [facility] Imm Gran Pct Auto 0.0 0.0 - 0.4 % [facility] Lymphocytes Percent Auto 43.6(H) 20 - 40 % [facility] Monocytes Percent Auto 7.2 2 - 11 % [facility] Eosinophils Percent Auto 1.3 0 - 4 % [facility] Basophils Percent Auto 0.5 0 - 2 % [facility] NRBC Pct Auto 0.0 0.0 - 0.2 /100WBC [facility] Neutrophils Absolute Auto 2.6 2.0 - 8.3 x10*3/uL [facility] Imm Gran Abs Auto 0.00 0.00 - 0.03 X10*3/uL [facility] Lymphocytes Absolute Auto 2.4 1.2 - 4.9 X10*3/uL [facility] Monocytes Absolute Auto 0.4 0.1 - 1.2 X10*3/uL [facility] Eosinophils Absolute Auto 0.1 0.0 - 0.4 X10*3/uL [facility] Basophils Absolute Auto 0.0 0.0 - 0.2 X10*3/uL [facility] NRBC Abs Auto 0.000 0.0 - 0.012 X10*3/uL [facility] 08/26/2025 11:4 7 PM EDT 08/26/2025 11:53 PM EDT Generic External Data Provider LAB BLOOD ORDERAB LES Final Result Performing Organization Address [facility] de Phone Number [facility] [address] [place] [phone] * (ABNORMAL) Magnesium (08/26/2025 11:47 PM EDT) [facility] Magnesium 1.4(LL) 1.6 - 2.6 mg/dL [facility] Comment:Critical value for t est(s): MAGNESIUM Results called to gianna back by: HUE Person calling:MARYLIN Date:08/27/25 Time:216 08/26/2025 11:4 7 PM EDT 08/26/2025 11:53 PM EDT Generic External Data Provider LAB BLOOD ORDERAB LES Final Result Performing Organization Address [facility] de Phone Number [facility] [address] [place] [phone] * (ABNORMAL) Comprehensive Metabolic Panel (08/26/2025 11:47 PM EDT) Pathologist [facility] [place] Sodium 134(L) 135 - 145 mmol/L [facility] Potassium 4.4 3.3 - 5.1 mmol/L [facility] Chloride 96 96 - 108 mmol/L [facility] Carbon Dioxide 29 22 - 29 mmol/L [facility] Anion Gap 13 12 - 20 [facility] Urea Nitrogen (BUN) 20(H) 9 - 16 mg/dL [facility] Creatinine, Serum 0.81 0.5 - 1.4 mg/dL [facility] Creatinine Clr Calc Pharmacy 83.6 [facility] Comment:Provided height and weight: 157.48 cm,91.6 kg.eGFR (calculated from the MDRD study equation) and eCrCl(calculated from the Cockcroft-Gault equation) are based ondifferent parameters and may not yield comparable results.If eCrCl result is absurd, please check patient'sheight/weight. Estimated Glomerular Filt Rate >60 [facility] Comment:Chronic Kidney Disea se: Estimated GFR < 60 mL/min/1.28l0Cjdmsx Kidney Disease: Estimated GFR < 15 mL/min/1.73m2 Glucose 501(HH) 60 - 115 mg/dL [facility] Comment:Critical value for t est(s):GLUCOSE Results called to gianna back by: BUBBA Person calling: KARENate:08/27/25 Time:0013 Calcium 9.7 8.4 - 10.2 mg/dL [facility] Bilirubin, Total 0.3 0.0 - 1.0 mg/dL [facility] Aspartate Amino Transferase 25 5 - 31 U/L [facility] Alanine Aminotransferase 38(H) 0 - 31 U/L [facility] Total Protein 7.5 6.5 - 8.0 g/dL [facility] Albumin Level 4.4 3.5 - 5.0 g/dL [facility] Alkaline Phosphatase 114 39 - 117 U/L [facility] 08/26/2025 11:4 7 PM EDT 08/26/2025 11:53 PM EDT us Generic External Data Provider LAB BLOOD ORDERAB LES Final Result [facility] [address] [place] [phone] * XR Chest 2 Views (08/11/2025 2:35 PM EDT) Anatomical Region Laterality Modality Chest Radiographic Edna ging 08/11/2025 2:35 PM EDT Narrative 08/11/2025 2:36 PM EDT [address] [address] XRay Report Signed Patient: Brittany Hernandez R#: [id number] : 1970 Acct:[id number] Age/Sex: 54 / F ADM Date: 08/11/25 Loc: HO.ED Attending Dr: Ordering Physician: Ina Larson Date of Service: 08/11/25 Procedure(s): XR chest 2V Accession Number(s): [id number] cc: Pipe Anderson MD; Ina Larson Reason [...] 08/11/25 1436 DD/ 1435 TD/TT: 08/11/25 1435 Scarf And Anneal Operator: Procedure Note Donotuseinterpreter, Image - 08/11/[address] [address] XRay Report Signed Patient: Randy Hernandez R#: [id number] : 1970Acct:[id number] Age/Sex: 54 / FADM Date: 08/11/25 Loc: .ED Attending Dr: Ordering Physician: Ina Larson Date of Service: 08/11/25 Procedure(s): XR chest 2V Accession Number(s): [id number] cc: Pipe Anderson MD; Ina Larson Reason [...] OV> 08/11/25 1436 DD/ 1435 TD/TT: 08/11/25 143 Scarf And Anneal Operator: [facility] External Provider IMG XR PROCEDURES Edited Result - Final * Influenza A B2 ID NOW (Waters) (08/11/2025 2:17 PM EDT) IDNOW SERIAL# [id number] [facility] Influenza A Negative Negative [facility] Influenza B2 Negative Negative [facility] Influenza A B2 Note See Note [facility] Comment:The Waters ID NOW In [...] LAB MICROBIOLOGY - GENERAL ORDERABLES Final Result [facility] [address] [place] [phone] * COVID-19 ID NOW (WATERS) (08/11/2025 2:17 PM EDT) IDNOW SERIAL# [id number] [facility] COVID-19 TEST Negative Negative [facility] COVID-19 NOTE See Note [facility] Comment: Results are for the identification of SARS-CoV2 RNA. TheSARS-CoV2 RNA is generally detectable in respiratory samplesduring the acute phase of infection. Positive results areindicative of the presence of SARS-CoV-2 RNA; clinicalcorrelation with patient history and other diagnosticinformation is necessary to determine patient infectionstatus. Positive results do not rule out bacterial infectionor co- infection with other viruses.Testing facilities within the [place] and [facility] are required to report all positive [...] use by authorized laboratories.Testing performed on the [employer] NOW utilizing NAAT. 08/11/2025 2:17 PM EDT 08/11/2025 2:25 PM EDT us Generic External Data Provider LAB MOLECULAR CHARLIE GNOSTICS ORDERABLES Final Result [facility] [address] [place] [phone] * (ABNORMAL) POCT HGB A1C (07/12/2025 2:11 PM EDT) Pathologist [facility] Hemoglobin A1C 13.3(A) 4.0 - 5.7 % QC Media Lot # [id number] Lot# Expiration Date 199,770 Blood 07/12/2025 2:11 PM EDT Pipe Anderson MD POINT OF CARE TEST ENTER/ED IT ORDERABLES Final Result * (ABNORMAL) POCT Glucose (07/12/2025 2:11 PM EDT) Pathologist [facility] [place] Glucose Blood, POC 313(A) 60 - 200 mg/dL QC Media Lot # [id number] Lot# Expiration Date 828,007 Blood Capillary blood specimen / Unknown 07/12/2025 2:11 PM EDT Pipe Anderson MD POINT OF CARE TEST ENTER/ED IT ORDERABLES Final Result * Hepatitis C Antibody with Reflex to HCV, RNA, Quantitative, Real-Time PCR (06/26/2025 2:04 PM EDT) Hepatitis C Antibody Nonreactive Nonreactive [facility] Comment:Antibodies to HCV no t detected; does not exclude early acuteHCV infection. Blood Venous blood specimen / Unknown 06/26/2025 2:04 PM EDT 06/26/2025 4:17 PM EDT Pipe Anderson MD LAB BLOOD ORDERABLES Final Result Performing Organization Address [facility] Co de Phone Number [facility] [address] [place] [phone] * Albumin, Random Urine W/Creatinine (01/05/2025 2:20 PM EST) Creatinine, Urine 72.11 mg/dL [facility] Microalbumin Urine 14.0 mg/L [facility] Microalbum Creatinine Ratio Ur 19.4 <30 ug/mg cr [facility] Comment:Albumin/Creatinine R atio Reference Ranges: Normal: < 30 ug/mg creatinine Microalbuminuria: 30 - 300 ug/mg creatinineClinical Albuminuria: > 300 ug/mg creatinine 01/05/2025 2:20 PM EST 01/05/2025 5:52 PM EST Pipe Anderson MD LAB URINE ORDERABLES Final Result Performing Organization Address [facility] Co de Phone Number [facility] [address] [place] [phone] * (ABNORMAL) Lipid Panel, Standard (01/05/2025 2:15 PM EST) Triglycerides 158(H) <150 mg/dL [facility] Comment:Desirable Triglyceri de: less than 150 mg/dLBorderline High Triglyceride 150-199 mg/dLHigh Triglyceride: 200-499 mg/dLVery High Triglyceride: greater than or equal to 5OO mg/dL Cholesterol 156 <200 mg/dL [facility] Comment:Desirable Cholestero l: less than 200 mg/dLBorderline High Cholesterol: 200-239 mg/dLHigh Cholesterol: greater than 239 mg/dL LDL Cholesterol Calculated 82 <100 mg/dL [facility] Comment:Desirable LDL: less than 100 mg/dLNear Optimal/Above Optimal LDL: 110- 129 mg/dLBorderline High LDL: 130-159 mg/dLHigh LDL: 160-189 mg/dLVery High LDL: greater than or equal to 190 mg/dL HDL Cholesterol 43 >40 mg/dL [facility] Comment:Desirable HDL: great er than 40 mg/dL Note: This HDL assay may give artificially low results in patients with liver disease. 01/05/2025 2:15 PM EST 01/05/2025 5:50 PM EST us Pipe Anderson MD LAB BLOOD ORDERABLES Final Result [facility] [address] [place] [phone] * BI Mammogram Screening Tomosynthesis Bilateral (11/30/2024 1:50 PM EST) Anatomical Region Laterality Modality Breast Bilateral Mammography 11/30/2024 1:50 PM EST Narrative 12/10/2024 6:59 AM EST [facility] [address] [place] [address] Mammography Report Signed with Anneliese Patient: Brittany Hernandez Prashant#: [id number] : 1970 Acct:[id number] Age/Sex: 54 / F ADM Date: 11/30/24 Loc: HO.MAMMO Attending Dr: Pipe Anderson MD Ordering Physician: Pipe Anderson MD Results: 1 Negative Date of Service: 11/30/24 Follow Up: 1 Year From Orig ina Mammogram Procedure(s): MM tomosynthesis screening BI Accession Number(s): [id number] cc: Pipe Anderson MD ADDENDUM ADDENDUM #1 [...] OV> 12/10/24 0656 DD/ 49 TD/TT: 11/30/241416 Scarf And Anneal Operator: Procedure Note Donotuseinterpreter, Image - 12/25/2024 [facility] [address] [place] [address] Mammography Report Signed with Addenda Patient: Randy Hernandez R#: [id number] : 1970Acct:[id number] Age/Sex: 54 / FADM Date: 11/30/24 Loc: HO.MAMMO Attending Dr: Pipe Anderson MD Ordering Physician: Pipe Anderson MDResults: 1 Negative Date of Service: 11/30/24Follow Up: 1 Year From Orig ina Mammogram Procedure(s): MM tomosynthesis screening BI Accession Number(s): [id number] cc: Pipe Anderson MD ADDENDUM ADDENDUM #1 [...] 12/10/24 0656 DD/ 1350 TD/TT: 11/30/24 1417 Scarf And Anneal Operator: Pipe Andreson MD IM BI PROCEDURES Edited Re sult - Final * Image-Guided Pap with Age-Based Screening Protocols (03/02/2023 2:16 PM EDT) Comment [facility] Comment: This order for age-based cervical cancer and STI screening follows ACOG guidelines(PB 168, 140, IRM588). See individual assays for performing site location. Clinical Information: None given [facility] LMP: NONE GIVEN [facility] Prev. PAP: NONE GIVEN [facility] Prev. BX: NONE GIVEN [facility] SOURCE: None given [facility] Statement Of Adequacy: [facility] Comment: Satisfactory for evaluation. Endocervical/transformation zone component present. Interpretation/ Result: Negative for intraepithelial lesion or malignancy. [facility] COMMENT: This Pap test has been evaluated with computer assisted technology. [facility] Cytotechnologis t: [facility] Comment: JXM, CT(ASCP) CT screening location: [place] [address] (Always Message) [facility] Comment: EXPLANATORY NOTE: The Pap is a [...] HPV nRNA E6/E7 Not Detected Not Detected [email or web address] [place] [facility] Comment: Methodology: Cell Liner-Mediated Amplification This assay detects E6/E7 viral messenger RNA (mRNA) from 14 high-risk HPV types (16,18,31,33,35,39,45,51,52,56,58,59,66,68). Cervical sources are required for HPV testing. If a vaginal source from a patient who has had a total hysterectomy with removal of cervix was submitted, please contact the testing laboratory for alternative testing options. For additional information, please refer to http://education.[place]/faq/KRM457h4 (This link if provided for information/ educational purposes only.) Cytology specimen container (physical object) 03/02/2023 2:16 PM EDT 03/03/2023 5:29 AM EDT Shannon Faith CNM LAB BLOOD ORDERABLES Liliana l Result [facility] [address], [place] [address] [email or web address] [address] [place] [address] * (ABNORMAL) Colonoscopy (11/09/2019) Anatomical Region Laterality Modality Endoscopy Narrative 11/09/2019 Transverse colon polyp removed. Needs a repeat Colonoscopy in 2023. Historical Provider MD ENDOSCOPY PROCEDURE ORDER AR Final Result from Last 3 Months or Most Recently Relevant to Health Maintenance [place] [address] [address] STANDARD [employer] ONE CARE < 65 Care Teams Robot Programmer Relationship Specialty Start Date End Date Pipe Anderson MD [address] [place] [phone] PCP - General Internal Medicine 04/14/21 Beltran Iglesias Service Technician CopierPlate Mounter 04/21/24 Marcos Hanks VineyardistPlate Mounter 07/06/24
--- OUTSIDE RECORDS SUMMARY | 2025-10-09 16:37 | XMS_ITS | Encounter Summary ---
Author Organization [employer] Address [address] [facility] [address] [place] [address] Care Team Providers Care Geospatial Extractor Analysis Name Role Phone Pipe Anderson MD Primary Care Provider [phone] Encounter Details Date Type Department Care Team [...] documented as of this encounter Care Teams Geospatial Extractor Analysis Relationship Specialty Start Date End Date Pipe Anderson MD [address] [place] [phone] PCP - General Internal Medicine 04/14/21 Beltran Iglesias Media AidLoan Documentation Specialist 04/21/24 Marcos Hanks Vehicle OperatorLoan Documentation Specialist 07/06/24 documented as of this encounter
--- OUTSIDE RECORDS SUMMARY | 2025-10-09 16:37 | XMS_ITS | Encounter Summary ---
Author Organization [employer] Address [address] [facility] 7 [place] [address] Care Team Providers Care Fitting Room Checker Name Role Phone Pipe Anderson MD Primary Care Provider [phone] Reason for Visit * Reason Comments Med Refill Encounter Details Date Type Department Care Team ([facility] Contact Info) Description 10/08/2025 Refill [facility] MED & PEDS [address] [place], [place] [phone] Pipe Anderson MD [address] [place] [address] Uncontrolled type 2 diabetes mellitus with hyperglycemia [...] documented as of this encounter Care Teams Fitting Room Checker Relationship Specialty Start Date End Date Pipe Anderson MD [address] [place] [address] PCP - General Internal Medicine 04/14/21 Beltran Iglesias Residential PlumberAdmissions Manager 04/21/24 Marcos Hanks Police Commanding OfficerAdmissions Manager 07/06/24 documented as of this encounter
--- OUTSIDE RECORDS SUMMARY | 2025-10-09 16:37 | XMS_ITS | Encounter Summary ---
Author Organization [employer] Address [address] [facility] [address] 7t [place] [address] Care Team Providers Care Hide Curer Name Role Phone Pipe Anderson MD Primary Care Provider [phone] Jayce Tristan PharmD Unavailable Unavail able Faviola Richard PharmD Unavailable [phone] Reason for Visit * Reason Onset Date Comments Referral 10/13/2023 Encounter Details Date Type Department Care Team ([facility] st Contact Info) Description 10/13/2023 Telephone [facility] [address] [place] [address] Pipe Anderson MD [address] [place], [place] [phone] Referral Social History Tobacco Use Types Packs/Day [...] t he electric, gas, oil or water [employer] threatened to shut off services in your [...] advise if pt can be referred to glass grinder for pt's DM. * Telephone Encounter - Mikael Carrero - 10/13/2023 10:12 AM EST Tc zack Gong the patients VN requesting a referral for a glass grinder for the patient any questions please call [phone] documented in this encounter Plan of Treatment [...] on filedocumented in this encounter Care Teams Hide Curer Relationship Specialty Start Date End Date Pipe Anderson MD [address] [place] [address] PCP - General Internal Medicine 04/14/21 Jayce Tristan, BhavnaD [address] [place] [address] Pharmacist Internal Medicine 11/13/22 01/07/25 Faviola Richard PharmD [address] [place] [phone] Pharmacist Internal Medicine 01/05/25 06/03/25 Beltran Iglesias Clinical Staff EducatorDrug Inspector 04/21/24 Marcos Hanks Restrooms Or Lounges MaidDrug Inspector 07/06/24 documented as of this encounter
--- OUTSIDE RECORDS SUMMARY | 2025-10-09 16:37 | XMS_ITS | Encounter Summary ---
Author Organization [employer] Address [address] [facility] 7t [place] [address] Care Team Providers Care Grades 1 Through 6 Teacher Name Role Phone Pipe Anderson MD Primary Care Provider [phone] Encounter Details Date Type Department Care Team ([facility] [address] Contact Info) Description 10/09/2025 Orders Only GENERIC EXTERNAL DATA [...] Blood Pressure 151/76(2024 2:42 PM EDT) No DelJayce ortiz, PharmD Hemoglobin A1c < 7 Result Component 13.3(07/12/20 2:11 PM EDT) No Jayce Tristan, PharmD documented as of this encounter Procedures Procedure Name Priority Date/Time Associated Diagnosis Comments GLUCOSE, WHOLE BLOOD Routine 10/09/2025 3:03 PM EST documented in this encounter Results * (ABNORMAL) Glucose, Whole Blood (10/09/2025 3:03 PM EST) Glucose, Whole Blood 161(H) 60 - 115 mg/dL [facility] Comment:METER #: [id number] Testing performed in the Endocrinology Department [address] , [address], [employer]. 10/09/2025 3:03 PM EST 10/09/2025 3:08 PM EST us Generic External Data Provider LAB BLOOD ORDERAB LES Final Result [facility] [address] [place] [address] [phone] documented in this encounter Visit Diagnoses Not on filedocumented in this encounter Additional Health Concerns Assessment Noted Time PHQ-9 Depression Total Score: 4 07/12/20 1:36 PM EDT documented as of this encounter Care Teams Grades 1 Through 6 Teacher Relationship Specialty Start Date End Date Pipe Anderson MD [address] [place] [address] PCP - General Internal Medicine 04/14/21 Beltran Iglesias Ramp AttendantApplication Release Manager 04/21/24 Marcos Hanks Acquisition ProfessionalApplication Release Manager 07/06/24 documented as of this encounter
--- OUTSIDE RECORDS SUMMARY | 2025-10-09 16:37 | XMS_ITS | Encounter Summary ---
Author Organization [employer] Address [address] [place] [address] 7 [place] [address] Care Team Providers Care Experimental Aircraft Mechanic Name Role Phone Pipe Anderson MD Primary Care Provider [phone] Jayce Tristan PharmD Unavailable Unavail able Faviola Richard PharmD Unavailable [phone] Reason for Referral * Consultation (Routine) - Canceled Specialty Diagnoses / Procedures Referred By Swapna t Referred To Contact Pharmacy Diagnoses Uncontrolled type 2 diabetes mellitus with hyperglycemia (HCC) Pipe Anderson MD [address] [place] [address] Phone: tel: fax: Referral ID Status Reason Start Date Expiration Date V isits Requested Visits Authorized [id number] Canceled Consult and Treat 12/26/2024 12/26/2025 6 6 Encounter Details Date Type Department Care Team (Late st Contact Info) Description 12/26/2024 Orders Only [facility] CHC MED & PEDS [address] [place] [address] Pipe Anderson MD [address] [place] [address] Uncontrolled type 2 diabetes mellitus with hyperglycemia [...] documented as of this encounter Care Teams Experimental Aircraft Mechanic Relationship Specialty Start Date End Date Pipe Anderson MD [address] [place] [address] PCP - General Internal Medicine 04/14/21 Jayce Tristan PharmD [address] [place] [address] Pharmacist Internal Medicine 11/13/22 01/07/25 Faviola Richard PharmD [address] [place] [address] Pharmacist Internal Medicine 01/05/25 06/03/25 Beltran Iglesias Speech Therapist Early InterventionBox Icer 04/21/24 Marcos Hanks Wheel Alignment TechnicianBox Icer 07/06/24 documented as of this encounter
--- OUTSIDE RECORDS SUMMARY | 2025-10-09 16:37 | XMS_ITS | Encounter Summary ---
Author Organization [employer] Address [address] [facility] 7t [place] [address] Care Team Providers Care Kai [place] Name Role Phone Pipe Anderson MD Primary Care Provider [phone] Jayce Tristan PharmD Unavailable Unavail able Faviola Richard PharmD Unavailable [phone] Encounter Details Date Type Department Care Team ([facility] Contact Info) Description 03/23/2024 Orders Only [facility] CHC MED & PEDS [address] [place], [place] [phone] Pipe Anderson MD [address] [place] [address] Social History Tobacco Use Types Packs/Day Years [...] on filedocumented in this encounter Care Teams Kai [place] Relationship Specialty Start Date End Date Pipe Anderson MD [address] [place] [address] PCP - General Internal Medicine 04/14/21 Jayce Tristan, PharmD [address] [place] [address] Pharmacist Internal Medicine 11/13/22 01/07/25 Faviola Richard PharmD [address] [place] [address] Pharmacist Internal Medicine 01/05/25 06/03/25 Beltran Iglesias PmpArchitectural Job Captain 04/21/24 Marcos Hanks Steam And Gas Turbine AssemblerArchitectural Job Captain 07/06/24 documented as of this encounter
== END 2025-10-09 15:16 | disposition home or self-care (01) ==
LOC: HO.ENCR 14:52
PROVIDERS: PCP Internal Medicine; Visit Provider Internal Medicine Endocrinology, Diabetes & Metabolism
DX: E11.65 Type 2 diabetes mellitus with hyperglycemia (principal)
CPT/HCPCS: 99214

== ENCOUNTER → 2025-10-09 14:52 | Outpatient (BNVA) | payer OTHER, SELFPAY | PROVIDERS: PCP Internal Medicine; Visit Provider Internal Medicine Endocrinology, Diabetes & Metabolism | DX: E11.65 Type 2 diabetes mellitus with hyperglycemia (principal); Z79.84 Long term (current) use of oral hypoglycemic drugs | CPT/HCPCS: 82947; 83036; 99212 ==

== ENCOUNTER 2025-10-18 08:46 | Outpatient (AMB) | payer OTHER, SELFPAY ==
[2025-10-18 09:22] VITALS: BP 138/61; PULSE 84; BMI 18.5
--- NOTE | 2025-10-18 09:22 | MHC.OFFVIS ---
Vital Signs 10/18/25 09:22 Height 5 ft 2 in Weight 101 lb BMI 18.5 BP 138/61 Blood Pressure Location Rt radial Position Sitting Pulse 84 Intake Visit Reasons: umbilical hernia Intake Note: Patient presents for an assessment for possible recurrent umbilical hernia. Patient c/o; felt initial discomfort 3mo ago. Reports constant lifting grandchild who weighs about 32lbs. 01/04/2024: Exploration of umbilical area under anesthesia DI: Data Report Analyst Required: Yes Accompanied by: Self / Same As Patient Allergies lobster Allergy (Severe, Verified 10/18/25 09:25) Itching shrimp Allergy (Mild, Verified 10/18/25 09:25) EYE ITCHING shellfish derived (shellfish) Allergy (Verified 10/18/25 09:25) Itching Medication List - Last Reconciled 10/18/25 by Yfn Vides MD albuterol sulfate 90 mcg/actuation (Ventolin HFA) 2 puffs inhalation Q20M PRN atorvastatin 80 mg PO BEDTIME bisacodyl (Dulcolax (bisacodyl)) 10 mg (2 x 5 mg) PO BEDTIME 2 days blood sugar diagnostic (FreeStyle Test strips) As directed blood-glucose meter (FreeStyle Lite Meter kit) As directed blood-glucose sensor (FreeStyle José Manuel 3 Plus Sensor device) As directed change every 15 days blood-glucose,wool hat forming machine tender,cont (FreeStyle José Manuel 3 [place]) As directed gabapentin 200 mg PO TID insulin aspart U-100 26 units subcut TID insulin glargine U-300 conc (Toujeo Max U-300 SoloStar) 50 units subcut BEDTIME lancets (FreeStyle Lancets) As directed lisinopril 10 mg PO DAILY paroxetine HCl 20 mg PO QAM peg 3350-electrolytes 236-22.74-6.74 -5.86 gram (Golytely) 240 mL PO Q10M 1 day sennosides (senna) 17.2 mg (2 x 8.6 mg) PO BEDTIME 30 days HPI HPI umbilical hernia: Details: She is here for follow-up for a question of an umbilical hernia. I had done exploration of the area under anesthesia in the OR last December, and there was no hernia identified then She says she has this occasional sharp pain in the area and she is concerned that she may have a ?hernia?. She denies GI complaints. She does have diabetes with poor blood sugar control. Her A1c is 12 she says. [facility] Medical History (Updated 10/18/25 @ 09:41 by Yfn Vides MD) Umbilical pain Diabetes Cutaneous abscess of back [any part, except buttock] Abscess Sebaceous cyst Pre-op examination Morbid obesity Umbilical hernia RUQ abdominal pain Hypertension Diabetes H. pylori infection Irritable bowel syndrome with diarrhea Surgical History History of surgery Status post hysteroscopic ablation of endometrium Breast abscess History of appendectomy H/O umbilical hernia repair H/O colonoscopy Hx of hemorrhoidectomy Hx of hernia repair Hx of tubal ligation Family History Father Heart problem Asthma Mother Colon cancer HTN (hypertension) Varicose vein of leg Family history of diabetes mellitus Maternal Aunt Pancreatic cancer Family/Other Breast cancer Social History Household Members: None Alcohol intake: current Alcohol intake frequency: does not drink Patient Tobacco Use Status: Former Tobacco user Substance Use Type: Marijuana Review of Systems Const Denies chills and Denies fever(s) Card Denies chest pain, Denies dyspnea and Denies dyspnea on exertion Resp Denies cough, Denies dyspnea and Denies dyspnea on exertion GI Denies hematochezia and Denies change in bowel habits Denies hematuria Musc Denies back pain and Denies limited range of motion Neuro Denies focal weakness and Denies convulsions Psych Denies depression and Denies mood swings Physical Exam Vital Signs: Last Vital Signs Pulse 84 10/18/25 09:22 BP 138/61 10/18/25 09:22 BMI result Body Mass Index 18.5 Const Other: Obese General: comfortable and no acute distress Resp Effort & Inspection: normal respiratory effort GI Other: Has diastasis recti in the upper abdomen, no obvious umbilical hernia Palpation (GI): Soft to palpation, not firm, nontender and no guarding Assessment & Plan Assessment & Plan (1) Umbilical pain: Code(s): R10.33 - Periumbilical pain Category: Medical Plan: She was concerned about umbilical hernia because of her umbilical pain. I had done exploration of this area last year and this did not reveal any umbilical hernia Current exam does not suggest any obvious hernia. However, I did tell her that if she notices worsening down the line or if she feels an obvious mass in the umbilicus, she should come back to the office to be re-evaluated I also advised her on the importance of weight loss blood sugar control. Coding Level of Care Code Est Pt Level 3 (00400) Diagnoses Umbilical pain R10.33
--- OUTSIDE RECORDS SUMMARY | 2025-10-18 10:15 | XMS_ITS | Encounter Summary ---
Author Organization [employer] Address [address] [facility] 7t [place] [address] Care Team Providers Care Fha Underwriter Name Role Phone Pipe Anderson MD Primary Care Provider [phone] Jayce Tristan PharmD Unavailable Unavail able Faviola Richard PharmD Unavailable [phone] Encounter Details Date Type Department Care Team ([facility] Contact Info) Description 03/23/2024 Orders Only [facility] CHC MED & PEDS [address] [place], [place] [phone] Pipe Anderson MD [address] [place] [address] Social History Tobacco Use Types Packs/Day Years [...] on filedocumented in this encounter Care Teams Fha Underwriter Relationship Specialty Start Date End Date Pipe Anderson MD [address] [place] [address] PCP - General Internal Medicine 04/14/21 Jayce Tristan, PharmD [address] [place] [address] Pharmacist Internal Medicine 11/13/22 01/07/25 Faviola Richard PharmD [address] [place] [address] Pharmacist Internal Medicine 01/05/25 06/03/25 Beltran Iglesias Personal Property AppraiserFront End Developer 04/21/24 Marcos Hanks Client Delivery ManagerFront End Developer 07/06/24 documented as of this encounter
--- OUTSIDE RECORDS SUMMARY | 2025-10-18 10:15 | XMS_ITS | Clinical Summary ---
Author Organization [email or web address] Address [address] [facility] [address] [place] [address] Care Team Providers Care Trailer Mechanic Name Role Phone Pipe Anderson MD Primary Care Provider [phone] Allergies Active Allergy Reactions Criticality Noted Date [...] each every 15 days. 2 each 11 Active PARoxetine (Paxil) 20 MG tabletIndications :Anxiety,Persiste nt depressive disorder TAKE ONE TABLET EVERY MORNING 30 tablet 11 10/11/20 25 1:30 PM EST 025 Active insulin pen needle (B-D ULTRAFINE [...] EVERY NIGHT AT BEDTIME 90 tablet 3 10/11/20 25 1:29 PM EST 025 Active Alcohol Swabs (Alcohol Prep) 70 % pads USE DIRECTED TO INJECT insulin AND check BLOOD SUGAR UP TO FOUR TIMES DAILY 100 each 11 025 Active gabapentin (Neurontin) 100 MG capsuleIndication [...] 025 Active Blood Glucose Monitoring Suppl (FreeStyle [place] Lite) w/Device kit Use to test blood sugar 3x times daily 1 kit Active azithromycin (Zithromax) 250 MG tablet Take 250 mg by mouth. Active benzonatate (Tessalon) 100 MG capsule Take 100 mg by mouth. Active Easy Touch Lancets 33G/Twist miscIndications:T ype 2 diabetes mellitus with hyperglycemia, without long-term current use of insulin (HCC) USE TO TEST BLOOD SUGAR THREE TIMES DAILY 100 each Active glucose blood (FreeStyle Precision Chet Test) test stripIndications: Uncontrolled type 2 diabetes mellitus with hyperglycemia (HCC),Type 2 diabetes mellitus with hyperglycemia, without long-term current use of insulin (HCC) Test blood sugar up to 3 times daily as directed 100 each 025 2025 Active FREESTYLE LITE test stripIndications: Uncontrolled type 2 diabetes mellitus with hyperglycemia (HCC) Use to test blood sugar 2 times daily 100 each 025 2025 Active Blood Glucose Monitoring Suppl (FreeStyle [place] Lite) w/Device kitIndications:Un controlled type 2 diabetes mellitus with hyperglycemia (HCC) Use to test blood sugar 2 times daily 1 kit Active gabapentin (Neurontin) 100 MG capsuleIndication s:Diabetic polyneuropathy associated with type 2 diabetes mellitus (HCC) Take 2 capsules (200 mg) by mouth every 8 (eight) hours. 180 capsule 10/11/20 25 1:29 PM EST 025 2025 Active Toujeo Max SoloStar 300 UNIT/ML injectionIndicati ons:Uncontrolled type 2 diabetes mellitus with hyperglycemia (HCC) INJECT 50 SUBCUTANEOUSLY AT BEDTIME 6 mL 10/11/20 25 1:30 PM EST 025 Active Alcohol Swabs (Alcohol Prep) 70 % padsIndications:U ncontrolled type 2 diabetes mellitus with hyperglycemia (HCC) Use to test blood sugar 2 times daily 100 each 10/11/20 25 1:30 PM EST Active insulin glargine (Toujeo Max SoloStar) 300 UNIT/ML injectionIndicati ons:Uncontrolled type 2 diabetes mellitus with hyperglycemia (HCC) INJECT 50 SUBCUTANEOUSLY AT BEDTIME 6 mL 2 024 2024 Discontinued Alcohol Swabs 70 % [...] DEPARTMENT Provider, Generic External Data 10/08/2025 Refill [facility] MED [facility] PEDS [address] [place] [address] Pipe Anderson MD Uncontrolled type 2 diabetes mellitus with hyperglycemia (HCC); Uncontrolled type 2 diabetes mellitus with hyperglycemia (HCC) 10/04/2025 3:30 PM EST Office Visit [facility] OPTOMETRY [address] [place] [address] Luis Manuel, Julieta, OD 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 (Primary Dx) 10/04/2025 Travel 10/03/2025 Travel 09/26/2025 3:00 PM EDT Office Visit [facility] WALK-IN [address] [address] Barby Hand MD Primary hypertension (Primary Dx); Umbilical hernia without obstruction and without gangrene 09/26/2025 Travel 08/27/2025 Orders Only GENERIC EXTERNAL DATA DEPARTMENT Provider, Generic External Data 08/26/2025 Orders Only GENERIC EXTERNAL DATA DEPARTMENT Provider, Generic External Data 08/22/2025 Orders Only GENERIC EXTERNAL DATA DEPARTMENT Provider, Generic External Data 08/11/2025 Orders Only [facility] External Provider, [facility] from Last 3 Months Immunizations Immunization Administration [...] exists Diabetes: Urine Protein Screening 01/05/2026 01/05/2025, 06/04/2021, 06/04/2021 Lipid Panel 01/05/2026 01/05/2025, 09/30, 09/19/2021, [...] 151/76(2024 2:42 PM EDT) No Jayce Tristan, Lis Hemoglobin A1c < 7 Result Component 13.3(07/12/20 [...] Whole Blood 161(H) 60 - 115 mg/dL [facility] Comment:METER #: [id number] Testing performed in the Endocrinology Department [address] , [address], [facility]. 10/09/2025 3:03 PM EST 10/09/2025 3:08 PM EST us Generic External Data Provider LAB BLOOD ORDERAB LES Final Result Performing Organization Address [facility]/ZIP Co de Phone Number [facility] [address] [place] [phone] * (ABNORMAL) Glucose, Whole Blood (08/27/2025 4:46 AM EDT) Only the most recent of2 resultswithin the time period is included. Glucose, Whole Blood 266(H) 60 - 115 mg/dL [facility] Comment:METER #: [id number] 08/27/2025 4:46 AM EDT 08/27/2025 4:49 AM EDT us Generic External Data Provider LAB BLOOD ORDERAB LES Final Result Performing Organization Address [facility] Co de Phone Number [facility] [address] [place] [phone] * (ABNORMAL) Urinalysis, Complete, with Reflex to Culture (08/27/2025 1:18 AM EDT) Color Urine Yellow [facility] Appearance Urine Clear [facility] PH 6.5 5.0 - 9.0 [facility] Glucose Urine UA >=1000(A) Negative mg/dL [facility] Urine Blood Negative Negative [facility] Specific [place] - Urine >=1.030(H) 1.005 - 1.025 [facility] Urine Protein Negative Neg-Trace mg/dL [facility] Urine Ketones Negative Negative mg/dL [facility] Nitrite Urine Negative Negative [facility] Leukocyte Esterase Urine Small (1+)(A) Negative [facility] RBC Urine 0-2 0 - 2 /HPF [facility] Urine WBC 21-50(A) 0 - 5 /HPF [facility] Urine Squamous Epithelial Cell 3-5 0 - 2 /HPF [facility] Urine Bacteria None Seen None Seen [facility] Hyaline Casts, Urine 0-2 0 - 2 /LPF [facility] 08/27/2025 1:18 AM EDT 08/27/2025 1:24 AM EDT Narrative [facility] - 08/27/2025 1:35 AM EDT Urine, Clean Catch Generic External Data Provider LAB URINE ORDERAB LES Final Result Performing Organization Address City/[facility]/ZIP Co de Phone Number [facility] [address] [place] [phone] * Culture, Urine, Routine (08/27/2025 12:00 AM EDT) Urine Urine specimen obtained by clean catch procedure / Unknown 08/27/2025 08/27/2025 Comment:[facility] - 08/28/2025 7:53 AM EDT Urine Culture Report Result Urine Culture < 10,000 cfu/ml Specimen Source: Urine clean catch Generic External Data Provider LAB MICROBIOLOGY - GENERAL ORDERABLES Final Result Performing Organization Address [facility]/ZIP Co de Phone Number [facility] [address] [place] [phone] * (ABNORMAL) CBC auto differential (08/26/2025 11:47 PM EDT) White Blood Count 5.5 4.8 - 10.8 X10*3/uL [facility] Red Blood Count 4.83 4.20 - 5.50 X10*6/uL [facility] Hemoglobin 13.1 12.0 - 16.0 g/dl [facility] Hematocrit 39.6 37.0 - 47.0 % [facility] Mean Corpuscular Volume 82.0 80.0 - 98.0 fL [facility] Mean Corpuscular Hemoglobin 27.1 27.0 - 33.0 pg [facility] Mean Corpuscular HGB Conc 33.1 31.0 - 35.0 g/dl [facility] Red Cell Distribution Width 13.7 11.0 - 16.0 % [facility] Platelet Count 244 160 - 400 X10*3/uL [facility] Mean Platelet Volume 10.4 9.4 - 12.3 fL [facility] Neutrophils Percent Auto 47.4 45 - 73 % [facility] Imm Gran Pct Auto 0.0 0.0 - 0.4 % [facility] Lymphocytes Percent Auto 43.6(H) 20 - 40 % [facility] Monocytes Percent Auto 7.2 2 - 11 % [facility] Eosinophils Percent Auto 1.3 0 - 4 % [facility] Basophils Percent Auto 0.5 0 - 2 % [facility] NRBC Pct Auto 0.0 0.0 - 0.2 /100WBC [facility] Neutrophils Absolute Auto 2.6 2.0 - 8.3 x10*3/uL [facility] Imm Gran Abs Auto 0.00 0.00 - 0.03 X10*3/uL [facility] Lymphocytes Absolute Auto 2.4 1.2 - 4.9 X10*3/uL [facility] Monocytes Absolute Auto 0.4 0.1 - 1.2 X10*3/uL [facility] Eosinophils Absolute Auto 0.1 0.0 - 0.4 X10*3/uL [facility] Basophils Absolute Auto 0.0 0.0 - 0.2 X10*3/uL [facility] NRBC Abs Auto 0.000 0.0 - 0.012 X10*3/uL [facility] 08/26/2025 11:4 7 PM EDT 08/26/2025 11:53 PM EDT us Generic External Data Provider LAB BLOOD ORDERAB LES Final Result [facility] [address] [place] [phone] [phone] * (ABNORMAL) Magnesium (08/26/2025 11:47 PM EDT) Magnesium 1.4(LL) 1.6 - 2.6 mg/dL [facility] Comment:Critical value for t est(s): MAGNESIUM Results called to gianna back by: HUE Person calling:MARYLIN Date:08/27/25 Time:216 08/26/2025 11:4 7 PM EDT 08/26/2025 11:53 PM EDT us Generic External Data Provider LAB BLOOD ORDERAB LES Final Result [facility] [address] [place] [phone] * (ABNORMAL) Comprehensive Metabolic Panel (08/26/2025 11:47 PM EDT) Pathologist [facility] Sodium 134(L) 135 - 145 mmol/L [facility] Potassium 4.4 3.3 - 5.1 mmol/L [facility] Chloride 96 96 - 108 mmol/L [facility] Carbon Dioxide 29 22 - 29 mmol/L [facility] Anion Gap 13 12 - 20 [facility] Urea Nitrogen (BUN) 20(H) 9 - 16 mg/dL [facility] Creatinine, Serum 0.81 0.5 - 1.4 mg/dL [facility] Creatinine Clr Calc Pharmacy 83.6 [facility] Comment:Provided height and weight: 157.48 cm,91.6 kg.eGFR (calculated from the MDRD study equation) and eCrCl(calculated from the Cockcroft-Gault equation) are based ondifferent parameters and may not yield comparable results.If eCrCl result is absurd, please check patient'sheight/weight. Estimated Glomerular Filt Rate >60 [facility] Comment:Chronic Kidney Disea se: Estimated GFR < 60 mL/min/1.13j4Nxbkri Kidney Disease: Estimated GFR < 15 mL/min/1.73m2 Glucose 501(HH) 60 - 115 mg/dL [facility] Comment:Critical value for t est(s):GLUCOSE Results called to nikomya back by: BUBBA Person calling: KARENate:08/27/25 Time:0013 Calcium 9.7 8.4 - 10.2 mg/dL [facility] Bilirubin, Total 0.3 0.0 - 1.0 mg/dL [facility] Aspartate Amino Transferase 25 5 - 31 U/L [facility] Alanine Aminotransferase 38(H) 0 - 31 U/L [facility] Total Protein 7.5 6.5 - 8.0 g/dL [facility] Albumin Level 4.4 3.5 - 5.0 g/dL [facility] Alkaline Phosphatase 114 39 - 117 U/L [facility] 08/26/2025 11:4 7 PM EDT 08/26/2025 11:53 PM EDT us Generic External Data Provider LAB BLOOD ORDERAB LES Final Result [facility] [address] [place] [phone] * XR Chest 2 Views (08/11/2025 2:35 PM EDT) Anatomical Region Laterality Modality Chest Radiographic Edna ging 08/11/2025 2:35 PM EDT Narrative 08/11/2025 2:36 PM EDT [address] [address] XRay Report Signed Patient: Brittany Hrenandez Willa R#: [id number] : 1970 Acct:[id number] Age/Sex: 54 / F ADM Date: 08/11/25 Loc: HO.ED Attending Dr: Ordering Physician: Ina Larson Date of Service: 08/11/25 Procedure(s): XR chest 2V Accession Number(s): [id number] cc: Pipe Anderson MD; Ina Larson Reason for Exam: cough CLINICAL HISTORY: cough 2 view chest x-ray Comparison: CR - XR CHEST 2V - 06/09/25 15:14 EDT Findings: No consolidation or effusion. Normal size heart. No acute fracture. IMPRESSION: 1. No acute findings. This document has been electronically signed by: Ken Richardsno MD on 08/11/2025 14:35:18 Dictated By: Ken Richardson MD Signed By: <Electronically signed by Ken Richardson MD in OV> 08/11/25 1436 DD/ 34 TD/TT: 08/11/251434 Platform Attendant: Procedure Note Evertter, Image - 08/11/2025 [place] [address] XRay Report Signed Patient: Randy Hernandez R#: [id number] : 1970Acct:[id number] Age/Sex: 54 / FADM Date: 08/11/25 Loc: .ED Attending Dr: Ordering Physician: Ina Larson Date of Service: 08/11/25 Procedure(s): XR chest 2V Accession Number(s): [id number] cc: Pipe Anderson MD; Ina Larson Reason [...] OV> 08/11/25 1436 DD/ 34 TD/TT: 08/11/251434 Platform Attendant: [facility] External Provider IMG XR PROCEDURES Edited Result - Final * Influenza A B2 ID NOW (Waters) (08/11/2025 2:17 PM EDT) IDNOW SERIAL# [id number] [facility] Influenza A Negative Negative [facility] Influenza B2 Negative Negative [facility] Influenza A B2 Note See Note [facility] Comment:The Waters ID NOW In [...] LAB MICROBIOLOGY - GENERAL ORDERABLES Final Result [facility] [address] [place] [phone] * COVID-19 ID NOW (WATERS) (08/11/2025 2:17 PM EDT) IDNOW SERIAL# [id number] [facility] COVID-19 TEST Negative Negative [facility] COVID-19 NOTE See Note [facility] Comment: Results are for the identification of SARS-CoV2 RNA. TheSARS-CoV2 RNA is generally detectable in respiratory samplesduring the acute phase of infection. Positive results areindicative of the presence of SARS-CoV-2 RNA; clinicalcorrelation with patient history and other diagnosticinformation is necessary to determine patient infectionstatus. Positive results do not rule out bacterial infectionor co- infection with other viruses.Testing facilities within the [facility] and itsterritories are required to report all [...] use by authorized laboratories.Testing performed on the [employer] NOW utilizing NAAT. 08/11/2025 2:17 PM EDT 08/11/2025 2:25 PM EDT us Generic External Data Provider LAB MOLECULAR CHARLIE GNOSTICS ORDERABLES Final Result Performing Organization Address [facility] Co de Phone Number [facility] [address] [place] [phone] * (ABNORMAL) POCT HGB A1C (07/12/2025 2:11 PM EDT) Hemoglobin A1C 13.3(A) 4.0 - 5.7 % QC Media Lot # [id number] Lot# Expiration Date 32 Blood 07/12/2025 2:11 PM EDT Pipe Anderson MD POINT OF CARE TEST ENTER/ED IT ORDERABLES Final Result * Hepatitis C Antibody with Reflex to HCV, RNA, Quantitative, Real-Time PCR (06/26/2025 2:04 PM EDT) Hepatitis C Antibody Nonreactive Nonreactive [facility] Comment:Antibodies to HCV no t detected; does not exclude early acuteHCV infection. Blood Venous blood specimen / Unknown 06/26/2025 2:04 PM EDT 06/26/2025 4:17 PM EDT Pipe Anderson MD LAB BLOOD ORDERABLES Final Result Performing Organization Address City/[facility] Co de Phone Number [facility] [address] [place] [phone] * Albumin, Random Urine W/Creatinine (01/05/2025 2:20 PM EST) Creatinine, Urine 72.11 mg/dL [facility] Microalbumin Urine 14.0 mg/L [facility] Microalbum Creatinine Ratio Ur 19.4 <30 ug/mg cr [facility] Comment:Albumin/Creatinine R atio Reference Ranges: Normal: < 30 ug/mg creatinine Microalbuminuria: 30 - 300 ug/mg creatinineClinical Albuminuria: > 300 ug/mg creatinine 01/05/2025 2:20 PM EST 01/05/2025 5:52 PM EST us Pipe Anderson MD LAB URINE ORDERABLES Final Result [facility] [address] [place] [phone] * (ABNORMAL) Lipid Panel, Standard (01/05/2025 2:15 PM EST) Triglycerides 158(H) <150 mg/dL [facility] Comment:Desirable Triglyceri de: less than 150 mg/dLBorderline High Triglyceride 150-199 mg/dLHigh Triglyceride: 200-499 mg/dLVery High Triglyceride: greater than or equal to 5OO mg/dL Cholesterol 156 <200 mg/dL [facility] Comment:Desirable Cholestero l: less than 200 mg/dLBorderline High Cholesterol: 200-239 mg/dLHigh Cholesterol: greater than 239 mg/dL LDL Cholesterol Calculated 82 <100 mg/dL [facility] Comment:Desirable LDL: less than 100 mg/dLNear Optimal/Above Optimal LDL: 110- 129 mg/dLBorderline High LDL: 130-159 mg/dLHigh LDL: 160-189 mg/dLVery High LDL: greater than or equal to 190 mg/dL HDL Cholesterol 43 >40 mg/dL [facility] Comment:Desirable HDL: great er than 40 mg/dL Note: This HDL assay may give artificially low results in patients with liver disease. 01/05/2025 2:15 PM EST 01/05/2025 5:50 PM EST us Pipe Anderson MD LAB BLOOD ORDERABLES Final Result [facility] [address] [place] [address] [phone] * BI Mammogram Screening Tomosynthesis Bilateral (11/30/2024 1:50 PM EST) Anatomical Region Laterality Modality Breast Bilateral Mammography 11/30/2024 1:50 PM EST Narrative 12/10/2024 6:59 AM EST [facility] [address] [place] [address] Mammography Report Signed with Addenda Patient: Lashon Hernandezmilton Cerda#: [id number] : 1970 Acct:[id number] Age/Sex: 54 / F ADM Date: 11/30/24 Loc: HO.MAMMO Attending Dr: Pipe Anderson MD Ordering Physician: Pipe Anderson MD Results: 1 Negative Date of Service: 11/30/24 Follow Up: 1 Year From [facility] Mammogram Procedure(s): MM tomosynthesis screening BI Accession Number(s): [id number] cc: Pipe Anderson MD ADDENDUM ADDENDUM #1 [...] DO 12/10/2024 06:56 AM [facility] Dictated By: Yamileth Arroyo DO Signed By: <Electronically signed by Yamileth Arroyo DO in OV> 12/10/24 0656 DD/ 49 TD/TT: 11/30/241416 Platform Attendant: Procedure Note Donotuseinterpreter, Image - 12/25/2024 [facility] [address] [place], [place] [address] Mammography Report Signed with Addenda Patient: Randy Hernandez R#: [id number] : 1970Acct:[id number] Age/Sex: 54 / FADM Date: 11/30/24 Loc: HO.MAMMO Attending Dr: Pipe Anderson MD Ordering Physician: Pipe Anderson MDResults: 1 Negative Date of Service: 11/30/24Follow Up: 1 Year From Orig ina Mammogram Procedure(s): MM tomosynthesis screening BI Accession Number(s): [id number] cc: Pipe Anderson MD ADDENDUM ADDENDUM #1 [...] 12/10/24 0656 DD/ 49 TD/TT: 11/30/24 141 Platform Attendant: Pipe Anderson MD IM BI PROCEDURES Edited Re sult - Final * Image-Guided Pap with Age-Based Screening Protocols (03/02/2023 2:16 PM EDT) Comment [employer] Comment: This order for age-based cervical cancer and STI screening follows ACOG guidelines(PB 168, 140, SQW228). See individual assays for performing site location. Clinical Information: None given [employer] [facility] LMP: NONE GIVEN [employer] [facility]ost Prev. PAP: NONE GIVEN [employer] [facility] Prev. BX: NONE GIVEN [employer] [facility] SOURCE: None given [employer] Statement Of Adequacy: [employer] Comment: Satisfactory for evaluation. Endocervical/transformation zone component present. Interpretation/ Result: Negative for intraepithelial lesion or malignancy. [employer] COMMENT: This Pap test has been evaluated with computer assisted technology. [employer] Cytotechnolog[employer] t: [employer] Comment: CHEPE SARMIENTO(ASCP) CT screening location: [place] [address] (Always Message) [employer] Comment: EXPLANATORY NOTE: The Pap is a [...] HPV nRNA E6/E7 Not Detected Not Detected [employer] Comment: Methodology: [employer]able [employer]-Mediated Amplification This assay detects E6/E7 viral messenger RNA (mRNA) from 14 high-risk HPV types (16,18,31,33,35,39,45,51,52,56,58,59,66,68). Cervical sources are required for HPV testing. If a vaginal source from a patient who has had a total hysterectomy with removal of cervix was submitted, please contact the testing laboratory for alternative testing options. For additional information, please refer to http://education.[employer]/faq/ULI650j0 (This link if provided for information/ educational purposes only.) Cytology specimen container (physical object) 03/02/2023 2:16 PM EDT 03/03/2023 5:29 AM EDT Shannon Faith CNM LAB BLOOD ORDERABLES Liliana altamirano Result [facility] [address] [facility], [facility], [place] [address] [facility] [address] [place] [phone] * (ABNORMAL) Colonoscopy (11/09/2019) Anatomical Region Laterality Modality Endoscopy Narrative 11/09/2019 Transverse colon polyp removed. Needs a repeat Colonoscopy in 2023. Historical Provider MD ENDOSCOPY PROCEDURE ORDER AR Final Result from Last 3 Months or Most Recently Relevant to Health Maintenance Insurance [facility] STANDARD [facility] CARE < 65 * Guarantor: Brittany Hernandez Account Type Relation to Patient Date of Phone Billing Address Personal/Family Self [address] [facility] [address] [place] [address] Care Teams Trailer Mechanic Relationship Specialty Start Date End Date iPpe Anderson MD [address] [place] [phone] PCP - General Internal Medicine 04/14/21 Beltran Iglesias Corn Husk BalerSanipractic Physician 04/21/24 Marcos Hanks Monorail HelperSanipractic Physician 07/06/24
--- OUTSIDE RECORDS SUMMARY | 2025-10-18 10:15 | XMS_ITS | Encounter Summary ---
Author Organization [employer] Address [address] [facility] [address] [place] [address] Care Team Providers Care Professor Of Family Medicine Name Role Phone Pipe Anderson MD Primary Care Provider [phone] Jayce Tristan PharmD Unavailable Unavail able Faviola Richard PharmD Unavailable [phone] Encounter Details Date Type Department Care Team ([facility] Contact Info) Description 07/28/2024 Orders Only [facility] [address] [place], [place] [phone] Pipe Anderson MD [address] [place] [address] Uncontrolled type 2 diabetes mellitus with hyperglycemia [...] 4:22 PM EDT Kimmy Hernandez MA * How difficult have these problems made it for you to do your work, take care of things at home, or get along with other people? Answer Date of Assessment Author Somewhat difficult 07/28/2024 4:22 PM VIDALT Kimmy [...] much Nearly every day 07/28/2024 4:22 PM VIDALT Kimmy Hernandez MA Feeling tired or having little energy Nearly every day 07/28/2024 4:22 PM Kimmy Velazquez MA Poor appetite or overeating Nearly every day 07/28/2024 4:22 PM Kimmy Velazquez MA Feeling bad about yourself - or that you are a failure or have let yourself or your family down More than half the days 07/28/2024 4:22 PM Kimmy Velazquez MA Trouble concentrating on things, such as [...] documented as of this encounter Care Teams Professor Of Family Medicine Relationship Specialty Start Date End Date Pipe Anderson MD [address] [place] [address] PCP - General Internal Medicine 04/14/21 Jayce Tristan, PharmD [address] [place] [address] Pharmacist Internal Medicine 11/13/22 01/07/25 Faviola Richard PharmD [address] [place] [address] Pharmacist Internal Medicine 01/05/25 06/03/25 Beltran Iglesias StabberStorekeeper Engineering 04/21/24 Marcos Hanks Assistant DeanStorekeeper Engineering 07/06/24 documented as of this encounter
--- OUTSIDE RECORDS SUMMARY | 2025-10-18 10:15 | XMS_ITS | Encounter Summary ---
Author Organization [email or web address] Address [address] 7[address] [place] [address] Care Team Providers Care Director Of People Name Role Phone Pipe Anderson MD Primary Care Provider [phone] Jayce Tristan PharmD Unavailable Unavail able Faviola Richard PharmD Unavailable [phone] Reason for Visit * Reason Onset Date Comments Referral 10/13/2023 Encounter Details Date Type Department Care Team ([facility] st Contact Info) Description 10/13/2023 Telephone [facility] MEDICINE [address] [place] [address] Pipe Anderson MD [address] [place], [place] [phone] Referral Social History Tobacco Use Types Packs/Day [...] t he electric, gas, oil or water [employer] threatened to shut off services in your [...] advise if pt can be referred to coordinating producer for pt's DM. * Telephone Encounter - Mikael Carrero - 10/13/2023 10:12 AM EST Tc zack Gong the patients VN requesting a referral for a coordinating producer for the patient any questions please call [phone] documented in this encounter Plan of Treatment [...] on filedocumented in this encounter Care Teams Director Of People Relationship Specialty Start Date End Date Pipe Anderson MD [address] [place] [address] PCP - General Internal Medicine 04/14/21 Jayce Tristan, BhavnaD [address] [place] [address] Pharmacist Internal Medicine 11/13/22 01/07/25 Faviola Richard PharmD [address] [place] [address] Pharmacist Internal Medicine 01/05/25 06/03/25 Beltran Iglesias Folding Machine TenderRespiratory Therapy Manager 04/21/24 Marcos Hanks Automotive Technology InstructorRespiratory Therapy Manager 07/06/24 documented as of this encounter
--- OUTSIDE RECORDS SUMMARY | 2025-10-18 10:15 | XMS_ITS | Encounter Summary ---
Author Organization [employer] Address [address] [facility] 7t [place] [address] Care Team Providers Care Core Checker Name Role Phone Pipe Anderson MD Primary Care Provider [phone] Jayce Tristan PharmD Unavailable Unavail able Faviola Richard PharmD Unavailable [phone] Reason for Visit * Reason Comments Med Refill Encounter Details Date Type Department Care Team ([facility] Contact Info) Description 11/06/2024 Refill [facility] MED & PEDS [address] [place], [place] [phone] Pipe Anderson MD [address] [place] [address] Diabetic polyneuropathy associated with type 2 diabetes [...] documented as of this encounter Care Teams Core Checker Relationship Specialty Start Date End Date Pipe Anderson MD [address] [place] [address] PCP - General Internal Medicine 04/14/21 Jayce Tristan, PharmD [address] [place] [address] Pharmacist Internal Medicine 11/13/22 01/07/25 Faviola Richard PharmD [address] [place] [address] Pharmacist Internal Medicine 01/05/25 06/03/25 Beltran Iglesias Special Events CoordinatorSkimmer 04/21/24 Marcos Hanks Thread TrimmerSkimmer 07/06/24 documented as of this encounter
--- OUTSIDE RECORDS SUMMARY | 2025-10-18 10:15 | XMS_ITS | Encounter Summary ---
Author Organization [employer] Address [address] [facility] 7t [place] [address] Care Team Providers Care Brooch And Bracelet Maker Name Role Phone Pipe Anderson MD Primary Care Provider [phone] Jayce Tristan PharmD Unavailable Unavail able Faviola Richard PharmD Unavailable [phone] Reason for Visit * Reason Comments Med Refill Encounter Details Date Type Department Care Team ([facility] Contact Info) Description 06/19/2024 Refill [facility] CH[facility] MED & PEDS [address] [place], [place] [phone] Pipe Anderson MD [address] [place] [address] Diabetic polyneuropathy associated with type 2 diabetes [...] (HCC) documented in this encounter Care Teams Brooch And Bracelet Maker Relationship Specialty Start Date End Date Pipe Anderson MD 505 [place] [address] PCP - General Internal Medicine 04/14/21 Jayce Tristan, PharmD [address] [place] [address] Pharmacist Internal Medicine 11/13/22 01/07/25 Faviola Richard PharmD [address] [place] [address] Pharmacist Internal Medicine 01/05/25 06/03/25 Beltran Iglesias Ux ConsultantCustomer Service Sales Associate 04/21/24 Marcos Hanks Pole Truck DriverCustomer Service Sales Associate 07/06/24 documented as of this encounter
--- OUTSIDE RECORDS SUMMARY | 2025-10-18 10:15 | XMS_ITS | Encounter Summary ---
Author Organization [employer] Address [address] [place] [address] 7 [place] [address] Care Team Providers Care Snow Shoveler Name Role Phone Pipe Anderson MD Primary Care Provider [phone] Jayce Tristan PharmD Unavailable Unavail able Faviola Richard PharmD Unavailable [phone] Reason for Referral * Consultation (Routine) - Canceled Specialty Diagnoses / Procedures Referred By Swapna t Referred To Contact Pharmacy Diagnoses Uncontrolled type 2 diabetes mellitus with hyperglycemia (HCC) Pipe Anderson MD [address] [place] [address] Phone: tel: fax: Referral ID Status Reason Start Date Expiration Date V isits Requested Visits Authorized [id number] Canceled Consult and Treat 12/26/2024 12/26/2025 6 6 Encounter Details Date Type Department Care Team (Late st Contact Info) Description 12/26/2024 Orders Only [facility] CHC MED & PEDS [address] [place] [address] Pipe Anderson MD [address] [place] [address] Uncontrolled type 2 diabetes mellitus with hyperglycemia [...] Result Component 13.3(07/12/20 2:11 PM EDT) No Jyace Tristan, PharmD documented as of this encounter Visit Diagnoses Diagnosis Uncontrolled type 2 diabetes mellitus with hyperglycemia (HCC)- Primary documented in this encounter Additional Health Concerns Assessment Noted Time PHQ-9 Depression Total Score: 14 024 4:22 PM EDT documented as of this encounter Care Teams Snow Shoveler Relationship Specialty Start Date End Date Pipe Anderson MD [address] [place] [address] PCP - General Internal Medicine 04/14/21 Jayce Tristan PharmD [address] [place] [address] Pharmacist Internal Medicine 11/13/22 01/07/25 Faviola Richard PharmD [address] [place] [address] Pharmacist Internal Medicine 01/05/25 06/03/25 Beltran Iglesias Derivatives TraderPhotogrammetrist 04/21/24 Marcos Hanks Motorcycle BuilderPhotogrammetrist 07/06/24 documented as of this encounter
--- OUTSIDE RECORDS SUMMARY | 2025-10-18 10:16 | XMS_ITS | Encounter Summary ---
Author Organization [employer] Address [address] [facility] 7t [place] [address] Care Team Providers Care Library Page Name Role Phone Pipe Anderson MD Primary Care Provider [phone] Jayce Tristan PharmD Unavailable Unavail able Faviola Richard PharmD Unavailable [phone] Encounter Details Date Type Department Care Team ([facility] Contact Info) Description 05/14/2023 Abstract [facility] MED & PEDS [address] [place], [place] [phone] Pipe Anderson MD [address] [place] [address] Social History Tobacco Use Types Packs/Day Years [...] on filedocumented in this encounter Care Teams Library Page Relationship Specialty Start Date End Date Pipe Anderson MD [address] [place] [address] PCP - General Internal Medicine 04/14/21 Jayce Tristan, PharmD [address] [place] [address] Pharmacist Internal Medicine 11/13/22 01/07/25 Faviola Richard PharmD [address] [place] [address] Pharmacist Internal Medicine 01/05/25 06/03/25 Beltran Iglesias Senior DirectorProduct Safety Compliance Leader 04/21/24 Marcos Hanks Supply Chain Logistics ManagerProduct Safety Compliance Leader 07/06/24 documented as of this encounter
== END 2025-10-18 09:38 | disposition home or self-care (01) ==
LOC: HO.HGS 08:47
PROVIDERS: PCP Internal Medicine; Visit Provider Surgery
DX: R10.33 Periumbilical pain (principal)
CPT/HCPCS: 99213

== ENCOUNTER → 2025-10-18 08:46 | Outpatient (BNVA) | payer OTHER, SELFPAY | PROVIDERS: PCP Internal Medicine; Visit Provider Surgery | DX: R10.33 Periumbilical pain (principal) | CPT/HCPCS: 99212 ==

== ENCOUNTER 2025-11-01 14:12 | Outpatient (AMB) | payer OTHER, MEDICAID, SELFPAY ==
[2025-11-01 14:17] VITALS: BMI 36.8
--- NOTE | 2025-11-01 14:17 | A.OFFVIS_ITS ---
VS Expanded 11/01/25 14:17 11/05/25 08:41 Height 5 ft 2 in 5 ft 2 in Weight 201 lb 6 oz 201 lb BMI 36.8 36.8 Intake Visit Reasons: T2DM Allergies lobster Allergy (Severe, Verified 10/18/25 09:25) Itching shrimp Allergy (Mild, Verified 10/18/25 09:25) EYE ITCHING shellfish derived (shellfish) Allergy (Verified 10/18/25 09:25) Itching Nutrition Presentation Details: Patient presents for medical nutrition therapy for type 2 diabetes patient expresses interest improving diet and blood glucose control. Food frequency Fruits 0-1 a day Fish : avoids due to shellfish allergy vegetables 2 to 3 times a week Dairy 2-3 a day Beverages: Water, coffee, juices, greater than 32 oz a day Eating out a couple times a week. BS Monitoring Most Recent Diabetes Results: Creatinine, (0.5-1.4) 0.81 mg/dL 08/26/25 BUN, (9-16) 20 mg/dL H 08/26/25 Sodium, (135-145) 134 mmol/L L 08/26/25 Potassium, (3.3-5.1) 4.4 mmol/L 08/26/25 Chloride, (96-108) 96 mmol/L 08/26/25 Carbon Dioxide, (22-29) 29 mmol/L 08/26/25 Calcium, (8.4-10.2) 9.7 mg/dL 08/26/25 AST, (5-31) 25 U/L 08/26/25 ALT, (0-31) 38 U/L H 08/26/25 Total Protein, (6.5-8.0) 7.5 g/dL 08/26/25 Albumin, (3.5-5.0) 4.4 g/dL 08/26/25 XTU-Qzxdnyn-Uz.Jeor Equation Height: 5 ft 2 in Weight: 201 lb Resting Metabolic Rate: 1463.46 Calculated Activity Level: Sedentary Calories Needed to Maintain Weight: 1756.15 Diagnosis Nutrition problem #1: food nutri know defi As related to (etiology) #1: diagnosis As evidenced by (sign/symptom) #1: knowledge deficit of diet [facility] [place] [facility] Medical History (Updated 10/18/25 @ 09:41 by Yfn Vides MD) Umbilical pain Diabetes Cutaneous abscess of back [any part, except buttock] Abscess Sebaceous cyst Pre-op examination Morbid obesity Umbilical hernia RUQ abdominal pain Hypertension Diabetes H. pylori infection Irritable bowel syndrome with diarrhea Surgical History History of surgery Status post hysteroscopic ablation of endometrium Breast abscess History of appendectomy H/O umbilical hernia repair H/O colonoscopy Hx of hemorrhoidectomy Hx of hernia repair Hx of tubal ligation Family History Father Heart problem Asthma Mother Colon cancer HTN (hypertension) Varicose vein of leg Family history of diabetes mellitus Maternal Aunt Pancreatic cancer Family/Other Breast cancer Social History Household Members: None Alcohol intake: current Alcohol intake frequency: does not drink Patient Tobacco Use Status: Former Tobacco user Substance Use Type: Marijuana Assessment & Plan Assessment & Plan (1) Poorly controlled type 2 diabetes mellitus: Code(s): E11.65 - Type 2 diabetes mellitus with hyperglycemia Category: Medical Plan: current wt: 91 kg ( 11/22 ) est kcal needs as per MSJ: 1700 est protein needs as per 1 g/kg BW: 90 est fluid needs as per 30 ml/kg BW: 2700 Recommended fiber > 12 g /day and gradually increase up to 25-28 g /day or as tolerated Nutrition topics discussed : Reviewed (R), Pt verbalized understanding (V) , not applicable (N/A) R, : Healthy Plate Method Concept: R, : Carbohydrates: food sources of carbohydrates, relationship of carbohydrates to blood glucose, fatty liver GI health. Recommended total amount of carbohydrates per meals and snack. Differences between simple carbohydrates and complex carbohydrates R, : Lean protein foods including vegan , vegetarian sources of protein. Benefits of protein (including but not limited to healing, nutritional value , benefits in weight loss, glucose control R, V, N/A: Fats : Source of fats, benefits of fats. Difference between saturated and unsaturated fats. Saturated fats and its contribution to inflammation R, V, N/A: Fiber: food sources and role of fiber in the diet (including but not limited to its role as a prebiotic, benefits in constipation, role in IBS , role in glucose control and cholesterol level) R, : Hydration: role of hydration and prevention of dehydration or over hydration. Foods and water content. R, V, N/A: Vitamins and Minerals in foods and supplements R, V, N/A: Interpreting food labels, including serving size, macronutrients, vitamins, minerals, allergens, ingredient list , % daily value Patient Instructions: Have a meal replacement at lunchtime instead of skipping it Follow healthy plate method at dinnertime Choose low sugar beverages see list of options Coding Level of Care Code Nutr Indiv Intake (80920) Diagnoses Poorly controlled type 2 diabetes mellitus E11.65 Time Spent (min) 30
[2025-11-05 14:41] VITALS: BMI 36.8
== END 2025-11-01 14:46 | disposition home or self-care (01) ==
LOC: HO.ENCR 14:12
PROVIDERS: PCP Internal Medicine; Visit Provider Dietitian, Registered
DX: E11.65 Type 2 diabetes mellitus with hyperglycemia (principal)

== ENCOUNTER → 2025-11-01 14:12 | Outpatient (BNVA) | payer OTHER, SELFPAY | PROVIDERS: PCP Internal Medicine; Visit Provider Dietitian, Registered | DX: E11.65 Type 2 diabetes mellitus with hyperglycemia (principal); Z71.3 Dietary counseling and surveillance | CPT/HCPCS: 97802 ==

== ENCOUNTER 2025-11-14 14:36 | Outpatient (AMB) | payer OTHER, SELFPAY ==
--- NOTE | 2025-11-14 15:02 | A.OFFVIS_ITS ---
Intake Intake Visit Reasons: 60 mins Electrician Bus Required: No Accompanied by: Self / Same As Patient Allergies lobster Allergy (Severe, Verified 10/18/25 09:) Itching shrimp Allergy (Mild, Verified 10/18/25 09:) EYE ITCHING shellfish derived (shellfish) Allergy (Verified 10/18/25:) Itching HPI Comprehensive Diabetes Asmnt Most Recent Diabetes Results: Microalb/Creat Ratio, (<30) 19.4 ug/mg cr 01/05/25 Cholesterol, (<200) 156 mg/dL 01/05/25 HDL Cholesterol, (>40) 43 mg/dL 01/05/25 Triglycerides, (<150) 158 mg/dL H 01/05/25 Creatinine, (0.5-1.4) 0.81 mg/dL 08/26/25 BUN, (9-16) 20 mg/dL H 08/26/25 Sodium, (135-145) 134 mmol/L L 08/26/25 Potassium, (3.3-5.1) 4.4 mmol/L 08/26/25 Chloride, (96-108) 96 mmol/L 08/26/25 Carbon Dioxide, (22-29) 29 mmol/L 08/26/25 Calcium, (8.4-10.2) 9.7 mg/dL 08/26/25 AST, (5-31) 25 U/L 08/26/25 ALT, (0-31) 38 U/L H 08/26/25 Total Protein, (6.5-8.0) 7.5 g/dL 08/26/25 Albumin, (3.5-5.0) 4.4 g/dL 08/26/25 [facility] Medical History (Updated 10/18/25 @ 09:41 by Yfn Vides MD) Umbilical pain Diabetes Cutaneous abscess of back [any part, except buttock] Abscess Sebaceous cyst Pre-op examination Morbid obesity Umbilical hernia RUQ abdominal pain Hypertension Diabetes H. pylori infection Irritable bowel syndrome with diarrhea Surgical History History of surgery Status post hysteroscopic ablation of endometrium Breast abscess History of appendectomy H/O umbilical hernia repair H/O colonoscopy Hx of hemorrhoidectomy Hx of hernia repair Hx of tubal ligation Family History Father Heart problem Asthma Mother Colon cancer HTN (hypertension) Varicose vein of leg Family history of diabetes mellitus Maternal Aunt Pancreatic cancer Family/Other Breast cancer Social History Household Members: None Alcohol intake: current Alcohol intake frequency: does not drink Patient Tobacco Use Status: Former Tobacco user Substance Use Type: Marijuana Assessment & Plan Assessment & Plan (1) Poorly controlled type 2 diabetes mellitus: Code(s): E11.65 - Type 2 diabetes mellitus with hyperglycemia Plan: Diabetes self-management education and support participation record Assessment/scale: 1= needs instructed? 2= needs review? 3= comprehend keep point? 4= demonstrates understanding/ competent? NC= Not Covered Topics Learning Objective: Initial visit Initial or post srvc Initial or post srvc Initial or post srvc Initial or post srvc Initial or post srvc Post srvc Comments Pre Edu-assessment/plan Outcome or reassess Outcome or reassess Outcome or reassess Outcome or reassess Outcome or reassess Outcome or reassess Diabetes pathophysiology Healthy eating Being active Taking medication Monitoring glucose Acute complication Chronic complicated Lifestyle and healthy coping Diabetes distress in support ?Diabetes pathophysiology: ?Defined diabetes med identify own type of diabetes; list 3 options for treating diabetes Healthy eating: ?Described effect of type, amount and ?timing of food on blood glucose; list 3 methods for planning meal Being active: ?State effect of exercise on blood glucose level Taking medication: ?State effect of diabetes medications on diabetes; name diabetes medications taking, action and side effects Monitoring glucose: ?Identify recommended blood glucose targets and personal target Acute complication: ?List symptoms and treatment of hyper and hypoglycemia, DKA, sick day guidelines and guidelines for severe weather or situations of crisis and diabetes supply manage Chronic complication: ?To find the relationship of blood glucose levels to long- term complications of diabetes in screening and preventative measures Lifestyle and healthy coping: ?Described lifestyle and healthy coping strategies to rule out diabetes self-management Diabetes to stress and support: ?Recognize Diabetes to stress and be able to identified support options Learning objectives: The patient was provided with verbal and written education on the following topics as outlined below. The patient met all learning objectives and was able to verbalize understanding and provide teach back of education topics discussed . The patient was provided with the opportunity to ask questions and all questions were answered. Patient Assessment Assess patient education level/literacy/barriers, patient's last A1c on 10/09/2025 12.1% Patient is currently on Toujeo 50 units daily NovoLog 26 units before meals Was unable to tolerate GLP ones or metformin What is Diabetes? Pathophysiology How the body produces and uses insulin Identify type of DM Risk factors Signs of Diabetes Brief overview of Diabetes Management Monitoring blood sugar Following a meal plan Regular exercise Maintaining a healthy weight Taking medication as needed Members of the care team (PCP, RN, MA, RD, CDE, operations planner) Blood glucose monitoring When/how often to test Target blood sugar ranges Patient is using freestyle José Manuel sensor but did not bring reader to today's visit Introduction to Nutrition Importance of healthy diet in managing DM Diet is personalized to individual preference Review patient?s regular diet/food preferences Who prepares meals/does food shopping/ Dining out?/ Barriers? How diet effects glucose Eating 3 balanced meals a day with small, healthy snacks between meals Review food groups Carbohydrates: What is a carbohydrate/Which food/food groups are considered carbohydrates Effect of carbohydrates on blood glucose Portion sizes Reading food labels Basic carb counting (if applicable per nursing assessment) Plate method Meal planning Recommendations: Follow plate method, consistent carbs and read nutritional labels. Smart Goal: Patient will use exercise emery on cell phone 8 minutes a day 5 days a week until next visit Educational Materials: The patient was provided with the following written educational materials: Planning Healthy Meals Handout Patient Response to instructions: Comprehension of Instructions: Fair Readiness to make changes: Contemplation How confident they feel about making changes: Fair Portions of this note were created using voice recognition software, please excuse any words or phrases that may have been misinterpreted. Patient Instructions: Include regular daily activity. ADA recommends 30 minutes of exercise 5 days a week. Weight loss talk to PCP or Produce Buyer before starting new plan. Test blood sugar as directed; Fasting and 2hpp largest meal. Watch trends in results. Utilize results and to assess how food, physical activity and medications affect blood sugar results. Bring glucometer or CGM to next visit. Be knowledgeable about diabetes medication, its action, side effects, efficacy, toxicity, prescribed dosage, appropriate timing and frequency of administration, effect of missed and delayed doses and instructions for storage, travel and safety. Problem solving techniques to monitor hypo/hyperglycemia episodes and treatments. Reduce risk reduction behaviors, smoking cessation, regular eye, foot and dental examinations. Coding Level of Care Code Est Pt Level 1 (92770) Diagnoses Poorly controlled type 2 diabetes mellitus E11.65
--- OUTSIDE RECORDS SUMMARY | 2025-11-14 19:32 | XMS_ITS | Encounter Summary ---
Author Organization [employer] Address [address] [place] [address] Care Team Providers Care Transportation Worker Name Role Phone Pipe Anderson MD Primary Care Provider [phone] Jayce Tristan PharmD Unavailable Unavail able Faviola Richard PharmD Unavailable [phone] Reason for Visit * Reason Onset Date Comments Referral 10/13/2023 Encounter Details Date Type Department Care Team ([facility] st Contact Info) Description 10/13/2023 Telephone [facility] MEDICINE [address] [place] [address] Pipe Anderson MD [address] [place], [place] [phone] Referral Social History Tobacco Use Types Packs/Day [...] t he electric, gas, oil or water [employer] threatened to shut off services in your [...] advise if pt can be referred to binding cutter synthetic cloth for pt's DM. * Telephone Encounter - Mikael Carrero - 10/13/2023 10:12 AM EST Tc zack Gong the patients VN requesting a referral for a binding cutter synthetic cloth for the patient any questions please call [phone] documented in this encounter Plan of Treatment [...] on filedocumented in this encounter Care Teams Transportation Worker Relationship Specialty Start Date End Date Pipe Anderson MD [address] [place] [address] PCP - General Internal Medicine 04/14/21 Jayce Tristan, BhavnaD [address] [place] [address] Pharmacist Internal Medicine 11/13/22 01/07/25 Faviola Richard PharmD [address] [place] [address] Pharmacist Internal Medicine 01/05/25 06/03/25 Beltran Iglesias Inventory And Pricing AssociateActivity Assistant 04/21/24 Marcos Hanks Engagement SpecialistActivity Assistant 07/06/24 documented as of this encounter
--- OUTSIDE RECORDS SUMMARY | 2025-11-14 19:32 | XMS_ITS | Encounter Summary ---
Author Organization [employer] Address [address] [facility] 7t [place] [address] Care Team Providers Care Tarring Machine Operator Name Role Phone Pipe Anderson MD Primary Care Provider [phone] Jayce Tristan PharmD Unavailable Unavail able Faviola Richard PharmD Unavailable [phone] Encounter Details Date Type Department Care Team ([facility] Contact Info) Description 03/23/2024 Orders Only [facility] CH[facility] MED & PEDS [address] [place], [place] [phone] Pipe Anderson MD [address] [place] [address] Social History Tobacco Use Types Packs/Day Years [...] on filedocumented in this encounter Care Teams Tarring Machine Operator Relationship Specialty Start Date End Date Pipe Anderson MD [address] [place] [address] PCP - General Internal Medicine 04/14/21 Jayce Tristan, PharmD [address] [place] [address] Pharmacist Internal Medicine 11/13/22 01/07/25 Faviola Richard PharmD [address] [place] [address] Pharmacist Internal Medicine 01/05/25 06/03/25 Beltran Iglesias Director Of Professional ServicesExtrusion Die Coordinator 04/21/24 Marcos Hanks Primer Inserting Machine AdjusterExtrusion Die Coordinator 07/06/24 documented as of this encounter
--- OUTSIDE RECORDS SUMMARY | 2025-11-14 19:32 | XMS_ITS | Encounter Summary ---
Author Organization [employer] Address [address] [facility] 7t [place] [address] Care Team Providers Care Certified Procedural Coder Name Role Phone Pipe Anderson MD Primary Care Provider [phone] Jayce Tristan PharmD Unavailable Unavail able Faviola Richard PharmD Unavailable [phone] Reason for Visit * Reason Comments Med Refill Encounter Details Date Type Department Care Team ([facility] Contact Info) Description 06/19/2024 Refill [facility] CHC MED & PEDS [address] [place], [place] [phone] Pipe Anderson MD [address] [place] [address] Diabetic polyneuropathy associated with type 2 diabetes [...] (HCC) documented in this encounter Care Teams Certified Procedural Coder Relationship Specialty Start Date End Date Pipe Anderson MD [address] [place] [address] PCP - General Internal Medicine 04/14/21 Jayce Tristan, PharmD [address] [place] [address] Pharmacist Internal Medicine 11/13/22 01/07/25 Faviola Richard PharmD [address] [place] [address] Pharmacist Internal Medicine 01/05/25 06/03/25 Beltran Iglesias Private TutorFine Wire Drawer 04/21/24 Marcos Hanks Tumbling And Rolling SupervisorFine Wire Drawer 07/06/24 documented as of this encounter
--- OUTSIDE RECORDS SUMMARY | 2025-11-14 19:32 | XMS_ITS | Encounter Summary ---
Author Organization [employer] Address [address] [facility] 7t [place] [address] Care Team Providers Care Watershed Tender Name Role Phone Pipe Anderson MD Primary Care Provider [phone] Jayce Tristan PharmD Unavailable Unavail able Faviola Richard PharmD Unavailable [phone] Reason for Visit * Reason Comments Med Refill Encounter Details Date Type Department Care Team ([facility] Contact Info) Description 11/06/2024 Refill [facility] CH[facility] MED & PEDS [address] [place], [place] [phone] Pipe Anderson MD [address] [place] [address] Diabetic polyneuropathy associated with type 2 diabetes [...] documented as of this encounter Care Teams Watershed Tender Relationship Specialty Start Date End Date Pipe Anderson MD [address] [place] [address] PCP - General Internal Medicine 04/14/21 Jayce Tristan, PharmD [address] [place] [address] Pharmacist Internal Medicine 11/13/22 01/07/25 Faviola Richard PharmD [address] [place] [address] Pharmacist Internal Medicine 01/05/25 06/03/25 Beltran Iglesias Preschool Lead TeacherPigment Pumper 04/21/24 Marcos Hanks Business Performance AdvisorPigment Pumper 07/06/24 documented as of this encounter
--- OUTSIDE RECORDS SUMMARY | 2025-11-14 19:32 | XMS_ITS | Encounter Summary ---
Author Organization [employer] Address [address] [place] [address] 7 [place] [address] Care Team Providers Care Station Agent Name Role Phone Pipe Anderson MD Primary Care Provider [phone] Jayce Tristan PharmD Unavailable Unavail able Faviola Richard PharmD Unavailable [phone] Reason for Referral * Consultation (Routine) - Canceled Specialty Diagnoses / Procedures Referred By Swapna t Referred To Contact Pharmacy Diagnoses Uncontrolled type 2 diabetes mellitus with hyperglycemia (HCC) Pipe Anderson MD [address] [place] [address] Phone: tel: fax: Referral ID Status Reason Start Date Expiration Date V isits Requested Visits Authorized [id number] Canceled Consult and Treat 12/26/2024 12/26/2025 6 6 Encounter Details Date Type Department Care Team (Late st Contact Info) Description 12/26/2024 Orders Only [facility] CHC MED & PEDS [address] [place] [address] Pipe Anderson MD [address] [place] [address] Uncontrolled type 2 diabetes mellitus with hyperglycemia [...] documented as of this encounter Care Teams Station Agent Relationship Specialty Start Date End Date Pipe Anderson MD [address] [place] [address] PCP - General Internal Medicine 04/14/21 Jayce Tristan PharmD [address] [place] [address] Pharmacist Internal Medicine 11/13/22 01/07/25 aFviola Richard PharmD [address] [place] [phone] Pharmacist Internal Medicine 01/05/25 06/03/25 Beltran Iglesias Welder Machine OperatorGlycerine Plant Operator 04/21/24 Marcos Hanks Novelty Twister OperatorGlycerine Plant Operator 07/06/24 documented as of this encounter
--- OUTSIDE RECORDS SUMMARY | 2025-11-14 19:32 | XMS_ITS | Encounter Summary ---
Author Organization [email or web address] Address [address] [facility] 7t [place] [address] Care Team Providers Care Table Attendant Name Role Phone Pipe Anderson MD Primary Care Provider [phone] Jayce Tristan PharmD Unavailable Unavail able Faviola Richard PharmD Unavailable [phone] Encounter Details Date Type Department Care Team ([facility] Contact Info) Description 07/28/2024 Orders Only [facility] CHC MED & PEDS [address] [place], [place] [phone] Pipe Anderson MD [address] [place] [address] Uncontrolled type 2 diabetes mellitus with hyperglycemia [...] documented as of this encounter Care Teams Table Attendant Relationship Specialty Start Date End Date Pipe Anderson MD [address] [place] [address] PCP - General Internal Medicine 04/14/21 Jayce Tristan, PharmD [address] [place] [address] Pharmacist Internal Medicine 11/13/22 01/07/25 Faviola Richard PharmD [address] [place] [address] Pharmacist Internal Medicine 01/05/25 06/03/25 Beltran Iglesias Housing SpecialistExecutive Kitchen Manager 04/21/24 Marcos Hanks Fans ClerkExecutive Kitchen Manager 07/06/24 documented as of this encounter
--- OUTSIDE RECORDS SUMMARY | 2025-11-14 19:32 | XMS_ITS | Clinical Summary ---
Author Organization [employer] Address [address] [facility] 7t [place] [address] Care Team Providers Care Lap Cutter Truer Operator Name Role Phone Pipe Anderson MD Primary Care Provider [phone] Allergies Active Allergy Reactions Criticality Noted Date [...] mm/Hg. 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 30 g 04/10/20 25 026 Active atorvastatin (Lipitor) 80 MG tablet TAKE ONE TABLET EVERY NIGHT AT BEDTIME 90 tablet 3 5 1:29 PM EST 04/12/20 25 Active Alcohol Swabs (Alcohol Prep) [...] 25 Active Blood Glucose Monitoring Suppl (FreeStyle [place] Lite) w/Device kit Use to test blood sugar 3x times daily 1 kit 06/23/20 Active azithromycin (Zithromax) 250 MG tablet Take [...] daily 100 each 07/12/20 25 026 Active Blood Glucose Monitoring Suppl (FreeStyle [place] Lite) w/Device kitIndications:Unc ontrolled type 2 diabetes mellitus with hyperglycemia (HCC) Use to test blood sugar 2 times daily 1 kit 07/12/20 25 Active gabapentin (Neurontin) 100 MG capsuleIndications :Diabetic polyneuropathy associated with type 2 diabetes mellitus (HCC) Take 2 capsules (200 mg) by mouth every 8 (eight) hours. 180 capsule 5 1:29 PM EST 07/12/20 25 026 Active Toujeo Max SoloStar 300 UNIT/ML injectionIndicatio ns:Uncontrolled type 2 diabetes mellitus with hyperglycemia (HCC) INJECT 50 SUBCUTANEOUSLY AT BEDTIME 6 mL 5 3:21 PM EST 10/08/20 25 Active Alcohol Swabs (Alcohol Prep) 70 % padsIndications:Un controlled type 2 diabetes mellitus with hyperglycemia (HCC) Use to test blood sugar 2 times daily 100 each 5 1:30 PM EST 10/08/20 25 Active Active Problems Problem Noted Date Diagnosed [...] DEPARTMENT Provider, Generic External Data 10/08/2025 Refill [facility] CHC MED & PEDS [address] [place] [address] Pipe Anderson MD Uncontrolled type 2 diabetes mellitus with hyperglycemia (HCC); Uncontrolled type 2 diabetes mellitus with hyperglycemia (HCC) 10/04/2025 3:30 PM EST Office Visit [facility] OPTOMETRY [address] [place] [address] Luis Manuel, Julieta, OD 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 (Primary Dx); Meibomian gland disease of both eyes, unspecified eyelid; Uncontrolled type 2 diabetes mellitus with hyperglycemia (HCC); Combined forms of age-related cataract of both eyes 10/04/2025 Travel 10/03/2025 Travel 09/26/2025 3:00 PM EDT Office Visit [facility] WALK-IN [facility] [address] [place] [address] Barby Hand MD Primary hypertension (Primary Dx); Umbilical hernia without obstruction and without gangrene 09/26/2025 Travel 08/27/2025 Orders Only GENERIC EXTERNAL DATA DEPARTMENT Provider, Generic External Data 08/26/2025 Orders Only GENERIC EXTERNAL DATA DEPARTMENT Provider, Generic External Data 08/22/2025 Orders Only GENERIC EXTERNAL DATA DEPARTMENT Provider, Generic External Data from Last 3 Months Immunizations Immunization Administration [...] the past 12 months, has t he [employer], gas, oil or water company threatened to [...] 04/03/2026 04/03/2025 Diabetes: Foot Exam 04/10/2026 04/10/2025 Alcohol/Substance Use Screening 07/12/2026 07/12/2025 Depression Screening 07/12/2026 07/12/2025, 07/12/20 25 Disability Screening 07/12/2026 07/12/2025 Tobacco Screening 10/19/2026 10/19/2025 Mammogram 11/30/2026 11/30/2024, 09/29, 08/18/2022, Additional history [...] 2:11 PM EDT) No Jayce Tristan, PharmD Help patients manage their type 2 diabetes Care Plan Help patients manage their type 2 diabetes No Luis Manuel Julieta, OD Weekly blood pressure task Care Plan Weekly blood pressure task No Luis Manuel Julieta, OD Help patients manage their type 2 diabetes Care Plan Help patients manage their type 2 diabetes No Luis Manuel, Julieta, OD Patient has chronic kidney disease Care Plan Patient has chronic kidney disease No Luis Manuel Julieta, OD Weekly blood pressure task Care Plan Weekly blood pressure task No Luis Manuel Julieta, OD Patient has chronic kidney disease Care Plan Patient has chronic kidney disease No Luis Manuel, Julieta, OD Procedures Procedure Name Priority Date/Time Associated Diagnosis [...] WHOLE BLOOD Routine 08/22/2025 2:09 PM EDT POCT GLYCATED HEMOGLOBIN, TOTAL Routine [...] Whole Blood 161(H) 60 - 115 mg/dL [facility] Comment:METER #: [id number] Testing performed in the Endocrinology Department [address] , [address], [facility]. 10/09/2025 3:03 PM EST 10/09/2025 3:08 PM EST Generic External Data Provider LAB BLOOD ORDERAB LES Final Result Performing Organization Address [facility] [facility] Co de Phone Number [facility] [address] [place] [phone] * (ABNORMAL) Glucose, Whole Blood (08/27/2025 4:46 AM EDT) Only the most recent of2 resultswithin the time period is included. Glucose, Whole Blood 266(H) 60 - 115 mg/dL [facility] Comment:METER #: [id number] 08/27/2025 4:46 AM EDT 08/27/2025 4:49 AM EDT Generic External Data Provider LAB BLOOD ORDERAB LES Final Result Performing Organization Address [facility] Co de Phone Number [facility] [address] [place] [phone] * (ABNORMAL) Urinalysis, Complete, with Reflex to Culture (08/27/2025 1:18 AM EDT) Color Urine Yellow [facility] Appearance Urine Clear [facility] PH 6.5 5.0 - 9.0 [facility] Glucose Urine UA >=1000(A) Negative mg/dL [facility] Urine Blood Negative Negative [facility] Specific [place] - Urine >=1.030(H) 1.005 - 1.025 [facility] Urine Protein Negative Neg-Trace mg/dL [facility] Urine Ketones Negative Negative mg/dL [facility] Nitrite Urine Negative Negative [facility] Leukocyte Esterase Urine Small (1+)(A) Negative [facility] RBC Urine 0-2 0 - 2 /HPF [facility] Urine WBC 21-50(A) 0 - 5 /HPF [facility] Urine Squamous Epithelial Cell 3-5 0 - 2 /HPF [facility] Urine Bacteria None Seen None Seen [facility] Hyaline Casts, Urine 0-2 0 - 2 /LPF [facility] 08/27/2025 1:18 AM EDT 08/27/2025 1:24 AM EDT Narrative [facility] - 08/27/2025 1:35 AM EDT Urine, Clean Catch us Generic External Data Provider LAB URINE ORDERAB LES Final Result Performing Organization Address City/[facility]/ZIP Co de Phone Number [facility] [address] [place] [phone] * Culture, Urine, Routine (08/27/2025 12:00 AM EDT) Urine Urine specimen obtained by clean catch procedure / Unknown 08/27/2025 08/27/2025 [facility] - 08/28/2025 7:53 AM EDT Urine Culture Report Result Urine Culture < 10,000 cfu/ml Specimen Source: Urine clean catch us Generic External Data Provider LAB MICROBIOLOGY - GENERAL ORDERABLES Final Result Performing Organization Address [facility] [place] [facility] Co de Phone Number [facility] [address] [place] [phone] * (ABNORMAL) CBC auto differential (08/26/2025 11:47 PM EDT) White Blood Count 5.5 4.8 - 10.8 X10*3/uL [facility] Red Blood Count 4.83 4.20 - 5.50 X10*6/uL [facility] Hemoglobin 13.1 12.0 - 16.0 g/dl [facility] Hematocrit 39.6 37.0 - 47.0 % [facility] Mean Corpuscular Volume 82.0 80.0 - 98.0 fL [facility] Mean Corpuscular Hemoglobin 27.1 27.0 - 33.0 pg [facility] Mean Corpuscular HGB Conc 33.1 31.0 - 35.0 g/dl [facility] Red Cell Distribution Width 13.7 11.0 - 16.0 % [facility] Platelet Count 244 160 - 400 X10*3/uL [facility] Mean Platelet Volume 10.4 9.4 - 12.3 fL [facility] Neutrophils Percent Auto 47.4 45 - 73 % [facility] Imm Gran Pct Auto 0.0 0.0 - 0.4 % [facility] Lymphocytes Percent Auto 43.6(H) 20 - 40 % [facility] Monocytes Percent Auto 7.2 2 - 11 % [facility] Eosinophils Percent Auto 1.3 0 - 4 % [facility] Basophils Percent Auto 0.5 0 - 2 % [facility] NRBC Pct Auto 0.0 0.0 - 0.2 /100WBC [facility] Neutrophils Absolute Auto 2.6 2.0 - 8.3 x10*3/uL [facility] Imm Gran Abs Auto 0.00 0.00 - 0.03 X10*3/uL [facility] Lymphocytes Absolute Auto 2.4 1.2 - 4.9 X10*3/uL [facility] Monocytes Absolute Auto 0.4 0.1 - 1.2 X10*3/uL [facility] Eosinophils Absolute Auto 0.1 0.0 - 0.4 X10*3/uL [facility] Basophils Absolute Auto 0.0 0.0 - 0.2 X10*3/uL [facility] NRBC Abs Auto 0.000 0.0 - 0.012 X10*3/uL [facility] 08/26/2025 11:4 7 PM EDT 08/26/2025 11:53 PM EDT us Generic External Data Provider LAB BLOOD ORDERAB LES Final Result [facility] [address] [place] [phone] * (ABNORMAL) Magnesium (08/26/2025 11:47 PM EDT) Magnesium 1.4(LL) 1.6 - 2.6 mg/dL [facility] Comment:Critical value for t est(s): MAGNESIUM Results called to gianna back by: HUE Person calling:MARYLIN Date:08/27/25 Time:216 08/26/2025 11:4 7 PM EDT 08/26/2025 11:53 PM EDT us Generic External Data Provider LAB BLOOD ORDERAB LES Final Result [facility] [address] [place] [phone] * (ABNORMAL) Comprehensive Metabolic Panel (08/26/2025 11:47 PM EDT) Sodium 134(L) 135 - 145 mmol/L [facility] Potassium 4.4 3.3 - 5.1 mmol/L [facility] Chloride 96 96 - 108 mmol/L [facility] Carbon Dioxide 29 22 - 29 mmol/L [facility] Anion Gap 13 12 - 20 [facility] Urea Nitrogen (BUN) 20(H) 9 - 16 mg/dL [facility] Creatinine, Serum 0.81 0.5 - 1.4 mg/dL [facility] Creatinine Clr Calc Pharmacy 83.6 [facility] Comment:Provided height and weight: 157.48 cm,91.6 kg.eGFR (calculated from the MDRD study equation) and eCrCl(calculated from the Cockcroft-Gault equation) are based ondifferent parameters and may not yield comparable results.If eCrCl result is absurd, please check patient'sheight/weight. Estimated Glomerular Filt Rate >60 [facility] Comment:Chronic Kidney Disea se: Estimated GFR < 60 mL/min/1.12o4Hiibxs Kidney Disease: Estimated GFR < 15 mL/min/1.73m2 Glucose 501(HH) 60 - 115 mg/dL [facility] Comment:Critical value for t est(s):GLUCOSE Results called to gianna back by: BUBBA Person calling: KARENate:08/27/25 Time:0013 Calcium 9.7 8.4 - 10.2 mg/dL [facility] Bilirubin, Total 0.3 0.0 - 1.0 mg/dL [facility] Aspartate Amino Transferase 25 5 - 31 U/L [facility] Alanine Aminotransferase 38(H) 0 - 31 U/L [facility] Total Protein 7.5 6.5 - 8.0 g/dL [facility] Albumin Level 4.4 3.5 - 5.0 g/dL [facility] Alkaline Phosphatase 114 39 - 117 U/L [facility] 08/26/2025 11:4 7 PM EDT 08/26/2025 11:53 PM EDT us Generic External Data Provider LAB BLOOD ORDERAB LES Final Result Performing Organization Address City/State/[facility] Co de Phone Number [facility] [address] [place] [phone] * (ABNORMAL) POCT HGB A1C (07/12/2025 2:11 PM EDT) Pathologist [facility] Hemoglobin A1C 13.3(A) 4.0 - 5.7 % QC Media Lot # [id number] Lot# Expiration Date 66 Blood 07/12/2025 2:11 PM EDT us Pipe Anderson MD POINT OF CARE TEST ENTER/ED IT ORDERABLES Final Result * Hepatitis C Antibody with Reflex to HCV, RNA, Quantitative, Real-Time PCR (06/26/2025 2:04 PM EDT) Pathologist [facility] Hepatitis C Antibody Nonreactive Nonreactive [facility] Comment:Antibodies to HCV no t detected; does not exclude early acuteHCV infection. Blood Venous blood specimen / Unknown 06/26/2025 2:04 PM EDT 06/26/2025 4:17 PM EDT Pipe Anderson MD LAB BLOOD ORDERABLES Final Result Performing Organization Address [facility] Co de Phone Number [facility] [address] [place] [phone] * Albumin, Random Urine W/Creatinine (01/05/2025 2:20 PM EST) Creatinine, Urine 72.11 mg/dL [facility] Microalbumin Urine 14.0 mg/L [facility] Microalbum Creatinine Ratio Ur 19.4 <30 ug/mg cr [facility] Comment:Albumin/Creatinine R atio Reference Ranges: Normal: < 30 ug/mg creatinine Microalbuminuria: 30 - 300 ug/mg creatinineClinical Albuminuria: > 300 ug/mg creatinine 01/05/2025 2:20 PM EST 01/05/2025 5:52 PM EST us Pipe Anderson MD LAB URINE ORDERABLES Final Result Performing Organization Address [facility] Co de Phone Number [facility] [address] [place] [phone] * (ABNORMAL) Lipid Panel, Standard (01/05/2025 2:15 PM EST) Triglycerides 158(H) <150 mg/dL [facility] Comment:Desirable Triglyceri de: less than 150 mg/dLBorderline High Triglyceride 150-199 mg/dLHigh Triglyceride: 200-499 mg/dLVery High Triglyceride: greater than or equal to 5OO mg/dL Cholesterol 156 <200 mg/dL [facility] Comment:Desirable Cholestero l: less than 200 mg/dLBorderline High Cholesterol: 200-239 mg/dLHigh Cholesterol: greater than 239 mg/dL LDL Cholesterol Calculated 82 <100 mg/dL [facility] Comment:Desirable LDL: less than 100 mg/dLNear Optimal/Above Optimal LDL: 110- 129 mg/dLBorderline High LDL: 130-159 mg/dLHigh LDL: 160-189 mg/dLVery High LDL: greater than or equal to 190 mg/dL HDL Cholesterol 43 >40 mg/dL [facility] Comment:Desirable HDL: great er than 40 mg/dL Note: This HDL assay may give artificially low results in patients with liver disease. 01/05/2025 2:15 PM EST 01/05/2025 5:50 PM EST us Pipe Anderson MD LAB BLOOD ORDERABLES Final Result [facility] [address] [place] [phone] [phone] * BI Mammogram Screening Tomosynthesis Bilateral (11/30/2024 1:50 PM EST) Anatomical Region Laterality Modality Breast Bilateral Mammography 11/30/2024 1:50 PM EST Narrative 12/10/2024 6:59 AM EST [facility] [address] [place] [address] Mammography Report Signed with Addenda Patient: Brittany Hernandez Prashant#: [id number] : 1970 Acct:[id number] Age/Sex: 54 / F ADM Date: 11/30/24 Loc: HO.MAMMO Attending Dr: Pipe Anderson MD Ordering Physician: Pipe Anderson MD Results: 1 Negative Date of Service: 11/30/24 Follow Up: 1 Year From [facility] Mammogram Procedure(s): MM tomosynthesis screening BI Accession Number(s): [id number] cc: Pipe Anderson MD ADDENDUM ADDENDUM #1 [...] OV> 12/10/24 0656 DD/ 49 TD/TT: 11/30/241416 Assembly Line Driver: Procedure Note Donotuseinterpreter, Image - 12/25/2024 [facility] [address] [place] [address] [place] [address] Mammography Report Signed with Addenda Patient: Randy Hernandez R#: [id number] : 1970Acct:[id number] Age/Sex: 54 / FADM Date: 11/30/24 Loc: HO.MAMMO Attending Dr: Pipe Anderson MD Ordering Physician: Pipe Anderson MDResults: 1 Negative Date of Service: 11/30/24Follow Up: 1 Year From Orig inal Mammogram Procedure(s): MM tomosynthesis screening BI Accession Number(s): [id number] cc: Pipe Anderson MD ADDENDUM ADDENDUM #1 [...] OV> 12/10/24 0656 DD/ 49 TD/TT: 11/30/241416 Assembly Line Driver: Pipe Anderson MD IMG BI PROCEDURES Edited Re sult - Final * Image-Guided Pap with Age-Based Screening Protocols (03/02/2023 2:16 PM EDT) Comment [facility] Comment: This order for age-based cervical cancer and STI screening follows ACOG guidelines(PB 168, 140, OGE734). See individual assays for performing site location. Clinical Information: None given [facility] LMP: NONE GIVEN [employer] Prev. PAP: NONE GIVEN [facility] [employer] Prev. BX: NONE GIVEN [facility] SOURCE: None given [facility] Statement Of Adequacy: [facility] Comment: Satisfactory for evaluation. Endocervical/transformation zone component present. Interpretation/ Result: Negative for intraepithelial lesion or malignancy. [facility] Comment: This Pap test has been evaluated with computer assisted technology. [employer] [place] [employer] t: [facility] Comment: CHEPE SARMIENTO(ASCP) CT screening location: [place] [address] (Always Message) [facility] Comment: EXPLANATORY NOTE: The Pap is a [...] HPV nRNA E6/E7 Not Detected Not Detected [facility] Comment: Methodology: Diesel Power Mechanic-Mediated Amplification This assay detects E6/E7 viral messenger RNA (mRNA) from 14 high-risk HPV types (16,18,31,33,35,39,45,51,52,56,58,59,66,68). Cervical sources are required for HPV testing. If a vaginal source from a patient who has had a total hysterectomy with removal of cervix was submitted, please contact the testing laboratory for alternative testing options. For additional information, please refer to http://education.Xierkang/faq/VDB677z8 (This link if provided for information/ educational purposes only.) Cytology specimen container (physical object) 03/02/2023 2:16 PM EDT 03/03/2023 5:29 AM EDT Shannon Faith CNM LAB BLOOD ORDERABLES Liliana adarsh Result [facility] [address] [facility], [place] [phone] [employer] [facility] [address] [place] [phone] * (ABNORMAL) Colonoscopy (11/09/2019) Anatomical Region Laterality Modality Endoscopy Narrative 11/09/2019 Transverse colon polyp removed. Needs a repeat Colonoscopy in 2023. Historical Provider MD ENDOSCOPY PROCEDURE ORDER AR Final Result from Last 3 Months or Most Recently Relevant to Health Maintenance Additional Health Concerns Active Problems Noted Date Diagnosed Date Help patients manage their type 2 diabetes 10/19 Weekly blood pressure task 10/19/2025 Help patients manage their type 2 diabetes 10/19 Patient has chronic kidney disease 10/19/2025 Weekly blood pressure task 10/19/2025 Patient has chronic kidney disease 10/19/2025 Insurance [facility] ONE CARE < 65 Care Teams Lap Cutter Truer Operator Relationship Specialty Start Date End Date Pipe Anderson MD [address] [place] [phone] PCP - General Internal Medicine 04/14/21 Beltran Iglesias Benefits Consulting AnalystCaddie 04/21/24 Marcos Hanks Rail Transportation TabelerCaddie 07/06/24
--- OUTSIDE RECORDS SUMMARY | 2025-11-14 19:33 | XMS_ITS | Encounter Summary ---
Author Organization [employer] Address [address] [facility] [address] [place] [address] Care Team Providers Care Kids Activities Coach Name Role Phone Pipe Anderson MD Primary Care Provider [phone] Jayce Tristan PharmD Unavailable Unavail able Faviola Richard PharmD Unavailable [phone] Encounter Details Date Type Department Care Team ([facility] Contact Info) Description 05/14/2023 Abstract [facility] MED & PEDS [address] [place], [place] [id number] Pipe Anderson MD [address] [place] [address] Social History Tobacco Use Types Packs/Day Years [...] on filedocumented in this encounter Care Teams Kids Activities Coach Relationship Specialty Start Date End Date Pipe Anderson MD [address] [place] [address] PCP - General Internal Medicine 04/14/21 Jayce Tristan, PharmD [address] [place] [address] Pharmacist Internal Medicine 11/13/22 01/07/25 Faviola Richard PharmD [address] [place] [address] Pharmacist Internal Medicine 01/05/25 06/03/25 Beltran Iglesias Industrial Spray PainterCredit Review Manager 04/21/24 Marcos Hanks Supercalender Operator HelperCredit Review Manager 07/06/24 documented as of this encounter
== END 2025-11-14 15:05 | disposition home or self-care (01) ==
LOC: HO.ENCR 14:37
PROVIDERS: PCP Internal Medicine; Visit Provider Registered Nurse Diabetes Educator
DX: E11.65 Type 2 diabetes mellitus with hyperglycemia (principal)

== ENCOUNTER → 2025-11-14 14:36 | Outpatient (BNVA) | payer OTHER, SELFPAY | PROVIDERS: PCP Internal Medicine; Visit Provider Registered Nurse Diabetes Educator | DX: E11.65 Type 2 diabetes mellitus with hyperglycemia (principal) | CPT/HCPCS: 99211 ==